=== PATIENT | female | born 1935 | race African-American/Black ===

== ENCOUNTER 2017-09-02 02:26 | Inpatient (IN) | payer OTHER ==
[~2017-09-02] VITALS: Ht 160 cm; Wt 90.9 kg
[2017-09-02] VITALS (9 sets, daily range): BP systolic 149–220; BP diastolic 70–105
[2017-09-02] MEDS ORDERED: LISINOPRIL-HCT1 EACH ORAL (02:41)
[2017-09-02] MEDS ORDERED: METFORMIN HCL500 M1 ORAL (02:41)
[2017-09-02] MEDS ORDERED: ASPIRIN EC81 MG ORAL (02:41)
[2017-09-02] MEDS ORDERED: Albuterol/Ipratropium 3ml neb HHN ONE (03:00)
--- NOTE | 2017-09-02 03:05 | Emergency Room Report ---
History of Present Illness General Chief Complaint: Dyspnea/Respdistress Source: Patient, EMS Present Illness HPI Is an 81-year-old female with a history diabetes high blood pressure. To present with shortness of breath and coughing. Onset for last 2-3 days. Worse tonight. She woke up said that she can't breathe and called 911. Coughing is nonproductive in nature. Worse with exertion. No chest pain. No nausea no vomiting. Denies any other complaint. Allergies: Coded Allergies: No Known Allergies (Unverified , 09/02/17) Patient History Past Medical History: see triage record, old chart reviewed Past Surgical History: none Pertinent Family History: none Social History: Denies: smoking Now: No Immunizations: other Reviewed Nursing Documentation: PMH: Agreed, PSxH: Agreed Nursing Documentation-PMH Hx Hypertension: Yes Hx Diabetes: Yes Review of Systems Constitutional: Reports: fever, weakness Eye: Denies: eye pain, blurred vision ENT: Denies: ear pain, nose congestion, throat swelling Respiratory: Reports: cough, shortness of breath Cardiovascular: Denies: chest pain, palpitations Gastrointestinal: Denies: abdominal pain, diarrhea, nausea, vomiting Musculoskeletal: Denies: back pain, joint pain Skin: Denies: rash Neurological: Denies: headache, numbness Endocrine: Denies: increased thirst, increased urine Hematologic/Lymphatic: Denies: easy bruising All Other Systems: negative except mentioned in HPI Physical Exam Vital Signs Date Time Temp Pulse Resp B/P (MAP) Pulse Ox O2 Delivery O2 Flow Rate FiO2 09/02/17 02:35 98.1 115 22 193/105 97 Room Air vitals with high blood pressure and tachycardia Sp02 EP Interpretation: reviewed, normal General Appearance: well appearing, alert, mild distress, obese Head: normocephalic, atraumatic Eyes: bilateral eye PERRL, bilateral eye EOMI ENT: hearing grossly normal, normal pharynx Neck: full range of motion, supple, no meningismus Respiratory: chest non-tender, decreased breath sounds, rhonchi Cardiovascular #1: regular rate, rhythm, no murmur, tachycardia Gastrointestinal: normal bowel sounds, non tender, no mass, no organomegaly, no bruit, non-distended Musculoskeletal: back normal, normal range of motion, swelling - 1+ pitting edema Neurologic: alert, oriented x3 Psychiatric: mood/affect normal Skin: warm/dry Procedures Critical Care Time Critical Care Time Critical care is mandated in this patient who presented with respiratory distress secondary to CHF. Patient require my urgent intervention to attenuate the risks of metabolic collapse which may lead to cardiovascular collapse and . Critical care time is 35 minutes excluding any reportable procedure. Critical care time included evaluation, multiple reevaluation, looking at old charts, interpreting laboratory and diagnostic data, discussing case with patient and family and consultants, and charting. Medical Decision Making Diagnostic Impression: Primary Impression: Respiratory distress Additional Impressions: Acute exacerbation of CHF (congestive heart failure) Qualified Codes: I50.9 - Heart failure, unspecified Proteinuria Qualified Codes: R80.9 - Proteinuria, unspecified Hyperglycemia due to type 2 diabetes mellitus Qualified Codes: E11.65 - Type 2 diabetes mellitus with hyperglycemia ER Course Patient presents with respiratory distress secondary to new-onset CHF. Presented troponin is negative. We'll DC oh EKG and troponins. No evidence of pneumonia, dissection or tamponade. She felt better after nebulizer treatment. Initially I was concerned that she may have pneumonia and started on a sepsis workup. She received about 500 cc of IV fluid the fluid was stopped. Lasix given. She refused a [place]. Laboratory Tests Test 09/02/17 02:40 09/02/17 02:45 09/02/17 03:30 White Blood Count 11.5 K/UL (4.8-10.8) H Red Blood Count 4.87 M/UL (4.20-5.40) Hemoglobin 14.6 G/DL (12.0-16.0) Hematocrit 46.5 % (37.0-47.0) Mean Corpuscular Volume 96 FL (80-99) Mean Corpuscular Hemoglobin 30.1 PG (27.0-31.0) Mean Corpuscular Hemoglobin Concent 31.5 G/DL (32.0-36.0) L Red Cell Distribution Width 12.7 % (11.6-14.8) Platelet Count 186 K/UL (150-450) Mean Platelet Volume 8.4 FL (6.5-10.1) Neutrophils (%) (Auto) 67.5 % (45.0-75.0) Lymphocytes (%) (Auto) 22.7 % (20.0-45.0) Monocytes (%) (Auto) 7.7 % (1.0-10.0) Eosinophils (%) (Auto) 1.0 % (0.0-3.0) Basophils (%) (Auto) 1.0 % (0.0-2.0) Prothrombin Time 10.3 SEC (9.30-11.50) Prothromb Time International Ratio 1.0 (0.9-1.1) Activated Partial Thromboplast Time 23 SEC (23-33) Sodium Level 135 MMOL/L (136-145) L Potassium Level 4.0 MMOL/L (3.5-5.1) Chloride Level 103 MMOL/L (98-107) Carbon Dioxide Level 24 MMOL/L (21-32) Anion Gap 8 mmol/L (5-15) Blood Urea Nitrogen 14 mg/dL (7-18) Creatinine 1.0 MG/DL (0.55-1.30) Estimat Glomerular Filtration Rate mL/min (>60) Glucose Level 242 MG/DL (74-106) H Lactic Acid Level 1.90 mmol/L (0.66-2.22) Calcium Level 9.5 MG/DL (8.5-10.1) Total Bilirubin 0.5 MG/DL (0.2-1.0) Aspartate Amino Transf (AST/SGOT) 20 U/L (15-37) Alanine Aminotransferase (ALT/SGPT) 19 U/L (12-78) Alkaline Phosphatase 107 U/L (46-116) Total Creatine Kinase 65 U/L (26-308) Creatine Kinase MB 3.1 NG/ML (0.0-3.6) Creatine Kinase MB Relative Index 4.7 Troponin I 0.015 ng/mL (0.000-0.056) Total Protein 8.0 G/DL (6.4-8.2) Albumin 3.5 G/DL (3.4-5.0) Globulin 4.5 g/dL Albumin/Globulin Ratio 0.8 (1.0-2.7) L Urine Color Pale yellow Urine Appearance Cloudy Urine pH 8 (4.5-8.0) Urine Specific [place] 1.010 (1.005-1.035) Urine Protein 1+ (NEGATIVE) H Urine Glucose (UA) 3+ (NEGATIVE) H Urine Ketones Negative (NEGATIVE) Urine Occult Blood 2+ (NEGATIVE) H Urine Nitrite Negative (NEGATIVE) Urine Bilirubin Negative (NEGATIVE) Urine Urobilinogen Normal MG/DL (0.0-1.0) Urine Leukocyte Esterase 1+ (NEGATIVE) H Urine RBC Pending Urine WBC Pending Urine Squamous Epithelial Cells Pending Urine Bacteria Pending Pro-B-Type Natriuretic Peptide 851 pg/mL (0-125) H Lab Results Impression labs with elevated BNP EKG Diagnostic Results Rate: tachycardiac Rhythm: NSR ST Segments: other - LBBB Rhythm Strip Diag. Results Rhythm Strip Time: 03:08 EP Interpretation: yes Rate: 105 Rhythm: NSR, no PVC's, no ectopy Chest X-Ray Diagnostic Results Chest X-Ray Diagnostic Results : Chest X-Ray Ordered: Yes # of Views/Limited/Complete: 1 View Indication: Shortness of Breath EP Interpretation: Yes Interpretation: no consolidation, no effusion, no pneumothorax, other - Mild vascular congestion Impression: Other - Early CHF Electronically Signed by: Electronically signed by Ramiro Cooney MD Last Vital Signs Date Time Temp Pulse Resp B/P (MAP) Pulse Ox O2 Delivery O2 Flow Rate FiO2 09/02/17 02:35 98.1 115 22 193/105 97 Room Air Status: improved Disposition: ADMITTED INPATIENT Condition: Serious Referrals: [facility],REFERRING (PCP) RAMIRO COONEY M.D. Sep 02, 2017 03:05
[2017-09-02 03:17] LABS: LYMPHOCYTES % (AUTO) 22.7 % (20.0-45.0); MEAN CORPUSCULAR HEMOGLOBIN 30.1 PG (27.0-31.0); MEAN CORPUSCULAR HGB CONC 31.5 G/DL (32.0-36.0); MEAN CORPUSCULAR VOLUME 96 FL (80-99); MEAN PLATELET VOLUME 8.4 FL (6.5-10.1); MONOCYTES % (AUTO) 7.7 % (1.0-10.0); NEUTROPHILS % (AUTO) 67.5 % (45.0-75.0); PLATELET COUNT 186 K/UL (150-450); RED BLOOD COUNT 4.87 M/UL (4.20-5.40); RED CELL DISTRIBUTION WIDTH 12.7 % (11.6-14.8); WHITE BLOOD COUNT 11.5 K/UL (4.8-10.8)
[2017-09-02 03:30] LABS: ANION GAP 8 mmol/L (5-15); CALCIUM 9.5 MG/DL (8.5-10.1); CARBON DIOXIDE 24 MMOL/L (21-32); CHLORIDE 103 MMOL/L (98-107); SODIUM 135 MMOL/L (136-145)
[2017-09-02 03:31] LABS: PROTHROMBIN TIME 10.3 SEC (9.30-11.50)
[2017-09-02 03:44] LABS: ALANINE AMINOTRANSFERASE 19 U/L (12-78); ALBUMIN/GLOBULIN RATIO 0.8 (1.0-2.7); ASPARTATE AMINO TRANSFERASE 20 U/L (15-37); CKMB 3.1 NG/ML (0.0-3.6)
[2017-09-02 03:53] LABS: APPEARANCE,URINE CLOUDY; KETONES,URINE NEGATIVE (NEGATIVE); LEUKOCYTE ESTERASE ,URINE 1+ (NEGATIVE); NITRITE,URINE NEGATIVE (NEGATIVE); PH,URINE 8 (4.5-8.0); PROTEIN,URINE 1+ (NEGATIVE); UROBILINOGEN,URINE NORMAL MG/DL (0.0-1.0)
[2017-09-02] MEDS ORDERED: Miralax 17gm pkt ORAL PRN (06:00)
[2017-09-02] MEDS ORDERED: Heparin 5000 units/ml inj SUBQ SCH ×2 (06:00→09:00)
[2017-09-02] MEDS ORDERED: Albuterol/Ipratropium 3ml neb HHN PRN (06:00)
[2017-09-02 06:03] LABS: AMORPHOUS SEDIMENT,UR MODERATE /LPF; BACTERIA,URINE MANY /HPF; SQUAMOUS EPITHELIAL CELL,UR FEW /LPF (NONE/OCC)
[2017-09-02] MEDS: NovoLOG Insulin Flexpen SUBQ SCH ×4 (06:30→21:51)
[2017-09-02] MEDS ORDERED: metFORMIN 500mg tab ORAL SCH (09:00)
[2017-09-02] MEDS: Aspirin EC 81mg tab ORAL SCH (09:24)
[2017-09-02 10:02] LABS: EOSINOPHILS % (AUTO) 0.6 % (0.0-3.0); LYMPHOCYTES % (AUTO) 15.4 % (20.0-45.0); MEAN CORPUSCULAR HEMOGLOBIN 29.9 PG (27.0-31.0); MEAN CORPUSCULAR HGB CONC 31.1 G/DL (32.0-36.0); MEAN CORPUSCULAR VOLUME 96 FL (80-99); MEAN PLATELET VOLUME 8.6 FL (6.5-10.1); PLATELET COUNT 185 K/UL (150-450); RED BLOOD COUNT 5.13 M/UL (4.20-5.40); RED CELL DISTRIBUTION WIDTH 12.6 % (11.6-14.8); WHITE BLOOD COUNT 9.3 K/UL (4.8-10.8)
[2017-09-02 10:21] LABS: ALANINE AMINOTRANSFERASE 18 U/L (12-78); ALBUMIN/GLOBULIN RATIO 0.8 (1.0-2.7); ANION GAP 10 mmol/L (5-15); ASPARTATE AMINO TRANSFERASE 20 U/L (15-37); CALCIUM 9.6 MG/DL (8.5-10.1); CARBON DIOXIDE 26 MMOL/L (21-32); CHLORIDE 101 MMOL/L (98-107); MAGNESIUM 1.9 MG/DL (1.8-2.4); POTASSIUM 3.6 MMOL/L (3.5-5.1); SODIUM 137 MMOL/L (136-145); TOTAL PROTEIN 8.6 G/DL (6.4-8.2)
--- NOTE | 2017-09-02 10:46 | Diagnostic Imaging Report ---
Indication: Dyspnea Comparison: None A single view chest radiograph was obtained. Findings: There is evidence of mild interstitial edema with reticular densities and slightly prominent vascularity and heart size. The bones are osteopenic. No pleural effusions are appreciated. Impression: Interstitial edema suspected
[2017-09-02] MEDS ORDERED: Tylenol #3 tab (300mg/30mg) ORAL PRN ×2 (11:00→11:15)
[2017-09-02] MEDS ORDERED: Norco 5mg/325mg tab ORAL PRN (11:00)
[2017-09-02] MEDS ORDERED: Ketorolac 60mg Inj IV PRN ×2 (11:00→11:30)
[2017-09-02] MEDS ORDERED: Tylenol #3 tab (300mg/30mg) PO PRN (11:00)
[2017-09-02] MEDS ORDERED: Morphine Sulfate 4mg/ml Inj IVP PRN (11:00)
--- NOTE | 2017-09-02 11:02 | Consultation ---
History of Present Illness General Date patient seen: Sep 02, 2017 Chief Complaint: Dyspnea/Respdistress Reason for Consultation: dyspnea Present Illness HPI 81-year-old female with a history of diabetes high blood pressure, presented to ER with CC of shortness of breath and coughing yellow phlegm for last 2-3 days. She woke up said that she can't breathe. No chest pain. No nausea no vomiting. Denies any other complaint. She was diagnosed with CHF and admitted to telemetry for further evaluation. Allergies: Coded Allergies: No Known Allergies (Unverified , 09/02/17) Medication History Scheduled Aspirin Ec* (Aspirin Ec*), 81 MG ORAL DAILY, (Reported) Lisinopril/Hydrochlorothiazide 10-12.5 Mg Tab (Lisinopril-Hctz 10-12.5 Mg Tab), 1 TAB ORAL DAILY, (Reported) Metformin Hcl* (Metformin Hcl*), 500 MG ORAL DAILY, (Reported) Patient History Healthcare decision maker Resuscitation status Advanced Directive on File Past Medical/Surgical History Past Medical/Surgical History: (1) Hypertension (2) Diabetes mellitus Review of Systems All Other Systems: negative except mentioned in HPI Physical Exam General Appearance: WD/WN Lines, tubes and drains: peripheral HEENT: normocephalic, atraumatic Neck: non-tender, normal alignment Respiratory/Chest: chest wall non-tender, lungs clear Breasts: no masses Cardiovascular/Chest: normal peripheral pulses Abdomen: normal bowel sounds, non tender Extremities: normal range of motion Last 24 Hour Vital Signs Date Time Temp Pulse Resp B/P (MAP) Pulse Ox O2 Delivery O2 Flow Rate FiO2 09/02/17 08:00 97.5 99 20 181/83 98 Room Air 09/02/17 06:28 98.2 99 20 165/87 96 Room Air 09/02/17 06:05 98.1 104 18 169/74 97 Room Air 97 09/02/17 05:53 98.1 104 18 169/74 97 Room Air 09/02/17 04:44 98.1 108 20 169/70 98 Room Air 09/02/17 03:44 98.1 104 18 220/84 98 Room Air 09/02/17 03:14 105 20 100 Room Air 09/02/17 03:01 111 20 Room Air 09/02/17 03:00 111 20 Room Air 09/02/17 02:44 115 22 Room Air 97 09/02/17 02:44 98.1 115 22 193/105 97 Room Air 09/02/17 02:35 98.1 115 22 193/105 97 Room Air Laboratory Tests Test 09/02/17 02:40 09/02/17 02:45 09/02/17 03:30 09/02/17 09:30 White Blood Count 11.5 K/UL (4.8-10.8) H 9.3 K/UL (4.8-10.8) Red Blood Count 4.87 M/UL (4.20-5.40) 5.13 M/UL (4.20-5.40) Hemoglobin 14.6 G/DL (12.0-16.0) 15.3 G/DL (12.0-16.0) Hematocrit 46.5 % (37.0-47.0) 49.2 % (37.0-47.0) H Mean Corpuscular Volume 96 FL (80-99) 96 FL (80-99) Mean Corpuscular Hemoglobin 30.1 PG (27.0-31.0) 29.9 PG (27.0-31.0) Mean Corpuscular Hemoglobin Concent 31.5 G/DL (32.0-36.0) L 31.1 G/DL (32.0-36.0) L Red Cell Distribution Width 12.7 % (11.6-14.8) 12.6 % (11.6-14.8) Platelet Count 186 K/UL (150-450) 185 K/UL (150-450) Mean Platelet Volume 8.4 FL (6.5-10.1) 8.6 FL (6.5-10.1) Neutrophils (%) (Auto) 67.5 % (45.0-75.0) 75.0 % (45.0-75.0) Lymphocytes (%) (Auto) 22.7 % (20.0-45.0) 15.4 % (20.0-45.0) L Monocytes (%) (Auto) 7.7 % (1.0-10.0) 8.0 % (1.0-10.0) Eosinophils (%) (Auto) 1.0 % (0.0-3.0) 0.6 % (0.0-3.0) Basophils (%) (Auto) 1.0 % (0.0-2.0) 1.0 % (0.0-2.0) Prothrombin Time 10.3 SEC (9.30-11.50) Prothromb Time International Ratio 1.0 (0.9-1.1) Activated Partial Thromboplast Time 23 SEC (23-33) Sodium Level 135 MMOL/L (136-145) L 137 MMOL/L (136-145) Potassium Level 4.0 MMOL/L (3.5-5.1) 3.6 MMOL/L (3.5-5.1) Chloride Level 103 MMOL/L (98-107) 101 MMOL/L (98-107) Carbon Dioxide Level 24 MMOL/L (21-32) 26 MMOL/L (21-32) Anion Gap 8 mmol/L (5-15) 10 mmol/L (5-15) Blood Urea Nitrogen 14 mg/dL (7-18) 15 mg/dL (7-18) Creatinine 1.0 MG/DL (0.55-1.30) 1.0 MG/DL (0.55-1.30) Estimat Glomerular Filtration Rate mL/min (>60) mL/min (>60) Glucose Level 242 MG/DL (74-106) H 210 MG/DL (74-106) H Lactic Acid Level 1.90 mmol/L (0.66-2.22) Calcium Level 9.5 MG/DL (8.5-10.1) 9.6 MG/DL (8.5-10.1) Total Bilirubin 0.5 MG/DL (0.2-1.0) 0.5 MG/DL (0.2-1.0) Aspartate Amino Transf (AST/SGOT) 20 U/L (15-37) 20 U/L (15-37) Alanine Aminotransferase (ALT/SGPT) 19 U/L (12-78) 18 U/L (12-78) Alkaline Phosphatase 107 U/L (46-116) 121 U/L (46-116) H Total Creatine Kinase 65 U/L (26-308) Creatine Kinase MB 3.1 NG/ML (0.0-3.6) Creatine Kinase MB Relative Index 4.7 Troponin I 0.015 ng/mL (0.000-0.056) 0.021 ng/mL (0.000-0.056) Total Protein 8.0 G/DL (6.4-8.2) 8.6 G/DL (6.4-8.2) H Albumin 3.5 G/DL (3.4-5.0) 3.8 G/DL (3.4-5.0) Globulin 4.5 g/dL 4.8 g/dL Albumin/Globulin Ratio 0.8 (1.0-2.7) L 0.8 (1.0-2.7) L Urine Color Pale yellow Urine Appearance Cloudy Urine pH 8 (4.5-8.0) Urine Specific [place] 1.010 (1.005-1.035) Urine Protein 1+ (NEGATIVE) H Urine Glucose (UA) 3+ (NEGATIVE) H Urine Ketones Negative (NEGATIVE) Urine Occult Blood 2+ (NEGATIVE) H Urine Nitrite Negative (NEGATIVE) Urine Bilirubin Negative (NEGATIVE) Urine Urobilinogen Normal MG/DL (0.0-1.0) Urine Leukocyte Esterase 1+ (NEGATIVE) H Urine RBC 5-10 /HPF (0 - 2) H Urine WBC 2-4 /HPF (0 - 2) Urine Squamous Epithelial Cells Few /LPF (NONE/OCC) Urine Amorphous Sediment Moderate /LPF (NONE) H Urine Bacteria Many /HPF (NONE) H Pro-B-Type Natriuretic Peptide 851 pg/mL (0-125) H Magnesium Level 1.9 MG/DL (1.8-2.4) Height (Feet): 5 Height (Inches): 3.00 Weight (Pounds): 200 Medications Current Medications Medications (Trade) Dose Ordered Sig/[place] Route PRN Reason Start Time Stop Time Status Last Admin Dose Admin Acetaminophen (Tylenol) 650 mg Q4H PRN ORAL Fever 09/02/17 06:00 10/02/17 05:59 Acetaminophen (Tylenol) 650 mg Q6HR PRN ORAL Fever/Headache/Mild Pain 09/02/17 05:30 10/02/17 05:29 Acetaminophen/ Codeine Phosphate (Tylenol #3) 2 tab EVERY 8 HOURS PRN PO 4-6 09/02/17 11:00 09/09/17 10:59 UNV Acetaminophen/ Hydrocodone Bitart ([place] 5/325) 1 tab EVERY 6 HOURS PRN ORAL 4-6 09/02/17 11:00 09/09/17 10:59 UNV Albuterol/ Ipratropium (Albuterol/ Ipratropium) 3 ml EVERY 4 HOURS PRN HHN Shortness of Breath 09/02/17 06:00 09/07/17 05:59 Aspirin (Ecotrin) 81 mg DAILY ORAL 09/02/17 09:00 10/02/17 08:59 09/02/17 09:24 Ceftriaxone Sodium 1 gm/ Dextrose 55 ml @ 110 mls/hr Q24H IVPB 09/02/17 11:00 09/09/17 10:59 UNV Dextrose (Dextrose 50%) STAT PRN IV Hypoglycemia 09/02/17 05:30 10/02/17 05:29 Furosemide (Lasix) 40 mg EVERY 8 HOURS IV 09/02/17 06:00 10/02/17 05:59 09/02/17 07:50 Heparin Sodium (Porcine) (Heparin 5000 units/ml) 5,000 units EVERY 12 HOURS SUBQ 09/02/17 09:00 10/02/17 08:59 09/02/17 09:26 Insulin Aspart (NovoLOG) BEFORE MEALS AND HS SUBQ 09/02/17 06:30 10/02/17 06:29 Ketorolac Tromethamine (Toradol) 30 mg EVERY 6 HOURS PRN IV 7-10 09/02/17 11:00 09/07/17 10:59 UNV Morphine Sulfate (Morphine Sulfate) 4 mg EVERY 4 HOURS PRN IVP 7-10 09/02/17 11:00 09/09/17 10:59 UNV Ondansetron HCl (Zofran) 4 mg Q4HR PRN IVP Nausea & Vomiting 09/02/17 05:30 10/02/17 05:29 Ondansetron HCl (Zofran) 4 mg Q6H PRN IVP Nausea & Vomiting 09/02/17 06:00 10/02/17 05:59 Polyethylene Glycol (Miralax) 17 gm DAILYPRN PRN ORAL Constipation 09/02/17 06:00 10/02/17 05:59 Temazepam (Restoril) 15 mg HSPRN PRN ORAL Insomnia 09/02/17 06:00 09/09/17 05:59 Assessment/Plan Problem List: (1) Acute exacerbation of CHF (congestive heart failure) ICD Codes: I50.9 - Heart failure, unspecified SNOMED: 91313045, [id number] Qualifiers: Qualified Codes: I50.9 - Heart failure, unspecified (2) Acute DVT (deep venous thrombosis) ICD Codes: I82.409 - Acute embolism and thrombosis of unspecified deep veins of unspecified lower extremity SNOMED: 819248414685002 (3) Hyperglycemia due to type 2 diabetes mellitus ICD Codes: E11.65 - Type 2 diabetes mellitus with hyperglycemia SNOMED: 183511651817202, 01370444 Qualifiers: Qualified Codes: E11.65 - Type 2 diabetes mellitus with hyperglycemia (4) Diabetes mellitus ICD Codes: E11.9 - Type 2 diabetes mellitus without complications SNOMED: 18565940 (5) Hypertension ICD Codes: I10 - Essential (primary) hypertension SNOMED: 57857596 Assessment/Plan IV lasix echo IV heparin titrate cardiac meds sliding scale diabetic diet. 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
[2017-09-02] MEDS ORDERED: Heparin 25,000u/D5W 500ml 500 ML IV SCH (11:25)
--- NOTE | 2017-09-02 11:57 | Consultation ---
Consult Note Consult Note ID DIC # [id number] HEENA VALDEZ M.D. Sep 02, 2017 11:56
[2017-09-02] MEDS ORDERED: Azithromycin 500 MG in D5W 275 ML IV SCH (13:00)
[2017-09-02] MEDS: Heparin 25,000u/D5W 500ml 500 ML IV SCH ×2 (13:53→18:52)
[2017-09-02] MEDS: cefTRIAXone 1 GM in D5W 55 ML IVPB SCH (14:06)
--- NOTE | 2017-09-02 14:46 | History & Physical ---
History and Physical History & Physicial job [id number] Freddie Simon MD Sep 02, 2017 14:45
--- NOTE | 2017-09-02 17:14 | Cardiology Progress Note ---
Assessment/Plan Assessment/Plan [id number] dyspnea cough acute dvt chf acute lv systolci disfucntion htn poorly controlled dm phtn dierutics arb for chf (avoiding acei as recently started adn she is coughing) repeat cardiac enzyme may need ischemia evla if systolic dysfunction is confirmed at some point echo to be confirmed anticoagulation ? need pe work up ? Objective Last 24 Hour Vital Signs Date Time Temp Pulse Resp B/P (MAP) Pulse Ox O2 Delivery O2 Flow Rate FiO2 09/02/17 12:00 97.0 97 22 167/86 99 Room Air 09/02/17 11:55 100 20 Room Air 09/02/17 08:00 97.5 99 20 181/83 98 Room Air 09/02/17 06:28 98.2 99 20 165/87 96 Room Air 09/02/17 06:05 98.1 104 18 169/74 97 Room Air 97 09/02/17 05:53 98.1 104 18 169/74 97 Room Air 09/02/17 04:44 98.1 108 20 169/70 98 Room Air 09/02/17 03:44 98.1 104 18 220/84 98 Room Air 09/02/17 03:14 105 20 100 Room Air 09/02/17 03:01 111 20 Room Air 09/02/17 03:00 111 20 Room Air 09/02/17 02:44 115 22 Room Air 97 09/02/17 02:44 98.1 115 22 193/105 97 Room Air 09/02/17 02:35 98.1 115 22 193/105 97 Room Air Laboratory Tests Test 09/02/17 02:40 09/02/17 02:45 09/02/17 03:30 09/02/17 09:30 White Blood Count 11.5 K/UL (4.8-10.8) H 9.3 K/UL (4.8-10.8) Red Blood Count 4.87 M/UL (4.20-5.40) 5.13 M/UL (4.20-5.40) Hemoglobin 14.6 G/DL (12.0-16.0) 15.3 G/DL (12.0-16.0) Hematocrit 46.5 % (37.0-47.0) 49.2 % (37.0-47.0) H Mean Corpuscular Volume 96 FL (80-99) 96 FL (80-99) Mean Corpuscular Hemoglobin 30.1 PG (27.0-31.0) 29.9 PG (27.0-31.0) Mean Corpuscular Hemoglobin Concent 31.5 G/DL (32.0-36.0) L 31.1 G/DL (32.0-36.0) L Red Cell Distribution Width 12.7 % (11.6-14.8) 12.6 % (11.6-14.8) Platelet Count 186 K/UL (150-450) 185 K/UL (150-450) Mean Platelet Volume 8.4 FL (6.5-10.1) 8.6 FL (6.5-10.1) Neutrophils (%) (Auto) 67.5 % (45.0-75.0) 75.0 % (45.0-75.0) Lymphocytes (%) (Auto) 22.7 % (20.0-45.0) 15.4 % (20.0-45.0) L Monocytes (%) (Auto) 7.7 % (1.0-10.0) 8.0 % (1.0-10.0) Eosinophils (%) (Auto) 1.0 % (0.0-3.0) 0.6 % (0.0-3.0) Basophils (%) (Auto) 1.0 % (0.0-2.0) 1.0 % (0.0-2.0) Prothrombin Time 10.3 SEC (9.30-11.50) Prothromb Time International Ratio 1.0 (0.9-1.1) Activated Partial Thromboplast Time 23 SEC (23-33) Sodium Level 135 MMOL/L (136-145) L 137 MMOL/L (136-145) Potassium Level 4.0 MMOL/L (3.5-5.1) 3.6 MMOL/L (3.5-5.1) Chloride Level 103 MMOL/L (98-107) 101 MMOL/L (98-107) Carbon Dioxide Level 24 MMOL/L (21-32) 26 MMOL/L (21-32) Anion Gap 8 mmol/L (5-15) 10 mmol/L (5-15) Blood Urea Nitrogen 14 mg/dL (7-18) 15 mg/dL (7-18) Creatinine 1.0 MG/DL (0.55-1.30) 1.0 MG/DL (0.55-1.30) Estimat Glomerular Filtration Rate mL/min (>60) mL/min (>60) Glucose Level 242 MG/DL (74-106) H 210 MG/DL (74-106) H Lactic Acid Level 1.90 mmol/L (0.66-2.22) Calcium Level 9.5 MG/DL (8.5-10.1) 9.6 MG/DL (8.5-10.1) Total Bilirubin 0.5 MG/DL (0.2-1.0) 0.5 MG/DL (0.2-1.0) Aspartate Amino Transf (AST/SGOT) 20 U/L (15-37) 20 U/L (15-37) Alanine Aminotransferase (ALT/SGPT) 19 U/L (12-78) 18 U/L (12-78) Alkaline Phosphatase 107 U/L (46-116) 121 U/L (46-116) H Total Creatine Kinase 65 U/L (26-308) Creatine Kinase MB 3.1 NG/ML (0.0-3.6) Creatine Kinase MB Relative Index 4.7 Troponin I 0.015 ng/mL (0.000-0.056) 0.021 ng/mL (0.000-0.056) Total Protein 8.0 G/DL (6.4-8.2) 8.6 G/DL (6.4-8.2) H Albumin 3.5 G/DL (3.4-5.0) 3.8 G/DL (3.4-5.0) Globulin 4.5 g/dL 4.8 g/dL Albumin/Globulin Ratio 0.8 (1.0-2.7) L 0.8 (1.0-2.7) L Urine Color Pale yellow Urine Appearance Cloudy Urine pH 8 (4.5-8.0) Urine Specific [place] 1.010 (1.005-1.035) Urine Protein 1+ (NEGATIVE) H Urine Glucose (UA) 3+ (NEGATIVE) H Urine Ketones Negative (NEGATIVE) Urine Occult Blood 2+ (NEGATIVE) H Urine Nitrite Negative (NEGATIVE) Urine Bilirubin Negative (NEGATIVE) Urine Urobilinogen Normal MG/DL (0.0-1.0) Urine Leukocyte Esterase 1+ (NEGATIVE) H Urine RBC 5-10 /HPF (0 - 2) H Urine WBC 2-4 /HPF (0 - 2) Urine Squamous Epithelial Cells Few /LPF (NONE/OCC) Urine Amorphous Sediment Moderate /LPF (NONE) H Urine Bacteria Many /HPF (NONE) H Pro-B-Type Natriuretic Peptide 851 pg/mL (0-125) H Magnesium Level 1.9 MG/DL (1.8-2.4) KARLIE MONET Sep 02, 2017 17:14
[2017-09-02] MEDS: Lisinopril 20mg tab ORAL SCH (17:31)
[2017-09-02] MEDS ORDERED: Heparin 5000 units/ml inj IV ONE (19:00)
--- NOTE | 2017-09-02 22:30 | Consultation ---
DATE OF CONSULTATION: INFECTIOUS DISEASES CONSULTATION CONSULTING PHYSICIAN: Luis Carlos Dang M.D. REASON FOR CONSULTATION: Evaluation of the patient for pneumonia and antibiotic management. HISTORY OF PRESENT ILLNESS: The patient is an 81-year-old female, who was brought to the hospital due to shortness of breath. The patient has also been complaining of cough for one week and fever prior to admission. Infectious Diseases consultation has been requested for further evaluation of the patient's antibiotic management. PAST MEDICAL HISTORY: 1. Hypertension. 2. Diabetes. ALLERGIES: No known drug allergies. MEDICATIONS: Intravenous Rocephin. SOCIAL HISTORY: Significant for the patient is an ex-smoker, history of 40 years smoking. FAMILY HISTORY: Significant for flu-like symptoms in son. PHYSICAL EXAMINATION: VITAL SIGNS: Temperature 97.5, blood pressure 181/83, pulse 99, and respiratory rate 18. HEENT: No pale conjunctivae. No icterus. NECK: No lymphadenopathy. CHEST: Clear. HEART: S1 and S2. ABDOMEN: Soft and nontender. EXTREMITIES: No cyanosis. NEUROLOGIC: Awake and alert. LABORATORY AND DIAGNOSTIC DATA: White blood cell count is 11.5. Today, white blood cells 11.3, hemoglobin 15, and platelets 185,000. UA is unremarkable. BUN 15 and creatinine 0.1. Liver function tests are unremarkable. Alkaline phosphatase 121. Chest x-ray, interstitial edema. Doppler, official report is pending, however, according to nurse, the patient has DVT. ASSESSMENT: 1. Pneumonia. 2. History of fever prior to admission. 3. Rule out influenza. 4. Lower extremity deep venous thrombosis. PLAN: 1. We will continue the patient on Rocephin IV and Zithromax day #10/28. 2. Monitor CBC. 3. Monitor BMP. 4. Monitor cultures (blood, urine, and sputum). 5. Rapid influenza test. 6. Intravenous heparin as per primary doctor. 7. Based on the patient's clinical course and labs, we will do further recommendation. Thank you, Dr. Borrego, for allowing me to participate in the care of this patient. I will follow the patient with you during this hospitalization. Luis Carlos Dang M.D. DR: TIMO JOB#: [id number] CC:
[2017-09-03] VITALS: BP 123/58
--- NOTE | 2017-09-03 01:30 | History and Physical Report ---
DATE OF ADMISSION: 09/02/2017 CHIEF COMPLAINT: Shortness of breath. HISTORY OF PRESENT ILLNESS: This is an 81-year-old female with a past medical history significant for diabetes type 2, hypertension, morbid obesity, who was presented to the emergency room complaining about shortness of breath over the past several days, progressively worsening over past 24 hours. The patient shortly after initial evaluation in the emergency room was noted to be in pulmonary edema, confirmed on chest x-ray and subsequently the patient was admitted to the hospital with acute CHF exacerbation. The patient denies any chest pain. Denies any shortness of breath. Complained of pedal edema. Positive shortness breath. Positive orthopnea. Positive pedal edema. Denies any nausea or vomiting. Denies any fever, chills, or flu-like symptoms. Shortly after initial evaluation, the patient was admitted to telemetry for further evaluation and workup. PAST MEDICAL HISTORY AND PAST SURGICAL HISTORY: As above. 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 MEDICATION: At home significant for aspirin, lisinopril, hydrochlorothiazide, and metformin. However, the patient is noncompliant with medication. ALLERGIES: No known drug allergies. SOCIAL HISTORY: The patient has a far history of smoking in teenager in 20s. Denies any alcohol or substance abuse. Lives with the family. Very supportive son and granddaughter are at bedside. FAMILY HISTORY: Noncontributory. REVIEW OF SYSTEMS: Mostly as above. Denies any dysuria, frequency, or hematochezia. Denies any hemoptysis or hematochezia. Complained of pedal edema. Complained about the lower extremity pain. Denies any loss of consciousness. Denies any fall, double vision. PHYSICAL EXAMINATION: VITAL SIGNS: On admission, temperature of 98.1 degrees, pulse of 115, respiration 22, blood pressure 192/105, repeat one is 165/87. GENERAL: The patient is awake, responsive, in no acute distress. HEAD AND NECK: Pupils are equal and reactive to light. Extraocular movements are intact. Neck was supple. Positive JVD. LUNGS: Good bilateral air entry. Positive crackles on the bases. HEART: S1 and S2. Distant heart sounds. Normal gallop. ABDOMEN: Soft and nontender. Morbidly obese. Midline surgical scar was noted from prior surgery. EXTREMITIES: No cyanosis, clubbing. +2 edema bilateral lower extremities and positive calf tenderness. NEUROLOGIC: Cranial nerves II through XII are grossly intact. Motor is 5/5 in all extremities. RECTAL: Refused and deferred. GENITOURINARY: Refused and deferred. LABORATORY AND DIAGNOSTIC DATA: Laboratory on admission, WBC of 11.5, hemoglobin of 14, hematocrit 46, and platelet is 186,000. The patient's sodium 135, potassium 4.0, chloride 103, bicarbonate 24, BUN 14, creatinine 1.0, glucose is 242, calcium is 9.5. AST of 20, ALT of 19, alkaline phosphatase 107. Albumin is 3.5. PT of 10, INR 1.0, PTT of 23. Urinalysis, glucose is 3+, ketone is negative, nitrite is negative, +1 leukocytes, many bacteria, moderate amorphous sedimentation. Chest x-ray was noted to be interstitial edema. ASSESSMENT: 1. Acute congestive heart failure exacerbation. 2. Morbid obesity. 3. Hypertension, uncontrolled. 4. Diabetes type 2. 5. Acute lower extremity deep venous thrombosis. PLAN: Admit the patient to telemetry. We will follow up laboratory. IV Lasix. A 2D echo. Heparin drip. Discussed with the family member extensively at bedside. We will follow up with the laboratory in the morning. Code Status is Full Code. Freddie Simon M.D. DR: Rc JOB#: [id number] CC:
--- NOTE | 2017-09-03 02:45 | Consultation ---
DATE OF CONSULTATION: 09/02/2017 REFERRING PHYSICIAN: Jared Borrego M.D. REASON FOR REFERRAL: Shortness of breath. HISTORY OF PRESENT ILLNESS: This is an elderly female who is admitted to the hospital because of increasing shortness of breath. She has had leg swelling for some time now, several months. She has seen her primary care physician as recently as this Tuesday and indicates she started having increasing shortness of breath. Really, no chest pain or pressure, and presented to the emergency room at [facility]. She does have difficulty sleeping because of the shortness of breath. She is not able to ambulate much because of various problems and she does not have any orthopnea. She does not have any heart pounding or palpitations. She is not really ambulatory to a significant degree. She did have a fall last week. PAST MEDICAL HISTORY: Negative for diabetes. Positive for high blood pressure. Negative for hyperlipidemia. No history of heart attack. 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 No hepatitis or tuberculosis. No asthma or emphysema. No ulcers. No kidney problems, liver problems, thyroid problems, anemia, or arthritis known. The patient's medications as noted by the paramedics include aspirin, lisinopril as well as metformin. Animal Pathology Teacher run sheet indicated that the patient was found short of breath, coughing, and congested. She has had a cough for the past three days. Congestion has progressed to shortness of breath primarily at night. She was recently found to have a diagnosis of diabetes and hypertension, was put on lisinopril, but is yet to take it according to the paramedics. EKG was performed and was negative for an acute NM and the patient was transferred to the emergency room here at [facility]. MEDICATIONS: She is not allergic to any medications. SOCIAL HISTORY: She used to smoke, but quit that many years ago. No alcoholic beverages. She lives at home. REVIEW OF SYSTEMS: GASTROINTESTINAL: Negative. GENITOURINARY: Negative. PULMONARY: Positive for cough and congestion. CONSTITUTIONAL: She may have some fevers. Her sputum was yellow in color according to her son. NEUROLOGIC: Negative. PHYSICAL EXAMINATION: GENERAL: Shows to be elderly female, in no respiratory distress. NECK: Supple. No jugular venous distention. LUNGS: Really appear to be clear to auscultation and percussion. There are no crackles. No wheezes noted. CARDIAC: Regular rate and rhythm. No heaves. No thrills. No gallops noted. ABDOMEN: Soft and nontender. Positive bowel sounds. EXTREMITIES: There is edema of the lower extremities, more so on the right than on the left, but not a significant amount of edema. NEUROLOGICAL: She is awake, alert, and responsive. LABORATORY AND DIAGNOSTIC DATA: White count of 9.3 down from 11.5, hemoglobin 15.3, and platelet count of 185,000. Sodium is 137, potassium 3.6, chloride 101, bicarbonate 26, BUN 15, creatinine 1.3 and glucose of 110. Alkaline phosphatase is 121 measured, but . Two sets of cardiac enzymes are negative at 0.015 and 0.021 and her INR is 1.0 and PTT of 23. Urinalysis show 5 to 10 RBC and 2 to 4 WBCs. Chest x-ray performed in the emergency room is interpreted as showing interstitial edema. Venous duplex shows acute thrombus in the right superficial femoral and popliteal veins being noted. A preliminary echocardiogram that is available in the chart indicates an ejection fraction of 40%, global hypokinesis, moderate tricuspid regurgitation, and pulmonary systolic pressure of 63. ASSESSMENT AND PLAN: 1. Shortness of breath. 2. Deep venous thrombosis, acute. 3. Probable component of heart failure, cannot exclude pulmonary embolism. 4. Pulmonary hypertension. 5. Global hypokinesis. 6. Diabetes mellitus. 7. Hypertension. PLAN: Dr. Borrego, this patient was seen in cardiac consultation. The patient has significant elevated blood pressure. The chest x-ray is being read as congestive heart failure. Her examination is not in terms of congestive heart failure. She is on anticoagulation for deep venous thrombosis where it should be helping even with the diagnosis of pulmonary embolism. However, she should be continued on diuretics for the time being. Blood pressure medication should be added, although she has been started on MARIANO inhibitors, not sure whether the coughing that she has was related to MARIANO inhibitors or not, better combination may be ARBs in light of the fact that she continues to have a cough at this time. Amlodipine should be added if needed for blood pressure control. Serial enzymes and EKGs will be ordered, and other medications and/or possibly even a stress test to be ordered in the future if LV systolic dysfunction is confirmed. Vincenzo Tejeda M.D. DR: LISS JOB#: [id number] CC:
[2017-09-03] MEDS: Heparin 25,000u/D5W 500ml 500 ML IV SCH ×2 (03:20→20:34)
--- NOTE | 2017-09-03 03:30 | Consultation ---
DATE OF CONSULTATION: 09/02/2017 HEMATOLOGY/ONCOLOGY CONSULTATION CONSULTING PHYSICIAN: Jamal Coffman M.D. REQUESTING PHYSICIAN: Jared Borrego M.D. REASON FOR CONSULTATION: Evaluation of DVT. IDENTIFICATION DATA: Dear Dr. Borrego, The patient is a pleasant 81-year-old female with past medical history significant for hypertension and diabetes mellitus, at this time presents to the hospital with shortness of breath to the ER with cough and sputum for the last two to three days. She woke up and has been having difficulty breathing. No chest pain. No fevers. No chills. No nausea. She was diagnosed with CHF, admitted to the telemetry for further evaluation and treatment. Hematology service was consulted. The patient was diagnosed with DVT of right leg . PAST MEDICAL HISTORY: Hypertension and diabetes mellitus. PAST SURGICAL HISTORY: None noted. MEDICATIONS: Aspirin, lisinopril, hydrochlorothiazide, and metformin. REVIEW OF SYSTEMS: CONSTITUTIONAL: No fevers, chills, or night sweats. SKIN: No rashes, bumps, or itching. HEENT: No headache, hearing or vision changes. BREASTS: No lumps, pain, or discharge. PULMONARY: No cough, sputum, or shortness of breath. GASTROINTESTINAL: No nausea, vomiting, or diarrhea. GENITOURINARY: No dysuria, frequency, or urgency. MUSCULOSKELETAL: No joint swelling, muscle pain, or trauma. PHYSICAL EXAMINATION: GENERAL: No acute distress. VITAL SIGNS: Reviewed. PULMONARY: Decreased breath sounds. CARDIOVASCULAR: Regular rate. No S3 or S4. ABDOMEN: Soft, nontender, and nondistended. EXTREMITIES: A 1+ edema. LABORATORY DATA: WBC 9.3, hemoglobin 15.3, hematocrit 49, and platelet count 185,000. INR of 1. BUN of 15, creatinine 1. ASSESSMENT AND PLAN: 1. Anemia, secondary to chronic disease. Continue to closely monitor. 2. Deep venous thrombosis of the right lower extremity. We will begin the patient on heparin drip as well as Xarelto, continue for a total of three months. 3. Leukocytosis, likely secondary to reactive process. 4. Hypertension, currently better controlled on lisinopril. 5. Diabetes mellitus, on metformin. Continue to closely monitor. 6. Congestive heart failure, on IV Lasix. I appreciate the consultation. Jamal Coffman M.D. DR: Erlinda JOB#: [id number] CC:
[2017-09-03 04:00] VITALS: BP 120/60
[2017-09-03] MEDS: NovoLOG Insulin Flexpen SUBQ SCH ×4 (06:07→20:35)
--- NOTE | 2017-09-03 07:20 | Pulmonology Progress Note ---
Assessment/Plan Problems: (1) Acute exacerbation of CHF (congestive heart failure) (2) Acute DVT (deep venous thrombosis) (3) UTI (urinary tract infection) (4) Hypertension (5) Diabetes mellitus (6) Hyperglycemia due to type 2 diabetes mellitus Assessment/Plan heparin drip on abx for UTI echo noted, EF of 40% check cxr and bnp in am decrease frequency of lasix keep in teli b/o heparin drip Subjective ROS Limited/Unobtainable: No Constitutional: Reports: no symptoms HEENT: Repors: no symptoms Respiratory: Reports: no symptoms Allergies: Coded Allergies: No Known Allergies (Unverified , 09/02/17) Objective Last 24 Hour Vital Signs Date Time Temp Pulse Resp B/P (MAP) Pulse Ox O2 Delivery O2 Flow Rate FiO2 09/03/17 05:06 97.1 09/03/17 04:00 90 09/03/17 04:00 97.1 65 20 120/60 98 Room Air 09/03/17 00:00 89 09/03/17 00:00 97.0 93 20 123/58 96 Room Air 09/02/17 21:00 91 09/02/17 21:00 96.4 97 20 154/80 95 Room Air 09/02/17 18:37 97.0 09/02/17 17:31 167/86 09/02/17 16:00 103 09/02/17 16:00 97.5 108 20 149/80 97 Room Air 09/02/17 12:00 97.0 97 22 167/86 99 Room Air 09/02/17 12:00 104 09/02/17 11:55 100 20 Room Air 09/02/17 08:00 97.5 99 20 181/83 98 Room Air 09/02/17 08:00 108 General Appearance: WD/WN HEENT: normocephalic, atraumatic Respiratory/Chest: chest wall non-tender, lungs clear Breasts: no masses Cardiovascular: normal peripheral pulses Abdomen: soft, non tender Genitourinary: normal external genitalia Skin: no rash Microbiology Date/Time Source Procedure Growth Status 09/02/17 02:40 Blood Blood Culture - Preliminary NO GROWTH AFTER 24 HOURS Resulted 09/02/17 02:20 Blood Blood Culture - Preliminary NO GROWTH AFTER 24 HOURS Resulted Laboratory Tests 09/02/17 09:30: White Blood Count 9.3, Red Blood Count 5.13, Hemoglobin 15.3, Hematocrit 49.2H, Mean Corpuscular Volume 96, Mean Corpuscular Hemoglobin 29.9, Mean Corpuscular Hemoglobin Concent 31.1L, Red Cell Distribution Width 12.6, Platelet Count 185, Mean Platelet Volume 8.6, Neutrophils (%) (Auto) 75.0, Lymphocytes (%) (Auto) 15.4L, Monocytes (%) (Auto) 8.0, Eosinophils (%) (Auto) 0.6, Basophils (%) (Auto ) 1.0, Sodium Level 137, Potassium Level 3.6, Chloride Level 101, Carbon Dioxide Level 26, Anion Gap 10, Blood Urea Nitrogen 15, Creatinine 1.0, Estimat Glomerular Filtration Rate , Glucose Level 210H, Calcium Level 9.6, Magnesium Level 1.9, Total Bilirubin 0.5, Aspartate Amino Transf (AST/SGOT) 20, Alanine Aminotransferase (ALT/SGPT) 18, Alkaline Phosphatase 121H, Troponin I 0.021, Total Protein 8.6H, Albumin 3.8, Globulin 4.8, Albumin/Globulin Ratio 0.8L 09/02/17 17:55: Activated Partial Thromboplast Time 64H 09/03/17 00:40: Activated Partial Thromboplast Time > 150*H Current Medications Medications (Trade) Dose Ordered Sig/Obinna Route PRN Reason Start Time Stop Time Status Last Admin Dose Admin Acetaminophen (Tylenol) 650 mg Q4H PRN ORAL Fever 09/02/17 06:00 10/02/17 05:59 Acetaminophen (Tylenol) 650 mg Q6HR PRN ORAL Fever/Headache/Mild Pain 09/02/17 05:30 10/02/17 05:29 09/02/17 17:38 Acetaminophen/ Codeine Phosphate (Tylenol #3) 1 tab Q4H PRN ORAL Pain Scale (7-10) 09/02/17 11:15 09/09/17 10:59 Acetaminophen/ Codeine Phosphate (Tylenol #3) 2 tab EVERY 8 HOURS PRN PO 4-6 09/02/17 11:00 09/09/17 10:59 09/03/17 04:07 Acetaminophen/ Hydrocodone Bitart ([place] 5/325) 1 tab EVERY 6 HOURS PRN ORAL 4-6 09/02/17 11:00 09/09/17 10:59 Albuterol/ Ipratropium (Albuterol/ Ipratropium) 3 ml EVERY 4 HOURS PRN HHN Shortness of Breath 09/02/17 06:00 09/07/17 05:59 Amlodipine Besylate (Norvasc) 2.5 mg DAILY ORAL 09/03/17 09:00 10/03/17 08:59 Aspirin (Ecotrin) 81 mg DAILY ORAL 09/02/17 09:00 10/02/17 08:59 09/02/17 09:24 Azithromycin 500 mg/Dextrose 275 ml @ 275 mls/hr Q24HRS IV 09/02/17 13:00 09/08/17 13:59 09/02/17 15:59 Ceftriaxone Sodium 1 gm/ Dextrose 55 ml @ 110 mls/hr Q24H IVPB 09/02/17 12:00 09/09/17 11:59 09/02/17 14:06 Dextrose (Dextrose 50%) STAT PRN IV Hypoglycemia 09/02/17 05:30 10/02/17 05:29 Furosemide (Lasix) 40 mg EVERY 8 HOURS IV 09/02/17 06:00 10/02/17 05:59 09/03/17 06:02 Heparin Sodium/ Dextrose 500 ml @ 28.291 mls/ hr adjust per protocol IV 09/03/17 03:15 10/02/17 12:09 09/03/17 03:20 Insulin Aspart (NovoLOG) BEFORE MEALS AND HS SUBQ 09/02/17 06:30 10/02/17 06:29 09/03/17 06:07 Ketorolac Tromethamine (Toradol) 30 mg Q6H PRN IV pain 7-10 09/02/17 11:30 09/07/17 10:59 Lisinopril (Prinivil) 20 mg DAILY ORAL 09/02/17 18:00 10/02/17 17:59 09/02/17 17:31 Morphine Sulfate (Morphine Sulfate) 4 mg EVERY 4 HOURS PRN IVP 7-10 09/02/17 11:00 09/09/17 10:59 Ondansetron HCl (Zofran) 4 mg Q6H PRN IVP Nausea & Vomiting 09/02/17 06:00 10/02/17 05:59 Polyethylene Glycol (Miralax) 17 gm DAILYPRN PRN ORAL Constipation 09/02/17 06:00 10/02/17 05:59 Temazepam (Restoril) 15 mg HSPRN PRN ORAL Insomnia 09/02/17 06:00 09/09/17 05:59 PANFILO SOTO Sep 03, 2017 07:20
[2017-09-03 07:58] LABS: BASOPHILS % (AUTO) 0.7 % (0.0-2.0); EOSINOPHILS % (AUTO) 1.6 % (0.0-3.0); LYMPHOCYTES % (AUTO) 32.5 % (20.0-45.0); MEAN CORPUSCULAR HEMOGLOBIN 32.4 PG (27.0-31.0); MEAN CORPUSCULAR HGB CONC 34.3 G/DL (32.0-36.0); MEAN CORPUSCULAR VOLUME 94 FL (80-99); MEAN PLATELET VOLUME 9.1 FL (6.5-10.1); MONOCYTES % (AUTO) 7.9 % (1.0-10.0); NEUTROPHILS % (AUTO) 57.4 % (45.0-75.0); PLATELET COUNT 216 K/UL (150-450); RED BLOOD COUNT 4.44 M/UL (4.20-5.40); RED CELL DISTRIBUTION WIDTH 12.9 % (11.6-14.8); WHITE BLOOD COUNT 9.7 K/UL (4.8-10.8)
[2017-09-03 08:00] VITALS: BP 101/54
[2017-09-03 08:53] LABS: ALANINE AMINOTRANSFERASE 15 U/L (12-78); CHLORIDE 100 MMOL/L (98-107); POTASSIUM 3.3 MMOL/L (3.5-5.1)
[2017-09-03] MEDS: Lisinopril 20mg tab ORAL SCH (09:00)
[2017-09-03 09:05] LABS: ALBUMIN/GLOBULIN RATIO 0.7 (1.0-2.7); ANION GAP 14 mmol/L (5-15); ASPARTATE AMINO TRANSFERASE 24 U/L (15-37); CALCIUM 9.1 MG/DL (8.5-10.1); CARBON DIOXIDE 24 MMOL/L (21-32); CREATININE 1.7 MG/DL (0.55-1.30); SODIUM 137 MMOL/L (136-145); TOTAL PROTEIN 7.1 G/DL (6.4-8.2)
--- NOTE | 2017-09-03 09:49 | Infectious Diseases Prog Note ---
Assessment/Plan Assessment/Plan ASSESSMENT: 1. Pneumonia. 2. History of fever prior to admission. 3. Rule out influenza. 4. Lower extremity deep venous thrombosis. 5. Leukocytosis- resolved PLAN: 1. We will continue the patient on Rocephin IV and Zithromax (but switch to PO ) day #2/ -EKG to monitor qtc 2. Monitor CBC. 3. Monitor BMP. 4. Monitor cultures (blood, urine, and sputum). 5. Rapid influenza test. 6. Intravenous heparin as per primary doctor. 7. Based on the patient's clinical course and labs, we will do further recommendation. Thank you, Dr. Borrego, for allowing me to participate in the care of this patient. I will follow the patient with you during this hospitalization. Subjective Allergies: Coded Allergies: No Known Allergies (Unverified , 09/02/17) Subjective afebrile tmin 96.4 leukocytosis resolved Bcx NTD Objective Vital Signs Last 24 Hour Vital Signs Date Time Temp Pulse Resp B/P (MAP) Pulse Ox O2 Delivery O2 Flow Rate FiO2 09/03/17 08:00 97.6 79 21 101/54 98 Room Air 09/03/17 07:00 95 20 Room Air 09/03/17 05:06 97.1 09/03/17 04:00 90 09/03/17 04:00 97.1 65 20 120/60 98 Room Air 09/03/17 00:00 89 09/03/17 00:00 97.0 93 20 123/58 96 Room Air 09/02/17 21:00 91 09/02/17 21:00 96.4 97 20 154/80 95 Room Air 09/02/17 18:37 97.0 09/02/17 17:31 167/86 09/02/17 16:00 103 09/02/17 16:00 97.5 108 20 149/80 97 Room Air 09/02/17 12:00 97.0 97 22 167/86 99 Room Air 09/02/17 12:00 104 09/02/17 11:55 100 20 Room Air Height (Feet): 5 Height (Inches): 3.00 Weight (Pounds): 200 Objective HEENT: No pale conjunctivae. No icterus. NECK: No lymphadenopathy. CHEST: Clear. HEART: S1 and S2. ABDOMEN: Soft and nontender. EXTREMITIES: No cyanosis. NEUROLOGIC: Awake and alert. Microbiology Date/Time Source Procedure Growth Status 09/02/17 02:40 Blood Blood Culture - Preliminary NO GROWTH AFTER 24 HOURS Resulted 09/02/17 02:20 Blood Blood Culture - Preliminary NO GROWTH AFTER 24 HOURS Resulted Laboratory Tests Test 09/02/17 17:55 09/03/17 00:40 09/03/17 06:30 Activated Partial Thromboplast Time 64 SEC (23-33) H > 150 SEC (23-33) *H White Blood Count 9.7 K/UL (4.8-10.8) Red Blood Count 4.44 M/UL (4.20-5.40) Hemoglobin 14.4 G/DL (12.0-16.0) Hematocrit 42.0 % (37.0-47.0) Mean Corpuscular Volume 94 FL (80-99) Mean Corpuscular Hemoglobin 32.4 PG (27.0-31.0) H Mean Corpuscular Hemoglobin Concent 34.3 G/DL (32.0-36.0) Red Cell Distribution Width 12.9 % (11.6-14.8) Platelet Count 216 K/UL (150-450) Mean Platelet Volume 9.1 FL (6.5-10.1) Neutrophils (%) (Auto) 57.4 % (45.0-75.0) Lymphocytes (%) (Auto) 32.5 % (20.0-45.0) Monocytes (%) (Auto) 7.9 % (1.0-10.0) Eosinophils (%) (Auto) 1.6 % (0.0-3.0) Basophils (%) (Auto) 0.7 % (0.0-2.0) Sodium Level 137 MMOL/L (136-145) Potassium Level 3.3 MMOL/L (3.5-5.1) L Chloride Level 100 MMOL/L (98-107) Carbon Dioxide Level 24 MMOL/L (21-32) Anion Gap 14 mmol/L (5-15) Blood Urea Nitrogen 27 mg/dL (7-18) H Creatinine 1.7 MG/DL (0.55-1.30) #H Estimat Glomerular Filtration Rate mL/min (>60) Glucose Level 160 MG/DL (74-106) H Calcium Level 9.1 MG/DL (8.5-10.1) Total Bilirubin 0.4 MG/DL (0.2-1.0) Aspartate Amino Transf (AST/SGOT) 24 U/L (15-37) Alanine Aminotransferase (ALT/SGPT) 15 U/L (12-78) Alkaline Phosphatase 82 U/L (46-116) Troponin I 0.029 ng/mL (0.000-0.056) Pro-B-Type Natriuretic Peptide Pending Total Protein 7.1 G/DL (6.4-8.2) Albumin 3.0 G/DL (3.4-5.0) L Globulin 4.1 g/dL Albumin/Globulin Ratio 0.7 (1.0-2.7) L Current Medications Medications (Trade) Dose Ordered Sig/Obinna Route PRN Reason Start Time Stop Time Status Last Admin Dose Admin Acetaminophen (Tylenol) 650 mg Q4H PRN ORAL Fever 09/02/17 06:00 10/02/17 05:59 Acetaminophen (Tylenol) 650 mg Q6HR PRN ORAL Fever/Headache/Mild Pain 09/02/17 05:30 10/02/17 05:29 09/02/17 17:38 Acetaminophen/ Codeine Phosphate (Tylenol #3) 1 tab Q4H PRN ORAL Pain Scale (7-10) 09/02/17 11:15 09/09/17 10:59 Acetaminophen/ Codeine Phosphate (Tylenol #3) 2 tab EVERY 8 HOURS PRN PO 4-6 09/02/17 11:00 09/09/17 10:59 09/03/17 04:07 Acetaminophen/ Hydrocodone Bitart ([place] 5/325) 1 tab EVERY 6 HOURS PRN ORAL 4-6 09/02/17 11:00 09/09/17 10:59 Albuterol/ Ipratropium (Albuterol/ Ipratropium) 3 ml EVERY 4 HOURS PRN HHN Shortness of Breath 09/02/17 06:00 09/07/17 05:59 Amlodipine Besylate (Norvasc) 2.5 mg DAILY ORAL 09/03/17 09:00 10/03/17 08:59 Aspirin (Ecotrin) 81 mg DAILY ORAL 09/02/17 09:00 10/02/17 08:59 09/02/17 09:24 Azithromycin 500 mg/Dextrose 275 ml @ 275 mls/hr Q24HRS IV 09/02/17 13:00 09/08/17 13:59 09/02/17 15:59 Ceftriaxone Sodium 1 gm/ Dextrose 55 ml @ 110 mls/hr Q24H IVPB 09/02/17 12:00 09/09/17 11:59 09/02/17 14:06 Dextrose (Dextrose 50%) STAT PRN IV Hypoglycemia 09/02/17 05:30 10/02/17 05:29 Furosemide (Lasix) 40 mg EVERY 8 HOURS IV 09/02/17 06:00 10/02/17 05:59 09/03/17 06:02 Heparin Sodium/ Dextrose 500 ml @ 28.291 mls/ hr adjust per protocol IV 09/03/17 03:15 10/02/17 12:09 09/03/17 03:20 Insulin Aspart (NovoLOG) BEFORE MEALS AND HS SUBQ 09/02/17 06:30 10/02/17 06:29 09/03/17 06:07 Ketorolac Tromethamine (Toradol) 30 mg Q6H PRN IV pain 7-10 09/02/17 11:30 09/07/17 10:59 Lisinopril (Prinivil) 20 mg DAILY ORAL 09/02/17 18:00 10/02/17 17:59 09/02/17 17:31 Morphine Sulfate (Morphine Sulfate) 4 mg EVERY 4 HOURS PRN IVP 7-10 09/02/17 11:00 09/09/17 10:59 Ondansetron HCl (Zofran) 4 mg Q6H PRN IVP Nausea & Vomiting 09/02/17 06:00 10/02/17 05:59 Polyethylene Glycol (Miralax) 17 gm DAILYPRN PRN ORAL Constipation 09/02/17 06:00 10/02/17 05:59 Temazepam (Restoril) 15 mg HSPRN PRN ORAL Insomnia 09/02/17 06:00 09/09/17 05:59 Soledad Carvajal M.D. Sep 03, 2017 09:49
[2017-09-03] MEDS: Aspirin EC 81mg tab ORAL SCH (10:02)
--- NOTE | 2017-09-03 10:05 | Diagnostic Imaging Report ---
Indication: Shortness of breath Comparison: 09/02/2013 Findings: Single view of the chest shows normal cardiac size. Please see noted mild interstitial edema appears improved. Pulmonary vasculature is within normal limits. Lungs are clear. Bones are unremarkable. Impression: No definite acute chest disease. Previously noted mild interstitial edema appears improved.
[2017-09-03] MEDS: cefTRIAXone 1 GM in D5W 55 ML IVPB SCH (11:51)
[2017-09-03 12:00] VITALS: BP 118/54
--- NOTE | 2017-09-03 12:42 | Internal Med Progress Note ---
Subjective Date of Service: Sep 03, 2017 Physician Name Christoph Olivares Attending Physician Freddie Simon MD Current Medications Medications (Trade) Dose Ordered Sig/[place] Route PRN Reason Start Time Stop Time Status Last Admin Dose Admin Acetaminophen (Tylenol) 650 mg Q4H PRN ORAL Fever 09/02/17 06:00 10/02/17 05:59 Acetaminophen (Tylenol) 650 mg Q6HR PRN ORAL Fever/Headache/Mild Pain 09/02/17 05:30 10/02/17 05:29 09/02/17 17:38 Acetaminophen/ Codeine Phosphate (Tylenol #3) 1 tab Q4H PRN ORAL Pain Scale (7-10) 09/02/17 11:15 09/09/17 10:59 Acetaminophen/ Codeine Phosphate (Tylenol #3) 2 tab EVERY 8 HOURS PRN PO 4-6 09/02/17 11:00 09/09/17 10:59 09/03/17 04:07 Acetaminophen/ Hydrocodone Bitart ([place] 5/325) 1 tab EVERY 6 HOURS PRN ORAL 4-6 09/02/17 11:00 09/09/17 10:59 Albuterol/ Ipratropium (Albuterol/ Ipratropium) 3 ml EVERY 4 HOURS PRN HHN Shortness of Breath 09/02/17 06:00 09/07/17 05:59 Amlodipine Besylate (Norvasc) 2.5 mg DAILY ORAL 09/03/17 09:00 10/03/17 08:59 Aspirin (Ecotrin) 81 mg DAILY ORAL 09/02/17 09:00 10/02/17 08:59 09/03/17 10:02 Azithromycin (Zithromax) 500 mg DAILY ORAL 09/04/17 16:00 09/11/17 15:59 Ceftriaxone Sodium 1 gm/ Dextrose 55 ml @ 110 mls/hr Q24H IVPB 09/02/17 12:00 09/09/17 11:59 09/03/17 11:51 Dextrose (Dextrose 50%) STAT PRN IV Hypoglycemia 09/02/17 05:30 10/02/17 05:29 Furosemide (Lasix) 40 mg EVERY 8 HOURS IV 09/02/17 06:00 10/02/17 05:59 09/03/17 06:02 Heparin Sodium/ Dextrose 500 ml @ 28.291 mls/ hr adjust per protocol IV 09/03/17 03:15 10/02/17 12:09 09/03/17 03:20 Insulin Aspart (NovoLOG) BEFORE MEALS AND HS SUBQ 09/02/17 06:30 10/02/17 06:29 09/03/17 12:11 Ketorolac Tromethamine (Toradol) 30 mg Q6H PRN IV pain 7-10 09/02/17 11:30 09/07/17 10:59 Lisinopril (Prinivil) 20 mg DAILY ORAL 09/02/17 18:00 10/02/17 17:59 09/02/17 17:31 Morphine Sulfate (Morphine Sulfate) 4 mg EVERY 4 HOURS PRN IVP 7-10 09/02/17 11:00 09/09/17 10:59 Ondansetron HCl (Zofran) 4 mg Q6H PRN IVP Nausea & Vomiting 09/02/17 06:00 10/02/17 05:59 Polyethylene Glycol (Miralax) 17 gm DAILYPRN PRN ORAL Constipation 09/02/17 06:00 10/02/17 05:59 Temazepam (Restoril) 15 mg HSPRN PRN ORAL Insomnia 09/02/17 06:00 09/09/17 05:59 Allergies: Coded Allergies: No Known Allergies (Unverified , 09/02/17) ROS Limited/Unobtainable: No Constitutional: Reports: no symptoms HEENT: Reports: no symptoms Cardiovascular: Reports: no symptoms Respiratory: Reports: shortness of breath Gastrointestinal/Abdominal: Reports: no symptoms Genitourinary: Reports: no symptoms Neurologic/Psychiatric: Reports: no symptoms Subjective 81 YO F admitted with shortness of breath and congestive heart failure. Cover for Int Mak-Dr Simon Objective Last Vital Signs Date Time Temp Pulse Resp B/P (MAP) Pulse Ox O2 Delivery O2 Flow Rate FiO2 09/03/17 09:00 80 100/63 09/03/17 08:00 97.6 21 98 Room Air 09/02/17 06:05 97 General Appearance: WD/WN, obese EENT: PERRL/EOMI, normal ENT inspection Neck: non-tender, normal alignment, supple Cardiovascular: normal peripheral pulses, normal rate, regular rhythm, no gallop/murmur, no JVD Respiratory/Chest: chest wall non-tender, respiratory distress, crackles/rales , rhonchi - bilaterally, expiratory wheezing Abdomen: normal bowel sounds, non tender, soft, no organomegaly Extremities: normal range of motion Edema: mild edema 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, no motor/sensory deficits Skin: normal pigmentation, warm/dry Laboratory Tests Test 09/02/17 17:55 09/03/17 00:40 09/03/17 06:30 09/03/17 09:30 Activated Partial Thromboplast Time 64 SEC (23-33) H > 150 SEC (23-33) *H 88 SEC (23-33) H White Blood Count 9.7 K/UL (4.8-10.8) Red Blood Count 4.44 M/UL (4.20-5.40) Hemoglobin 14.4 G/DL (12.0-16.0) Hematocrit 42.0 % (37.0-47.0) Mean Corpuscular Volume 94 FL (80-99) Mean Corpuscular Hemoglobin 32.4 PG (27.0-31.0) H Mean Corpuscular Hemoglobin Concent 34.3 G/DL (32.0-36.0) Red Cell Distribution Width 12.9 % (11.6-14.8) Platelet Count 216 K/UL (150-450) Mean Platelet Volume 9.1 FL (6.5-10.1) Neutrophils (%) (Auto) 57.4 % (45.0-75.0) Lymphocytes (%) (Auto) 32.5 % (20.0-45.0) Monocytes (%) (Auto) 7.9 % (1.0-10.0) Eosinophils (%) (Auto) 1.6 % (0.0-3.0) Basophils (%) (Auto) 0.7 % (0.0-2.0) Sodium Level 137 MMOL/L (136-145) Potassium Level 3.3 MMOL/L (3.5-5.1) L Chloride Level 100 MMOL/L (98-107) Carbon Dioxide Level 24 MMOL/L (21-32) Anion Gap 14 mmol/L (5-15) Blood Urea Nitrogen 27 mg/dL (7-18) H Creatinine 1.7 MG/DL (0.55-1.30) #H Estimat Glomerular Filtration Rate mL/min (>60) Glucose Level 160 MG/DL (74-106) H Calcium Level 9.1 MG/DL (8.5-10.1) Total Bilirubin 0.4 MG/DL (0.2-1.0) Aspartate Amino Transf (AST/SGOT) 24 U/L (15-37) Alanine Aminotransferase (ALT/SGPT) 15 U/L (12-78) Alkaline Phosphatase 82 U/L (46-116) Troponin I 0.029 ng/mL (0.000-0.056) Pro-B-Type Natriuretic Peptide 991 pg/mL (0-125) H Total Protein 7.1 G/DL (6.4-8.2) Albumin 3.0 G/DL (3.4-5.0) L Globulin 4.1 g/dL Albumin/Globulin Ratio 0.7 (1.0-2.7) L Microbiology Date/Time Source Procedure Growth Status 09/02/17 02:40 Blood Blood Culture - Preliminary NO GROWTH AFTER 24 HOURS Resulted 09/02/17 02:20 Blood Blood Culture - Preliminary NO GROWTH AFTER 24 HOURS Resulted 09/02/17 02:45 Urine,Clean Catch Urine Culture - Preliminary Gram Negative Bacillus 1 Gram Negative Bacillus 2 Resulted Intake and Output 09/03/17 09/04/17 19:00 07:00 Intake Total 113.164 ml Balance 113.164 ml IV Total 113.164 ml Assessment/Plan Problem List: (1) Shortness of breath Assessment & Plan: Due to CHF (2) Diabetes mellitus, type II Assessment & Plan: Cont novolog sliding scale. (3) HTN (hypertension) Assessment & Plan: Continue norvasc and lisinopril (4) Acute DVT (deep venous thrombosis) Assessment & Plan: Continue heparin-see hematology note. (5) Acute exacerbation of CHF (congestive heart failure) Assessment & Plan: see cardiology note. Status: not improved CHRISTOPH OLIVARES Sep 03, 2017 12:42
--- NOTE | 2017-09-03 14:22 | Cardiology Progress Note ---
Assessment/Plan Problem List: (1) Diabetes mellitus (2) Hypertension (3) Acute exacerbation of CHF (congestive heart failure) (4) Acute DVT (deep venous thrombosis) (5) Shortness of breath (6) HTN (hypertension) Status: stable, progressing Status Narrative Mrs. Coley's dyspnea has improved. She has no chest pain and is ruling out for myocardial infarction with negative troponin levels. She has moderate LV dysfunction, w/ EF 40s and segmental wall motion abnormalities by ECHO. Assessment/Plan Continue lisinopril. Would decrease lasix as pt w/ pre renal azotemia. Followup labs, BNP. Ischemia evaluation - stress nuclear study. Subjective ROS Limited/Unobtainable: No Subjective Mrs. Coley reports improvement in dyspnea. No chest pain Objective Last 24 Hour Vital Signs Date Time Temp Pulse Resp B/P (MAP) Pulse Ox O2 Delivery O2 Flow Rate FiO2 09/03/17 12:00 76 09/03/17 09:00 80 100/63 09/03/17 08:00 77 09/03/17 08:00 97.6 79 21 101/54 98 Room Air 09/03/17 07:00 95 20 Room Air 09/03/17 05:06 97.1 09/03/17 04:00 90 09/03/17 04:00 97.1 65 20 120/60 98 Room Air 09/03/17 00:00 89 09/03/17 00:00 97.0 93 20 123/58 96 Room Air 09/02/17 21:00 91 09/02/17 21:00 96.4 97 20 154/80 95 Room Air 09/02/17 18:37 97.0 09/02/17 17:31 167/86 09/02/17 16:00 103 09/02/17 16:00 97.5 108 20 149/80 97 Room Air General Appearance: WD/WN, no apparent distress, obese EENT: PERRL/EOMI Neck: supple, no JVD Rhythm: NSR Cardiovascular: normal rate, regular rhythm, no gallop/murmur Respiratory/Chest: other - decreased BS bilat Abdomen: non tender, soft Extremities: no calf tenderness, no swelling Intake and Output 09/03/17 09/04/17 19:00 07:00 Intake Total 113.164 ml Balance 113.164 ml IV Total 113.164 ml Laboratory Tests Test 09/02/17 17:55 09/03/17 00:40 09/03/17 06:30 09/03/17 09:30 Activated Partial Thromboplast Time 64 SEC (23-33) H > 150 SEC (23-33) *H 88 SEC (23-33) H White Blood Count 9.7 K/UL (4.8-10.8) Red Blood Count 4.44 M/UL (4.20-5.40) Hemoglobin 14.4 G/DL (12.0-16.0) Hematocrit 42.0 % (37.0-47.0) Mean Corpuscular Volume 94 FL (80-99) Mean Corpuscular Hemoglobin 32.4 PG (27.0-31.0) H Mean Corpuscular Hemoglobin Concent 34.3 G/DL (32.0-36.0) Red Cell Distribution Width 12.9 % (11.6-14.8) Platelet Count 216 K/UL (150-450) Mean Platelet Volume 9.1 FL (6.5-10.1) Neutrophils (%) (Auto) 57.4 % (45.0-75.0) Lymphocytes (%) (Auto) 32.5 % (20.0-45.0) Monocytes (%) (Auto) 7.9 % (1.0-10.0) Eosinophils (%) (Auto) 1.6 % (0.0-3.0) Basophils (%) (Auto) 0.7 % (0.0-2.0) Sodium Level 137 MMOL/L (136-145) Potassium Level 3.3 MMOL/L (3.5-5.1) L Chloride Level 100 MMOL/L (98-107) Carbon Dioxide Level 24 MMOL/L (21-32) Anion Gap 14 mmol/L (5-15) Blood Urea Nitrogen 27 mg/dL (7-18) H Creatinine 1.7 MG/DL (0.55-1.30) #H Estimat Glomerular Filtration Rate mL/min (>60) Glucose Level 160 MG/DL (74-106) H Calcium Level 9.1 MG/DL (8.5-10.1) Total Bilirubin 0.4 MG/DL (0.2-1.0) Aspartate Amino Transf (AST/SGOT) 24 U/L (15-37) Alanine Aminotransferase (ALT/SGPT) 15 U/L (12-78) Alkaline Phosphatase 82 U/L (46-116) Troponin I 0.029 ng/mL (0.000-0.056) Pro-B-Type Natriuretic Peptide 991 pg/mL (0-125) H Total Protein 7.1 G/DL (6.4-8.2) Albumin 3.0 G/DL (3.4-5.0) L Globulin 4.1 g/dL Albumin/Globulin Ratio 0.7 (1.0-2.7) L Microbiology Date/Time Source Procedure Growth Status 09/02/17 02:40 Blood Blood Culture - Preliminary NO GROWTH AFTER 24 HOURS Resulted 09/02/17 02:20 Blood Blood Culture - Preliminary NO GROWTH AFTER 24 HOURS Resulted 09/02/17 02:45 Urine,Clean Catch Urine Culture - Preliminary Gram Negative Bacillus 1 Gram Negative Bacillus 2 Resulted YOSEPH FITZGERALD Sep 03, 2017 14:22
[2017-09-03 16:00] VITALS: BP 107/55
[2017-09-03 20:05] VITALS: BP 106/60
--- NOTE | 2017-09-03 22:37 | General Progress Note ---
Assessment/Plan Assessment/Plan ASSESSMENT AND PLAN: 1. Deep venous thrombosis of the right lower extremity. We will begin heparin drip as well as coumadin with an inr goal of 2-3/ 2. Hypertension, currently better controlled on lisinopril. 3. Diabetes mellitus, on metformin. Continue to Subjective ROS Limited/Unobtainable: Yes Allergies: Coded Allergies: No Known Allergies (Unverified , 09/02/17) Objective Last 24 Hour Vital Signs Date Time Temp Pulse Resp B/P (MAP) Pulse Ox O2 Delivery O2 Flow Rate FiO2 09/03/17 20:30 90 18 Room Air 09/03/17 20:05 97.0 82 20 106/60 97 Room Air 09/03/17 20:00 66 09/03/17 16:00 97.0 73 16 107/55 97 Room Air 09/03/17 16:00 69 09/03/17 12:00 76 09/03/17 12:00 97.0 85 18 118/54 96 Room Air 09/03/17 09:00 80 100/63 09/03/17 08:00 77 09/03/17 08:00 97.6 79 21 101/54 98 Room Air 09/03/17 07:00 95 20 Room Air 09/03/17 05:06 97.1 09/03/17 04:00 90 09/03/17 04:00 97.1 65 20 120/60 98 Room Air 09/03/17 00:00 89 09/03/17 00:00 97.0 93 20 123/58 96 Room Air Intake and Output 09/03/17 09/04/17 19:00 07:00 Intake Total 394.492 ml 84.873 ml Balance 394.492 ml 84.873 ml IV Total 394.492 ml 84.873 ml Laboratory Tests 09/03/17 00:40: Activated Partial Thromboplast Time > 150*H 09/03/17 06:30: White Blood Count 9.7, Red Blood Count 4.44, Hemoglobin 14.4, Hematocrit 42.0, Mean Corpuscular Volume 94, Mean Corpuscular Hemoglobin 32.4H, Mean Corpuscular Hemoglobin Concent 34.3, Red Cell Distribution Width 12.9, Platelet Count 216, Mean Platelet Volume 9.1, Neutrophils (%) (Auto) 57.4, Lymphocytes (%) (Auto) 32.5, Monocytes (%) (Auto) 7.9, Eosinophils (%) (Auto) 1.6, Basophils (%) (Auto ) 0.7, Sodium Level 137, Potassium Level 3.3L, Chloride Level 100, Carbon Dioxide Level 24, Anion Gap 14, Blood Urea Nitrogen 27H, Creatinine 1.7#H, Estimat Glomerular Filtration Rate , Glucose Level 160H, Calcium Level 9.1, Total Bilirubin 0.4, Aspartate Amino Transf (AST/SGOT) 24, Alanine Aminotransferase (ALT/SGPT) 15, Alkaline Phosphatase 82, Troponin I 0.029, Pro-B -Type Natriuretic Peptide 991H, Total Protein 7.1, Albumin 3.0L, Globulin 4.1, Albumin/Globulin Ratio 0.7L 09/03/17 09:30: Activated Partial Thromboplast Time 88H Height (Feet): 5 Height (Inches): 3.00 Weight (Pounds): 200 General Appearance: no apparent distress EENT: normal ENT inspection Edema: trace edema 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
[2017-09-04] VITALS: BP 148/66
[2017-09-04 04:12] VITALS: BP 127/72
[2017-09-04 05:05] LABS: BASOPHILS % (AUTO) 0.8 % (0.0-2.0); EOSINOPHILS % (AUTO) 1.9 % (0.0-3.0); LYMPHOCYTES % (AUTO) 29.5 % (20.0-45.0); MEAN CORPUSCULAR HEMOGLOBIN 32.1 PG (27.0-31.0); MEAN CORPUSCULAR HGB CONC 33.9 G/DL (32.0-36.0); MEAN CORPUSCULAR VOLUME 94 FL (80-99); MEAN PLATELET VOLUME 8.4 FL (6.5-10.1); MONOCYTES % (AUTO) 8.1 % (1.0-10.0); NEUTROPHILS % (AUTO) 59.7 % (45.0-75.0); PLATELET COUNT 225 K/UL (150-450); RED BLOOD COUNT 4.41 M/UL (4.20-5.40); RED CELL DISTRIBUTION WIDTH 12.6 % (11.6-14.8); WHITE BLOOD COUNT 9.8 K/UL (4.8-10.8)
[2017-09-04 05:32] LABS: ALANINE AMINOTRANSFERASE 24 U/L (12-78); ALBUMIN/GLOBULIN RATIO 0.7 (1.0-2.7); ANION GAP 11 mmol/L (5-15); ASPARTATE AMINO TRANSFERASE 29 U/L (15-37); CALCIUM 8.8 MG/DL (8.5-10.1); CARBON DIOXIDE 23 MMOL/L (21-32); CHLORIDE 98 MMOL/L (98-107); CREATININE 1.8 MG/DL (0.55-1.30); POTASSIUM 3.7 MMOL/L (3.5-5.1); SODIUM 132 MMOL/L (136-145)
[2017-09-04] MEDS: Heparin 25,000u/D5W 500ml 500 ML IV SCH ×2 (06:18→18:10)
[2017-09-04] MEDS: NovoLOG Insulin Flexpen SUBQ SCH ×4 (06:45→22:13)
[2017-09-04 08:23] VITALS: BP 117/59
[2017-09-04] MEDS: Lisinopril 20mg tab ORAL SCH (08:26)
[2017-09-04] MEDS: Aspirin EC 81mg tab ORAL SCH ×2 (08:26→08:36)
--- NOTE | 2017-09-04 10:08 | Pulmonology Progress Note ---
Assessment/Plan Problems: (1) Acute exacerbation of CHF (congestive heart failure) (2) Acute DVT (deep venous thrombosis) (3) UTI (urinary tract infection) (4) Hypertension (5) Diabetes mellitus (6) Hyperglycemia due to type 2 diabetes mellitus Assessment/Plan bun/creatinine rising, Hold lasix cxr in am heparin drip on abx for UTI echo noted, EF of 40% keep in teli b/o heparin drip Subjective ROS Limited/Unobtainable: No Interval Events: ONE episode of Nausea Allergies: Coded Allergies: No Known Allergies (Unverified , 09/02/17) Objective Last 24 Hour Vital Signs Date Time Temp Pulse Resp B/P (MAP) Pulse Ox O2 Delivery O2 Flow Rate FiO2 09/04/17 08:26 82 117/59 09/04/17 08:26 117/59 09/04/17 08:23 96.8 82 20 117/59 96 Room Air 09/04/17 07:40 81 16 Room Air 09/04/17 04:12 97.0 87 20 127/72 98 Room Air 09/04/17 04:00 82 09/04/17 00:00 82 09/04/17 00:00 97.3 79 20 148/66 100 Room Air 09/03/17 20:30 90 18 Room Air 09/03/17 20:05 97.0 82 20 106/60 97 Room Air 09/03/17 20:00 66 09/03/17 16:00 97.0 73 16 107/55 97 Room Air 09/03/17 16:00 69 09/03/17 12:00 76 09/03/17 12:00 97.0 85 18 118/54 96 Room Air General Appearance: WD/WN HEENT: normocephalic, atraumatic Respiratory/Chest: chest wall non-tender, lungs clear Breasts: no masses Cardiovascular: normal peripheral pulses, normal rate Abdomen: normal bowel sounds, soft, non tender, non distended, no scars Extremities: no clubbing Skin: no lesions 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 Lymphatic: no neck adenopathy Musculoskeletal: normal muscle bulk Microbiology Date/Time Source Procedure Growth Status 09/02/17 02:40 Blood Blood Culture - Preliminary NO GROWTH AFTER 48 HOURS Resulted 09/02/17 02:20 Blood Blood Culture - Preliminary NO GROWTH AFTER 48 HOURS Resulted 09/02/17 02:45 Urine,Clean Catch Urine Culture - Final Escherichia Coli Klebsiella Oxytoca Complete Laboratory Tests 09/04/17 04:15: White Blood Count 9.8, Red Blood Count 4.41, Hemoglobin 14.2, Hematocrit 41.7, Mean Corpuscular Volume 94, Mean Corpuscular Hemoglobin 32.1H, Mean Corpuscular Hemoglobin Concent 33.9, Red Cell Distribution Width 12.6, Platelet Count 225, Mean Platelet Volume 8.4, Neutrophils (%) (Auto) 59.7, Lymphocytes (%) (Auto) 29.5, Monocytes (%) (Auto) 8.1, Eosinophils (%) (Auto) 1.9, Basophils (%) (Auto ) 0.8, Activated Partial Thromboplast Time 100H, Sodium Level 132L, Potassium Level 3.7, Chloride Level 98, Carbon Dioxide Level 23, Anion Gap 11, Blood Urea Nitrogen 39H, Creatinine 1.8H, Estimat Glomerular Filtration Rate , Glucose Level 159H, Calcium Level 8.8, Total Bilirubin 0.4, Aspartate Amino Transf (AST/ SGOT) 29, Alanine Aminotransferase (ALT/SGPT) 24, Alkaline Phosphatase 77, Troponin I 0.018, Pro-B-Type Natriuretic Peptide 159H, Total Protein 7.0, Albumin 2.9L, Globulin 4.1, Albumin/Globulin Ratio 0.7L Current Medications Medications (Trade) Dose Ordered Sig/[place] Route PRN Reason Start Time Stop Time Status Last Admin Dose Admin Acetaminophen (Tylenol) 650 mg Q4H PRN ORAL Fever 09/02/17 06:00 10/02/17 05:59 Acetaminophen (Tylenol) 650 mg Q6HR PRN ORAL Fever/Headache/Mild Pain 09/02/17 05:30 10/02/17 05:29 09/02/17 17:38 Acetaminophen/ Codeine Phosphate (Tylenol #3) 1 tab Q4H PRN ORAL Pain Scale (7-10) 09/02/17 11:15 09/09/17 10:59 Acetaminophen/ Codeine Phosphate (Tylenol #3) 2 tab EVERY 8 HOURS PRN PO 4-6 09/02/17 11:00 09/09/17 10:59 09/03/17 04:07 Acetaminophen/ Hydrocodone Bitart ([place] 5/325) 1 tab EVERY 6 HOURS PRN ORAL 4-6 09/02/17 11:00 09/09/17 10:59 Albuterol/ Ipratropium (Albuterol/ Ipratropium) 3 ml EVERY 4 HOURS PRN HHN Shortness of Breath 09/02/17 06:00 09/07/17 05:59 Amlodipine Besylate (Norvasc) 2.5 mg DAILY ORAL 09/03/17 09:00 10/03/17 08:59 09/04/17 08:26 Aspirin (Ecotrin) 81 mg DAILY ORAL 09/02/17 09:00 10/02/17 08:59 09/03/17 10:02 Azithromycin (Zithromax) 500 mg DAILY ORAL 09/04/17 16:00 09/11/17 15:59 Ceftriaxone Sodium 1 gm/ Dextrose 55 ml @ 110 mls/hr Q24H IVPB 09/02/17 12:00 09/09/17 11:59 09/03/17 11:51 Dextrose (Dextrose 50%) STAT PRN IV Hypoglycemia 09/02/17 05:30 10/02/17 05:29 Furosemide (Lasix) 40 mg DAILY IV 09/04/17 09:00 10/02/17 05:59 09/04/17 08:28 Heparin Sodium/ Dextrose 500 ml @ 24.755 mls/ hr adjust per protocol IV 09/04/17 06:00 10/04/17 05:59 09/04/17 06:18 Insulin Aspart (NovoLOG) BEFORE MEALS AND HS SUBQ 09/02/17 06:30 10/02/17 06:29 09/04/17 06:45 Ketorolac Tromethamine (Toradol) 30 mg Q6H PRN IV pain 7-10 09/02/17 11:30 09/07/17 10:59 Lisinopril (Prinivil) 20 mg DAILY ORAL 09/02/17 18:00 10/02/17 17:59 09/04/17 08:26 Morphine Sulfate (Morphine Sulfate) 4 mg EVERY 4 HOURS PRN IVP 7-10 09/02/17 11:00 09/09/17 10:59 Ondansetron HCl (Zofran) 4 mg Q6H PRN IVP Nausea & Vomiting 09/02/17 06:00 10/02/17 05:59 09/04/17 06:31 Pantoprazole (Protonix) 40 mg DAILY ORAL 09/03/17 13:45 10/03/17 13:44 09/04/17 08:26 Polyethylene Glycol (Miralax) 17 gm DAILYPRN PRN ORAL Constipation 09/02/17 06:00 10/02/17 05:59 Temazepam (Restoril) 15 mg HSPRN PRN ORAL Insomnia 09/02/17 06:00 09/09/17 05:59 Warfarin Sodium (Coumadin per pharmacy) 1 ea DAILY PRN MISC Per rx protocol 09/03/17 22:45 10/03/17 22:44 Warfarin Sodium (Coumadin) 5 mg COUMADIN ONCE ORAL 09/04/17 17:00 09/04/17 17:01 PANFILO SOTO Sep 04, 2017 10:08
--- NOTE | 2017-09-04 10:57 | Diagnostic Imaging Report ---
Indication: Shortness of breath Comparison: 09/03/2017 Findings: Single view the chest shows no significant change from prior exam. Cardiac size is normal. Pulmonary vasculature normal. Lungs are clear. Impression: No definite acute chest disease. No significant change from prior exam one day earlier.
--- NOTE | 2017-09-04 11:44 | Infectious Diseases Prog Note ---
Assessment/Plan Assessment/Plan A; UTI Bronchitis DVT of right leg DM type II Systolic CHF P: Continue Rocephin & Zithroma Subjective ROS Limited/Unobtainable: No Respiratory: Reports: dry cough Gastrointestinal/Abdominal: Reports: nausea, vomiting Musculoskeletal: Reports: pain, other - in right leg Allergies: Coded Allergies: No Known Allergies (Unverified , 09/02/17) Objective Vital Signs Last 24 Hour Vital Signs Date Time Temp Pulse Resp B/P (MAP) Pulse Ox O2 Delivery O2 Flow Rate FiO2 09/04/17 08:26 82 117/59 09/04/17 08:26 117/59 09/04/17 08:23 96.8 82 20 117/59 96 Room Air 09/04/17 08:00 86 09/04/17 07:40 81 16 Room Air 09/04/17 04:12 97.0 87 20 127/72 98 Room Air 09/04/17 04:00 82 09/04/17 00:00 82 09/04/17 00:00 97.3 79 20 148/66 100 Room Air 09/03/17 20:30 90 18 Room Air 09/03/17 20:05 97.0 82 20 106/60 97 Room Air 09/03/17 20:00 66 09/03/17 16:00 97.0 73 16 107/55 97 Room Air 09/03/17 16:00 69 09/03/17 12:00 76 09/03/17 12:00 97.0 85 18 118/54 96 Room Air Height (Feet): 5 Height (Inches): 3.00 Weight (Pounds): 204 General Appearance: no acute distress HEENT: mucous membranes moist Respiratory/Chest: lungs clear Cardiovascular: normal rate Abdomen: soft, non tender Extremities: other - mild edema, tenderness in right leg Microbiology Date/Time Source Procedure Growth Status 09/02/17 02:40 Blood Blood Culture - Preliminary NO GROWTH AFTER 48 HOURS Resulted 09/02/17 02:20 Blood Blood Culture - Preliminary NO GROWTH AFTER 48 HOURS Resulted 09/02/17 02:45 Urine,Clean Catch Urine Culture - Final Escherichia Coli Klebsiella Oxytoca Complete Laboratory Tests Test 09/04/17 04:15 White Blood Count 9.8 K/UL (4.8-10.8) Red Blood Count 4.41 M/UL (4.20-5.40) Hemoglobin 14.2 G/DL (12.0-16.0) Hematocrit 41.7 % (37.0-47.0) Mean Corpuscular Volume 94 FL (80-99) Mean Corpuscular Hemoglobin 32.1 PG (27.0-31.0) H Mean Corpuscular Hemoglobin Concent 33.9 G/DL (32.0-36.0) Red Cell Distribution Width 12.6 % (11.6-14.8) Platelet Count 225 K/UL (150-450) Mean Platelet Volume 8.4 FL (6.5-10.1) Neutrophils (%) (Auto) 59.7 % (45.0-75.0) Lymphocytes (%) (Auto) 29.5 % (20.0-45.0) Monocytes (%) (Auto) 8.1 % (1.0-10.0) Eosinophils (%) (Auto) 1.9 % (0.0-3.0) Basophils (%) (Auto) 0.8 % (0.0-2.0) Activated Partial Thromboplast Time 100 SEC (23-33) H Sodium Level 132 MMOL/L (136-145) L Potassium Level 3.7 MMOL/L (3.5-5.1) Chloride Level 98 MMOL/L (98-107) Carbon Dioxide Level 23 MMOL/L (21-32) Anion Gap 11 mmol/L (5-15) Blood Urea Nitrogen 39 mg/dL (7-18) H Creatinine 1.8 MG/DL (0.55-1.30) H Estimat Glomerular Filtration Rate mL/min (>60) Glucose Level 159 MG/DL (74-106) H Calcium Level 8.8 MG/DL (8.5-10.1) Total Bilirubin 0.4 MG/DL (0.2-1.0) Aspartate Amino Transf (AST/SGOT) 29 U/L (15-37) Alanine Aminotransferase (ALT/SGPT) 24 U/L (12-78) Alkaline Phosphatase 77 U/L (46-116) Troponin I 0.018 ng/mL (0.000-0.056) Pro-B-Type Natriuretic Peptide 159 pg/mL (0-125) H Total Protein 7.0 G/DL (6.4-8.2) Albumin 2.9 G/DL (3.4-5.0) L Globulin 4.1 g/dL Albumin/Globulin Ratio 0.7 (1.0-2.7) L Current Medications Medications (Trade) Dose Ordered Sig/[place] Route PRN Reason Start Time Stop Time Status Last Admin Dose Admin Acetaminophen (Tylenol) 650 mg Q4H PRN ORAL Fever 09/02/17 06:00 10/02/17 05:59 Acetaminophen (Tylenol) 650 mg Q6HR PRN ORAL Fever/Headache/Mild Pain 09/02/17 05:30 10/02/17 05:29 09/02/17 17:38 Acetaminophen/ Codeine Phosphate (Tylenol #3) 1 tab Q4H PRN ORAL Pain Scale (7-10) 09/02/17 11:15 09/09/17 10:59 Acetaminophen/ Codeine Phosphate (Tylenol #3) 2 tab EVERY 8 HOURS PRN PO 4-6 09/02/17 11:00 09/09/17 10:59 09/03/17 04:07 Acetaminophen/ Hydrocodone Bitart ([place] 5/325) 1 tab EVERY 6 HOURS PRN ORAL 4-6 09/02/17 11:00 09/09/17 10:59 Albuterol/ Ipratropium (Albuterol/ Ipratropium) 3 ml EVERY 4 HOURS PRN HHN Shortness of Breath 09/02/17 06:00 09/07/17 05:59 Amlodipine Besylate (Norvasc) 2.5 mg DAILY ORAL 09/03/17 09:00 10/03/17 08:59 09/04/17 08:26 Aspirin (Ecotrin) 81 mg DAILY ORAL 09/02/17 09:00 10/02/17 08:59 09/03/17 10:02 Azithromycin (Zithromax) 500 mg DAILY ORAL 09/04/17 16:00 09/11/17 15:59 Ceftriaxone Sodium 1 gm/ Dextrose 55 ml @ 110 mls/hr Q24H IVPB 09/02/17 12:00 09/09/17 11:59 09/03/17 11:51 Dextrose (Dextrose 50%) STAT PRN IV Hypoglycemia 09/02/17 05:30 10/02/17 05:29 Heparin Sodium/ Dextrose 500 ml @ 24.755 mls/ hr adjust per protocol IV 09/04/17 06:00 10/04/17 05:59 09/04/17 06:18 Insulin Aspart (NovoLOG) BEFORE MEALS AND HS SUBQ 09/02/17 06:30 10/02/17 06:29 09/04/17 06:45 Ketorolac Tromethamine (Toradol) 30 mg Q6H PRN IV pain 7-10 09/02/17 11:30 09/07/17 10:59 Lisinopril (Prinivil) 20 mg DAILY ORAL 09/02/17 18:00 10/02/17 17:59 09/04/17 08:26 Morphine Sulfate (Morphine Sulfate) 4 mg EVERY 4 HOURS PRN IVP 7-10 09/02/17 11:00 09/09/17 10:59 Ondansetron HCl (Zofran) 4 mg Q6H PRN IVP Nausea & Vomiting 09/02/17 06:00 10/02/17 05:59 09/04/17 06:31 Pantoprazole (Protonix) 40 mg DAILY ORAL 09/03/17 13:45 10/03/17 13:44 09/04/17 08:26 Polyethylene Glycol (Miralax) 17 gm DAILYPRN PRN ORAL Constipation 09/02/17 06:00 10/02/17 05:59 Temazepam (Restoril) 15 mg HSPRN PRN ORAL Insomnia 09/02/17 06:00 09/09/17 05:59 Warfarin Sodium (Coumadin per pharmacy) 1 ea DAILY PRN MISC Per rx protocol 09/03/17 22:45 10/03/17 22:44 Warfarin Sodium (Coumadin) 5 mg COUMADIN ONCE ORAL 09/04/17 17:00 09/04/17 17:01 FELICIA JACKSON Sep 04, 2017 11:44
[2017-09-04 12:00] VITALS: BP 123/61
[2017-09-04] MEDS: cefTRIAXone 1 GM in D5W 55 ML IVPB SCH (12:01)
--- NOTE | 2017-09-04 12:54 | Internal Med Progress Note ---
Subjective Date of Service: Sep 04, 2017 Physician Name Christoph Olivares Attending Physician Freddie Simon MD Current Medications Medications (Trade) Dose Ordered Sig/Obinna Route PRN Reason Start Time Stop Time Status Last Admin Dose Admin Acetaminophen (Tylenol) 650 mg Q4H PRN ORAL Fever 09/02/17 06:00 10/02/17 05:59 Acetaminophen (Tylenol) 650 mg Q6HR PRN ORAL Fever/Headache/Mild Pain 09/02/17 05:30 10/02/17 05:29 09/02/17 17:38 Acetaminophen/ Codeine Phosphate (Tylenol #3) 1 tab Q4H PRN ORAL Pain Scale (7-10) 09/02/17 11:15 09/09/17 10:59 Acetaminophen/ Codeine Phosphate (Tylenol #3) 2 tab EVERY 8 HOURS PRN PO 4-6 09/02/17 11:00 09/09/17 10:59 09/03/17 04:07 Acetaminophen/ Hydrocodone Bitart ([place] 5/325) 1 tab EVERY 6 HOURS PRN ORAL 4-6 09/02/17 11:00 09/09/17 10:59 Albuterol/ Ipratropium (Albuterol/ Ipratropium) 3 ml EVERY 4 HOURS PRN HHN Shortness of Breath 09/02/17 06:00 09/07/17 05:59 Amlodipine Besylate (Norvasc) 2.5 mg DAILY ORAL 09/03/17 09:00 10/03/17 08:59 09/04/17 08:26 Aspirin (Ecotrin) 81 mg DAILY ORAL 09/02/17 09:00 10/02/17 08:59 09/03/17 10:02 Azithromycin (Zithromax) 500 mg DAILY ORAL 09/04/17 16:00 09/11/17 15:59 Ceftriaxone Sodium 1 gm/ Dextrose 55 ml @ 110 mls/hr Q24H IVPB 09/02/17 12:00 09/09/17 11:59 09/04/17 12:01 Dextrose (Dextrose 50%) STAT PRN IV Hypoglycemia 09/02/17 05:30 10/02/17 05:29 Heparin Sodium/ Dextrose 500 ml @ 24.755 mls/ hr adjust per protocol IV 09/04/17 06:00 10/04/17 05:59 09/04/17 06:18 Insulin Aspart (NovoLOG) BEFORE MEALS AND HS SUBQ 09/02/17 06:30 10/02/17 06:29 09/04/17 06:45 Ketorolac Tromethamine (Toradol) 30 mg Q6H PRN IV pain 7-10 09/02/17 11:30 09/07/17 10:59 Lisinopril (Prinivil) 20 mg DAILY ORAL 09/02/17 18:00 10/02/17 17:59 09/04/17 08:26 Morphine Sulfate (Morphine Sulfate) 4 mg EVERY 4 HOURS PRN IVP 7-10 09/02/17 11:00 09/09/17 10:59 Ondansetron HCl (Zofran) 4 mg Q6H PRN IVP Nausea & Vomiting 09/02/17 06:00 10/02/17 05:59 09/04/17 06:31 Pantoprazole (Protonix) 40 mg DAILY ORAL 09/03/17 13:45 10/03/17 13:44 09/04/17 08:26 Polyethylene Glycol (Miralax) 17 gm DAILYPRN PRN ORAL Constipation 09/02/17 06:00 10/02/17 05:59 Temazepam (Restoril) 15 mg HSPRN PRN ORAL Insomnia 09/02/17 06:00 09/09/17 05:59 Warfarin Sodium (Coumadin per pharmacy) 1 ea DAILY PRN MISC Per rx protocol 09/03/17 22:45 10/03/17 22:44 Warfarin Sodium (Coumadin) 5 mg COUMADIN ONCE ORAL 09/04/17 17:00 09/04/17 17:01 Allergies: Coded Allergies: No Known Allergies (Unverified , 09/02/17) ROS Limited/Unobtainable: No Constitutional: Reports: no symptoms HEENT: Reports: no symptoms Cardiovascular: Reports: no symptoms Respiratory: Reports: shortness of breath Gastrointestinal/Abdominal: Reports: no symptoms Genitourinary: Reports: no symptoms Neurologic/Psychiatric: Reports: no symptoms Subjective 81 YO F admitted with shortness of breath and congestive heart failure. Improving shortness of breath. Cover for Int Sweetie Simon Objective Last Vital Signs Date Time Temp Pulse Resp B/P (MAP) Pulse Ox O2 Delivery O2 Flow Rate FiO2 09/04/17 12:00 84 09/04/17 08:26 117/59 09/04/17 08:23 96.8 20 96 Room Air 09/02/17 06:05 97 Laboratory Tests Test 09/04/17 04:15 White Blood Count 9.8 K/UL (4.8-10.8) Red Blood Count 4.41 M/UL (4.20-5.40) Hemoglobin 14.2 G/DL (12.0-16.0) Hematocrit 41.7 % (37.0-47.0) Mean Corpuscular Volume 94 FL (80-99) Mean Corpuscular Hemoglobin 32.1 PG (27.0-31.0) H Mean Corpuscular Hemoglobin Concent 33.9 G/DL (32.0-36.0) Red Cell Distribution Width 12.6 % (11.6-14.8) Platelet Count 225 K/UL (150-450) Mean Platelet Volume 8.4 FL (6.5-10.1) Neutrophils (%) (Auto) 59.7 % (45.0-75.0) Lymphocytes (%) (Auto) 29.5 % (20.0-45.0) Monocytes (%) (Auto) 8.1 % (1.0-10.0) Eosinophils (%) (Auto) 1.9 % (0.0-3.0) Basophils (%) (Auto) 0.8 % (0.0-2.0) Activated Partial Thromboplast Time 100 SEC (23-33) H Sodium Level 132 MMOL/L (136-145) L Potassium Level 3.7 MMOL/L (3.5-5.1) Chloride Level 98 MMOL/L (98-107) Carbon Dioxide Level 23 MMOL/L (21-32) Anion Gap 11 mmol/L (5-15) Blood Urea Nitrogen 39 mg/dL (7-18) H Creatinine 1.8 MG/DL (0.55-1.30) H Estimat Glomerular Filtration Rate mL/min (>60) Glucose Level 159 MG/DL (74-106) H Calcium Level 8.8 MG/DL (8.5-10.1) Total Bilirubin 0.4 MG/DL (0.2-1.0) Aspartate Amino Transf (AST/SGOT) 29 U/L (15-37) Alanine Aminotransferase (ALT/SGPT) 24 U/L (12-78) Alkaline Phosphatase 77 U/L (46-116) Troponin I 0.018 ng/mL (0.000-0.056) Pro-B-Type Natriuretic Peptide 159 pg/mL (0-125) H Total Protein 7.0 G/DL (6.4-8.2) Albumin 2.9 G/DL (3.4-5.0) L Globulin 4.1 g/dL Albumin/Globulin Ratio 0.7 (1.0-2.7) L Microbiology Date/Time Source Procedure Growth Status 09/02/17 02:40 Blood Blood Culture - Preliminary NO GROWTH AFTER 48 HOURS Resulted 09/02/17 02:20 Blood Blood Culture - Preliminary NO GROWTH AFTER 48 HOURS Resulted 09/02/17 02:45 Urine,Clean Catch Urine Culture - Final Escherichia Coli Klebsiella Oxytoca Complete Intake and Output 09/04/17 09/05/17 19:00 07:00 Intake Total 69.316 ml Balance 69.316 ml IV Total 69.316 ml Objective General Appearance: WD/WN, obese EENT: PERRL/EOMI, normal ENT inspection Neck: non-tender, normal alignment, supple Cardiovascular: normal peripheral pulses, normal rate, regular rhythm, no gallop/murmur, no JVD Respiratory/Chest: chest wall non-tender, respiratory distress, crackles/rales , rhonchi - bilaterally, expiratory wheezing Abdomen: normal bowel sounds, non tender, soft, no organomegaly Extremities: normal range of motion Edema: mild edema 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 (3) HTN (hypertension) Assessment & Plan: Continue norvasc and lisinopril (4) Acute DVT (deep venous thrombosis) Assessment & Plan: Continue heparin-see hematology note. (5) Acute exacerbation of CHF (congestive heart failure) Assessment & Plan: EF = 40% - see cardiology note. Status: progressing OLIVARESCHRISTOPH Escamilla Sep 04, 2017 12:54
--- NOTE | 2017-09-04 14:15 | Cardiology Progress Note ---
Assessment/Plan Problem List: (1) Diabetes mellitus (2) Hypertension (3) Acute exacerbation of CHF (congestive heart failure) (4) Acute DVT (deep venous thrombosis) (5) Shortness of breath (6) HTN (hypertension) (7) UTI (urinary tract infection) Status: stable, progressing Status Narrative Mrs. Coley's dyspnea has improved. She has no chest pain and is ruling out for myocardial infarction with negative troponin levels. She has moderate LV dysfunction, w/ EF 40s and segmental wall motion abnormalities by ECHO. She has R LE DVT, and is on heparin. She has n/v and lower abd discomfort today, and urine cx + for E coli and Klebsiella Assessment/Plan Continue lisinopril. Hold diuretics , as pt pre-renal. Ischemia evaluation - stress nuclear study - will be scheduled. continue iv heparin and start warfarin for DVT. Treatment of UTI as per Dr. Borrego Subjective ROS Limited/Unobtainable: No Subjective Mrs. Coley has no c/o dyspnea or CP. She c/o lower abdominal pain, n/v overnight. Objective Last 24 Hour Vital Signs Date Time Temp Pulse Resp B/P (MAP) Pulse Ox O2 Delivery O2 Flow Rate FiO2 09/04/17 12:00 84 09/04/17 12:00 97.7 85 20 123/61 98 Room Air 09/04/17 08:26 82 117/59 09/04/17 08:26 117/59 09/04/17 08:23 96.8 82 20 117/59 96 Room Air 09/04/17 08:00 86 09/04/17 07:40 81 16 Room Air 09/04/17 04:12 97.0 87 20 127/72 98 Room Air 09/04/17 04:00 82 09/04/17 00:00 82 09/04/17 00:00 97.3 79 20 148/66 100 Room Air 09/03/17 20:30 90 18 Room Air 09/03/17 20:05 97.0 82 20 106/60 97 Room Air 09/03/17 20:00 66 09/03/17 16:00 97.0 73 16 107/55 97 Room Air 09/03/17 16:00 69 General Appearance: WD/WN, no apparent distress, obese EENT: PERRL/EOMI Neck: supple, no JVD Rhythm: NSR Cardiovascular: normal rate, regular rhythm, no gallop/murmur Respiratory/Chest: lungs clear Abdomen: normal bowel sounds, non tender, soft Extremities: no swelling Intake and Output 09/04/17 09/05/17 19:00 07:00 Intake Total 213.974 ml Balance 213.974 ml IV Total 213.974 ml Laboratory Tests Test 09/04/17 04:15 09/04/17 12:45 White Blood Count 9.8 K/UL (4.8-10.8) Red Blood Count 4.41 M/UL (4.20-5.40) Hemoglobin 14.2 G/DL (12.0-16.0) Hematocrit 41.7 % (37.0-47.0) Mean Corpuscular Volume 94 FL (80-99) Mean Corpuscular Hemoglobin 32.1 PG (27.0-31.0) H Mean Corpuscular Hemoglobin Concent 33.9 G/DL (32.0-36.0) Red Cell Distribution Width 12.6 % (11.6-14.8) Platelet Count 225 K/UL (150-450) Mean Platelet Volume 8.4 FL (6.5-10.1) Neutrophils (%) (Auto) 59.7 % (45.0-75.0) Lymphocytes (%) (Auto) 29.5 % (20.0-45.0) Monocytes (%) (Auto) 8.1 % (1.0-10.0) Eosinophils (%) (Auto) 1.9 % (0.0-3.0) Basophils (%) (Auto) 0.8 % (0.0-2.0) Activated Partial Thromboplast Time 100 SEC (23-33) H 86 SEC (23-33) H Sodium Level 132 MMOL/L (136-145) L Potassium Level 3.7 MMOL/L (3.5-5.1) Chloride Level 98 MMOL/L (98-107) Carbon Dioxide Level 23 MMOL/L (21-32) Anion Gap 11 mmol/L (5-15) Blood Urea Nitrogen 39 mg/dL (7-18) H Creatinine 1.8 MG/DL (0.55-1.30) H Estimat Glomerular Filtration Rate mL/min (>60) Glucose Level 159 MG/DL (74-106) H Calcium Level 8.8 MG/DL (8.5-10.1) Total Bilirubin 0.4 MG/DL (0.2-1.0) Aspartate Amino Transf (AST/SGOT) 29 U/L (15-37) Alanine Aminotransferase (ALT/SGPT) 24 U/L (12-78) Alkaline Phosphatase 77 U/L (46-116) Troponin I 0.018 ng/mL (0.000-0.056) Pro-B-Type Natriuretic Peptide 159 pg/mL (0-125) H Total Protein 7.0 G/DL (6.4-8.2) Albumin 2.9 G/DL (3.4-5.0) L Globulin 4.1 g/dL Albumin/Globulin Ratio 0.7 (1.0-2.7) L Microbiology Date/Time Source Procedure Growth Status 09/02/17 02:40 Blood Blood Culture - Preliminary NO GROWTH AFTER 48 HOURS Resulted 09/02/17 02:20 Blood Blood Culture - Preliminary NO GROWTH AFTER 48 HOURS Resulted 09/02/17 02:45 Urine,Clean Catch Urine Culture - Final Escherichia Coli Klebsiella Oxytoca Complete YOSEPH FITZGERALD Sep 04, 2017 14:15
[2017-09-04] MEDS ORDERED: Tubing IV Secondary IV ONE (15:52)
[2017-09-04 16:00] VITALS: BP 118/55
[2017-09-04] MEDS ORDERED: Warfarin Sodium 5mg ORAL ONE (17:00)
[2017-09-04] MEDS: Azithromycin 250mg tab ORAL SCH (17:11)
[2017-09-04 20:21] VITALS: BP 139/54
--- NOTE | 2017-09-04 21:52 | General Progress Note ---
Assessment/Plan Assessment/Plan ASSESSMENT AND PLAN: 1. Deep venous thrombosis of the right lower extremity. We will begin heparin drip as well as coumadin with an inr goal of 2-3. 2. Hypertension, currently better controlled on lisinopril. 3. Diabetes mellitus, on metformin. Continue to monitor. Subjective Constitutional: Reports: weakness Allergies: Coded Allergies: No Known Allergies (Unverified , 09/02/17) All Systems: reviewed and negative except above Subjective feels weak, have started on coumadin Objective Last 24 Hour Vital Signs Date Time Temp Pulse Resp B/P (MAP) Pulse Ox O2 Delivery O2 Flow Rate FiO2 09/04/17 20:24 85 16 Room Air 09/04/17 20:21 98.3 92 18 139/54 96 Room Air 09/04/17 16:00 88 09/04/17 16:00 97.8 80 20 118/55 96 Room Air 09/04/17 12:00 84 09/04/17 12:00 97.7 85 20 123/61 98 Room Air 09/04/17 08:26 82 117/59 09/04/17 08:26 117/59 09/04/17 08:23 96.8 82 20 117/59 96 Room Air 09/04/17 08:00 86 09/04/17 07:40 81 16 Room Air 09/04/17 04:12 97.0 87 20 127/72 98 Room Air 09/04/17 04:00 82 09/04/17 00:00 82 09/04/17 00:00 97.3 79 20 148/66 100 Room Air Intake and Output 09/04/17 09/05/17 19:00 07:00 Intake Total 682.305 ml Balance 682.305 ml Intake Oral 300 ml IV Total 382.305 ml # Voids 2 # Bowel Movements 1 Laboratory Tests 09/04/17 04:15: White Blood Count 9.8, Red Blood Count 4.41, Hemoglobin 14.2, Hematocrit 41.7, Mean Corpuscular Volume 94, Mean Corpuscular Hemoglobin 32.1H, Mean Corpuscular Hemoglobin Concent 33.9, Red Cell Distribution Width 12.6, Platelet Count 225, Mean Platelet Volume 8.4, Neutrophils (%) (Auto) 59.7, Lymphocytes (%) (Auto) 29.5, Monocytes (%) (Auto) 8.1, Eosinophils (%) (Auto) 1.9, Basophils (%) (Auto ) 0.8, Activated Partial Thromboplast Time 100H, Sodium Level 132L, Potassium Level 3.7, Chloride Level 98, Carbon Dioxide Level 23, Anion Gap 11, Blood Urea Nitrogen 39H, Creatinine 1.8H, Estimat Glomerular Filtration Rate , Glucose Level 159H, Calcium Level 8.8, Total Bilirubin 0.4, Aspartate Amino Transf (AST/ SGOT) 29, Alanine Aminotransferase (ALT/SGPT) 24, Alkaline Phosphatase 77, Troponin I 0.018, Pro-B-Type Natriuretic Peptide 159H, Total Protein 7.0, Albumin 2.9L, Globulin 4.1, Albumin/Globulin Ratio 0.7L 09/04/17 12:45: Activated Partial Thromboplast Time 86H Height (Feet): 5 Height (Inches): 3.00 Weight (Pounds): 204 General Appearance: no apparent distress EENT: normal ENT inspection Neck: normal alignment Cardiovascular: normal peripheral pulses Abdomen: normal bowel sounds Skin: warm/dry Jamal Coffman Sep 04, 2017 21:52
[2017-09-05 00:44] VITALS: BP 138/53
[2017-09-05 04:00] VITALS: BP 139/56
[2017-09-05 05:22] LABS: BASOPHILS % (AUTO) 0.7 % (0.0-2.0); EOSINOPHILS % (AUTO) 0.7 % (0.0-3.0); LYMPHOCYTES % (AUTO) 12.6 % (20.0-45.0); MEAN CORPUSCULAR HGB CONC 33.7 G/DL (32.0-36.0); MEAN CORPUSCULAR VOLUME 95 FL (80-99); MEAN PLATELET VOLUME 8.7 FL (6.5-10.1); MONOCYTES % (AUTO) 7.8 % (1.0-10.0); NEUTROPHILS % (AUTO) 78.3 % (45.0-75.0); PLATELET COUNT 225 K/UL (150-450); RED BLOOD COUNT 4.29 M/UL (4.20-5.40); RED CELL DISTRIBUTION WIDTH 12.6 % (11.6-14.8); WHITE BLOOD COUNT 6.3 K/UL (4.8-10.8)
[2017-09-05 05:37] LABS: ALANINE AMINOTRANSFERASE 73 U/L (12-78); ALBUMIN/GLOBULIN RATIO 0.8 (1.0-2.7); ANION GAP 9 mmol/L (5-15); ASPARTATE AMINO TRANSFERASE 126 U/L (15-37); CALCIUM 8.6 MG/DL (8.5-10.1); CARBON DIOXIDE 26 MMOL/L (21-32); CHLORIDE 101 MMOL/L (98-107); CREATININE 1.5 MG/DL (0.55-1.30); POTASSIUM 3.8 MMOL/L (3.5-5.1); SODIUM 136 MMOL/L (136-145); TOTAL PROTEIN 7.2 G/DL (6.4-8.2)
[2017-09-05 06:23] LABS: INR 1.1 (0.9-1.1)
[2017-09-05] MEDS: NovoLOG Insulin Flexpen SUBQ SCH ×4 (07:05→21:51)
[2017-09-05 08:00] VITALS: BP 131/98
[2017-09-05] MEDS: Aspirin EC 81mg tab ORAL SCH (08:50)
[2017-09-05] MEDS: Azithromycin 250mg tab ORAL SCH (08:51)
[2017-09-05] MEDS: Lisinopril 20mg tab ORAL SCH (08:59)
--- NOTE | 2017-09-05 10:24 | Internal Med Progress Note ---
Subjective Date of Service: Sep 05, 2017 Physician Name Christoph Olivares Attending Physician Freddie Simon MD Current Medications Medications (Trade) Dose Ordered Sig/[place] Route PRN Reason Start Time Stop Time Status Last Admin Dose Admin Acetaminophen (Tylenol) 650 mg Q4H PRN ORAL Fever 09/02/17 06:00 10/02/17 05:59 Acetaminophen (Tylenol) 650 mg Q6HR PRN ORAL Fever/Headache/Mild Pain 09/02/17 05:30 10/02/17 05:29 09/02/17 17:38 Acetaminophen/ Codeine Phosphate (Tylenol #3) 1 tab Q4H PRN ORAL Pain Scale (7-10) 09/02/17 11:15 09/09/17 10:59 Acetaminophen/ Codeine Phosphate (Tylenol #3) 2 tab EVERY 8 HOURS PRN PO 4-6 09/02/17 11:00 09/09/17 10:59 09/03/17 04:07 Acetaminophen/ Hydrocodone Bitart ([place] 5/325) 1 tab EVERY 6 HOURS PRN ORAL 4-6 09/02/17 11:00 09/09/17 10:59 Albuterol/ Ipratropium (Albuterol/ Ipratropium) 3 ml EVERY 4 HOURS PRN HHN Shortness of Breath 09/02/17 06:00 09/07/17 05:59 Amlodipine Besylate (Norvasc) 2.5 mg DAILY ORAL 09/03/17 09:00 10/03/17 08:59 09/05/17 09:00 Aspirin (Ecotrin) 81 mg DAILY ORAL 09/02/17 09:00 10/02/17 08:59 09/05/17 08:50 Azithromycin (Zithromax) 500 mg DAILY ORAL 09/04/17 16:00 09/11/17 15:59 09/05/17 08:51 Ceftriaxone Sodium 1 gm/ Dextrose 55 ml @ 110 mls/hr Q24H IVPB 09/02/17 12:00 09/09/17 11:59 09/04/17 12:01 Dextrose (Dextrose 50%) STAT PRN IV Hypoglycemia 09/02/17 05:30 10/02/17 05:29 Heparin Sodium/ Dextrose 500 ml @ 24.755 mls/ hr adjust per protocol IV 09/04/17 06:00 10/04/17 05:59 09/04/17 18:10 Insulin Aspart (NovoLOG) BEFORE MEALS AND HS SUBQ 09/02/17 06:30 10/02/17 06:29 09/05/17 07:05 Ketorolac Tromethamine (Toradol) 30 mg Q6H PRN IV pain 7-10 09/02/17 11:30 09/07/17 10:59 Lisinopril (Prinivil) 20 mg DAILY ORAL 09/02/17 18:00 10/02/17 17:59 09/05/17 08:59 Morphine Sulfate (Morphine Sulfate) 4 mg EVERY 4 HOURS PRN IVP 7-10 09/02/17 11:00 09/09/17 10:59 Ondansetron HCl (Zofran) 4 mg Q4H PRN IVP Nausea & Vomiting 09/04/17 13:15 10/02/17 05:59 Pantoprazole (Protonix) 40 mg DAILY ORAL 09/03/17 13:45 10/03/17 13:44 09/05/17 08:51 Polyethylene Glycol (Miralax) 17 gm DAILYPRN PRN ORAL Constipation 09/02/17 06:00 10/02/17 05:59 Temazepam (Restoril) 15 mg HSPRN PRN ORAL Insomnia 09/02/17 06:00 09/09/17 05:59 Warfarin Sodium (Coumadin per pharmacy) 1 ea DAILY PRN MISC Per rx protocol 09/03/17 22:45 10/03/17 22:44 Warfarin Sodium (Coumadin) 5 mg COUMADIN ONCE ORAL 09/05/17 17:00 09/05/17 17:01 Allergies: Coded Allergies: No Known Allergies (Unverified , 09/02/17) ROS Limited/Unobtainable: No Constitutional: Reports: no symptoms HEENT: Reports: no symptoms Cardiovascular: Reports: no symptoms Respiratory: Reports: no symptoms Gastrointestinal/Abdominal: Reports: no symptoms Genitourinary: Reports: no symptoms Neurologic/Psychiatric: Reports: no symptoms Subjective 81 YO F admitted with shortness of breath and congestive heart failure. Improving shortness of breath. Await coumadin to become therapeutic. Cover for Int Mak-Dr Simon Objective Last Vital Signs Date Time Temp Pulse Resp B/P (MAP) Pulse Ox O2 Delivery O2 Flow Rate FiO2 09/05/17 09:00 79 131/82 09/05/17 08:00 97.7 20 95 Room Air 09/02/17 06:05 97 Laboratory Tests Test 09/04/17 12:45 09/05/17 04:00 Activated Partial Thromboplast Time 86 SEC (23-33) H 68 SEC (23-33) H White Blood Count 6.3 K/UL (4.8-10.8) Red Blood Count 4.29 M/UL (4.20-5.40) Hemoglobin 13.7 G/DL (12.0-16.0) Hematocrit 40.8 % (37.0-47.0) Mean Corpuscular Volume 95 FL (80-99) Mean Corpuscular Hemoglobin 32.0 PG (27.0-31.0) H Mean Corpuscular Hemoglobin Concent 33.7 G/DL (32.0-36.0) Red Cell Distribution Width 12.6 % (11.6-14.8) Platelet Count 225 K/UL (150-450) Mean Platelet Volume 8.7 FL (6.5-10.1) Neutrophils (%) (Auto) 78.3 % (45.0-75.0) H Lymphocytes (%) (Auto) 12.6 % (20.0-45.0) L Monocytes (%) (Auto) 7.8 % (1.0-10.0) Eosinophils (%) (Auto) 0.7 % (0.0-3.0) Basophils (%) (Auto) 0.7 % (0.0-2.0) Prothrombin Time 12.0 SEC (9.30-11.50) H Prothromb Time International Ratio 1.1 (0.9-1.1) Sodium Level 136 MMOL/L (136-145) Potassium Level 3.8 MMOL/L (3.5-5.1) Chloride Level 101 MMOL/L (98-107) Carbon Dioxide Level 26 MMOL/L (21-32) Anion Gap 9 mmol/L (5-15) Blood Urea Nitrogen 34 mg/dL (7-18) H Creatinine 1.5 MG/DL (0.55-1.30) H Estimat Glomerular Filtration Rate mL/min (>60) Glucose Level 139 MG/DL (74-106) H Calcium Level 8.6 MG/DL (8.5-10.1) Total Bilirubin 0.4 MG/DL (0.2-1.0) Aspartate Amino Transf (AST/SGOT) 126 U/L (15-37) H Alanine Aminotransferase (ALT/SGPT) 73 U/L (12-78) Alkaline Phosphatase 73 U/L (46-116) Pro-B-Type Natriuretic Peptide 107 pg/mL (0-125) Total Protein 7.2 G/DL (6.4-8.2) Albumin 3.1 G/DL (3.4-5.0) L Globulin 4.1 g/dL Albumin/Globulin Ratio 0.8 (1.0-2.7) L Microbiology Date/Time Source Procedure Growth Status 09/05/17 00:47 Nasopharynx Influenza Types A,B Antigen (NORA) - Final Complete Objective General Appearance: WD/WN, obese EENT: PERRL/EOMI, normal ENT inspection Neck: non-tender, normal alignment, supple Cardiovascular: normal peripheral pulses, normal rate, regular rhythm, no gallop/murmur, no JVD Respiratory/Chest: chest wall non-tender, respiratory distress, crackles/rales , rhonchi - bilaterally, expiratory wheezing Abdomen: normal bowel sounds, non tender, soft, no organomegaly Extremities: normal range of motion Edema: mild edema 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 (3) HTN (hypertension) Assessment & Plan: Continue norvasc and lisinopril (4) Acute DVT (deep venous thrombosis) Assessment & Plan: Continue heparin until coumadin therapeutic-see hematology note. (5) Acute exacerbation of CHF (congestive heart failure) Assessment & Plan: EF = 40% - see cardiology note. (6) UTI (urinary tract infection) Assessment & Plan: Kleb pneumo and E. Coli. Cont ceftriaxone. Status: not improved CHRISTOPH OLIVARES Sep 05, 2017 10:24
--- NOTE | 2017-09-05 11:16 | Infectious Diseases Prog Note ---
Assessment/Plan Assessment/Plan ASSESSMENT: doubt UTI , pt has no symptoms Ucx; Kleb oxytoca and E Coli Pneumonia. History of fever prior to admission. influenza.: neg Lower extremity deep venous thrombosis. Leukocytosis- resolved SUSHANT improving PLAN: cont Rocephin IV and Zithromax (but switch to PO ) day #4 /5 Monitor CBC. Monitor BMP. Monitor cultures (blood,sputum). anti-coagulation as per PCP Subjective Constitutional: Denies: no symptoms, fever, chills, fatigue, anorexia, drenching sweats, other Allergies: Coded Allergies: No Known Allergies (Unverified , 09/02/17) Objective Vital Signs Last 24 Hour Vital Signs Date Time Temp Pulse Resp B/P (MAP) Pulse Ox O2 Delivery O2 Flow Rate FiO2 09/05/17 09:00 79 131/82 09/05/17 08:59 131/82 09/05/17 08:00 97.7 99 20 131/98 95 Room Air 09/05/17 07:00 79 18 Room Air 09/05/17 04:00 98.2 93 18 139/56 96 Room Air 09/05/17 04:00 93 09/05/17 00:44 98.1 95 19 138/53 96 Room Air 09/05/17 00:00 95 09/04/17 20:24 85 16 Room Air 09/04/17 20:21 98.3 92 18 139/54 96 Room Air 09/04/17 20:00 89 09/04/17 16:00 88 09/04/17 16:00 97.8 80 20 118/55 96 Room Air 09/04/17 12:00 84 09/04/17 12:00 97.7 85 20 123/61 98 Room Air Height (Feet): 5 Height (Inches): 3.00 Weight (Pounds): 200 HEENT: anicteric Respiratory/Chest: normal breath sounds Cardiovascular: regularly irregular Abdomen: no organomegaly Microbiology Date/Time Source Procedure Growth Status 09/05/17 00:47 Nasopharynx Influenza Types A,B Antigen (NORA) - Final Complete Laboratory Tests Test 09/04/17 12:45 09/05/17 04:00 Activated Partial Thromboplast Time 86 SEC (23-33) H 68 SEC (23-33) H White Blood Count 6.3 K/UL (4.8-10.8) Red Blood Count 4.29 M/UL (4.20-5.40) Hemoglobin 13.7 G/DL (12.0-16.0) Hematocrit 40.8 % (37.0-47.0) Mean Corpuscular Volume 95 FL (80-99) Mean Corpuscular Hemoglobin 32.0 PG (27.0-31.0) H Mean Corpuscular Hemoglobin Concent 33.7 G/DL (32.0-36.0) Red Cell Distribution Width 12.6 % (11.6-14.8) Platelet Count 225 K/UL (150-450) Mean Platelet Volume 8.7 FL (6.5-10.1) Neutrophils (%) (Auto) 78.3 % (45.0-75.0) H Lymphocytes (%) (Auto) 12.6 % (20.0-45.0) L Monocytes (%) (Auto) 7.8 % (1.0-10.0) Eosinophils (%) (Auto) 0.7 % (0.0-3.0) Basophils (%) (Auto) 0.7 % (0.0-2.0) Prothrombin Time 12.0 SEC (9.30-11.50) H Prothromb Time International Ratio 1.1 (0.9-1.1) Sodium Level 136 MMOL/L (136-145) Potassium Level 3.8 MMOL/L (3.5-5.1) Chloride Level 101 MMOL/L (98-107) Carbon Dioxide Level 26 MMOL/L (21-32) Anion Gap 9 mmol/L (5-15) Blood Urea Nitrogen 34 mg/dL (7-18) H Creatinine 1.5 MG/DL (0.55-1.30) H Estimat Glomerular Filtration Rate mL/min (>60) Glucose Level 139 MG/DL (74-106) H Calcium Level 8.6 MG/DL (8.5-10.1) Total Bilirubin 0.4 MG/DL (0.2-1.0) Aspartate Amino Transf (AST/SGOT) 126 U/L (15-37) H Alanine Aminotransferase (ALT/SGPT) 73 U/L (12-78) Alkaline Phosphatase 73 U/L (46-116) Pro-B-Type Natriuretic Peptide 107 pg/mL (0-125) Total Protein 7.2 G/DL (6.4-8.2) Albumin 3.1 G/DL (3.4-5.0) L Globulin 4.1 g/dL Albumin/Globulin Ratio 0.8 (1.0-2.7) L Current Medications Medications (Trade) Dose Ordered Sig/[place] Route PRN Reason Start Time Stop Time Status Last Admin Dose Admin Acetaminophen (Tylenol) 650 mg Q4H PRN ORAL Fever 09/02/17 06:00 10/02/17 05:59 Acetaminophen (Tylenol) 650 mg Q6HR PRN ORAL Fever/Headache/Mild Pain 09/02/17 05:30 10/02/17 05:29 09/02/17 17:38 Acetaminophen/ Codeine Phosphate (Tylenol #3) 1 tab Q4H PRN ORAL Pain Scale (7-10) 09/02/17 11:15 09/09/17 10:59 Acetaminophen/ Codeine Phosphate (Tylenol #3) 2 tab EVERY 8 HOURS PRN PO 4-6 09/02/17 11:00 09/09/17 10:59 09/03/17 04:07 Acetaminophen/ Hydrocodone Bitart ([place] 5/325) 1 tab EVERY 6 HOURS PRN ORAL 4-6 09/02/17 11:00 09/09/17 10:59 Albuterol/ Ipratropium (Albuterol/ Ipratropium) 3 ml EVERY 4 HOURS PRN HHN Shortness of Breath 09/02/17 06:00 09/07/17 05:59 Amlodipine Besylate (Norvasc) 2.5 mg DAILY ORAL 09/03/17 09:00 10/03/17 08:59 09/05/17 09:00 Aspirin (Ecotrin) 81 mg DAILY ORAL 09/02/17 09:00 10/02/17 08:59 09/05/17 08:50 Azithromycin (Zithromax) 500 mg DAILY ORAL 09/04/17 16:00 09/11/17 15:59 09/05/17 08:51 Ceftriaxone Sodium 1 gm/ Dextrose 55 ml @ 110 mls/hr Q24H IVPB 09/02/17 12:00 09/09/17 11:59 09/04/17 12:01 Dextrose (Dextrose 50%) STAT PRN IV Hypoglycemia 09/02/17 05:30 10/02/17 05:29 Heparin Sodium/ Dextrose 500 ml @ 24.755 mls/ hr adjust per protocol IV 09/04/17 06:00 10/04/17 05:59 09/04/17 18:10 Insulin Aspart (NovoLOG) BEFORE MEALS AND HS SUBQ 09/02/17 06:30 10/02/17 06:29 09/05/17 07:05 Ketorolac Tromethamine (Toradol) 30 mg Q6H PRN IV pain 709/02/17 11:30 09/07/17 10:59 Lisinopril (Prinivil) 20 mg DAILY ORAL 09/02/17 18:00 10/02/17 17:59 09/05/17 08:59 Morphine Sulfate (Morphine Sulfate) 4 mg EVERY 4 HOURS PRN IVP 7-10 09/02/17 11:00 09/09/17 10:59 Ondansetron HCl (Zofran) 4 mg Q4H PRN IVP Nausea & Vomiting 09/04/17 13:15 10/02/17 05:59 Pantoprazole (Protonix) 40 mg DAILY ORAL 09/03/17 13:45 10/03/17 13:44 09/05/17 08:51 Polyethylene Glycol (Miralax) 17 gm DAILYPRN PRN ORAL Constipation 09/02/17 06:00 10/02/17 05:59 Temazepam (Restoril) 15 mg HSPRN PRN ORAL Insomnia 09/02/17 06:00 09/09/17 05:59 Warfarin Sodium (Coumadin per pharmacy) 1 ea DAILY PRN MISC Per rx protocol 09/03/17 22:45 10/03/17 22:44 Warfarin Sodium (Coumadin) 5 mg COUMADIN ONCE ORAL 09/05/17 17:00 09/05/17 17:01 HEENA VALDEZ M.D. Sep 05, 2017 11:16
--- NOTE | 2017-09-05 11:19 | Pulmonology Progress Note ---
Assessment/Plan Problems: (1) Acute exacerbation of CHF (congestive heart failure) (2) Acute DVT (deep venous thrombosis) (3) UTI (urinary tract infection) (4) Hypertension (5) Diabetes mellitus (6) Hyperglycemia due to type 2 diabetes mellitus Assessment/Plan bun/creatinine lower now, off lasix Hold lasix cxr in am heparin drip on abx for UTI echo noted, EF of 40% need ischemia work up keep in teli b/o heparin drip Subjective ROS Limited/Unobtainable: No Interval Events: doinb better Allergies: Coded Allergies: No Known Allergies (Unverified , 09/02/17) Objective Last 24 Hour Vital Signs Date Time Temp Pulse Resp B/P (MAP) Pulse Ox O2 Delivery O2 Flow Rate FiO2 09/05/17 09:00 79 131/82 09/05/17 08:59 131/82 09/05/17 08:00 97.7 99 20 131/98 95 Room Air 09/05/17 07:00 79 18 Room Air 09/05/17 04:00 98.2 93 18 139/56 96 Room Air 09/05/17 04:00 93 09/05/17 00:44 98.1 95 19 138/53 96 Room Air 09/05/17 00:00 95 09/04/17 20:24 85 16 Room Air 09/04/17 20:21 98.3 92 18 139/54 96 Room Air 09/04/17 20:00 89 09/04/17 16:00 88 09/04/17 16:00 97.8 80 20 118/55 96 Room Air 09/04/17 12:00 84 09/04/17 12:00 97.7 85 20 123/61 98 Room Air General Appearance: WD/WN HEENT: normocephalic, atraumatic Respiratory/Chest: chest wall non-tender, lungs clear Breasts: no masses Cardiovascular: normal rate Abdomen: normal bowel sounds, soft, non tender Genitourinary: normal external genitalia Extremities: no clubbing 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 Microbiology Date/Time Source Procedure Growth Status 09/05/17 00:47 Nasopharynx Influenza Types A,B Antigen (NORA) - Final Complete Laboratory Tests 09/04/17 12:45: Activated Partial Thromboplast Time 86H 09/05/17 04:00: Activated Partial Thromboplast Time 68H, White Blood Count 6.3, Red Blood Count 4.29, Hemoglobin 13.7, Hematocrit 40.8, Mean Corpuscular Volume 95, Mean Corpuscular Hemoglobin 32.0H, Mean Corpuscular Hemoglobin Concent 33.7, Red Cell Distribution Width 12.6, Platelet Count 225, Mean Platelet Volume 8.7, Neutrophils (%) (Auto) 78.3H, Lymphocytes (%) (Auto) 12.6L, Monocytes (%) (Auto ) 7.8, Eosinophils (%) (Auto) 0.7, Basophils (%) (Auto) 0.7, Prothrombin Time 12.0H, Prothromb Time International Ratio 1.1, Sodium Level 136, Potassium Level 3.8, Chloride Level 101, Carbon Dioxide Level 26, Anion Gap 9, Blood Urea Nitrogen 34H, Creatinine 1.5H, Estimat Glomerular Filtration Rate , Glucose Level 139H, Calcium Level 8.6, Total Bilirubin 0.4, Aspartate Amino Transf (AST/ SGOT) 126H, Alanine Aminotransferase (ALT/SGPT) 73, Alkaline Phosphatase 73, Pro -B-Type Natriuretic Peptide 107, Total Protein 7.2, Albumin 3.1L, Globulin 4.1, Albumin/Globulin Ratio 0.8L Current Medications Medications (Trade) Dose Ordered Sig/Obin[place] Route PRN Reason Start Time Stop Time Status Last Admin Dose Admin Acetaminophen (Tylenol) 650 mg Q4H PRN ORAL Fever 09/02/17 06:00 10/02/17 05:59 Acetaminophen (Tylenol) 650 mg Q6HR PRN ORAL Fever/Headache/Mild Pain 09/02/17 05:30 10/02/17 05:29 09/02/17 17:38 Acetaminophen/ Codeine Phosphate (Tylenol #3) 1 tab Q4H PRN ORAL Pain Scale (7-10) 09/02/17 11:15 09/09/17 10:59 Acetaminophen/ Codeine Phosphate (Tylenol #3) 2 tab EVERY 8 HOURS PRN PO 4-6 09/02/17 11:00 09/09/17 10:59 09/03/17 04:07 Acetaminophen/ Hydrocodone Bitart ([place] 5/325) 1 tab EVERY 6 HOURS PRN ORAL 4-6 09/02/17 11:00 09/09/17 10:59 Albuterol/ Ipratropium (Albuterol/ Ipratropium) 3 ml EVERY 4 HOURS PRN HHN Shortness of Breath 09/02/17 06:00 09/07/17 05:59 Amlodipine Besylate (Norvasc) 2.5 mg DAILY ORAL 09/03/17 09:00 10/03/17 08:59 09/05/17 09:00 Aspirin (Ecotrin) 81 mg DAILY ORAL 09/02/17 09:00 10/02/17 08:59 09/05/17 08:50 Azithromycin (Zithromax) 500 mg DAILY ORAL 09/04/17 16:00 09/11/17 15:59 09/05/17 08:51 Ceftriaxone Sodium 1 gm/ Dextrose 55 ml @ 110 mls/hr Q24H IVPB 09/02/17 12:00 09/09/17 11:59 09/04/17 12:01 Dextrose (Dextrose 50%) STAT PRN IV Hypoglycemia 09/02/17 05:30 10/02/17 05:29 Heparin Sodium/ Dextrose 500 ml @ 24.755 mls/ hr adjust per protocol IV 09/04/17 06:00 10/04/17 05:59 09/04/17 18:10 Insulin Aspart (NovoLOG) BEFORE MEALS AND HS SUBQ 09/02/17 06:30 10/02/17 06:29 09/05/17 07:05 Ketorolac Tromethamine (Toradol) 30 mg Q6H PRN IV pain 7-10 09/02/17 11:30 09/07/17 10:59 Lisinopril (Prinivil) 20 mg DAILY ORAL 09/02/17 18:00 10/02/17 17:59 09/05/17 08:59 Morphine Sulfate (Morphine Sulfate) 4 mg EVERY 4 HOURS PRN IVP 7-10 09/02/17 11:00 09/09/17 10:59 Ondansetron HCl (Zofran) 4 mg Q4H PRN IVP Nausea & Vomiting 09/04/17 13:15 10/02/17 05:59 Pantoprazole (Protonix) 40 mg DAILY ORAL 09/03/17 13:45 10/03/17 13:44 09/05/17 08:51 Polyethylene Glycol (Miralax) 17 gm DAILYPRN PRN ORAL Constipation 09/02/17 06:00 12/10/17 05:59 Temazepam (Restoril) 15 mg HSPRN PRN ORAL Insomnia 09/02/17 06:00 09/09/17 05:59 Warfarin Sodium (Coumadin per pharmacy) 1 ea DAILY PRN MISC Per rx protocol 09/03/17 22:45 10/03/17 22:44 Warfarin Sodium (Coumadin) 5 mg COUMADIN ONCE ORAL 09/05/17 17:00 09/05/17 17:01 PANFILO SOTO Sep 05, 2017 11:19
--- NOTE | 2017-09-05 11:53 | Diagnostic Imaging Report ---
Indication: Nausea and vomiting Technique: Supine view of the abdomen Comparison: None Findings: Bowel gas pattern is unremarkable. No unusual masses or calcifications. Impression: Negative
[2017-09-05 12:00] VITALS: BP 135/85
--- NOTE | 2017-09-05 13:29 | Diagnostic Imaging Report ---
Indication: DYSPNEA Technique: One view of the chest Comparison: 09/04/2017 Findings: Lungs and pleural spaces are clear. Heart size is normal. No significant change Impression: No acute process
[2017-09-05] MEDS: cefTRIAXone 1 GM in D5W 55 ML IVPB SCH (13:45)
[2017-09-05 16:25] VITALS: BP 144/73
[2017-09-05] MEDS ORDERED: Warfarin Sodium 5mg ORAL ONE (17:00)
--- NOTE | 2017-09-05 19:51 | Cardiology Progress Note ---
Assessment/Plan Assessment/Plan 1. Shortness of breath. 2. Deep venous thrombosis, acute. 3. Probable component of heart failure, cannot exclude pulmonary embolism. 4. Pulmonary hypertension. 5. Global hypokinesis. 6. Diabetes mellitus. 7. Hypertension. 8. confusion chf seems resolved echo final result not yet avialbel bp is elevated her cr imporved she is confused heparin coumadin crossover am unablel to find echo to review!! ischemic evaluation in near future watch mentation Subjective Cardiovascular: Denies: chest pain Respiratory: Denies: shortness of breath Gastrointestinal/Abdominal: Denies: black stools Genitourinary: Denies: burning Objective Last 24 Hour Vital Signs Date Time Temp Pulse Resp B/P (MAP) Pulse Ox O2 Delivery O2 Flow Rate FiO2 09/05/17 16:25 97.3 59 19 144/73 Room Air 09/05/17 16:00 81 09/05/17 12:00 98.2 94 22 135/85 96 Room Air 09/05/17 12:00 94 09/05/17 09:00 79 131/82 09/05/17 08:59 131/82 09/05/17 08:00 88 09/05/17 08:00 97.7 99 20 131/98 95 Room Air 09/05/17 07:00 79 18 Room Air 09/05/17 04:00 98.2 93 18 139/56 96 Room Air 09/05/17 04:00 93 09/05/17 00:44 98.1 95 19 138/53 96 Room Air 09/05/17 00:00 95 09/04/17 20:24 85 16 Room Air 09/04/17 20:21 98.3 92 18 139/54 96 Room Air 09/04/17 20:00 89 General Appearance: alert, other - confused Neck: supple Cardiovascular: normal rate, regular rhythm Respiratory/Chest: lungs clear, normal breath sounds Abdomen: normal bowel sounds, non tender, soft Extremities: no swelling Intake and Output 09/05/17 09/06/17 19:00 07:00 Intake Total 360 ml Balance 360 ml Intake Oral 360 ml # Voids 2 # Bowel Movements 4 Laboratory Tests Test 09/05/17 04:00 White Blood Count 6.3 K/UL (4.8-10.8) Red Blood Count 4.29 M/UL (4.20-5.40) Hemoglobin 13.7 G/DL (12.0-16.0) Hematocrit 40.8 % (37.0-47.0) Mean Corpuscular Volume 95 FL (80-99) Mean Corpuscular Hemoglobin 32.0 PG (27.0-31.0) H Mean Corpuscular Hemoglobin Concent 33.7 G/DL (32.0-36.0) Red Cell Distribution Width 12.6 % (11.6-14.8) Platelet Count 225 K/UL (150-450) Mean Platelet Volume 8.7 FL (6.5-10.1) Neutrophils (%) (Auto) 78.3 % (45.0-75.0) H Lymphocytes (%) (Auto) 12.6 % (20.0-45.0) L Monocytes (%) (Auto) 7.8 % (1.0-10.0) Eosinophils (%) (Auto) 0.7 % (0.0-3.0) Basophils (%) (Auto) 0.7 % (0.0-2.0) Prothrombin Time 12.0 SEC (9.30-11.50) H Prothromb Time International Ratio 1.1 (0.9-1.1) Activated Partial Thromboplast Time 68 SEC (23-33) H Sodium Level 136 MMOL/L (136-145) Potassium Level 3.8 MMOL/L (3.5-5.1) Chloride Level 101 MMOL/L (98-107) Carbon Dioxide Level 26 MMOL/L (21-32) Anion Gap 9 mmol/L (5-15) Blood Urea Nitrogen 34 mg/dL (7-18) H Creatinine 1.5 MG/DL (0.55-1.30) H Estimat Glomerular Filtration Rate mL/min (>60) Glucose Level 139 MG/DL (74-106) H Calcium Level 8.6 MG/DL (8.5-10.1) Total Bilirubin 0.4 MG/DL (0.2-1.0) Aspartate Amino Transf (AST/SGOT) 126 U/L (15-37) H Alanine Aminotransferase (ALT/SGPT) 73 U/L (12-78) Alkaline Phosphatase 73 U/L (46-116) Pro-B-Type Natriuretic Peptide 107 pg/mL (0-125) Total Protein 7.2 G/DL (6.4-8.2) Albumin 3.1 G/DL (3.4-5.0) L Globulin 4.1 g/dL Albumin/Globulin Ratio 0.8 (1.0-2.7) L Microbiology Date/Time Source Procedure Growth Status 09/05/17 00:47 Nasopharynx Influenza Types A,B Antigen (NORA) - Final Complete KARLIE MONET Sep 05, 2017 19:51
[2017-09-05 20:23] VITALS: BP 141/97
[2017-09-05] MEDS: Heparin 25,000u/D5W 500ml 500 ML IV SCH (20:23)
--- NOTE | 2017-09-05 22:46 | General Progress Note ---
Assessment/Plan Assessment/Plan ASSESSMENT AND PLAN: 1. Deep venous thrombosis of the right lower extremity. We will begin heparin drip as well as coumadin with an inr goal of 2-3. --> continue to monitor 2. Hypertension, currently better controlled on lisinopril. 3. Diabetes mellitus, on metformin. Continue to monitor. Subjective Allergies: Coded Allergies: No Known Allergies (Unverified , 09/02/17) All Systems: reviewed and negative except above Subjective on heparin drip Objective Last 24 Hour Vital Signs Date Time Temp Pulse Resp B/P (MAP) Pulse Ox O2 Delivery O2 Flow Rate FiO2 09/05/17 20:23 96.6 85 18 141/97 97 Room Air 09/05/17 20:00 87 09/05/17 19:30 83 16 Room Air 21 09/05/17 16:25 97.3 59 19 144/73 Room Air 09/05/17 16:00 81 09/05/17 12:00 98.2 94 22 135/85 96 Room Air 09/05/17 12:00 94 09/05/17 09:00 79 131/82 09/05/17 08:59 131/82 09/05/17 08:00 88 09/05/17 08:00 97.7 99 20 131/98 95 Room Air 09/05/17 07:00 79 18 Room Air 09/05/17 04:00 98.2 93 18 139/56 96 Room Air 09/05/17 04:00 93 09/05/17 00:44 98.1 95 19 138/53 96 Room Air 09/05/17 00:00 95 Intake and Output 09/05/17 09/06/17 19:00 07:00 Intake Total 533.285 ml 24.755 ml Balance 533.285 ml 24.755 ml Intake Oral 360 ml IV Total 173.285 ml 24.755 ml # Voids 2 # Bowel Movements 4 Laboratory Tests 09/05/17 04:00: White Blood Count 6.3, Red Blood Count 4.29, Hemoglobin 13.7, Hematocrit 40.8, Mean Corpuscular Volume 95, Mean Corpuscular Hemoglobin 32.0H, Mean Corpuscular Hemoglobin Concent 33.7, Red Cell Distribution Width 12.6, Platelet Count 225, Mean Platelet Volume 8.7, Neutrophils (%) (Auto) 78.3H, Lymphocytes (%) (Auto) 12.6L, Monocytes (%) (Auto) 7.8, Eosinophils (%) (Auto) 0.7, Basophils (%) (Auto ) 0.7, Prothrombin Time 12.0H, Prothromb Time International Ratio 1.1, Activated Partial Thromboplast Time 68H, Sodium Level 136, Potassium Level 3.8, Chloride Level 101, Carbon Dioxide Level 26, Anion Gap 9, Blood Urea Nitrogen 34H, Creatinine 1.5H, Estimat Glomerular Filtration Rate , Glucose Level 139H, Calcium Level 8.6, Total Bilirubin 0.4, Aspartate Amino Transf (AST/SGOT) 126H, Alanine Aminotransferase (ALT/SGPT) 73, Alkaline Phosphatase 73, Pro-B-Type Natriuretic Peptide 107, Total Protein 7.2, Albumin 3.1L, Globulin 4.1, Albumin/ Globulin Ratio 0.8L Height (Feet): 5 Height (Inches): 3.00 Weight (Pounds): 200 General Appearance: no apparent distress EENT: normal ENT inspection Neck: normal alignment Cardiovascular: no gallop/murmur Abdomen: normal bowel sounds Extremities: non-tender Edema: trace edema Neurologic: no motor/sensory deficits Jamal Coffman Sep 05, 2017 22:46
[2017-09-06 00:28] VITALS: BP 119/55
[2017-09-06 04:11] VITALS: BP 151/78
[2017-09-06 05:01] LABS: BASOPHILS % (AUTO) 0.8 % (0.0-2.0); LYMPHOCYTES % (AUTO) 13.8 % (20.0-45.0); MEAN CORPUSCULAR HEMOGLOBIN 33.1 PG (27.0-31.0); MEAN CORPUSCULAR HGB CONC 34.6 G/DL (32.0-36.0); MEAN CORPUSCULAR VOLUME 96 FL (80-99); MEAN PLATELET VOLUME 8.1 FL (6.5-10.1); MONOCYTES % (AUTO) 9.7 % (1.0-10.0); NEUTROPHILS % (AUTO) 74.8 % (45.0-75.0); PLATELET COUNT 211 K/UL (150-450); RED CELL DISTRIBUTION WIDTH 12.5 % (11.6-14.8); WHITE BLOOD COUNT 6.6 K/UL (4.8-10.8)
[2017-09-06 05:04] LABS: INR 1.1 (0.9-1.1)
[2017-09-06] MEDS ORDERED: Heparin 25,000u/D5W 500ml 500 ML IV SCH (05:45)
[2017-09-06 06:03] LABS: ANION GAP 10 mmol/L (5-15); CALCIUM 8.5 MG/DL (8.5-10.1); CARBON DIOXIDE 22 MMOL/L (21-32); CHLORIDE 104 MMOL/L (98-107); CREATININE 1.1 MG/DL (0.55-1.30); POTASSIUM 3.5 MMOL/L (3.5-5.1); SODIUM 136 MMOL/L (136-145)
[2017-09-06] MEDS: NovoLOG Insulin Flexpen SUBQ SCH ×4 (06:12→22:04)
[2017-09-06 08:00] VITALS: BP 133/87
--- NOTE | 2017-09-06 09:32 | Infectious Diseases Prog Note ---
Assessment/Plan Assessment/Plan ASSESSMENT: doubt UTI , pt has no symptoms Ucx; Kleb oxytoca and E Coli Pneumonia, SP Rx History of fever prior to admission. influenza.: neg Lower extremity deep venous thrombosis. Leukocytosis- resolved SUSHANT improving PLAN: DC Rocephin IV and Zithromax (but switch to PO ) day # 5 /5 and monitor pt off of AB Rx Monitor CBC. Monitor BMP. Monitor cultures (blood,sputum). anti-coagulation as per PCP Subjective Constitutional: Denies: no symptoms, fever, chills, fatigue, anorexia, drenching sweats, other Allergies: Coded Allergies: No Known Allergies (Unverified , 09/02/17) Objective Vital Signs Last 24 Hour Vital Signs Date Time Temp Pulse Resp B/P (MAP) Pulse Ox O2 Delivery O2 Flow Rate FiO2 09/06/17 08:00 97.5 80 21 133/87 98 Room Air 09/06/17 04:11 96.5 18 151/78 97 Room Air 09/06/17 04:00 86 09/06/17 00:28 97.7 79 18 119/55 93 Room Air 09/06/17 00:00 76 09/05/17 20:23 96.6 85 18 141/97 97 Room Air 09/05/17 20:00 87 09/05/17 19:30 83 16 Room Air 21 09/05/17 16:25 97.3 59 19 144/73 Room Air 09/05/17 16:00 81 09/05/17 12:00 98.2 94 22 135/85 96 Room Air 09/05/17 12:00 94 Height (Feet): 5 Height (Inches): 3.00 Weight (Pounds): 202 HEENT: anicteric Respiratory/Chest: no accessory muscle use Cardiovascular: regular rhythm Abdomen: no organomegaly Microbiology Date/Time Source Procedure Growth Status 09/05/17 00:47 Nasopharynx Influenza Types A,B Antigen (NORA) - Final Complete Laboratory Tests Test 09/06/17 04:35 White Blood Count 6.6 K/UL (4.8-10.8) Red Blood Count 4.10 M/UL (4.20-5.40) L Hemoglobin 13.6 G/DL (12.0-16.0) Hematocrit 39.1 % (37.0-47.0) Mean Corpuscular Volume 96 FL (80-99) Mean Corpuscular Hemoglobin 33.1 PG (27.0-31.0) H Mean Corpuscular Hemoglobin Concent 34.6 G/DL (32.0-36.0) Red Cell Distribution Width 12.5 % (11.6-14.8) Platelet Count 211 K/UL (150-450) Mean Platelet Volume 8.1 FL (6.5-10.1) Neutrophils (%) (Auto) 74.8 % (45.0-75.0) Lymphocytes (%) (Auto) 13.8 % (20.0-45.0) L Monocytes (%) (Auto) 9.7 % (1.0-10.0) Eosinophils (%) (Auto) 1.0 % (0.0-3.0) Basophils (%) (Auto) 0.8 % (0.0-2.0) Prothrombin Time 12.0 SEC (9.30-11.50) H Prothromb Time International Ratio 1.1 (0.9-1.1) Activated Partial Thromboplast Time 122 SEC (23-33) H Sodium Level 136 MMOL/L (136-145) Potassium Level 3.5 MMOL/L (3.5-5.1) Chloride Level 104 MMOL/L (98-107) Carbon Dioxide Level 22 MMOL/L (21-32) Anion Gap 10 mmol/L (5-15) Blood Urea Nitrogen 22 mg/dL (7-18) H Creatinine 1.1 MG/DL (0.55-1.30) Estimat Glomerular Filtration Rate mL/min (>60) Glucose Level 125 MG/DL (74-106) H Calcium Level 8.5 MG/DL (8.5-10.1) Current Medications Medications (Trade) Dose Ordered Sig/[place] Route PRN Reason Start Time Stop Time Status Last Admin Dose Admin Acetaminophen (Tylenol) 650 mg Q4H PRN ORAL Fever 09/02/17 06:00 10/02/17 05:59 Acetaminophen (Tylenol) 650 mg Q6HR PRN ORAL Fever/Headache/Mild Pain 09/02/17 05:30 10/02/17 05:29 09/02/17 17:38 Acetaminophen/ Codeine Phosphate (Tylenol #3) 1 tab Q4H PRN ORAL Pain Scale (7-10) 09/02/17 11:15 09/09/17 10:59 Acetaminophen/ Codeine Phosphate (Tylenol #3) 2 tab EVERY 8 HOURS PRN PO 4-6 09/02/17 11:00 09/09/17 10:59 09/03/17 04:07 Acetaminophen/ Hydrocodone Bitart ([place] 5/325) 1 tab EVERY 6 HOURS PRN ORAL 4-6 09/02/17 11:00 09/09/17 10:59 Albuterol/ Ipratropium (Albuterol/ Ipratropium) 3 ml EVERY 4 HOURS PRN HHN Shortness of Breath 09/02/17 06:00 09/07/17 05:59 Amlodipine Besylate (Norvasc) 2.5 mg DAILY ORAL 09/03/17 09:00 10/03/17 08:59 09/05/17 09:00 Aspirin (Ecotrin) 81 mg DAILY ORAL 09/02/17 09:00 10/02/17 08:59 09/05/17 08:50 Azithromycin (Zithromax) 500 mg DAILY ORAL 09/04/17 16:00 09/11/17 15:59 09/05/17 08:51 Ceftriaxone Sodium 1 gm/ Dextrose 55 ml @ 110 mls/hr Q24H IVPB 09/02/17 12:00 09/09/17 11:59 09/05/17 13:45 Dextrose (Dextrose 50%) STAT PRN IV Hypoglycemia 09/02/17 05:30 10/02/17 05:29 Heparin Sodium/ Dextrose 500 ml @ 19.45 mls/ hr adjust per protocol IV 09/06/17 05:45 10/04/17 05:59 09/06/17 06:11 Insulin Aspart (NovoLOG) BEFORE MEALS AND HS SUBQ 09/02/17 06:30 10/02/17 06:29 09/06/17 06:12 Ketorolac Tromethamine (Toradol) 30 mg Q6H PRN IV pain 7-10 09/02/17 11:30 09/07/17 10:59 Lisinopril (Prinivil) 20 mg DAILY ORAL 09/02/17 18:00 10/02/17 17:59 09/05/17 08:59 Morphine Sulfate (Morphine Sulfate) 4 mg EVERY 4 HOURS PRN IVP 7-10 09/02/17 11:00 09/09/17 10:59 09/05/17 14:40 Ondansetron HCl (Zofran) 4 mg Q4H PRN IVP Nausea & Vomiting 09/04/17 13:15 10/02/17 05:59 09/05/17 17:15 Pantoprazole (Protonix) 40 mg DAILY ORAL 09/03/17 13:45 10/03/17 13:44 09/05/17 08:51 Polyethylene Glycol (Miralax) 17 gm DAILYPRN PRN ORAL Constipation 09/02/17 06:00 10/02/17 05:59 Temazepam (Restoril) 15 mg HSPRN PRN ORAL Insomnia 09/02/17 06:00 09/09/17 05:59 Warfarin Sodium (Coumadin per pharmacy) 1 ea DAILY PRN MISC Per rx protocol 09/03/17 22:45 10/03/17 22:44 HEENA VALDEZ M.D. Sep 06, 2017 09:32
[2017-09-06] MEDS: Aspirin EC 81mg tab ORAL SCH (09:48)
[2017-09-06] MEDS: Lisinopril 20mg tab ORAL SCH (09:49)
[2017-09-06] MEDS: Azithromycin 250mg tab ORAL SCH (09:49)
--- NOTE | 2017-09-06 09:54 | Cardiology Progress Note ---
Assessment/Plan Assessment/Plan 1. Shortness of breath. 2. Deep venous thrombosis, acute. 3. Probable component of heart failure, cannot exclude pulmonary embolism. 4. Pulmonary hypertension. 5. Global hypokinesis. 6. Diabetes mellitus. 7. Hypertension. 8. confusion resolved 09/06/2017 9. LBBB chf seems resolved echo final result not yet availabe i will have techo look for the study bp is elevated her cr imporved confusion has resolved heparin Coumadin crossover ischemic evaluation in near future possibly as outpt increased acei may need diuretics 20 mg of lasix 3 times a week Subjective Cardiovascular: Denies: chest pain, lightheadedness, palpitations Respiratory: Denies: shortness of breath Gastrointestinal/Abdominal: Denies: abdominal pain Genitourinary: Denies: burning Objective Last 24 Hour Vital Signs Date Time Temp Pulse Resp B/P (MAP) Pulse Ox O2 Delivery O2 Flow Rate FiO2 09/06/17 08:00 97.5 80 21 133/87 98 Room Air 09/06/17 04:11 96.5 18 151/78 97 Room Air 09/06/17 04:00 86 09/06/17 00:28 97.7 79 18 119/55 93 Room Air 09/06/17 00:00 76 09/05/17 20:23 96.6 85 18 141/97 97 Room Air 09/05/17 20:00 87 09/05/17 19:30 83 16 Room Air 21 09/05/17 16:25 97.3 59 19 144/73 Room Air 09/05/17 16:00 81 09/05/17 12:00 98.2 94 22 135/85 96 Room Air 09/05/17 12:00 94 General Appearance: no apparent distress, alert Neck: supple Cardiovascular: normal rate, regular rhythm Respiratory/Chest: lungs clear, normal breath sounds Abdomen: normal bowel sounds, non tender, soft Extremities: no swelling Intake and Output 09/06/17 09/07/17 19:00 07:00 Intake Total 19.45 ml Balance 19.45 ml IV Total 19.45 ml Laboratory Tests Test 09/06/17 04:35 White Blood Count 6.6 K/UL (4.8-10.8) Red Blood Count 4.10 M/UL (4.20-5.40) L Hemoglobin 13.6 G/DL (12.0-16.0) Hematocrit 39.1 % (37.0-47.0) Mean Corpuscular Volume 96 FL (80-99) Mean Corpuscular Hemoglobin 33.1 PG (27.0-31.0) H Mean Corpuscular Hemoglobin Concent 34.6 G/DL (32.0-36.0) Red Cell Distribution Width 12.5 % (11.6-14.8) Platelet Count 211 K/UL (150-450) Mean Platelet Volume 8.1 FL (6.5-10.1) Neutrophils (%) (Auto) 74.8 % (45.0-75.0) Lymphocytes (%) (Auto) 13.8 % (20.0-45.0) L Monocytes (%) (Auto) 9.7 % (1.0-10.0) Eosinophils (%) (Auto) 1.0 % (0.0-3.0) Basophils (%) (Auto) 0.8 % (0.0-2.0) Prothrombin Time 12.0 SEC (9.30-11.50) H Prothromb Time International Ratio 1.1 (0.9-1.1) Activated Partial Thromboplast Time 122 SEC (23-33) H Sodium Level 136 MMOL/L (136-145) Potassium Level 3.5 MMOL/L (3.5-5.1) Chloride Level 104 MMOL/L (98-107) Carbon Dioxide Level 22 MMOL/L (21-32) Anion Gap 10 mmol/L (5-15) Blood Urea Nitrogen 22 mg/dL (7-18) H Creatinine 1.1 MG/DL (0.55-1.30) Estimat Glomerular Filtration Rate mL/min (>60) Glucose Level 125 MG/DL (74-106) H Calcium Level 8.5 MG/DL (8.5-10.1) Microbiology Date/Time Source Procedure Growth Status 09/05/17 00:47 Nasopharynx Influenza Types A,B Antigen (NORA) - Final Complete KARLIE MONET Sep 06, 2017 09:54
[2017-09-06] MEDS: cefTRIAXone 1 GM in D5W 55 ML IVPB SCH (11:46)
[2017-09-06 12:00] VITALS: BP 146/65
--- NOTE | 2017-09-06 13:15 | Cardiology Report ---
APPROVED REPORT EXAM: Two-dimensional and M-mode echocardiogram with Doppler and color Doppler. INDICATION LV function M-Mode DIMENSIONS IVSd1.3 (0.7-1.1cm)Left Atrium (MM)2.4 (1.6-4.0cm) LVDd4.0 (3.5-5.6cm)Aortic Root2.4 (2.0-3.7cm) PWd1.0 (0.7-1.1cm)Aortic Cusp Exc.1.6 (1.5-2.0cm) LVDs3.4 (2.5-4.0cm) PWs1.8 cm Technically difficult study due to patients position. Normal left ventricular chamber size. Global left ventricular hypokinesis. Mid to distal inferoseptal dyskinesis, apical akinesis , inferor ohypokinessi norml proxim ot mid ant wall adn laterla wall function Left ventricular ejection fraction estimated to be 35- 40 %. Mild left ventricular hypertrophy. Small posterior pericardial effusion. Left atrial size at upper limits of normal. Right cardiac chamber sizes are within normal limits. Focal aortic valve sclerosis with adequate cusp excursion. Thickened mitral valve leaflets with normal excursion. Mitral annulus and aortic root calcification. Pulmonic valve not well visualized. Normal tricuspid valve structure. IVC at normal size and collapsing with respiration. A color flow and spectral Doppler study was performed and revealed: Trace aortic insufficiency. Mild mitral regurgitation. Can not determine left ventricular diastolic function by mitral diastolic velocities due to atrial fibrillation. Moderate tricuspid regurgitation. Tricuspid systolic velocities suggests peak right ventricular systolic pressure of 63 mmHg, consistent with severe pulmonary hypertension. Mild pulmonic regurgitation present.
--- NOTE | 2017-09-06 14:20 | Pulmonology Progress Note ---
Assessment/Plan Problems: (1) Acute exacerbation of CHF (congestive heart failure) (2) Acute DVT (deep venous thrombosis) (3) UTI (urinary tract infection) (4) Hypertension (5) Diabetes mellitus (6) Hyperglycemia due to type 2 diabetes mellitus Assessment/Plan bun/creatinine lower now, Hold lasix cxr esperanza acute infiltrate on abx for UTI completed echo noted, EF of 40% need ischemia work up, cardio to decide where and when Subjective ROS Limited/Unobtainable: No Constitutional: Reports: no symptoms HEENT: Repors: no symptoms Respiratory: Reports: no symptoms Allergies: Coded Allergies: No Known Allergies (Unverified , 09/02/17) Objective Last 24 Hour Vital Signs Date Time Temp Pulse Resp B/P (MAP) Pulse Ox O2 Delivery O2 Flow Rate FiO2 09/06/17 12:00 76 09/06/17 12:00 97.7 88 20 146/65 97 Room Air 09/06/17 09:49 133/87 09/06/17 09:48 80 133/87 09/06/17 08:44 77 16 Room Air 21 09/06/17 08:00 78 09/06/17 08:00 97.5 80 21 133/87 98 Room Air 09/06/17 04:11 96.5 18 151/78 97 Room Air 09/06/17 04:00 86 09/06/17 00:28 97.7 79 18 119/55 93 Room Air 09/06/17 00:00 76 09/05/17 20:23 96.6 85 18 141/97 97 Room Air 09/05/17 20:00 87 09/05/17 19:30 83 16 Room Air 21 09/05/17 16:25 97.3 59 19 144/73 Room Air 09/05/17 16:00 81 Intake and Output 09/06/17 09/07/17 19:00 07:00 Intake Total 19.45 ml Balance 19.45 ml IV Total 19.45 ml General Appearance: WD/WN HEENT: normocephalic, atraumatic Respiratory/Chest: chest wall non-tender, lungs clear Breasts: no masses Cardiovascular: normal rate, regularly irregular Abdomen: normal bowel sounds Extremities: no cyanosis Neurologic/Psychiatric: contracts specialist II-XII grossly normal, no motor/sensory deficits Microbiology Date/Time Source Procedure Growth Status 09/05/17 00:47 Nasopharynx Influenza Types A,B Antigen (NORA) - Final Complete Laboratory Tests 09/06/17 04:35: White Blood Count 6.6, Red Blood Count 4.10L, Hemoglobin 13.6, Hematocrit 39.1, Mean Corpuscular Volume 96, Mean Corpuscular Hemoglobin 33.1H, Mean Corpuscular Hemoglobin Concent 34.6, Red Cell Distribution Width 12.5, Platelet Count 211, Mean Platelet Volume 8.1, Neutrophils (%) (Auto) 74.8, Lymphocytes (%) (Auto) 13.8L, Monocytes (%) (Auto) 9.7, Eosinophils (%) (Auto) 1.0, Basophils (%) (Auto ) 0.8, Prothrombin Time 12.0H, Prothromb Time International Ratio 1.1, Activated Partial Thromboplast Time 122H, Sodium Level 136, Potassium Level 3.5 , Chloride Level 104, Carbon Dioxide Level 22, Anion Gap 10, Blood Urea Nitrogen 22H, Creatinine 1.1, Estimat Glomerular Filtration Rate , Glucose Level 125H, Calcium Level 8.5 09/06/17 12:00: Activated Partial Thromboplast Time 91H Current Medications Medications (Trade) Dose Ordered Sig/[place]bin[place] Route PRN Reason Start Time Stop Time Status Last Admin Dose Admin Acetaminophen (Tylenol) 650 mg Q4H PRN ORAL Fever 09/02/17 06:00 10/02/17 05:59 Acetaminophen (Tylenol) 650 mg Q6HR PRN ORAL Fever/Headache/Mild Pain 09/02/17 05:30 10/02/17 05:29 09/02/17 17:38 Acetaminophen/ Codeine Phosphate (Tylenol #3) 1 tab Q4H PRN ORAL Pain Scale (7-10) 09/02/17 11:15 09/09/17 10:59 Acetaminophen/ Codeine Phosphate (Tylenol #3) 2 tab EVERY 8 HOURS PRN PO 4-6 09/02/17 11:00 09/09/17 10:59 09/03/17 04:07 Acetaminophen/ Hydrocodone Bitart ([place] 5/325) 1 tab EVERY 6 HOURS PRN ORAL 4-6 09/02/17 11:00 09/09/17 10:59 Albuterol/ Ipratropium (Albuterol/ Ipratropium) 3 ml EVERY 4 HOURS PRN HHN Shortness of Breath 09/02/17 06:00 09/07/17 05:59 Amlodipine Besylate (Norvasc) 2.5 mg DAILY ORAL 09/03/17 09:00 10/03/17 08:59 09/06/17 09:48 Aspirin (Ecotrin) 81 mg DAILY ORAL 09/02/17 09:00 10/02/17 08:59 09/06/17 09:48 Azithromycin (Zithromax) 500 mg DAILY ORAL 09/04/17 16:00 09/06/17 23:00 09/06/17 09:49 Ceftriaxone Sodium 1 gm/ Dextrose 55 ml @ 110 mls/hr Q24H IVPB 09/02/17 12:00 09/06/17 23:00 09/06/17 11:46 Dextrose (Dextrose 50%) STAT PRN IV Hypoglycemia 09/02/17 05:30 10/02/17 05:29 Furosemide (Lasix) 20 mg 3XW ONCE ORAL 09/07/17 09:00 09/07/17 09:01 Heparin Sodium/ Dextrose 500 ml @ 19.45 mls/ hr adjust per protocol IV 09/06/17 05:45 10/04/17 05:59 09/06/17 06:11 Insulin Aspart (NovoLOG) BEFORE MEALS AND HS SUBQ 09/02/17 06:30 10/02/17 06:29 09/06/17 11:50 Ketorolac Tromethamine (Toradol) 30 mg Q6H PRN IV pain 7-10 09/02/17 11:30 09/07/17 10:59 Lisinopril (Prinivil) 30 mg DAILY ORAL 09/07/17 09:00 10/07/17 08:59 Morphine Sulfate (Morphine Sulfate) 4 mg EVERY 4 HOURS PRN IVP 7-10 09/02/17 11:00 09/09/17 10:59 09/05/17 14:40 Ondansetron HCl (Zofran) 4 mg Q4H PRN IVP Nausea & Vomiting 09/04/17 13:15 10/02/17 05:59 09/05/17 17:15 Pantoprazole (Protonix) 40 mg DAILY ORAL 09/03/17 13:45 10/03/17 13:44 09/06/17 09:49 Polyethylene Glycol (Miralax) 17 gm DAILYPRN PRN ORAL Constipation 09/02/17 06:00 10/02/17 05:59 Potassium Chloride (K-Dur) 10 meq 3XW ORAL 09/07/17 09:00 10/07/17 08:59 Temazepam (Restoril) 15 mg HSPRN PRN ORAL Insomnia 09/02/17 06:00 09/09/17 05:59 Warfarin Sodium (Coumadin per pharmacy) 1 ea DAILY PRN MISC Per rx protocol 09/03/17 22:45 10/03/17 22:44 Warfarin Sodium (Coumadin) 7.5 mg COUMADIN ONCE ORAL 09/06/17 17:00 09/06/17 17:01 PANFILO SOTO Sep 06, 2017 14:20
[2017-09-06 16:00] VITALS: BP 132/66
--- NOTE | 2017-09-06 16:08 | Internal Med Progress Note ---
Subjective Date of Service: Sep 06, 2017 Physician Name Christoph Olivares Attending Physician Freddie Simon MD Current Medications Medications (Trade) Dose Ordered Sig/[place]bin[place] Route PRN Reason Start Time Stop Time Status Last Admin Dose Admin Acetaminophen (Tylenol) 650 mg Q4H PRN ORAL Fever 09/02/17 06:00 10/02/17 05:59 Acetaminophen (Tylenol) 650 mg Q6HR PRN ORAL Fever/Headache/Mild Pain 09/02/17 05:30 10/02/17 05:29 09/02/17 17:38 Acetaminophen/ Codeine Phosphate (Tylenol #3) 1 tab Q4H PRN ORAL Pain Scale (7-10) 09/02/17 11:15 09/09/17 10:59 Acetaminophen/ Codeine Phosphate (Tylenol #3) 2 tab EVERY 8 HOURS PRN PO 4-6 09/02/17 11:00 09/09/17 10:59 09/03/17 04:07 Acetaminophen/ Hydrocodone Bitart ([place] 5/325) 1 tab EVERY 6 HOURS PRN ORAL 4-6 09/02/17 11:00 09/09/17 10:59 Albuterol/ Ipratropium (Albuterol/ Ipratropium) 3 ml EVERY 4 HOURS PRN HHN Shortness of Breath 09/02/17 06:00 09/07/17 05:59 Amlodipine Besylate (Norvasc) 2.5 mg DAILY ORAL 09/03/17 09:00 10/03/17 08:59 09/06/17 09:48 Aspirin (Ecotrin) 81 mg DAILY ORAL 09/02/17 09:00 10/02/17 08:59 09/06/17 09:48 Azithromycin (Zithromax) 500 mg DAILY ORAL 09/04/17 16:00 09/06/17 23:00 09/06/17 09:49 Ceftriaxone Sodium 1 gm/ Dextrose 55 ml @ 110 mls/hr Q24H IVPB 09/02/17 12:00 09/06/17 23:00 09/06/17 11:46 Dextrose (Dextrose 50%) STAT PRN IV Hypoglycemia 09/02/17 05:30 10/02/17 05:29 Furosemide (Lasix) 20 mg 3XW ONCE ORAL 09/07/17 09:00 09/07/17 09:01 Heparin Sodium/ Dextrose 500 ml @ 19.45 mls/ hr adjust per protocol IV 09/06/17 05:45 10/04/17 05:59 09/06/17 06:11 Insulin Aspart (NovoLOG) BEFORE MEALS AND HS SUBQ 09/02/17 06:30 10/02/17 06:29 09/06/17 11:50 Ketorolac Tromethamine (Toradol) 30 mg Q6H PRN IV pain 7-10 09/02/17 11:30 09/07/17 10:59 Lisinopril (Prinivil) 30 mg DAILY ORAL 09/07/17 09:00 10/07/17 08:59 Morphine Sulfate (Morphine Sulfate) 4 mg EVERY 4 HOURS PRN IVP 7-10 09/02/17 11:00 09/09/17 10:59 09/05/17 14:40 Ondansetron HCl (Zofran) 4 mg Q4H PRN IVP Nausea & Vomiting 09/04/17 13:15 10/02/17 05:59 09/05/17 17:15 Pantoprazole (Protonix) 40 mg DAILY ORAL 09/03/17 13:45 10/03/17 13:44 09/06/17 09:49 Polyethylene Glycol (Miralax) 17 gm DAILYPRN PRN ORAL Constipation 09/02/17 06:00 10/02/17 05:59 Potassium Chloride (K-Dur) 10 meq 3XW ORAL 09/07/17 09:00 10/07/17 08:59 Temazepam (Restoril) 15 mg HSPRN PRN ORAL Insomnia 09/02/17 06:00 09/09/17 05:59 Warfarin Sodium (Coumadin per pharmacy) 1 ea DAILY PRN MISC Per rx protocol 09/03/17 22:45 10/03/17 22:44 Warfarin Sodium (Coumadin) 7.5 mg COUMADIN ONCE ORAL 09/06/17 17:00 09/06/17 17:01 Allergies: Coded Allergies: No Known Allergies (Unverified , 09/02/17) ROS Limited/Unobtainable: No Constitutional: Reports: no symptoms HEENT: Reports: no symptoms Cardiovascular: Reports: no symptoms Respiratory: Reports: no symptoms Gastrointestinal/Abdominal: Reports: diarrhea Genitourinary: Reports: no symptoms Neurologic/Psychiatric: Reports: no symptoms Subjective 81 YO F admitted with shortness of breath and congestive heart failure. Improving shortness of breath. Await coumadin to become therapeutic. Diarrhea improved. Cover for Int Med-Dr Simon Objective Last Vital Signs Date Time Temp Pulse Resp B/P (MAP) Pulse Ox O2 Delivery O2 Flow Rate FiO2 09/06/17 12:00 76 09/06/17 12:00 97.7 20 146/65 97 Room Air 09/06/17 08:44 21 Laboratory Tests Test 09/06/17 04:35 09/06/17 12:00 White Blood Count 6.6 K/UL (4.8-10.8) Red Blood Count 4.10 M/UL (4.20-5.40) L Hemoglobin 13.6 G/DL (12.0-16.0) Hematocrit 39.1 % (37.0-47.0) Mean Corpuscular Volume 96 FL (80-99) Mean Corpuscular Hemoglobin 33.1 PG (27.0-31.0) H Mean Corpuscular Hemoglobin Concent 34.6 G/DL (32.0-36.0) Red Cell Distribution Width 12.5 % (11.6-14.8) Platelet Count 211 K/UL (150-450) Mean Platelet Volume 8.1 FL (6.5-10.1) Neutrophils (%) (Auto) 74.8 % (45.0-75.0) Lymphocytes (%) (Auto) 13.8 % (20.0-45.0) L Monocytes (%) (Auto) 9.7 % (1.0-10.0) Eosinophils (%) (Auto) 1.0 % (0.0-3.0) Basophils (%) (Auto) 0.8 % (0.0-2.0) Prothrombin Time 12.0 SEC (9.30-11.50) H Prothromb Time International Ratio 1.1 (0.9-1.1) Activated Partial Thromboplast Time 122 SEC (23-33) H 91 SEC (23-33) H Sodium Level 136 MMOL/L (136-145) Potassium Level 3.5 MMOL/L (3.5-5.1) Chloride Level 104 MMOL/L (98-107) Carbon Dioxide Level 22 MMOL/L (21-32) Anion Gap 10 mmol/L (5-15) Blood Urea Nitrogen 22 mg/dL (7-18) H Creatinine 1.1 MG/DL (0.55-1.30) Estimat Glomerular Filtration Rate mL/min (>60) Glucose Level 125 MG/DL (74-106) H Calcium Level 8.5 MG/DL (8.5-10.1) Microbiology Date/Time Source Procedure Growth Status 09/05/17 00:47 Nasopharynx Influenza Types A,B Antigen (NORA) - Final Complete Intake and Output 09/06/17 09/07/17 19:00 07:00 Intake Total 155.60 ml Balance 155.60 ml IV Total 155.60 ml Objective General Appearance: WD/WN, obese EENT: PERRL/EOMI, normal ENT inspection Neck: non-tender, normal alignment, supple Cardiovascular: normal peripheral pulses, normal rate, regular rhythm, no gallop/murmur, no JVD Respiratory/Chest: chest wall non-tender, respiratory distress, crackles/rales , rhonchi - bilaterally, expiratory wheezing Abdomen: normal bowel sounds, non tender, soft, no organomegaly Extremities: normal range of motion Edema: mild edema Neurologic: sleep technician II-XII grossly normal, no motor/sensory deficits Skin: normal pigmentation, warm/dry Assessment/Plan Problem List: (1) Shortness of breath Assessment & Plan: Due to CHF (2) Diabetes mellitus, type II Assessment & Plan: Cont novolog sliding scale. (3) HTN (hypertension) Assessment & Plan: Continue norvasc and lisinopril (4) Acute DVT (deep venous thrombosis) Assessment & Plan: Continue heparin until coumadin therapeutic-see hematology note. (5) Acute exacerbation of CHF (congestive heart failure) Assessment & Plan: EF = 40% - see cardiology note. (6) UTI (urinary tract infection) Assessment & Plan: Kleb pneumo and E. Coli. Cont ceftriaxone. (7) Diarrhea Assessment & Plan: Resolving. Await C.Diff result. Status: progressing Assessment/Plan Discharge planning: home health for home physical therapy and weekly protimes- coumadin therapy CHRISTOPH OLIVARES Sep 06, 2017 16:08
[2017-09-06] MEDS ORDERED: Warfarin Sodium 7.5mg ORAL ONE (17:00)
[2017-09-06 20:39] VITALS: BP 124/67
--- NOTE | 2017-09-06 22:15 | General Progress Note ---
Assessment/Plan Assessment/Plan ASSESSMENT AND PLAN: 1. Deep venous thrombosis of the right lower extremity. We will begin heparin drip as well as coumadin with an inr goal of 2-3. --> continue to monitor INR 2. Hypertension, currently better controlled on lisinopril. 3. Diabetes mellitus, on metformin. Continue to monitor. Subjective Constitutional: Reports: no symptoms HEENT: Reports: no symptoms Cardiovascular: Reports: no symptoms Respiratory: Reports: no symptoms Gastrointestinal/Abdominal: Reports: no symptoms Genitourinary: Reports: no symptoms Neurologic/Psychiatric: Reports: no symptoms Endocrine: Reports: no symptoms Hematologic/Lymphatic: Reports: no symptoms Allergies: Coded Allergies: No Known Allergies (Unverified , 09/02/17) Subjective NAD Objective Last 24 Hour Vital Signs Date Time Temp Pulse Resp B/P (MAP) Pulse Ox O2 Delivery O2 Flow Rate FiO2 09/06/17 20:39 98.4 83 18 124/67 97 Room Air 09/06/17 19:41 74 20 Room Air 09/06/17 16:00 76 09/06/17 16:00 97.7 78 21 132/66 97 Room Air 09/06/17 12:00 76 09/06/17 12:00 97.7 88 20 146/65 97 Room Air 09/06/17 09:49 133/87 09/06/17 09:48 80 133/87 09/06/17 08:44 77 16 Room Air 09/06/17 08:00 78 09/06/17 08:00 97.5 80 21 133/87 98 Room Air 09/06/17 04:11 96.5 18 151/78 97 Room Air 09/06/17 04:00 86 09/06/17 00:28 97.7 79 18 119/55 93 Room Air 09/06/17 00:00 76 Intake and Output 09/06/17 09/07/17 19:00 07:00 Intake Total 233.40 ml Output Total 400 ml Balance -166.60 ml IV Total 233.40 ml Output Urine Total 400 ml Laboratory Tests 09/06/17 04:35: White Blood Count 6.6, Red Blood Count 4.10L, Hemoglobin 13.6, Hematocrit 39.1, Mean Corpuscular Volume 96, Mean Corpuscular Hemoglobin 33.1H, Mean Corpuscular Hemoglobin Concent 34.6, Red Cell Distribution Width 12.5, Platelet Count 211, Mean Platelet Volume 8.1, Neutrophils (%) (Auto) 74.8, Lymphocytes (%) (Auto) 13.8L, Monocytes (%) (Auto) 9.7, Eosinophils (%) (Auto) 1.0, Basophils (%) (Auto ) 0.8, Prothrombin Time 12.0H, Prothromb Time International Ratio 1.1, Activated Partial Thromboplast Time 122H, Sodium Level 136, Potassium Level 3.5 , Chloride Level 104, Carbon Dioxide Level 22, Anion Gap 10, Blood Urea Nitrogen 22H, Creatinine 1.1, Estimat Glomerular Filtration Rate , Glucose Level 125H, Calcium Level 8.5 09/06/17 12:00: Activated Partial Thromboplast Time 91H Height (Feet): 5 Height (Inches): 3.00 Weight (Pounds): 202 General Appearance: no apparent distress EENT: normal ENT inspection Neck: non-tender Cardiovascular: normal peripheral pulses Respiratory/Chest: chest wall non-tender Extremities: non-tender Jamal Coffman Sep 06, 2017 22:15
[2017-09-07 00:43] VITALS: BP 133/62
[2017-09-07 04:42] LABS: BASOPHILS % (AUTO) 0.6 % (0.0-2.0); EOSINOPHILS % (AUTO) 2.5 % (0.0-3.0); LYMPHOCYTES % (AUTO) 18.3 % (20.0-45.0); MEAN CORPUSCULAR HEMOGLOBIN 31.7 PG (27.0-31.0); MEAN CORPUSCULAR HGB CONC 33.3 G/DL (32.0-36.0); MEAN CORPUSCULAR VOLUME 95 FL (80-99); MONOCYTES % (AUTO) 8.4 % (1.0-10.0); NEUTROPHILS % (AUTO) 70.2 % (45.0-75.0); PLATELET COUNT 222 K/UL (150-450); RED BLOOD COUNT 4.06 M/UL (4.20-5.40); RED CELL DISTRIBUTION WIDTH 12.6 % (11.6-14.8); WHITE BLOOD COUNT 7.5 K/UL (4.8-10.8)
[2017-09-07 04:48] VITALS: BP 135/61
[2017-09-07 04:51] LABS: INR 1.3 (0.9-1.1); PROTHROMBIN TIME 14.1 SEC (9.30-11.50)
[2017-09-07 04:55] LABS: CHLORIDE 105 MMOL/L (98-107)
[2017-09-07 05:06] LABS: ANION GAP 9 mmol/L (5-15); CALCIUM 8.5 MG/DL (8.5-10.1); CARBON DIOXIDE 23 MMOL/L (21-32); SODIUM 136 MMOL/L (136-145)
[2017-09-07] MEDS ORDERED: Heparin 25,000u/D5W 500ml 500 ML IV SCH ×2 (06:00→21:45)
[2017-09-07] MEDS: NovoLOG Insulin Flexpen SUBQ SCH ×4 (06:17→22:30)
[2017-09-07 08:20] VITALS: BP 125/70
[2017-09-07] MEDS ORDERED: Lisinopril 20mg tab ORAL SCH (09:00)
--- NOTE | 2017-09-07 09:01 | Infectious Diseases Prog Note ---
Assessment/Plan Assessment/Plan ASSESSMENT: doubt UTI , pt has no symptoms Ucx; Kleb oxytoca and E Coli Pneumonia, SP Rx History of fever prior to admission. influenza.: neg Lower extremity deep venous thrombosis. Leukocytosis- resolved SUSHANT improving PLAN: monitor pt off of AB Rx SP Rocephin IV and Zithromax day # 5 / Monitor CBC. Monitor BMP. Monitor cultures (blood,sputum). anti-coagulation as per PCP Subjective Constitutional: Denies: no symptoms, fever, chills, fatigue, anorexia, drenching sweats, other Allergies: Coded Allergies: No Known Allergies (Unverified , 09/02/17) Objective Vital Signs Last 24 Hour Vital Signs Date Time Temp Pulse Resp B/P (MAP) Pulse Ox O2 Delivery O2 Flow Rate FiO2 09/07/17 08:20 96.7 82 18 125/70 99 Room Air 09/07/17 07:49 85 20 Room Air 21 09/07/17 04:48 96.4 76 18 135/61 97 Room Air 09/07/17 04:00 83 09/07/17 00:43 94.2 83 18 133/62 95 Room Air 09/07/17 00:00 71 09/06/17 20:39 98.4 83 18 124/67 97 Room Air 09/06/17 20:00 79 09/06/17 19:41 74 20 Room Air 09/06/17 16:00 76 09/06/17 16:00 97.7 78 21 132/66 97 Room Air 09/06/17 12:00 76 09/06/17 12:00 97.7 88 20 146/65 97 Room Air 09/06/17 09:49 133/87 09/06/17 09:48 80 133/87 Height (Feet): 5 Height (Inches): 3.00 Weight (Pounds): 200 HEENT: mucous membranes moist Respiratory/Chest: no respiratory distress Cardiovascular: regular rhythm Abdomen: soft, non tender Microbiology Date/Time Source Procedure Growth Status 09/05/17 00:47 Nasopharynx Influenza Types A,B Antigen (NORA) - Final Complete Laboratory Tests Test 09/06/17 12:00 09/07/17 04:15 Activated Partial Thromboplast Time 91 SEC (23-33) H 106 SEC (23-33) H White Blood Count 7.5 K/UL (4.8-10.8) Red Blood Count 4.06 M/UL (4.20-5.40) L Hemoglobin 12.9 G/DL (12.0-16.0) Hematocrit 38.7 % (37.0-47.0) Mean Corpuscular Volume 95 FL (80-99) Mean Corpuscular Hemoglobin 31.7 PG (27.0-31.0) H Mean Corpuscular Hemoglobin Concent 33.3 G/DL (32.0-36.0) Red Cell Distribution Width 12.6 % (11.6-14.8) Platelet Count 222 K/UL (150-450) Mean Platelet Volume 8.0 FL (6.5-10.1) Neutrophils (%) (Auto) 70.2 % (45.0-75.0) Lymphocytes (%) (Auto) 18.3 % (20.0-45.0) L Monocytes (%) (Auto) 8.4 % (1.0-10.0) Eosinophils (%) (Auto) 2.5 % (0.0-3.0) Basophils (%) (Auto) 0.6 % (0.0-2.0) Prothrombin Time 14.1 SEC (9.30-11.50) H Prothromb Time International Ratio 1.3 (0.9-1.1) H Sodium Level 136 MMOL/L (136-145) Potassium Level 4.0 MMOL/L (3.5-5.1) Chloride Level 105 MMOL/L (98-107) Carbon Dioxide Level 23 MMOL/L (21-32) Anion Gap 9 mmol/L (5-15) Blood Urea Nitrogen 19 mg/dL (7-18) H Creatinine 1.0 MG/DL (0.55-1.30) Estimat Glomerular Filtration Rate mL/min (>60) Glucose Level 114 MG/DL (74-106) H Calcium Level 8.5 MG/DL (8.5-10.1) Current Medications Medications (Trade) Dose Ordered Sig/[place] Route PRN Reason Start Time Stop Time Status Last Admin Dose Admin Acetaminophen (Tylenol) 650 mg Q4H PRN ORAL Fever 09/02/17 06:00 10/02/17 05:59 Acetaminophen (Tylenol) 650 mg Q6HR PRN ORAL Fever/Headache/Mild Pain 09/02/17 05:30 10/02/17 05:29 09/02/17 17:38 Acetaminophen/ Codeine Phosphate (Tylenol #3) 1 tab Q4H PRN ORAL Pain Scale (7-10) 09/02/17 11:15 09/09/17 10:59 Acetaminophen/ Codeine Phosphate (Tylenol #3) 2 tab EVERY 8 HOURS PRN PO 4-6 09/02/17 11:00 09/09/17 10:59 09/03/17 04:07 Acetaminophen/ Hydrocodone Bitart ([place] 5/325) 1 tab EVERY 6 HOURS PRN ORAL 4-6 09/02/17 11:00 09/09/17 10:59 Amlodipine Besylate (Norvasc) 2.5 mg DAILY ORAL 09/03/17 09:00 10/03/17 08:59 09/06/17 09:48 Aspirin (Ecotrin) 81 mg DAILY ORAL 09/02/17 09:00 10/02/17 08:59 09/06/17 09:48 Dextrose (Dextrose 50%) STAT PRN IV Hypoglycemia 09/02/17 05:30 10/02/17 05:29 Furosemide (Lasix) 20 mg 3XW ONCE ORAL 09/07/17 09:00 09/07/17 09:01 Heparin Sodium/ Dextrose 500 ml @ 14.145 mls/ hr adjust per protocol IV 09/07/17 06:00 10/07/17 05:59 09/07/17 06:17 Insulin Aspart (NovoLOG) BEFORE MEALS AND HS SUBQ 09/02/17 06:30 10/02/17 06:29 09/07/17 06:17 Ketorolac Tromethamine (Toradol) 30 mg Q6H PRN IV pain 7-10 09/02/17 11:30 09/07/17 10:59 Lisinopril (Prinivil) 30 mg DAILY ORAL 09/07/17 09:00 10/07/17 08:59 Morphine Sulfate (Morphine Sulfate) 4 mg EVERY 4 HOURS PRN IVP 7-10 09/02/17 11:00 09/09/17 10:59 09/05/17 14:40 Ondansetron HCl (Zofran) 4 mg Q4H PRN IVP Nausea & Vomiting 09/04/17 13:15 10/02/17 05:59 09/05/17 17:15 Pantoprazole (Protonix) 40 mg DAILY ORAL 09/03/17 13:45 10/03/17 13:44 09/06/17 09:49 Polyethylene Glycol (Miralax) 17 gm DAILYPRN PRN ORAL Constipation 09/02/17 06:00 10/02/17 05:59 Potassium Chloride (K-Dur) 10 meq 3XW ORAL 09/07/17 09:00 10/07/17 08:59 Temazepam (Restoril) 15 mg HSPRN PRN ORAL Insomnia 09/02/17 06:00 09/09/17 05:59 Warfarin Sodium (Coumadin per pharmacy) 1 ea DAILY PRN MISC Per rx protocol 09/03/17 22:45 10/03/17 22:44 HEENA VALDEZ M.D. Sep 07, 2017 09:01
[2017-09-07] MEDS: Aspirin EC 81mg tab ORAL SCH (09:04)
[2017-09-07 11:36] VITALS: BP 132/69
--- NOTE | 2017-09-07 15:06 | Pulmonology Progress Note ---
Assessment/Plan Problems: (1) Acute exacerbation of CHF (congestive heart failure) (2) Acute DVT (deep venous thrombosis) (3) UTI (urinary tract infection) (4) Hypertension (5) Diabetes mellitus (6) Hyperglycemia due to type 2 diabetes mellitus Assessment/Plan bun/creatinine lower now, Hold lasix cxr esperanza acute infiltrate on abx for UTI completed echo noted, EF of 40% need ischemia work up, cardio to decide where and when INR still subtherapeutic Speech pathologist recommended CONSIDER DOWNGRADING TO A [facility]-MED LIQUIFIED PUREED LIKE NECTAR THICK SOUP CONSISTENCY IF RECEPTIVE USING STRICT POSTED ASP AND REFLUX(ON PROTONIX FOR GERD ) PRECAUTIONS. Subjective ROS Limited/Unobtainable: No Interval Events: no new complains Allergies: Coded Allergies: No Known Allergies (Unverified , 09/02/17) Objective Last 24 Hour Vital Signs Date Time Temp Pulse Resp B/P (MAP) Pulse Ox O2 Delivery O2 Flow Rate FiO2 09/07/17 11:36 97.1 76 18 132/69 100 Room Air 09/07/17 09:06 125/70 09/07/17 09:05 82 125/70 09/07/17 08:20 96.7 82 18 125/70 99 Room Air 09/07/17 08:00 82 09/07/17 07:49 85 20 Room Air 09/07/17 04:48 96.4 76 18 135/61 97 Room Air 09/07/17 04:00 83 09/07/17 00:43 94.2 83 18 133/62 95 Room Air 09/07/17 00:00 71 09/06/17 20:39 98.4 83 18 124/67 97 Room Air 09/06/17 20:00 79 09/06/17 19:41 74 20 Room Air 21 09/06/17 16:00 76 09/06/17 16:00 97.7 78 21 132/66 97 Room Air Intake and Output 09/07/17 09/08/17 19:00 07:00 Intake Total 480 ml Balance 480 ml Intake Oral 480 ml # Voids 2 # Bowel Movements 1 General Appearance: WD/WN HEENT: normocephalic, atraumatic Respiratory/Chest: chest wall non-tender, lungs clear Breasts: no masses Cardiovascular: normal peripheral pulses Abdomen: normal bowel sounds, soft, non tender Genitourinary: normal external genitalia Skin: no rash Neurologic/Psychiatric: child and family therapist II-XII grossly normal, normal mood/affect Microbiology Date/Time Source Procedure Growth Status 09/05/17 00:47 Nasopharynx Influenza Types A,B Antigen (NORA) - Final Complete Laboratory Tests 09/07/17 04:15: White Blood Count 7.5, Red Blood Count 4.06L, Hemoglobin 12.9, Hematocrit 38.7, Mean Corpuscular Volume 95, Mean Corpuscular Hemoglobin 31.7H, Mean Corpuscular Hemoglobin Concent 33.3, Red Cell Distribution Width 12.6, Platelet Count 222, Mean Platelet Volume 8.0, Neutrophils (%) (Auto) 70.2, Lymphocytes (%) (Auto) 18.3L, Monocytes (%) (Auto) 8.4, Eosinophils (%) (Auto) 2.5, Basophils (%) (Auto ) 0.6, Prothrombin Time 14.1H, Prothromb Time International Ratio 1.3H, Activated Partial Thromboplast Time 106H, Sodium Level 136, Potassium Level 4.0 , Chloride Level 105, Carbon Dioxide Level 23, Anion Gap 9, Blood Urea Nitrogen 19H, Creatinine 1.0, Estimat Glomerular Filtration Rate , Glucose Level 114H, Calcium Level 8.5 09/07/17 12:00: Activated Partial Thromboplast Time 67H Current Medications Medications (Trade) Dose Ordered Sig/[place] Route PRN Reason Start Time Stop Time Status Last Admin Dose Admin Acetaminophen (Tylenol) 650 mg Q4H PRN ORAL Fever 09/02/17 06:00 10/02/17 05:59 Acetaminophen (Tylenol) 650 mg Q6HR PRN ORAL Fever/Headache/Mild Pain 09/02/17 05:30 10/02/17 05:29 09/02/17 17:38 Acetaminophen/ Codeine Phosphate (Tylenol #3) 1 tab Q4H PRN ORAL Pain Scale (7-10) 09/02/17 11:15 09/09/17 10:59 Acetaminophen/ Codeine Phosphate (Tylenol #3) 2 tab EVERY 8 HOURS PRN PO 4-6 09/02/17 11:00 09/09/17 10:59 09/03/17 04:07 Acetaminophen/ Hydrocodone Bitart ([place] 5/325) 1 tab EVERY 6 HOURS PRN ORAL 4-6 09/02/17 11:00 09/09/17 10:59 Amlodipine Besylate (Norvasc) 2.5 mg DAILY ORAL 09/03/17 09:00 10/03/17 08:59 09/07/17 09:05 Aspirin (Ecotrin) 81 mg DAILY ORAL 09/02/17 09:00 10/02/17 08:59 09/07/17 09:04 Dextrose (Dextrose 50%) STAT PRN IV Hypoglycemia 09/02/17 05:30 10/02/17 05:29 Heparin Sodium/ Dextrose 500 ml @ 14.145 mls/ hr adjust per protocol IV 09/07/17 06:00 10/07/17 05:59 09/07/17 06:17 Insulin Aspart (NovoLOG) BEFORE MEALS AND HS SUBQ 09/02/17 06:30 10/02/17 06:29 09/07/17 11:45 Lisinopril (Prinivil) 30 mg DAILY ORAL 09/07/17 09:00 10/07/17 08:59 09/07/17 09:06 Morphine Sulfate (Morphine Sulfate) 4 mg EVERY 4 HOURS PRN IVP 7-10 09/02/17 11:00 09/09/17 10:59 09/05/17 14:40 Ondansetron HCl (Zofran) 4 mg Q4H PRN IVP Nausea & Vomiting 09/04/17 13:15 10/02/17 05:59 09/05/17 17:15 Pantoprazole (Protonix) 40 mg DAILY ORAL 09/03/17 13:45 10/03/17 13:44 09/07/17 09:06 Polyethylene Glycol (Miralax) 17 gm DAILYPRN PRN ORAL Constipation 09/02/17 06:00 10/02/17 05:59 Potassium Chloride (K-Dur) 10 meq 3XW ORAL 09/07/17 09:00 10/07/17 08:59 09/07/17 09:04 Temazepam (Restoril) 15 mg HSPRN PRN ORAL Insomnia 09/02/17 06:00 09/09/17 05:59 Warfarin Sodium (Coumadin per pharmacy) 1 ea DAILY PRN MISC Per rx protocol 09/03/17 22:45 10/03/17 22:44 Warfarin Sodium (Coumadin) 7.5 mg COUMADIN ONCE ORAL 09/07/17 17:00 09/07/17 17:01 PANFILO SOTO Sep 07, 2017 15:06
[2017-09-07 15:52] VITALS: BP 136/57
[2017-09-07] MEDS ORDERED: Warfarin Sodium 7.5mg ORAL ONE (17:00)
--- NOTE | 2017-09-07 17:32 | Internal Med Progress Note ---
Subjective Physician Name Freddie Simon Attending Physician Freddie Simon MD Current Medications Medications (Trade) Dose Ordered Sig/[place] Route PRN Reason Start Time Stop Time Status Last Admin Dose Admin Acetaminophen (Tylenol) 650 mg Q4H PRN ORAL Fever 09/02/17 06:00 10/02/17 05:59 Acetaminophen (Tylenol) 650 mg Q6HR PRN ORAL Fever/Headache/Mild Pain 09/02/17 05:30 10/02/17 05:29 09/02/17 17:38 Acetaminophen/ Codeine Phosphate (Tylenol #3) 1 tab Q4H PRN ORAL Pain Scale (7-10) 09/02/17 11:15 09/09/17 10:59 Acetaminophen/ Codeine Phosphate (Tylenol #3) 2 tab EVERY 8 HOURS PRN PO 4-6 09/02/17 11:00 09/09/17 10:59 09/03/17 04:07 Acetaminophen/ Hydrocodone Bitart ([place] 5/325) 1 tab EVERY 6 HOURS PRN ORAL 4-6 09/02/17 11:00 09/09/17 10:59 Amlodipine Besylate (Norvasc) 2.5 mg DAILY ORAL 09/03/17 09:00 10/03/17 08:59 09/07/17 09:05 Aspirin (Ecotrin) 81 mg DAILY ORAL 09/02/17 09:00 10/02/17 08:59 09/07/17 09:04 Dextrose (Dextrose 50%) STAT PRN IV Hypoglycemia 09/02/17 05:30 10/02/17 05:29 Heparin Sodium/ Dextrose 500 ml @ 14.145 mls/ hr adjust per protocol IV 09/07/17 06:00 10/07/17 05:59 09/07/17 06:17 Insulin Aspart (NovoLOG) BEFORE MEALS AND HS SUBQ 09/02/17 06:30 10/02/17 06:29 09/07/17 11:45 Lisinopril (Prinivil) 30 mg DAILY ORAL 09/07/17 09:00 10/07/17 08:59 09/07/17 09:06 Morphine Sulfate (Morphine Sulfate) 4 mg EVERY 4 HOURS PRN IVP 7-10 09/02/17 11:00 09/09/17 10:59 09/05/17 14:40 Ondansetron HCl (Zofran) 4 mg Q4H PRN IVP Nausea & Vomiting 09/04/17 13:15 10/02/17 05:59 09/05/17 17:15 Pantoprazole (Protonix) 40 mg DAILY ORAL 09/03/17 13:45 10/03/17 13:44 09/07/17 09:06 Polyethylene Glycol (Miralax) 17 gm DAILYPRN PRN ORAL Constipation 09/02/17 06:00 10/02/17 05:59 Potassium Chloride (K-Dur) 10 meq 3XW ORAL 09/07/17 09:00 10/07/17 08:59 09/07/17 09:04 Temazepam (Restoril) 15 mg HSPRN PRN ORAL Insomnia 09/02/17 06:00 09/09/17 05:59 Warfarin Sodium (Coumadin per pharmacy) 1 ea DAILY PRN MISC Per rx protocol 09/03/17 22:45 10/03/17 22:44 Allergies: Coded Allergies: No Known Allergies (Unverified , 09/02/17) Subjective awake, alert, responsive, NAD, no Pain Objective Last Vital Signs Date Time Temp Pulse Resp B/P (MAP) Pulse Ox O2 Delivery O2 Flow Rate FiO2 09/07/17 15:52 97.1 75 18 136/57 99 Room Air 09/07/17 07:49 21 Laboratory Tests Test 09/07/17 04:15 09/07/17 12:00 White Blood Count 7.5 K/UL (4.8-10.8) Red Blood Count 4.06 M/UL (4.20-5.40) L Hemoglobin 12.9 G/DL (12.0-16.0) Hematocrit 38.7 % (37.0-47.0) Mean Corpuscular Volume 95 FL (80-99) Mean Corpuscular Hemoglobin 31.7 PG (27.0-31.0) H Mean Corpuscular Hemoglobin Concent 33.3 G/DL (32.0-36.0) Red Cell Distribution Width 12.6 % (11.6-14.8) Platelet Count 222 K/UL (150-450) Mean Platelet Volume 8.0 FL (6.5-10.1) Neutrophils (%) (Auto) 70.2 % (45.0-75.0) Lymphocytes (%) (Auto) 18.3 % (20.0-45.0) L Monocytes (%) (Auto) 8.4 % (1.0-10.0) Eosinophils (%) (Auto) 2.5 % (0.0-3.0) Basophils (%) (Auto) 0.6 % (0.0-2.0) Prothrombin Time 14.1 SEC (9.30-11.50) H Prothromb Time International Ratio 1.3 (0.9-1.1) H Activated Partial Thromboplast Time 106 SEC (23-33) H 67 SEC (23-33) H Sodium Level 136 MMOL/L (136-145) Potassium Level 4.0 MMOL/L (3.5-5.1) Chloride Level 105 MMOL/L (98-107) Carbon Dioxide Level 23 MMOL/L (21-32) Anion Gap 9 mmol/L (5-15) Blood Urea Nitrogen 19 mg/dL (7-18) H Creatinine 1.0 MG/DL (0.55-1.30) Estimat Glomerular Filtration Rate mL/min (>60) Glucose Level 114 MG/DL (74-106) H Calcium Level 8.5 MG/DL (8.5-10.1) Microbiology Date/Time Source Procedure Growth Status 09/05/17 00:47 Nasopharynx Influenza Types A,B Antigen (NORA) - Final Complete Intake and Output 09/07/17 09/08/17 19:00 07:00 Intake Total 480 ml Balance 480 ml Intake Oral 480 ml # Voids 3 # Bowel Movements 1 Objective General: No acute distress, awake and alert HEENT: NCAT, sclera anicteric, PERRL, EOMI. Neck: Supple, no significant jugular venous distention, Lungs: Good inspiratory effort, clear to auscultation bilaterally, no Wheeze or Rales. Heart: Regular rate and rhythm, normal S1/S2, no murmurs Abdomen: soft, nontender, nondistended. Normoactive bowel sounds. Obesity. Extremities: No Cyanosis , clubbing or edema. Neuro: A&O x 3, Able to move all extremities Skin: warm, no rashes or lesions Psych: Normal mood and affect Assessment/Plan Assessment/Plan (1) Shortness of breath (2) Diabetes mellitus, type II (3) HTN (hypertension) (4) Acute DVT (deep venous thrombosis) (5) Acute exacerbation of CHF (congestive heart failure) (6) UTI (urinary tract infection) (7) Diarrhea Plan: off Abx Monitor labs, INR Coumadin DC Telemetry Freddie Simon MD Sep 07, 2017 17:32
[2017-09-07 20:00] VITALS: BP 154/73
[2017-09-07] MEDS ORDERED: Morphine Sulfate 4mg/ml Inj IVP PRN (21:00)
[2017-09-07] MEDS ORDERED: Norco 5mg/325mg tab ORAL PRN (21:30)
[2017-09-07] MEDS ORDERED: Miralax 17gm pkt ORAL PRN (21:45)
[2017-09-07] MEDS ORDERED: Tylenol #3 tab (300mg/30mg) ORAL PRN (22:00)
[2017-09-07] MEDS ORDERED: Tylenol #3 tab (300mg/30mg) PO PRN (22:00)
--- NOTE | 2017-09-07 22:17 | General Progress Note ---
Assessment/Plan Assessment/Plan ASSESSMENT AND PLAN: 1. Deep venous thrombosis of the right lower extremity. We will begin heparin drip as well as coumadin with an inr goal of 2-3. --> continue to monitor INR, slowly increasing 2. Hypertension, currently better controlled on lisinopril. 3. Diabetes mellitus, on metformin. Continue to monitor. Subjective Allergies: Coded Allergies: No Known Allergies (Unverified , 09/02/17) All Systems: reviewed and negative except above Subjective inr increasing Objective Last 24 Hour Vital Signs Date Time Temp Pulse Resp B/P (MAP) Pulse Ox O2 Delivery O2 Flow Rate FiO2 09/07/17 20:00 97.7 88 20 154/73 97 Room Air 09/07/17 16:00 81 09/07/17 15:52 97.1 75 18 136/57 99 Room Air 09/07/17 12:00 77 09/07/17 11:36 97.1 76 18 132/69 100 Room Air 09/07/17 09:06 125/70 09/07/17 09:05 82 125/70 09/07/17 08:20 96.7 82 18 125/70 99 Room Air 09/07/17 08:00 82 09/07/17 07:49 85 20 Room Air 21 09/07/17 04:48 96.4 76 18 135/61 97 Room Air 09/07/17 04:00 83 09/07/17 00:43 94.2 83 18 133/62 95 Room Air 09/07/17 00:00 71 Intake and Output 09/07/17 09/08/17 19:00 07:00 Intake Total 649.68 ml Balance 649.68 ml Intake Oral 480 ml IV Total 169.68 ml # Voids 4 1 # Bowel Movements 1 1 Laboratory Tests 09/07/17 04:15: White Blood Count 7.5, Red Blood Count 4.06L, Hemoglobin 12.9, Hematocrit 38.7, Mean Corpuscular Volume 95, Mean Corpuscular Hemoglobin 31.7H, Mean Corpuscular Hemoglobin Concent 33.3, Red Cell Distribution Width 12.6, Platelet Count 222, Mean Platelet Volume 8.0, Neutrophils (%) (Auto) 70.2, Lymphocytes (%) (Auto) 18.3L, Monocytes (%) (Auto) 8.4, Eosinophils (%) (Auto) 2.5, Basophils (%) (Auto ) 0.6, Prothrombin Time 14.1H, Prothromb Time International Ratio 1.3H, Activated Partial Thromboplast Time 106H, Sodium Level 136, Potassium Level 4.0 , Chloride Level 105, Carbon Dioxide Level 23, Anion Gap 9, Blood Urea Nitrogen 19H, Creatinine 1.0, Estimat Glomerular Filtration Rate , Glucose Level 114H, Calcium Level 8.5 09/07/17 12:00: Activated Partial Thromboplast Time 67H Height (Feet): 5 Height (Inches): 3.00 Weight (Pounds): 200 General Appearance: no apparent distress EENT: normal ENT inspection Neck: normal alignment Cardiovascular: normal peripheral pulses Respiratory/Chest: no accessory muscle use Extremities: non-tender Jamal Coffman Sep 07, 2017 22:17
[2017-09-08] VITALS: BP 115/64
[2017-09-08 04:00] VITALS: BP 148/65
[2017-09-08 05:02] LABS: PROTHROMBIN TIME 21.2 SEC (9.30-11.50)
[2017-09-08] MEDS ORDERED: Heparin 25,000u/D5W 500ml 500 ML IV SCH ×2 (05:30→14:30)
[2017-09-08] MEDS ORDERED: Heparin 5000 units/ml inj IV ONE (05:30)
[2017-09-08] MEDS: NovoLOG Insulin Flexpen SUBQ SCH ×3 (06:39→16:30)
[2017-09-08 08:15] VITALS: BP 110/60
[2017-09-08] MEDS ORDERED: Aspirin EC 81mg tab ORAL SCH (09:00)
[2017-09-08] MEDS ORDERED: Lisinopril 10mg tab ORAL SCH (09:00)
--- NOTE | 2017-09-08 09:59 | Infectious Diseases Prog Note ---
Assessment/Plan Assessment/Plan ASSESSMENT: doubt UTI , pt has no symptoms Ucx; Kleb oxytoca and E Coli Pneumonia, SP Rx History of fever prior to admission. influenza.: neg Leukocytosis- resolved, afebrile ( DVT contributing ) Lower extremity deep venous thrombosis, on coumadin SUSHANT improving NKDA Full Code PLAN: monitor pt off of AB Rx SP Rocephin IV and Zithromax day # 5 /5 Monitor CBC, temperatures, re-culture if acute change Monitor BMP. anti-coagulation as per PCP Subjective Allergies: Coded Allergies: No Known Allergies (Unverified , 09/02/17) Subjective remains afebrile without leukocytosis appears comfortable Objective Vital Signs Last 24 Hour Vital Signs Date Time Temp Pulse Resp B/P (MAP) Pulse Ox O2 Delivery O2 Flow Rate FiO2 09/08/17 08:15 97.9 87 21 110/60 99 Room Air 09/08/17 04:00 98.1 85 18 148/65 100 Room Air 09/08/17 00:00 98.1 87 18 115/64 98 Room Air 09/07/17 20:00 97.7 88 20 154/73 97 Room Air 09/07/17 16:00 81 09/07/17 15:52 97.1 75 18 136/57 99 Room Air 09/07/17 12:00 77 09/07/17 11:36 97.1 76 18 132/69 100 Room Air Height (Feet): 5 Height (Inches): 3.00 Weight (Pounds): 200 General Appearance: no acute distress Respiratory/Chest: no respiratory distress Cardiovascular: normal rate, regular rhythm Abdomen: normal bowel sounds, soft, non tender, non distended Laboratory Tests Test 09/07/17 12:00 09/08/17 04:30 Activated Partial Thromboplast Time 67 SEC (23-33) H 58 SEC (23-33) H Prothrombin Time 21.2 SEC (9.30-11.50) H Prothromb Time International Ratio 2.0 (0.9-1.1) H Current Medications Medications (Trade) Dose Ordered Sig/[place] Route PRN Reason Start Time Stop Time Status Last Admin Dose Admin Acetaminophen (Tylenol) 650 mg Q4H PRN ORAL Fever 09/07/17 22:00 10/02/17 05:59 Acetaminophen (Tylenol) 650 mg Q6H PRN ORAL Fever/Mild Pain Scale 1-3 09/07/17 21:45 10/07/17 21:44 Acetaminophen/ Codeine Phosphate (Tylenol #3) 1 tab Q4H PRN ORAL Severe Breakthrough Pain >7 09/07/17 22:00 09/09/17 21:59 Acetaminophen/ Codeine Phosphate (Tylenol #3) 2 tab Q8H PRN PO Moderate Breakthru Pain(4-6) 09/07/17 22:00 09/14/17 21:59 Acetaminophen/ Hydrocodone Bitart ([place] 5/325) 1 tab Q6H PRN ORAL PAIN SCALE 4-6 09/07/17 21:30 09/14/17 21:29 Amlodipine Besylate (Norvasc) 2.5 mg DAILY ORAL 09/08/17 09:00 10/03/17 08:59 Aspirin (Ecotrin) 81 mg DAILY ORAL 09/08/17 09:00 10/02/17 08:59 Dextrose (Dextrose 50%) STAT PRN IV Hypoglycemia 09/07/17 22:00 10/07/17 21:59 Heparin Sodium/ Dextrose 500 ml @ 18.172 mls/ hr adjust per protocol IV 09/08/17 05:30 10/07/17 21:44 09/08/17 08:05 Insulin Aspart (NovoLOG) BEFORE MEALS AND HS SUBQ 09/07/17 22:30 10/02/17 22:29 09/08/17 06:39 Lisinopril (Zestril) 30 mg DAILY ORAL 09/08/17 09:00 10/07/17 08:59 Morphine Sulfate (Morphine Sulfate) 4 mg Q4H PRN IVP SEVERE PAIN 7-10 09/07/17 21:00 09/14/17 20:59 Ondansetron HCl (Zofran) 4 mg Q4H PRN IVP Nausea & Vomiting 09/07/17 21:45 10/02/17 21:44 Pantoprazole (Protonix) 40 mg DAILY ORAL 09/08/17 09:00 10/03/17 13:44 09/08/17 08:37 Polyethylene Glycol (Miralax) 17 gm DAILYPRN PRN ORAL Constipation 09/07/17 21:45 10/07/17 21:44 Potassium Chloride (K-Dur) 10 meq 3XW ORAL 09/09/17 09:00 12/15/17 08:59 Temazepam (Restoril) 15 mg HSPRN PRN ORAL Insomnia 09/07/17 21:45 09/14/17 21:44 Warfarin Sodium (Coumadin per pharmacy) 1 ea DAILY PRN MISC Per rx protocol 09/08/17 09:00 10/03/17 22:44 CHERI JIMENEZ Sep 08, 2017 09:59
[2017-09-08 12:15] VITALS: BP 135/62
--- NOTE | 2017-09-08 12:41 | General Progress Note ---
Assessment/Plan Assessment/Plan ASSESSMENT AND PLAN: 1. Deep venous thrombosis of the right lower extremity. We will begin heparin drip as well as coumadin with an inr goal of 2-3. -->INR goal has been reached. Heparin discontinued. Continue coumadin as well as INR monitoring. 2. Hypertension, currently better controlled on lisinopril. 3. Diabetes mellitus, on metformin. Continue to monitor. Subjective Allergies: Coded Allergies: No Known Allergies (Unverified , 09/02/17) All Systems: reviewed and negative except above Subjective NAD Objective Last 24 Hour Vital Signs Date Time Temp Pulse Resp B/P (MAP) Pulse Ox O2 Delivery O2 Flow Rate FiO2 09/08/17 12:15 97.8 78 21 135/62 98 Room Air 09/08/17 09:00 110/60 09/08/17 09:00 87 110/60 09/08/17 08:15 97.9 87 21 110/60 99 Room Air 09/08/17 04:00 98.1 85 18 148/65 100 Room Air 09/08/17 00:00 98.1 87 18 115/64 98 Room Air 09/07/17 20:00 97.7 88 20 154/73 97 Room Air 09/07/17 16:00 81 09/07/17 15:52 97.1 75 18 136/57 99 Room Air Laboratory Tests 09/08/17 04:30: Prothrombin Time 21.2H, Prothromb Time International Ratio 2.0H, Activated Partial Thromboplast Time 58H Height (Feet): 5 Height (Inches): 3.00 Weight (Pounds): 200 General Appearance: no apparent distress EENT: normal ENT inspection Neck: normal alignment Edema: trace edema Skin: normal pigmentation Jamal Coffman Sep 08, 2017 12:41
[2017-09-08] MEDS ORDERED: NORVASC2.5 MG ORAL (15:17)
[2017-09-08] MEDS ORDERED: COUMADIN4 MG PO (15:17)
[2017-09-08] MEDS ORDERED: ASPIRIN EC81 MG ORAL (15:17)
[2017-09-08] MEDS ORDERED: LISINOPRIL10 MG ORAL (15:17)
[2017-09-08] MEDS ORDERED: PROTONIX40 MG ORAL (15:17)
--- NOTE | 2017-09-08 15:18 | Pulmonology Progress Note ---
Assessment/Plan Problems: (1) Acute exacerbation of CHF (congestive heart failure) (2) Acute DVT (deep venous thrombosis) (3) UTI (urinary tract infection) (4) Hypertension (5) Diabetes mellitus (6) Hyperglycemia due to type 2 diabetes mellitus Assessment/Plan bun/creatinine lower now, Hold lasix cxr [place] acute infiltrate echo noted, EF of 40% need ischemia work up, cardio to decide where and when INR therapeutic now Speech pathologist recommended CONSIDER DOWNGRADING TO A [facility]-MED LIQUIFIED PUREED LIKE NECTAR THICK SOUP CONSISTENCY IF RECEPTIVE USING STRICT POSTED ASP AND REFLUX(ON PROTONIX FOR GERD ) PRECAUTIONS. dc home with close f/u with pmd in the next few days Subjective ROS Limited/Unobtainable: No Constitutional: Reports: no symptoms HEENT: Repors: no symptoms Respiratory: Reports: no symptoms Allergies: Coded Allergies: No Known Allergies (Unverified , 09/02/17) Objective Last 24 Hour Vital Signs Date Time Temp Pulse Resp B/P (MAP) Pulse Ox O2 Delivery O2 Flow Rate FiO2 09/08/17 12:15 97.8 78 21 135/62 98 Room Air 09/08/17 09:00 110/60 09/08/17 09:00 87 110/60 09/08/17 08:15 97.9 87 21 110/60 99 Room Air 09/08/17 04:00 98.1 85 18 148/65 100 Room Air 09/08/17 00:00 98.1 87 18 115/64 98 Room Air 09/07/17 20:00 97.7 88 20 154/73 97 Room Air 09/07/17 16:00 81 09/07/17 15:52 97.1 75 18 136/57 99 Room Air Intake and Output 09/08/17 09/09/17 19:00 07:00 Intake Total 90.860 ml Balance 90.860 ml IV Total 90.860 ml General Appearance: WD/WN, no acute distress HEENT: normocephalic, anicteric Respiratory/Chest: chest wall non-tender, lungs clear Breasts: no masses Cardiovascular: normal peripheral pulses, normal rate Abdomen: normal bowel sounds, soft, non tender Genitourinary: normal external genitalia Extremities: no cyanosis Skin: no rash Laboratory Tests 09/08/17 04:30: Prothrombin Time 21.2H, Prothromb Time International Ratio 2.0H, Activated Partial Thromboplast Time 58H 09/08/17 12:00: Activated Partial Thromboplast Time > 200*H Current Medications Medications (Trade) Dose Ordered Sig/[place] Route PRN Reason Start Time Stop Time Status Last Admin Dose Admin Acetaminophen (Tylenol) 650 mg Q4H PRN ORAL Fever 09/07/17 22:00 10/02/17 05:59 Acetaminophen (Tylenol) 650 mg Q6H PRN ORAL Fever/Mild Pain Scale 1-3 09/07/17 21:45 10/07/17 21:44 Acetaminophen/ Codeine Phosphate (Tylenol #3) 1 tab Q4H PRN ORAL Severe Breakthrough Pain >7 09/07/17 22:00 09/09/17 21:59 Acetaminophen/ Codeine Phosphate (Tylenol #3) 2 tab Q8H PRN PO Moderate Breakthru Pain(4-6) 09/07/17 22:00 09/14/17 21:59 Acetaminophen/ Hydrocodone Bitart ([place] 5/325) 1 tab Q6H PRN ORAL PAIN SCALE 4-6 09/07/17 21:30 09/14/17 21:29 Amlodipine Besylate (Norvasc) 2.5 mg DAILY ORAL 09/08/17 09:00 10/03/17 08:59 Aspirin (Ecotrin) 81 mg DAILY ORAL 09/08/17 09:00 10/02/17 08:59 Dextrose (Dextrose 50%) STAT PRN IV Hypoglycemia 09/07/17 22:00 10/07/17 21:59 Insulin Aspart (NovoLOG) BEFORE MEALS AND HS SUBQ 09/07/17 22:30 10/02/17 22:29 09/08/17 12:17 Lisinopril (Zestril) 30 mg DAILY ORAL 09/08/17 09:00 10/07/17 08:59 Morphine Sulfate (Morphine Sulfate) 4 mg Q4H PRN IVP SEVERE PAIN 7-10 09/07/17 21:00 09/14/17 20:59 Ondansetron HCl (Zofran) 4 mg Q4H PRN IVP Nausea & Vomiting 09/07/17 21:45 10/02/17 21:44 Pantoprazole (Protonix) 40 mg DAILY ORAL 09/08/17 09:00 10/03/17 13:44 09/08/17 08:37 Polyethylene Glycol (Miralax) 17 gm DAILYPRN PRN ORAL Constipation 09/07/17 21:45 10/07/17 21:44 Potassium Chloride (K-Dur) 10 meq 3XW ORAL 09/09/17 09:00 10/07/17 08:59 Temazepam (Restoril) 15 mg HSPRN PRN ORAL Insomnia 09/07/17 21:45 09/14/17 21:44 Warfarin Sodium (Coumadin per pharmacy) 1 ea DAILY PRN MISC Per rx protocol 09/08/17 09:00 10/03/17 22:44 Warfarin Sodium (Coumadin) 4 mg COUMADIN ONCE PO 09/08/17 17:00 09/08/17 17:01 PANFILO SOTO Sep 08, 2017 15:18
[2017-09-08] MEDS ORDERED: Warfarin Sodium 4mg PO ONE (17:00)
[2017-09-08 20:00] VITALS: BP 154/75
--- NOTE | 2017-09-08 21:29 | Internal Med Progress Note ---
Subjective Physician Name Freddie Simon Attending Physician Freddie Simon MD Current Medications Medications (Trade) Dose Ordered Sig/[place] Route PRN Reason Start Time Stop Time Status Last Admin Dose Admin Acetaminophen (Tylenol) 650 mg Q4H PRN ORAL Fever 09/07/17 22:00 10/02/17 05:59 Acetaminophen (Tylenol) 650 mg Q6H PRN ORAL Fever/Mild Pain Scale 1-3 09/07/17 21:45 10/07/17 21:44 Acetaminophen/ Codeine Phosphate (Tylenol #3) 1 tab Q4H PRN ORAL Severe Breakthrough Pain >7 09/07/17 22:00 09/09/17 21:59 Acetaminophen/ Codeine Phosphate (Tylenol #3) 2 tab Q8H PRN PO Moderate Breakthru Pain(4-6) 09/07/17 22:00 09/14/17 21:59 Acetaminophen/ Hydrocodone Bitart ([place] 5/325) 1 tab Q6H PRN ORAL PAIN SCALE 4-6 09/07/17 21:30 09/14/17 21:29 Amlodipine Besylate (Norvasc) 2.5 mg DAILY ORAL 09/08/17 09:00 10/03/17 08:59 Aspirin (Ecotrin) 81 mg DAILY ORAL 09/08/17 09:00 10/02/17 08:59 Dextrose (Dextrose 50%) STAT PRN IV Hypoglycemia 09/07/17 22:00 10/07/17 21:59 Insulin Aspart (NovoLOG) BEFORE MEALS AND HS SUBQ 09/07/17 22:30 10/02/17 22:29 09/08/17 12:17 Lisinopril (Zestril) 30 mg DAILY ORAL 09/08/17 09:00 10/07/17 08:59 Morphine Sulfate (Morphine Sulfate) 4 mg Q4H PRN IVP SEVERE PAIN 7-10 09/07/17 21:00 09/14/17 20:59 Ondansetron HCl (Zofran) 4 mg Q4H PRN IVP Nausea & Vomiting 09/07/17 21:45 10/02/17 21:44 Pantoprazole (Protonix) 40 mg DAILY ORAL 09/08/17 09:00 10/03/17 13:44 09/08/17 08:37 Polyethylene Glycol (Miralax) 17 gm DAILYPRN PRN ORAL Constipation 09/07/17 21:45 10/07/17 21:44 Potassium Chloride (K-Dur) 10 meq 3XW ORAL 09/09/17 09:00 10/07/17 08:59 Temazepam (Restoril) 15 mg HSPRN PRN ORAL Insomnia 09/07/17 21:45 09/14/17 21:44 Warfarin Sodium (Coumadin per pharmacy) 1 ea DAILY PRN MISC Per rx protocol 09/08/17 09:00 10/03/17 22:44 Allergies: Coded Allergies: No Known Allergies (Unverified , 09/02/17) Subjective awake, alert, responsive, NAD, no Pain, son T bedside. Objective Last Vital Signs Date Time Temp Pulse Resp B/P (MAP) Pulse Ox O2 Delivery O2 Flow Rate FiO2 09/08/17 12: 97.8 78 21 135/62 98 Room Air 09/07/17 07:49 21 Laboratory Tests Test 09/08/17 04:30 09/08/17 12:00 Prothrombin Time 21.2 SEC (9.30-11.50) H Prothromb Time International Ratio 2.0 (0.9-1.1) H Activated Partial Thromboplast Time 58 SEC (23-33) H > 200 SEC (23-33) *H Intake and Output 09/08/17 09/09/17 19:00 07:00 Intake Total 450.860 ml Balance 450.860 ml Intake Oral 360 ml IV Total 90.860 ml Objective General: No acute distress, awake and alert HEENT: NCAT, sclera anicteric, PERRL, EOMI. Neck: Supple, no significant jugular venous distention, Lungs: Good inspiratory effort, clear to auscultation bilaterally, no Wheeze or Rales. Heart: Regular rate and rhythm, normal S1/S2, no murmurs Abdomen: soft, nontender, nondistended. Normoactive bowel sounds. Obesity. Extremities: No Cyanosis , clubbing or edema. Neuro: A&O x 3, Able to move all extremities Skin: warm, no rashes or lesions Psych: Normal mood and affect Assessment/Plan Assessment/Plan (1) Shortness of breath (2) Diabetes mellitus, type II (3) HTN (hypertension) (4) Acute DVT (deep venous thrombosis) (5) Acute exacerbation of CHF (congestive heart failure) (6) UTI (urinary tract infection) (7) Diarrhea Plan: off Abx Monitor INR as out patient. Coumadin 4 mg QHS Son refused SNF placement DC home with HH, Monitor INR as out patient, discuss with son extensively, Freddie Simon MD Sep 08, 2017 21:29
--- NOTE | 2017-09-09 12:01 | Discharge Summary ---
Discharge Summary Hospital Course Date of Admission Sep 02, 2017 at 04:07 Date of Discharge Sep 08, 2017 at 21:50 Admitting Diagnosis RESPIRATORY DISTRESS HPI Katelynn Coley is a 81 year old female who was admitted on Sep 02, 2017 at 04: 07 for Repiratory Distress Hospital Course [id number] Discharge Discharge Disposition Patient was discharged to Home with Home Health(06) Discharge Diagnoses: Abby Saunders NP Sep 09, 2017 12:01
--- NOTE | 2017-09-10 01:46 | Discharge Summary 2 SIG ---
DATE OF ADMISSION: 09/02/2017 DATE OF DISCHARGE: 09/08/2017 CONSULTANTS: 1. Jared Borrego M.D. 2. Luis Carlos Dang M.D. 3. Vincenzo Tejeda M.D. 4. Jamal Coffman M.D. BRIEF HOSPITAL COURSE: The patient is an 81-year-old female with past medical history significant for diabetes type 2, hypertension, and morbid obesity, presented to ED complaining of shortness of breath for the past several days, which was progressively worsening over the past 24 hours. Shortly after initial evaluation at ED, she was noted to be in pulmonary edema. There was positive shortness of breath, positive orthopnea, positive pedal edema. Workup showed elevated WBC count 11. BNP was 851. Troponin was negative. She was given a nebulizer treatment. Chest x-ray done showed mild vascular congestion with early findings of congestive heart failure. EKG was in sinus tachycardia with left bundle-branch block. She was admitted to telemetry for acute CHF exacerbation. She had a venous duplex of lower extremity that was positive for acute DVT. She was started on heparin drip. Urinalysis was with 3+ glucose, ketones negative, nitrite negative with +1 leukocyte and many bacteria. She complained of cough for one week prior to admission and also had fever. She was started on Rocephin intravenous and Zithromax pending culture results. She had elevated blood pressure and x-ray findings off congestive heart failure. She was given diuretics and amlodipine for blood pressure control. Cardiac enzymes were monitored. Echocardiogram done showed ejection fraction of 35% to 40% with global hypokinesis. There was trace aortic insufficiency, mild mitral regurgitation, moderate tricuspid regurgitation and severe pulmonary hypertension. Lasix was eventually tapered due to worsening renal function. Blood sugar was monitored and was given insulin sliding scale. She was started on heparin drip and Coumadin pharmacy to dose with INR goal 2-3. INR was therapeutic. Heparin drip was discontinued. Urine culture showed growth of E. coli and Klebsiella. Influenza A and B was negative. She completed five-day antibiotic treatment with Zithromax and Rocephin. She was observed off antibiotic treatment. She was eventually was eventually discharged home. Son refused SNF placement. FINAL DIAGNOSES: 1. Acute deep venous thrombosis, right leg. 2. Acute systolic congestive heart failure. 3. Urinary tract infection. 4. Hyperglycemia due to diabetes type 2. 5. Hypertension. 6. Pneumonia. 7. Acute kidney injury. 8. Global hypokinesis. 9. Pulmonary hypertension. DISPOSITION: The patient was discharged home with home health. DISCHARGE MEDICATIONS: Refer list. Continue with Coumadin 4 milligram at bedtime monitor INR as outpatient. Freddie Simon M.D. I have been assigned to dictate discharge summary on this account and I was not involved in the patient's management. Abby Saunders N.P. DR: ESTELA JOB#: [id number] CC: PONCHO
--- NOTE | 2017-09-11 15:55 | Cardiology Report ---
APPROVED REPORT EKG Measurement Heart [id number] [place] [id number] Sinus rhythm with premature atrial complexes Right atrial enlargement Left bundle branch block Abnormal ECG
--- NOTE | 2017-09-11 16:15 | Cardiology Report ---
APPROVED REPORT EKG Measurement Heart [id number] Sinus tachycardia Possible Left atrial enlargement Left bundle branch block Abnormal ECG
--- NOTE | 2017-09-19 10:20 | Diagnostic Imaging Report ---
APPROVED REPORT CPT Code: 87628 Present Symptoms Lower Extremity Pain: Right RIGHT LEG: Venous imaging reveals acute thrombus in the superficial femoral to popliteal veins. Remainder of the deep venous system within normal limits. No evidence of thrombus in the common femoral and calf veins. Greater saphenous vein also within normal limits. LEFT LEG: Venous imaging reveals a patent deep venous system. There is no evidence of thrombus within the femoral, popliteal or tibial segments. The greater saphenous vein is also within normal limits. Doppler indicates normal spontaneous flow within these segments. ROBYN Ghosh was notified of abnormal results at 1000 hours.
--- NOTE | 2017-09-22 16:45 | Diagnostic Imaging Report ---
Indications: DYSPHAGIA Technique: Patient ingested multiple substances under the supervision of speech pathology. Video fluoroscopic recording performed. Total fluoroscopy time and 29 seconds. Total dose area product 0.36392 mGycm2 Comparison: none Findings: Ingestion of multiple substances reveals equivocal trace subglottic laryngeal penetration. One episode of definite penetration is demonstrated with ingestion of honey thick barium. No aspiration no significant early or delayed pooling demonstrated. Impression: Positive for penetration of multiple substances Please refer to speech pathology report for more detailed analysis
== END 2017-09-08 21:50 | disposition home health service (06) | DRG 291 ==
LOC: EDBD 02:26 → EMR 02:50 → EDBEDREQ 03:59 → 2E 04:07 → EDBEDREQ 04:17 → UNDODISIN 09-03 14:05 → 2E 09-06 09:42 → 4E 09-07 20:36
DX: I11.0 Hypertensive heart disease with heart failure (principal); J18.9 Pneumonia, unspecified organism; N17.9 Acute kidney failure, unspecified; N39.0 Urinary tract infection, site not specified; I82.411 Acute embolism and thrombosis of right femoral vein; I82.431 Acute embolism and thrombosis of right popliteal vein; I50.23 Acute on chronic systolic (congestive) heart failure; E11.65 Type 2 diabetes mellitus with hyperglycemia; E66.01 Morbid (severe) obesity due to excess calories; Z68.35 Body mass index [BMI] 35.0-35.9, adult; D64.9 Anemia, unspecified; I44.7 Left bundle-branch block, unspecified; J40 Bronchitis, not specified as acute or chronic; R19.7 Diarrhea, unspecified
CPT/HCPCS: 36415; 71010; 74000; 74230; 80048; 80053; 81003; 82550; 82553; 82962; 83605; 83735; 83880; 84484; 85025; 85610; 85730; 86710; 87040; 87086; 87181; 93005; 93306; 93970; 94640; 94664; 99291; J1815; J2405; J7620; J8499

== ENCOUNTER 2018-03-03 14:30 | Inpatient (IN) | payer MEDICARE, MEDICAID ==
[~2018-03-03] VITALS: Ht 160 cm; Wt 90.7 kg
[~2018-03-03 14:30] MED LIST: ASPIRIN EC81 MG ORAL; COUMADIN4 MG PO; LISINOPRIL-HCT1 EACH ORAL; LISINOPRIL10 MG ORAL; METFORMIN HCL500 M1 ORAL; NORVASC2.5 MG ORAL; PROTONIX40 MG ORAL
[2018-03-03 14:42] VITALS: BP 201/97
[2018-03-03] MEDS ORDERED: Isovue-300 100ml vial INJ PRN (14:45)
[2018-03-03] MEDS ORDERED: Morphine Sulfate 4mg/ml Inj IVP ONE (14:45)
--- NOTE | 2018-03-03 15:27 | Diagnostic Imaging Report ---
Indication: Cough Comparison: 09/05/2017 A single view chest radiograph was obtained. Findings: Bones are osteopenic. Heart size is normal. Lungs are clear. IMPRESSION: No acute disease
[2018-03-03 15:34] LABS: BASOPHILS % (AUTO) 0.7 % (0.0-2.0); EOSINOPHILS % (AUTO) 0.3 % (0.0-3.0); HEMATOCRIT 40.5 % (37.0-47.0); HEMOGLOBIN 13.7 G/DL (12.0-16.0); LYMPHOCYTES % (AUTO) 13.1 % (20.0-45.0); MEAN CORPUSCULAR VOLUME 91 FL (80-99); MONOCYTES % (AUTO) 4.7 % (1.0-10.0); NEUTROPHILS % (AUTO) 81.3 % (45.0-75.0); PLATELET COUNT 223 K/UL (150-450); RED BLOOD COUNT 4.44 M/UL (4.20-5.40); RED CELL DISTRIBUTION WIDTH 12.2 % (11.6-14.8); WHITE BLOOD COUNT 9.7 K/UL (4.8-10.8)
[2018-03-03 15:48] LABS: ANION GAP 13 mmol/L (5-15); BLOOD UREA NITROGEN 27 mg/dL (7-18); CALCIUM 9.6 MG/DL (8.5-10.1); CARBON DIOXIDE 21 MMOL/L (21-32); CHLORIDE 99 MMOL/L (98-107); CREATININE 1.1 MG/DL (0.55-1.30); POTASSIUM 5.6 MMOL/L (3.5-5.1); SODIUM 133 MMOL/L (136-145)
[2018-03-03 16:01] LABS: ALANINE AMINOTRANSFERASE 19 U/L (12-78); ALBUMIN 3.3 G/DL (3.4-5.0); ALBUMIN/GLOBULIN RATIO 0.6 (1.0-2.7); ALKALINE PHOSPHATASE 112 U/L (46-116); ASPARTATE AMINO TRANSFERASE 50 U/L (15-37); BILIRUBIN,TOTAL 0.5 MG/DL (0.2-1.0); CKMB 0.9 NG/ML (0.0-3.6); CREATINE KINASE 132 U/L (26-308)
[2018-03-03 16:05] VITALS: BP 150/75
--- NOTE | 2018-03-03 16:27 | Emergency Room Report ---
History of Present Illness General Chief Complaint: Generalized Weakness Source: Family Member Present Illness HPI 82-year-old female presents ED for evaluation. Daughter at bedside states the patient has had lower leg and abdominal pain and swelling for the last 24 hours. Pain is sharp, 10 out of 10, nonradiating. Denies she is unable to walk. Denies fevers or chills. Denies nausea or vomiting. Denies chest pain or shortness of breath. States that she was taking Lasix previously but is not taking it at this time. No other aggravating relieving factors. Denies any other associated symptoms Allergies: Coded Allergies: No Known Allergies (Unverified , 09/02/17) Patient History Past Medical History: DM, HTN Past Surgical History: none Pertinent Family History: none Social History: Denies: smoking, alcohol use, drug use Now: No Immunizations: UTD Reviewed Nursing Documentation: PMH: Agreed; PSxH: Agreed Nursing Documentation-PMH Hx Cardiac Problems: Yes - had a clot formation hx Hx Hypertension: Yes Hx Diabetes: Yes Hx Cancer: No Hx Gastrointestinal Problems: No Hx Neurological Problems: No Review of Systems All Other Systems: negative except mentioned in HPI Physical Exam Vital Signs Date Time Temp Pulse Resp B/P (MAP) Pulse Ox O2 Delivery O2 Flow Rate FiO2 03/03/18 14:27 97.1 121 20 201/97 98 Room Air 97.2 Sp02 EP Interpretation: reviewed, normal General Appearance: no apparent distress, alert, GCS 15, non-toxic Head: normocephalic, atraumatic Eyes: bilateral eye normal inspection, bilateral eye PERRL ENT: hearing grossly normal, normal pharynx, no angioedema, normal voice Neck: full range of motion, supple/symm/no masses Respiratory: chest non-tender, lungs clear, normal breath sounds, speaking full sentences Cardiovascular #1: regular rate, rhythm, no edema Cardiovascular #2: 2+ carotid (R), 2+ carotid (L), 2+ radial (R), 2+ radial (L) , 2+ dorsalis pedis (R), 2+ dorsalis pedis (L) Gastrointestinal: normal bowel sounds, soft, non-distended, no guarding, no rebound, tenderness Rectal: deferred Genitourinary: normal inspection, no CVA tenderness Musculoskeletal: back normal, gait/station normal, normal range of motion, calf tenderness, swelling - 1+ pitting edema Neurologic: alert, oriented x3, responsive, motor strength/tone normal, sensory intact, speech normal Psychiatric: judgement/insight normal, memory normal, mood/affect normal, no suicidal/homicidal ideation Reflexes: 3+ bicep (R), 3+ bicep (L), 3+ tricep (R), 3+ tricep (L), 3+ knee (R) , 3+ knee (L) Skin: normal color, no rash, warm/dry, well hydrated Lymphatic: no adenopathy Medical Decision Making Diagnostic Impression: Primary Impression: Leg swelling Additional Impressions: Abdominal pain Qualified Codes: R10.9 - Unspecified abdominal pain Weakness ER Course Hospital Course 82-year-old female presents ED complaining of generalized weakness, abdominal pain and swelling and leg swelling Differential diagnoses include: dehydration, sepsis, DVT, SBO Clinical course Patient placed on stretcher. panel monitor. After initial history and physical I ordered labs, IV fluids, UA, pain medication and CT scan Labs - no leukocytosis, Hb/Hct stable. K 5.6. UA shows gross blood. CT abdomen and pelvis - diverticulosis, no divertciulitis, moderate fecal impaction doppler US of lower extremities no evidence of DVT EKG - sinus tachycardia, twave inversions in lateral leads CXR - no acute process given insulin/D50 Case discussed with Dr. Simon and he agreed to accept the patient to his service for further care and support I feel this is a highly complex case requiring extensive working including EKG/ Rhythm strip, Xray/CT/US, Blood/urine lab work, repeat exams while in ED, and administration of strong opiates/narcotics for pain control, admission to hospital or close patient follow up. Diagnosis - leg swelling, abdominal pain, weakness Patient admitted to floor in serious condition Labs Test 03/03/18 15:11 White Blood Count 9.7 K/UL (4.8-10.8) Red Blood Count 4.44 M/UL (4.20-5.40) Hemoglobin 13.7 G/DL (12.0-16.0) Hematocrit 40.5 % (37.0-47.0) Mean Corpuscular Volume 91 FL (80-99) Mean Corpuscular Hemoglobin 30.9 PG (27.0-31.0) Mean Corpuscular Hemoglobin Concent 33.9 G/DL (32.0-36.0) Red Cell Distribution Width 12.2 % (11.6-14.8) Platelet Count 223 K/UL (150-450) Mean Platelet Volume 9.1 FL (6.5-10.1) Neutrophils (%) (Auto) 81.3 % (45.0-75.0) Lymphocytes (%) (Auto) 13.1 % (20.0-45.0) Monocytes (%) (Auto) 4.7 % (1.0-10.0) Eosinophils (%) (Auto) 0.3 % (0.0-3.0) Basophils (%) (Auto) 0.7 % (0.0-2.0) Sodium Level 133 MMOL/L (136-145) Potassium Level 5.6 MMOL/L (3.5-5.1) Chloride Level 99 MMOL/L (98-107) Carbon Dioxide Level 21 MMOL/L (21-32) Anion Gap 13 mmol/L (5-15) Blood Urea Nitrogen 27 mg/dL (7-18) Creatinine 1.1 MG/DL (0.55-1.30) Estimat Glomerular Filtration Rate mL/min (>60) Glucose Level 207 MG/DL (74-106) Lactic Acid Level 1.60 mmol/L (0.66-2.22) Calcium Level 9.6 MG/DL (8.5-10.1) Total Bilirubin 0.5 MG/DL (0.2-1.0) Aspartate Amino Transf (AST/SGOT) 50 U/L (15-37) Alanine Aminotransferase (ALT/SGPT) 19 U/L (12-78) Alkaline Phosphatase 112 U/L (46-116) Total Creatine Kinase 132 U/L (26-308) Creatine Kinase MB 0.9 NG/ML (0.0-3.6) Creatine Kinase MB Relative Index 0.6 Troponin I 0.000 ng/mL (0.000-0.056) Pro-B-Type Natriuretic Peptide 332 pg/mL (0-125) Total Protein 8.7 G/DL (6.4-8.2) Albumin 3.3 G/DL (3.4-5.0) Globulin 5.4 g/dL Albumin/Globulin Ratio 0.6 (1.0-2.7) EKG Diagnostic Results Rate: tachycardiac Rhythm: NSR ST Segments: other - twave inversions in lateral leads ASA given to the pt in ED: No Rhythm Strip Diag. Results EP Interpretation: yes Rhythm: NSR, no PVC's, no ectopy Chest X-Ray Diagnostic Results Chest X-Ray Diagnostic Results : Chest X-Ray Ordered: Yes # of Views/Limited/Complete: 1 View Indication: Shortness of Breath EP Interpretation: Yes Interpretation: no consolidation, no effusion, no pneumothorax, no acute cardiopulmonary disease Impression: No acute disease Electronically Signed by: Electronically signed by De Gomez MD CT/MRI/US Diagnostic Results CT/MRI/US Diagnostic Results #1: Imaging Test Ordered: CT A/P Impression Moderate retention of fecal material in the colon and rectum. Diverticulosis of the colon. No definite diverticulitis. CT/MRI/US Diagnostic Results #2: Imaging Test Ordered: Doppler US Impression no DVT in bilateral legs Last Vital Signs Date Time Temp Pulse Resp B/P (MAP) Pulse Ox O2 Delivery O2 Flow Rate FiO2 03/03/18 15:29 97.2 03/03/18 14:42 74 20 201/97 98 Room Air Status: improved Disposition: ADMITTED INPATIENT Condition: Serious Referrals: Freddie Simon MD (PCP) De Gomez MD March 03, 2018 16:27
--- NOTE | 2018-03-03 16:49 | Diagnostic Imaging Report ---
Indication: Abdominal pain Technique: Continuous helical transaxial imaging of the abdomen and pelvis was obtained from the lung bases to the pubic symphysis during intravenous contrast administration. Coronal 2-D reformats were also obtained. Study obtained in a Siemens sensation [address] Automatic Exposure Control was utilized. Total Dose length Product (DLP): 983.[address] Dose Index Volume (CTDIvol): 19.07 mGy Comparison: None Findings: There is a hiatal hernia. Cardiomegaly is present. There is mild patchy groundglass opacification at the lung bases which is a nonspecific finding. The liver is slightly hypodense consistent with fatty infiltration. There is breathing motion limiting the study. The CBD is normal in caliber. There is mild calcification involving the capsule of the spleen. The pancreas is unremarkable. There is no adrenal mass. There is no hydronephrosis. Aorta is moderately calcified. There is a small umbilical hernia containing fat. There is fecal retention within the colon and rectum. The rectum is distended. Patient has prior surgery in the right lower quadrant with anastomotic sutures demonstrated involving what is probably part of the terminal ileum. There is no evidence of bowel obstruction., No free air and no free fluid seen. Uterus is absent. Urinary bladder is unremarkable. Diverticula demonstrated in the colon some containing calcium. No evidence of acute diverticulitis. IMPRESSION: No acute findings appreciated. Moderate retention of fecal material in the colon and rectum. Diverticulosis of the colon. No definite diverticulitis. Breathing motion artifacts. Mild fatty liver. Small umbilical hernia containing fat Small hiatal hernia. Evidence of previous surgery in the right lower quadrant. Status post hysterectomy Calcification of the capsule of the spleen nonspecific. This may be posttraumatic or inflammatory. Patchy groundglass opacification of the lung bases, nonspecific. The CT scanner at [facility] is accredited by the [employer] and the scans are performed using dose optimization techniques as appropriate to a performed exam including Automatic Exposure control.
[2018-03-03] MEDS ORDERED: DIOVAN HCT 1601 EAC1 ORAL (17:48)
[2018-03-03 18:04] VITALS: BP 146/70
--- NOTE | 2018-03-03 18:14 | History & Physical ---
History and Physical History & Physicial Dictated for Int Med-Dr Simon no. [id number]. Ever Gonzalez MD March 03, 2018 18:14
[2018-03-03 20:00] VITALS: BP 157/80
[2018-03-03 21:00] VITALS: BP 123/96
[2018-03-03] MEDS: NovoLOG Insulin Flexpen SUBQ SCH (21:00)
[2018-03-03] MEDS: Miralax 17gm pkt ORAL SCH (21:30)
[2018-03-03] MEDS: Heparin 5000 units/ml inj SUBQ SCH (21:30)
[2018-03-04 00:36] VITALS: BP 108/65
--- NOTE | 2018-03-04 01:46 | History and Physical Report ---
DATE OF ADMISSION: 03/03/2018 CHIEF COMPLAINT: The patient is an 82-year-old, female, who presents with chief complaint of abdominal pain and leg swelling. HISTORY OF PRESENT ILLNESS: History of present illness began two days prior to admission. The patient began to experience abdominal pain. The patient states the pain is 10/10 in intensity. The pain is generalized. The patient denies nausea, vomiting, diarrhea, or constipation. The patient complains of bilateral leg swelling. The patient presented to [facility]. The patient is admitted for bilateral lower extremity swelling and abdominal pain to rule out congestive heart failure. PAST MEDICAL HISTORY: Significant for: 1. Type 2 diabetes. 2. Hypertension. 3. Congestive heart failure. 4. Morbid obesity. PAST SURGICAL HISTORY: Significant for: 1. Appendectomy. 2. Exploratory laparotomy due to abdominal mass, possibly neoplastic. CURRENT MEDICATIONS: 1. Amlodipine 2.5 mg p.o. daily. 2. Aspirin 81 mg one tablet p.o. daily. 3. Lisinopril 10 mg p.o. daily. 4. Hydrochlorothiazide 12.5 mg p.o. daily. 5. Metformin 500 mg p.o. daily. 6. Protonix 40 mg p.o. daily. 7. Coumadin 4 mg p.o. daily. ALLERGIES: No known drug allergies. SOCIAL HISTORY: The patient denies tobacco use, having quit as a teenager. The patient lives at home with family. The patient denies alcohol use. REVIEW OF SYSTEMS: CONSTITUTIONAL: The patient denies weight loss or weight gain. The patient denies fevers or chills. HEENT: The patient denies ear or throat pain. The patient denies headache. CARDIOVASCULAR: The patient denies palpitations or chest pain. CHEST: The patient denies wheeze or shortness of breath. ABDOMINAL: The patient complains of generalized abdominal pain as above. The patient denies nausea, vomiting, diarrhea, or constipation. GENITOURINARY: The patient denies dysuria or increased frequency of urination. NEUROMUSCULAR: The patient complains of bilateral leg swelling as above. The patient denies seizures or generalized weakness. PHYSICAL EXAMINATION: VITAL SIGNS: Temperature 97.1 degrees, respirations 28, pulse 74 to 121, and blood pressure 201/97. GENERAL: The patient is a well-developed, well-nourished, obese, female, in no apparent distress. HEENT: Eyes: Pupils are equal and responsive to light and accommodation. Extraocular movements are intact. NECK: Supple without lymphadenopathy. CHEST: Lungs are clear to auscultation bilaterally without wheezes or rales. CARDIOVASCULAR: Regular rate. S1 and S2 are normal without murmurs, rubs, or gallops. ABDOMEN: Soft, diffusely tender with positive bowel sounds. No evidence of hepatosplenomegaly. Currently, no rebound or guarding noted. EXTREMITIES: Negative for clubbing or cyanosis. There is presence of 1+ edema bilaterally. NEUROLOGICAL: Cranial nerves II through XII are grossly intact without focal deficits. Motor strength is 5/5 bilaterally. LABORATORY STUDIES: WBC 9.7, hemoglobin 13.7, hematocrit 40.5, and platelets 223,000. Sodium 133, potassium 5.6, chloride 99, CO2 21, BUN 27, creatinine 1.1, and glucose 207. AST slightly elevated at 50. Troponin normal at 0.0. BNP slightly elevated at 332. CT scan of the abdomen was reported as within normal limits. A chest x-ray was reported as no acute disease. ASSESSMENT: This is an 82-year-old, female. 1. Abdominal pain. 2. Bilateral lower extremity edema. 3. Congestive heart failure. 4. Diabetes type 2. 5. Hypertension. 6. Obesity. TREATMENT: 1. Abdominal pain. A Gastroenterology consultation has been obtained with Dr. Andres Kapadia. Initial CT scan was within normal limits. We will follow recommendations of Gastroenterology. 2. Bilateral lower extremity edema. This is probably secondary to congestive heart failure. 3. Congestive heart failure. A Cardiology consultation is pending with Dr. Tejeda. Serial BNPs will be performed. Serial troponin levels will be performed. 4. Hypertension. Continue Norvasc as above. 5. Congestive heart failure. 6. Obesity. Ever Gonzalez M.D. DR: Mary JOB#: [id number] CC:
[2018-03-04 04:00] VITALS: BP 147/84
[2018-03-04] MEDS: Heparin 5000 units/ml inj SUBQ SCH ×3 (06:00→22:00)
[2018-03-04] MEDS: metFORMIN 500mg tab ORAL SCH ×3 (06:02→18:22)
[2018-03-04] MEDS: NovoLOG Insulin Flexpen SUBQ SCH ×2 (06:04→11:30)
[2018-03-04] MEDS ORDERED: Aspirin Baby 81mg ORAL SCH (09:00)
[2018-03-04] MEDS ORDERED: Irbesartan 150mg tablet ORAL SCH (10:00)
[2018-03-04] MEDS: Miralax 17gm pkt ORAL SCH (10:20)
[2018-03-04 12:00] VITALS: BP 133/69
--- NOTE | 2018-03-04 14:51 | Internal Med Progress Note ---
Subjective Date of Service: March 04, 2018 Physician Name Ever Gonzalez Attending Physician Freddie Simon MD Current Medications Medications (Trade) Dose Ordered Sig/Obinna Route PRN Reason Start Time Stop Time Status Last Admin Dose Admin Aspirin (ASA) 81 mg DAILY ORAL 03/05/18 09:00 04/04/18 08:59 Dextrose (Dextrose 50%) 25 ml STAT PRN IV Hypoglycemia 03/03/18 19:15 04/02/18 19:14 Dextrose (Dextrose 50%) 50 ml STAT PRN IV Hypoglycemia 03/03/18 19:15 04/02/18 19:14 Heparin Sodium (Porcine) (Heparin 5000 units/ml) 5,000 units EVERY 8 HOURS SUBQ 03/04/18 14:00 04/03/18 13:59 Hydrochlorothiazide (Hydrodiuril) 25 mg DAILY ORAL 03/04/18 10:00 04/03/18 09:59 03/04/18 10:20 Ibuprofen (Advil) 400 mg Q6H PRN ORAL For Pain 03/03/18 19:15 04/02/18 19:14 03/04/18 04:54 Insulin Aspart (NovoLOG) BEFORE MEALS AND HS SUBQ 03/03/18 21:00 04/02/18 20:59 Iopamidol (Isovue-300 100ml) 100 ml NOW PRN INJ Radiology Procedure 03/03/18 14:45 Irbesartan (Avapro) 150 mg DAILY ORAL 03/04/18 10:00 04/03/18 09:59 03/04/18 10:20 Metformin HCl (Glucophage) 500 mg BID ORAL 03/04/18 18:00 04/03/18 17:59 Ondansetron HCl (Zofran) 4 mg Q6H PRN IVP Nausea & Vomiting 03/03/18 19:15 04/02/18 19:14 Pantoprazole (Protonix) 40 mg DAILY ORAL 03/05/18 09:00 04/04/18 08:59 Polyethylene Glycol (Miralax) 34 gm DAILY ORAL 03/05/18 09:00 04/02/18 08:59 Allergies: Coded Allergies: No Known Allergies (Unverified , 09/02/17) ROS Limited/Unobtainable: No Constitutional: Reports: no symptoms HEENT: Reports: no symptoms Cardiovascular: Reports: no symptoms Respiratory: Reports: no symptoms Gastrointestinal/Abdominal: Reports: no symptoms Genitourinary: Reports: no symptoms Neurologic/Psychiatric: Reports: no symptoms Subjective 82 YO F admitted with abdominal pain and bilateral leg swelling. Cover for Int Mak-Dr Simon. Objective Last Vital Signs Date Time Temp Pulse Resp B/P (MAP) Pulse Ox O2 Delivery O2 Flow Rate FiO2 03/04/18 12:00 97.5 93 18 133/69 98 Room Air 97.5 General Appearance: WD/WN, no apparent distress, alert EENT: PERRL/EOMI, normal ENT inspection, TMs normal Neck: non-tender, normal alignment, supple Cardiovascular: normal peripheral pulses, normal rate, regular rhythm, no gallop/murmur, no JVD Respiratory/Chest: chest wall non-tender, lungs clear, normal breath sounds, no respiratory distress, no accessory muscle use Abdomen: normal bowel sounds, non tender, soft, no organomegaly, no mass Extremities: normal range of motion, non-tender Neurologic: vegetable tier II-XII grossly normal, no motor/sensory deficits Skin: normal pigmentation Laboratory Tests Test 03/03/18 15:11 White Blood Count 9.7 K/UL (4.8-10.8) Red Blood Count 4.44 M/UL (4.20-5.40) Hemoglobin 13.7 G/DL (12.0-16.0) Hematocrit 40.5 % (37.0-47.0) Mean Corpuscular Volume 91 FL (80-99) Mean Corpuscular Hemoglobin 30.9 PG (27.0-31.0) Mean Corpuscular Hemoglobin Concent 33.9 G/DL (32.0-36.0) Red Cell Distribution Width 12.2 % (11.6-14.8) Platelet Count 223 K/UL (150-450) Mean Platelet Volume 9.1 FL (6.5-10.1) Neutrophils (%) (Auto) 81.3 % (45.0-75.0) H Lymphocytes (%) (Auto) 13.1 % (20.0-45.0) L Monocytes (%) (Auto) 4.7 % (1.0-10.0) Eosinophils (%) (Auto) 0.3 % (0.0-3.0) Basophils (%) (Auto) 0.7 % (0.0-2.0) Sodium Level 133 MMOL/L (136-145) L Potassium Level 5.6 MMOL/L (3.5-5.1) H Chloride Level 99 MMOL/L (98-107) Carbon Dioxide Level 21 MMOL/L (21-32) Anion Gap 13 mmol/L (5-15) Blood Urea Nitrogen 27 mg/dL (7-18) H Creatinine 1.1 MG/DL (0.55-1.30) Estimat Glomerular Filtration Rate mL/min (>60) Glucose Level 207 MG/DL (74-106) H Lactic Acid Level 1.60 mmol/L (0.66-2.22) Calcium Level 9.6 MG/DL (8.5-10.1) Total Bilirubin 0.5 MG/DL (0.2-1.0) Aspartate Amino Transf (AST/SGOT) 50 U/L (15-37) H Alanine Aminotransferase (ALT/SGPT) 19 U/L (12-78) Alkaline Phosphatase 112 U/L (46-116) Total Creatine Kinase 132 U/L (26-308) Creatine Kinase MB 0.9 NG/ML (0.0-3.6) Creatine Kinase MB Relative Index 0.6 Troponin I 0.000 ng/mL (0.000-0.056) Pro-B-Type Natriuretic Peptide 332 pg/mL (0-125) H Total Protein 8.7 G/DL (6.4-8.2) H Albumin 3.3 G/DL (3.4-5.0) L Globulin 5.4 g/dL Albumin/Globulin Ratio 0.6 (1.0-2.7) L Intake and Output 03/03/18 03/04/18 19:00 07:00 Intake Total 480 ml Output Total 0 ml Balance 0 ml 480 ml Intake Oral 480 ml Output Urine Total 0 ml # Voids 2 # Bowel Movements 1 Assessment/Plan Problem List: (1) Abdominal pain Assessment & Plan: Resolved (2) Leg swelling (3) Hypertension Assessment & Plan: Continue valsartan (4) Diabetes mellitus, type II Assessment & Plan: Continue metformin andnovolog sliding scale. Status: progressing Ever Gonzalez MD March 04, 2018 14:51
[2018-03-04] MEDS ORDERED: IBUPROFEN600 MG ORAL (15:11)
[2018-03-04 16:00] VITALS: BP 135/70
[2018-03-04] MEDS ORDERED: metFORMIN 500mg tab ORAL SCH (18:00)
[2018-03-04 20:51] VITALS: BP 170/88
--- NOTE | 2018-03-04 22:05 | Consultation ---
History of Present Illness General Chief Complaint: Generalized Weakness Present Illness Allergies: Coded Allergies: No Known Allergies (Unverified , 09/02/17) Medication History Scheduled Aspirin Ec* (Aspirin Ec*), 81 MG ORAL DAILY, (Reported) Metformin Hcl* (Metformin Hcl*), 500 MG ORAL DAILY, (Reported) Pantoprazole* (Protonix*), 40 MG ORAL DAILY Valsartan/Hydrochlorothiazide 160-25MG (Diovan Hct 160-25 Mg Tablet), 1 TAB ORAL DAILY, (Reported) Warfarin Sod* (Coumadin*), 4 MG PO COUMADIN Scheduled PRN Ibuprofen* (Motrin*), 600 MG ORAL Q6H PRN Discontinued Medications Amlodipine Besylate (Norvasc), 2.5 MG ORAL DAILY Discontinued Reason: MD discontinued med Aspirin Ec* (Aspirin Ec*), 81 MG ORAL DAILY Discontinued Reason: Medication dose changed Lisinopril* (Lisinopril*), 30 MG ORAL DAILY Discontinued Reason: MD discontinued med Lisinopril/Hydrochlorothiazide 10-12.5 Mg Tab (Lisinopril-Hctz 10-12.5 Mg Tab), 1 TAB ORAL DAILY, (Reported) Discontinued Reason: MD discontinued med Patient History Healthcare decision maker N Resuscitation status Full Code Advanced Directive on File Physical Exam Last 24 Hour Vital Signs Date Time Temp Pulse Resp B/P (MAP) Pulse Ox O2 Delivery O2 Flow Rate FiO2 03/04/18 20:51 98.4 101 16 170/88 100 98.4 03/04/18 16:00 98.5 94 18 135/70 100 Room Air 98.5 03/04/18 12:00 97.5 93 18 133/69 98 Room Air 97.5 03/04/18 10:20 147/84 03/04/18 04:00 97.3 98 19 147/84 98 97.3 03/04/18 00:36 97.8 92 17 108/65 97 97.8 Intake and Output 03/03/18 03/04/18 19:00 07:00 Intake Total 480 ml Output Total 0 ml Balance 0 ml 480 ml Intake Oral 480 ml Output Urine Total 0 ml # Voids 2 # Bowel Movements 1 Height (Feet): 5 Height (Inches): 3.00 Weight (Pounds): 200 Medications Current Medications Medications (Trade) Dose Ordered Sig/Obinna Route PRN Reason Start Time Stop Time Status Last Admin Dose Admin Aspirin (ASA) 81 mg DAILY ORAL 03/05/18 09:00 04/04/18 08:59 Dextrose (Dextrose 50%) 25 ml STAT PRN IV Hypoglycemia 03/03/18 19:15 04/02/18 19:14 Dextrose (Dextrose 50%) 50 ml STAT PRN IV Hypoglycemia 03/03/18 19:15 04/02/18 19:14 Heparin Sodium (Porcine) (Heparin 5000 units/ml) 5,000 units EVERY 8 HOURS SUBQ 03/04/18 14:00 04/03/18 13:59 Hydrochlorothiazide (Hydrodiuril) 25 mg DAILY ORAL 03/05/18 09:00 04/03/18 08:59 Ibuprofen (Advil) 400 mg Q6H PRN ORAL For Pain 03/03/18 19:15 04/02/18 19:14 03/04/18 19:45 Iopamidol (Isovue-300 100ml) 100 ml NOW PRN INJ Radiology Procedure 03/03/18 14:45 Irbesartan (Avapro) 150 mg DAILY ORAL 03/05/18 09:00 04/03/18 08:59 Metformin HCl (Glucophage) 500 mg BID ORAL 03/04/18 18:00 04/03/18 17:59 03/04/18 18:22 Ondansetron HCl (Zofran) 4 mg Q6H PRN IVP Nausea & Vomiting 03/03/18 19:15 04/02/18 19:14 Pantoprazole (Protonix) 40 mg DAILY ORAL 03/05/18 09:00 04/04/18 08:59 Polyethylene Glycol (Miralax) 34 gm DAILY ORAL 03/05/18 09:00 04/02/18 08:59 Jared Borrego MD March 04, 2018 22:05
[2018-03-05] VITALS: BP 142/84
[2018-03-05 04:56] VITALS: BP 152/93
[2018-03-05] MEDS: Heparin 5000 units/ml inj SUBQ SCH ×2 (06:00→14:00)
[2018-03-05 08:00] VITALS: BP 143/65
[2018-03-05] MEDS ORDERED: Miralax 17gm pkt ORAL SCH (09:00)
[2018-03-05] MEDS ORDERED: Aspirin Baby 81mg ORAL SCH (09:00)
[2018-03-05] MEDS ORDERED: Irbesartan 150mg tablet ORAL SCH (09:00)
[2018-03-05] MEDS ORDERED: metFORMIN 500mg tab ORAL SCH (09:00)
[2018-03-05 09:07] LABS: BASOPHILS % (AUTO) 0.4 % (0.0-2.0); EOSINOPHILS % (AUTO) 1.7 % (0.0-3.0); HEMATOCRIT 38.2 % (37.0-47.0); HEMOGLOBIN 12.7 G/DL (12.0-16.0); LYMPHOCYTES % (AUTO) 21.7 % (20.0-45.0); MEAN CORPUSCULAR VOLUME 92 FL (80-99); NEUTROPHILS % (AUTO) 69.3 % (45.0-75.0); PLATELET COUNT 215 K/UL (150-450); RED BLOOD COUNT 4.17 M/UL (4.20-5.40); RED CELL DISTRIBUTION WIDTH 11.9 % (11.6-14.8); WHITE BLOOD COUNT 8.1 K/UL (4.8-10.8)
[2018-03-05] MEDS: metFORMIN 500mg tab ORAL SCH (09:22)
[2018-03-05 09:51] LABS: ANION GAP 9 mmol/L (5-15); BLOOD UREA NITROGEN 18 mg/dL (7-18); CALCIUM 9.4 MG/DL (8.5-10.1); CARBON DIOXIDE 26 MMOL/L (21-32); CHLORIDE 103 MMOL/L (98-107); POTASSIUM 3.9 MMOL/L (3.5-5.1); SODIUM 138 MMOL/L (136-145)
--- NOTE | 2018-03-05 14:15 | Internal Med Progress Note ---
Subjective Date of Service: March 05, 2018 Physician Name Ever Gonzalez Attending Physician Freddie Simon MD Current Medications Medications (Trade) Dose Ordered Sig/[place] Route PRN Reason Start Time Stop Time Status Last Admin Dose Admin Aspirin (ASA) 81 mg DAILY ORAL 03/05/18 09:00 04/04/18 08:59 03/05/18 09:22 Dextrose (Dextrose 50%) 25 ml STAT PRN IV Hypoglycemia 03/03/18 19:15 04/02/18 19:14 Dextrose (Dextrose 50%) 50 ml STAT PRN IV Hypoglycemia 03/03/18 19:15 04/02/18 19:14 Heparin Sodium (Porcine) (Heparin 5000 units/ml) 5,000 units EVERY 8 HOURS SUBQ 03/04/18 14:00 04/03/18 13:59 Hydrochlorothiazide (Hydrodiuril) 25 mg DAILY ORAL 03/05/18 09:00 04/03/18 08:59 03/05/18 09:22 Ibuprofen (Advil) 400 mg Q6H PRN ORAL For Pain 03/03/18 19:15 04/02/18 19:14 03/05/18 06:42 Iopamidol (Isovue-300 100ml) 100 ml NOW PRN INJ Radiology Procedure 03/03/18 14:45 Irbesartan (Avapro) 150 mg DAILY ORAL 03/05/18 09:00 04/03/18 08:59 03/05/18 09:22 Metformin HCl (Glucophage) 500 mg BID ORAL 03/04/18 18:00 04/03/18 17:59 03/05/18 09:22 Ondansetron HCl (Zofran) 4 mg Q6H PRN IVP Nausea & Vomiting 03/03/18 19:15 04/02/18 19:14 Pantoprazole (Protonix) 40 mg DAILY ORAL 03/05/18 09:00 04/04/18 08:59 03/05/18 09:22 Polyethylene Glycol (Miralax) 34 gm DAILY ORAL 03/05/18 09:00 04/02/18 08:59 Allergies: Coded Allergies: No Known Allergies (Unverified , 09/02/17) ROS Limited/Unobtainable: No Constitutional: Reports: no symptoms HEENT: Reports: no symptoms Cardiovascular: Reports: no symptoms Respiratory: Reports: no symptoms Gastrointestinal/Abdominal: Reports: no symptoms Genitourinary: Reports: no symptoms Neurologic/Psychiatric: Reports: no symptoms Subjective 82 YO F admitted with abdominal pain and bilateral leg swelling. Cover for Int Mak-Dr Simon. Objective Last Vital Signs Date Time Temp Pulse Resp B/P (MAP) Pulse Ox O2 Delivery O2 Flow Rate FiO2 03/05/18 09:22 143/65 03/05/18 08:00 97.4 90 20 98 Room Air 97.4 Laboratory Tests Test 03/05/18 07:05 White Blood Count 8.1 K/UL (4.8-10.8) Red Blood Count 4.17 M/UL (4.20-5.40) L Hemoglobin 12.7 G/DL (12.0-16.0) Hematocrit 38.2 % (37.0-47.0) Mean Corpuscular Volume 92 FL (80-99) Mean Corpuscular Hemoglobin 30.4 PG (27.0-31.0) Mean Corpuscular Hemoglobin Concent 33.2 G/DL (32.0-36.0) Red Cell Distribution Width 11.9 % (11.6-14.8) Platelet Count 215 K/UL (150-450) Mean Platelet Volume 8.4 FL (6.5-10.1) Neutrophils (%) (Auto) 69.3 % (45.0-75.0) Lymphocytes (%) (Auto) 21.7 % (20.0-45.0) Monocytes (%) (Auto) 7.0 % (1.0-10.0) Eosinophils (%) (Auto) 1.7 % (0.0-3.0) Basophils (%) (Auto) 0.4 % (0.0-2.0) Sodium Level 138 MMOL/L (136-145) Potassium Level 3.9 MMOL/L (3.5-5.1) Chloride Level 103 MMOL/L (98-107) Carbon Dioxide Level 26 MMOL/L (21-32) Anion Gap 9 mmol/L (5-15) Blood Urea Nitrogen 18 mg/dL (7-18) Creatinine 1.0 MG/DL (0.55-1.30) Estimat Glomerular Filtration Rate mL/min (>60) Glucose Level 140 MG/DL (74-106) H Calcium Level 9.4 MG/DL (8.5-10.1) Microbiology Date/Time Source Procedure Growth Status 03/03/18 15:11 Blood Blood Culture - Preliminary NO GROWTH AFTER 24 HOURS Resulted 03/03/18 14:55 Blood Blood Culture - Preliminary NO GROWTH AFTER 24 HOURS Resulted Intake and Output 03/04/18 03/05/18 19:00 07:00 Intake Total 700 ml 360 ml Balance 700 ml 360 ml Intake Oral 700 ml 360 ml # Voids 5 4 # Bowel Movements 3 1 Objective General Appearance: WD/WN, no apparent distress, alert EENT: PERRL/EOMI, normal ENT inspection, TMs normal Neck: non-tender, normal alignment, supple Cardiovascular: normal peripheral pulses, normal rate, regular rhythm, no gallop/murmur, no JVD Respiratory/Chest: chest wall non-tender, lungs clear, normal breath sounds, no respiratory distress, no accessory muscle use Abdomen: normal bowel sounds, non tender, soft, no organomegaly, no mass Extremities: normal range of motion, non-tender Neurologic: hat lining paster II-XII grossly normal, no motor/sensory deficits Skin: normal pigmentation Assessment/Plan Problem List: (1) Abdominal pain Assessment & Plan: Resolved (2) Leg swelling (3) Hypertension Assessment & Plan: Continue valsartan (4) Diabetes mellitus, type II Assessment & Plan: Continue metformin andnovolog sliding scale. Status: doing well Assessment/Plan Discharge home today. D/W with sonRakesh. Ever Gonzalez MD March 05, 2018 14:15
[2018-03-05 17:29] VITALS: BP 164/80
--- NOTE | 2018-03-07 13:46 | Discharge Summary ---
Discharge Summary Discharge Summary Discharge Summary DATE OF ADMISSION: 03/03/2018 DATE OF DISCHARGE: 03/05/2018 REASON FOR ADMISSION: 82 years old female with a past medical history significant for diabetes mellitus, hypertension, CHF, morbid obesity, presented to emergency department for evaluation. Patient reported bilateral lower extremities swelling and abdominal pain for the last 24 hours. Pain described as sharp, 10 out of 10, nonradiating. She denied fever or chills, she denied nausea and vomiting, she denied chest pain, shortness of breath. She denied urinary complaints Patient able to ambulate. Patient reported taking diuretic in the past (Lasix ), but currently not taking it . o Upon evaluation in emergency department vital signs revealed tachycardia with heart rate of 121, elevated blood pressure 201/97. Pulse oximetry was stable on room air. EKG revealed sinus tachycardia with T wave inversion in lateral leads. Troponin was negative. Venous duplex bilateral lower extremities revealed no evidence of DVT. CT of the abdomen and pelvis revealed diverticulosis without evidence of diverticulitis, moderate fecal impaction. Laboratory workup revealed no leukocytosis , stable hemoglobin and hematocrit, potassium 5.6. Patient admitted with diagnosis off f abdominal pain , bilateral lower extremities edema, diabetes, hypertension, obesity, history of CHF CONSULTANTS: pulmonary Dr. Borrego [facility] COURSE: Patient admitted. Blood pressure was managed with ARB and diuretic as well as clonidine when necessary. Calcium channel chuck was discontinued presuming it caused peripheral edema. Chest x-ray showed no evidence of CHF , pro BNP only marginally elevated 332. Troponin was negative. Venous duplex bilateral lower extremities was negative for acute DVT. Patient was recommended to elevate lower extremities while in the bed. Blood sugar was managed with the metformin and remained stable. Bowel regimen was instituted. Patient was able to have bowel movement. On Patient tolerated diet., no nausea, no vomiting. DVT and GI prophylaxis provided. Renal parameters and electrolytes were closely monitored. Electrolytes were corrected as needed. Nephrotoxins were avoided. Prior to discharge, tachycardia resolved, blood pressures stabilized, abdominal pain resolved , able to tolerate diet. Patient was stable for discharge FINAL DIAGNOSES: Abdominal pain probably due to constipation-resolved Bilateral lower extremity edema , possibly due to the affect of calcium channel chuck-subsiding Diabetes mellitus Hypertension Obesity History of CHF DISCHARGE MEDICATIONS: See Medication Reconciliation list. DISCHARGE INSTRUCTIONS: Patient was discharged home. Follow up with primary care provider next week. I have been assigned to dictate discharge summary for this account. I was not involved in the patient's management. Patricia Smith NP March 07, 2018 13:46
--- NOTE | 2018-03-07 14:56 | Cardiology Report ---
APPROVED REPORT EKG Measurement Heart [id number] [place] [id number] Sinus tachycardia Left bundle branch block Abnormal ECG
== END 2018-03-05 17:55 | disposition home or self-care (01) | DRG 392 ==
LOC: EDBD 14:30 → EMR 14:47 → 3E 15:21 → EDBEDREQ 15:34 → 3E 16:59
DX: K59.00 Constipation, unspecified (principal); R10.9 Unspecified abdominal pain; I11.0 Hypertensive heart disease with heart failure; I50.9 Heart failure, unspecified; E11.9 Type 2 diabetes mellitus without complications; E66.9 Obesity, unspecified; R60.0 Localized edema; T46.1X5A Adverse effect of calcium-channel blockers, initial encounter; Z79.84 Long term (current) use of oral hypoglycemic drugs; Z79.01 Long term (current) use of anticoagulants
CPT/HCPCS: 36415; 71045; 74177; 80048; 80053; 82550; 82553; 82962; 83605; 83880; 84484; 85025; 87040; 93005; 93970; 99285; J1815

== ENCOUNTER 2018-07-02 08:35 | Inpatient (IN) | payer MEDICARE, MEDICAID ==
[~2018-07-02] VITALS: Ht 157.5 cm; Wt 98.4 kg
--- NOTE | 2018-07-02 08:22 | Emergency Room Report ---
History of Present Illness General Source: Patient, Family Member, EMS Present Illness HPI Patient is an 82-year-old female presented after increased difficulty breathing. Patient was brought in by EMS. Patient was noted to have prior history of congestive heart failure. Patient recently been noted to be noncompliant with the diuretics. The patient had fevers been prescribed Lasix as well as potassium. The patient is also taking Norvasc for hypertension.The patient been given nitroglycerin by EMS. She was noted to have some improvement in her symptoms after nitroglycerin.The prehospital EKG showed a left bundle branch block Allergies: Coded Allergies: No Known Allergies (Unverified , 09/02/17) Patient History Past Medical History: see triage record, CHF Reviewed Nursing Documentation: PMH: Agreed; PSxH: Agreed Review of Systems All Other Systems: negative except mentioned in HPI Physical Exam Sp02 EP Interpretation: reviewed, normal General Appearance: normal inspection, alert, moderate distress, obese, Chronically Ill Head: atraumatic ENT: normal ENT inspection, hearing grossly normal, normal voice Neck: normal inspection, full range of motion, supple, no bony tend Respiratory: normal inspection, no retraction, rales Cardiovascular #1: edema Gastrointestinal: normal inspection, normal bowel sounds, non tender, soft, no guarding, no hernia Genitourinary: no CVA tenderness Musculoskeletal: normal inspection, back normal, normal range of motion Neurologic: normal inspection, alert, oriented x3, responsive, rope cleaner III-XII nml as tested, speech normal Psychiatric: normal inspection, judgement/insight normal, mood/affect normal Skin: normal inspection, normal color, no rash Medical Decision Making Diagnostic Impression: Primary Impression: Acute exacerbation of congestive heart failure Additional Impressions: Peripheral edema Diabetes mellitus, type 2 ER Course patient presented for shortness of breath. Differential included but was not limited to anemia, pneumonia, pneumothorax, myocardial infarction, pericardial effusion, congestive heart failure, acidosis Patient noted have evidence of peripheral edema and elevated blood pressure. The patient was given nitroglycerin in the field with some improvement in her breathing. Patient was given IV Lasix. The patient had not been anticoagulated with Coumadin. Patient was noted to have some improvement in respiratory status after diuretics. Patient was discussed with Dr. Simon for inpatient management due to prior admission Labs Test 07/02/18 08:35 07/02/18 14:35 9/10/18 07:30 07/04/18 06:45 Total Creatine Kinase 60 U/L (26-308) Creatine Kinase MB 0.7 NG/ML (0.0-3.6) Creatine Kinase MB Relative Index 1.1 Prothrombin Time 10.7 SEC (9.30-11.50) Prothromb Time International Ratio 1.0 (0.9-1.1) Activated Partial Thromboplast Time 25 SEC (23-33) Erythrocyte Sedimentation Rate 42 MM/HR (0-30) Phosphorus Level 3.7 MG/DL (2.5-4.9) Magnesium Level 1.9 MG/DL (1.8-2.4) Total Bilirubin 0.5 MG/DL (0.2-1.0) Aspartate Amino Transf (AST/SGOT) 18 U/L (15-37) Alanine Aminotransferase (ALT/SGPT) 16 U/L (12-78) Alkaline Phosphatase 91 U/L (46-116) Total Protein 6.9 G/DL (6.4-8.2) Albumin 3.0 G/DL (3.4-5.0) Globulin 3.9 g/dL Albumin/Globulin Ratio 0.8 (1.0-2.7) Triglycerides Level 87 MG/DL (30-150) Cholesterol Level 186 MG/DL (< 200) LDL Cholesterol 118 mg/dL (<100) HDL Cholesterol 54 MG/DL (40-60) Cholesterol/HDL Ratio 3.4 (3.3-4.4) White Blood Count 7.1 K/UL (4.8-10.8) Red Blood Count 3.84 M/UL (4.20-5.40) Hemoglobin 11.8 G/DL (12.0-16.0) Hematocrit 35.0 % (37.0-47.0) Mean Corpuscular Volume 91 FL (80-99) Mean Corpuscular Hemoglobin 30.7 PG (27.0-31.0) Mean Corpuscular Hemoglobin Concent 33.7 G/DL (32.0-36.0) Red Cell Distribution Width 11.7 % (11.6-14.8) Platelet Count 274 K/UL (150-450) Mean Platelet Volume 7.2 FL (6.5-10.1) Neutrophils (%) (Auto) 55.9 % (45.0-75.0) Lymphocytes (%) (Auto) 32.7 % (20.0-45.0) Monocytes (%) (Auto) 8.6 % (1.0-10.0) Eosinophils (%) (Auto) 2.2 % (0.0-3.0) Basophils (%) (Auto) 0.6 % (0.0-2.0) Sodium Level 137 MMOL/L (136-145) Potassium Level 3.7 MMOL/L (3.5-5.1) Chloride Level 105 MMOL/L (98-107) Carbon Dioxide Level 25 MMOL/L (21-32) Anion Gap 7 mmol/L (5-15) Blood Urea Nitrogen 18 mg/dL (7-18) Creatinine 0.9 MG/DL (0.55-1.30) Estimat Glomerular Filtration Rate mL/min (>60) Glucose Level 140 MG/DL (74-106) Hemoglobin A1c 7.6 % (4.3-6.0) Calcium Level 9.7 MG/DL (8.5-10.1) Troponin I 0.010 ng/mL (0.000-0.056) Pro-B-Type Natriuretic Peptide 135 pg/mL (0-125) Thyroid Stimulating Hormone (TSH) 4.123 uiU/mL (0.358-3.740) EKG Diagnostic Results Rate: normal - 74 Rhythm: NSR ST Segments: other - left bundle branch block Rhythm Strip Diag. Results EP Interpretation: yes Rhythm: NSR, no PVC's, no ectopy Status: improved Disposition: ADMITTED INPATIENT Condition: Serious Javier Quintero MD Jul 02, 2018 08:22
[~2018-07-02 08:35] MED LIST changes: +DIOVAN HCT 1601 EAC1 ORAL; +IBUPROFEN600 MG ORAL
[2018-07-02 08:44] VITALS: BP 165/90
[2018-07-02] MEDS ORDERED: Aspirin Baby 81mg ORAL ONE (08:45)
[2018-07-02 08:47] LABS: BASOPHILS % (AUTO) 1.1 % (0.0-2.0); EOSINOPHILS % (AUTO) 1.6 % (0.0-3.0); HEMATOCRIT 40.9 % (37.0-47.0); HEMOGLOBIN 13.4 G/DL (12.0-16.0); LYMPHOCYTES % (AUTO) 36.1 % (20.0-45.0); MEAN CORPUSCULAR VOLUME 92 FL (80-99); MONOCYTES % (AUTO) 7.2 % (1.0-10.0); NEUTROPHILS % (AUTO) 53.9 % (45.0-75.0); PLATELET COUNT 288 K/UL (150-450); RED BLOOD COUNT 4.43 M/UL (4.20-5.40); RED CELL DISTRIBUTION WIDTH 11.7 % (11.6-14.8); WHITE BLOOD COUNT 9.5 K/UL (4.8-10.8)
--- NOTE | 2018-07-02 09:24 | Diagnostic Imaging Report ---
INDICATION: Shortness of breath COMPARISON: Chest x-ray dated 03/03/18 FINDINGS: Single frontal view demonstrates a prominent cardiac size. Opacity in the right lower lung zone, can represent developing correlation can be obtained with CT. No pleural effusions. The visualized osseous structures are within normal limits. IMPRESSION: Prominent cardiac size. Opacity in the right lower lung zone, can represent developing correlation can be obtained with CT.
[2018-07-02 09:35] LABS: ANION GAP 11 mmol/L (5-15); BLOOD UREA NITROGEN 25 mg/dL (7-18); CARBON DIOXIDE 20 MMOL/L (21-32); CHLORIDE 104 MMOL/L (98-107); CREATININE 0.9 MG/DL (0.55-1.30); SODIUM 134 MMOL/L (136-145)
[2018-07-02 09:49] LABS: ALANINE AMINOTRANSFERASE 19 U/L (12-78); ALBUMIN 3.1 G/DL (3.4-5.0); ALBUMIN/GLOBULIN RATIO 0.7 (1.0-2.7); ALKALINE PHOSPHATASE 108 U/L (46-116); ASPARTATE AMINO TRANSFERASE 24 U/L (15-37); BILIRUBIN,TOTAL 0.3 MG/DL (0.2-1.0); CKMB 0.7 NG/ML (0.0-3.6); CREATINE KINASE 60 U/L (26-308)
[2018-07-02 11:49] VITALS: BP 160/80
[2018-07-02] MEDS ORDERED: Morphine Sulfate 2mg/ml Inj IVP ONE (12:30)
[2018-07-02 12:45] VITALS: BP 162/79
[2018-07-02] MEDS ORDERED: FUROSEMIDE40 MG/5 ML ORAL (13:15)
[2018-07-02] MEDS ORDERED: POTASSIUM20 MEQ/15 PO (13:15)
[2018-07-02] MEDS ORDERED: NORVASC5 MG ORAL (13:15)
[2018-07-02] MEDS ORDERED: IBUPROFEN600 MG ORAL (13:31)
[2018-07-02] MEDS ORDERED: Miralax 17gm pkt ORAL PRN (13:45)
[2018-07-02] MEDS ORDERED: Mylanta II UD 30ml ORAL PRN (13:45)
[2018-07-02] MEDS ORDERED: Zolpidem 5mg tab ORAL PRN (13:45)
[2018-07-02] MEDS ORDERED: Labetalol 5mg/ml 20ml vial IV PRN (13:45)
[2018-07-02] MEDS ORDERED: Enalaprilat 2.5mg/2ml Inj IV PRN (13:45)
[2018-07-02] MEDS ORDERED: Morphine Sulfate 2mg/ml Inj IVP PRN ×2 (13:45→13:58)
[2018-07-02] MEDS ORDERED: LORazepam Inj 2mg/ml 1ml IV PRN (13:45)
[2018-07-02 14:51] LABS: BASOPHILS % (AUTO) 0.8 % (0.0-2.0); EOSINOPHILS % (AUTO) 0.2 % (0.0-3.0); HEMATOCRIT 38.7 % (37.0-47.0); HEMOGLOBIN 13.1 G/DL (12.0-16.0); MEAN CORPUSCULAR VOLUME 91 FL (80-99); MONOCYTES % (AUTO) 4.6 % (1.0-10.0); NEUTROPHILS % (AUTO) 81.5 % (45.0-75.0); PLATELET COUNT 319 K/UL (150-450); RED BLOOD COUNT 4.27 M/UL (4.20-5.40); RED CELL DISTRIBUTION WIDTH 11.6 % (11.6-14.8); WHITE BLOOD COUNT 9.4 K/UL (4.8-10.8)
--- NOTE | 2018-07-02 15:18 | History & Physical ---
History and Physical History & Physicial Dictated for Int Med-Dr Simon no. [id number]. Ever Gonzalez MD Jul 02, 2018 15:18
[2018-07-02] MEDS ORDERED: Heparin 25,000u/D5W 500ml 500 ML IV SCH (15:45)
[2018-07-02 16:00] VITALS: BP 131/51
[2018-07-02] MEDS: NovoLOG Insulin Flexpen SUBQ SCH ×2 (16:30→22:06)
[2018-07-02 20:00] VITALS: BP 149/76
[2018-07-03] VITALS: BP 114/55
--- NOTE | 2018-07-03 | History and Physical Report ---
DATE OF ADMISSION: 07/02/2018 CHIEF COMPLAINT: The patient is an 82-year-old female, presents with chief complaint of shortness of breath. HISTORY OF PRESENT ILLNESS: The patient has a history of congestive heart failure. The patient was last admitted to [facility] in February 2018. Please see History and Physical and discharge summary dictated at that time. The patient states she became short of breath yesterday, 07/01/2018. The patient states she was "having difficulty breathing." The patient presented to [facility]. The patient was admitted for congestive heart failure versus pneumonia. REVIEW OF SYSTEMS: CONSTITUTIONAL: The patient denies weight loss or weight gain. The patient denies fevers or chills. HEENT: The patient denies ear or throat pain. The patient denies headache. CARDIOVASCULAR: The patient denies palpitations or chest pain. CHEST: The patient complains of shortness of breath as above. The patient denies wheezes. ABDOMEN: The patient denies nausea, vomiting, diarrhea, or constipation. GENITOURINARY: The patient denies dysuria or increased frequency of urination. NEUROLOGIC: The patient denies seizures or generalized weakness. PAST MEDICAL HISTORY: Significant for, 1. Congestive heart failure as above. 2. Type 2 diabetes. 3. Hypertension. 4. Morbid obesity. PAST SURGICAL HISTORY: Significant for, 1. Appendectomy. 2. Exploratory laparotomy, secondary to abdominal mass, possibly neoplastic. CURRENT MEDICATIONS: 1. Amlodipine 5 mg p.o. daily. 2. Aspirin 81 mg one time p.o. daily. 3. Furosemide 40 mg p.o. daily. 4. Metformin 500 mg p.o. twice daily. 5. Potassium chloride 20 mEq p.o. daily. ALLERGIES: No known drug allergies. SOCIAL HISTORY: The patient is single and lives at home with her family. The patient denies tobacco use, having quit early on as a teenager. The patient denies alcohol use. PHYSICAL EXAMINATION: VITAL SIGNS: Temperature 98.4, respirations 20, pulse 89, blood pressure 165/90, and pulse oximetry 97% on room air. GENERAL: The patient is a well-developed, well-nourished female, in no apparent distress. HEENT: Eyes, pupils equal and responsive to light and accommodation. Extraocular movements are intact. NECK: Supple without lymphadenopathy. CHEST: Lungs are clear to auscultation bilaterally without wheezes or rales. CARDIOVASCULAR: Regular rate. S1, S2 normal without murmurs, rubs, or gallops. ABDOMEN: Soft, nontender, nondistended. Positive bowel sounds. No evidence of hepatosplenomegaly. Currently, no rebound or guarding noted. EXTREMITIES: Negative for clubbing, cyanosis, or edema. RECTAL/GENITAL: Deferred. NEUROLOGIC: Cranial nerves II through XII are grossly intact without focal deficits. Motor strength is 5/5 bilaterally. Deep tendon reflexes are 2+ plantar. LABORATORY AND DIAGNOSTIC DATA: Laboratory studies, WBC 9.5, hemoglobin 13.4, hematocrit 40.9, platelets 288,000. Sodium 134, potassium 4.0, chloride 104, CO2 20, BUN 25, creatinine 0.9, glucose elevated at 221. Chest x-ray showed right lower lobe consolidation, otherwise with no acute disease. ASSESSMENT: This is an 82-year-old female with: 1. Shortness of breath. 2. Congestive heart failure. 3. Left bundle-branch block. 4. Diabetes type 2. 5. Hypertension. 6. Obesity. TREATMENT: 1. Shortness of breath, this may be secondary to pneumonia versus congestive heart failure. A repeat chest x-ray is pending. The patient has been started on intravenous Lasix. We will follow recommendations of Cardiology and Pulmonary. 2. Congestive heart failure. Initial BNP level was 111. Initial troponin was 0.0. Cardiology consultation has been obtained with Dr. Vincenzo Tejeda. We will follow recommendations of Cardiology. 3. Left bundle-branch block. As above, a Cardiology consultation has been obtained with Dr. Vincenzo Tejeda. 4. Diabetes type 2. A regular insulin sliding scale has been instituted. 5. Hypertension. Continue amlodipine as above. 6. Morbid obesity. Ever Gonzalez M.D. DR: KOSTAS JOB#: [id number] CC:
[2018-07-03 04:00] VITALS: BP 125/62
[2018-07-03] MEDS: metFORMIN 500mg tab ORAL SCH ×2 (06:14→17:22)
[2018-07-03] MEDS: NovoLOG Insulin Flexpen SUBQ SCH ×5 (06:17→20:45)
--- NOTE | 2018-07-03 07:55 | Consultation ---
History of Present Illness General Date patient seen: Jul 03, 2018 Time patient seen: 07:15 Chief Complaint: Dyspnea/Respdistress Referring physician: dr Simon Reason for Consultation: dyspnea Present Illness HPI 82-year-old female with PMH of HTN, CHF, DM, hx DVT, morbid obesity, brought by paramedics with c/o dyspnea . Patient was nonchalant with diuretics, per family. The patient been given nitroglycerin by EMS with some improvement in her symptoms afterwards. Prehospital EKG showed left bundle branch block. In ED no leucocytosis, stable HH BUN 25 with stable creatinine evidence of hyponatremia Glucose 221 Troponin negative ECG NSR no acute ischemic changes , pro BNP 111 CXR -Prominent cardiac size. Opacity in the right lower lung zone, Lasix x 1 given in ED Patient admitted with dyspnea, possible CHF exacerbation, diabetes mellitus, HTN, morbid obesity. This am patient denied chest pain, reported some improvement in SOB, pulse ox stable on RA Allergies: Coded Allergies: No Known Allergies (Unverified , 09/02/17) Medication History Scheduled Amlodipine Besylate (Norvasc), 5 MG ORAL DAILY, (Reported) Aspirin Ec* (Aspirin Ec*), 81 MG ORAL DAILY, (Reported) Furosemide (Furosemide), 20 MG ORAL DAILY, (Reported) Metformin Hcl* (Metformin Hcl*), 500 MG ORAL DAILY, (Reported) Scheduled PRN Ibuprofen* (Motrin*), 600 MG ORAL Q6H PRN for For Pain, (Reported) Miscellaneous Medications Potassium Chloride (Potassium Chloride), 20 MEQ PO, (Reported) Discontinued Medications Ibuprofen* (Motrin*), 600 MG ORAL Q6H PRN Discontinued Reason: Pt stopped taking med Pantoprazole* (Protonix*), 40 MG ORAL DAILY Discontinued Reason: Pt stopped taking med Valsartan/Hydrochlorothiazide 160-25MG (Diovan Hct 160-25 Mg Tablet), 1 TAB ORAL DAILY, (Reported) Discontinued Reason: Pt stopped taking med Warfarin Sod* (Coumadin*), 4 MG PO COUMADIN Discontinued Reason: Pt stopped taking med Patient History History Provided By: Family Member, Medical Record Healthcare decision maker Rakesh Coley Resuscitation status Advanced Directive on File Past Medical/Surgical History Past Medical/Surgical History: (1) Diabetes mellitus, type II (2) COPD (chronic obstructive pulmonary disease) (3) Hypertension (4) Acute DVT (deep venous thrombosis) Review of Systems Constitutional: Reports: weakness Eye: Reports: no symptoms ENT: Reports: no symptoms Respiratory: Reports: see HPI Cardiovascular: Reports: see HPI Gastrointestinal: Reports: constipation Genitourinary: Reports: no symptoms Musculoskeletal: Reports: muscle stiffness Skin: Reports: dryness Psychiatric: Reports: no symptoms Neurological: Reports: no symptoms Endocrine: Reports: other - diabetes Hematologic/Lymphatic: Reports: no symptoms Physical Exam General Appearance: no apparent distress, alert - awake, morbidly obese Lines, tubes and drains: peripheral HEENT: normocephalic, anicteric Neck: non-tender, supple Respiratory/Chest: lungs clear - with moderate air exchange, no respiratory distress, no accessory muscle use Cardiovascular/Chest: normal rate - distant heart sounds , regular rhythm - SR on tele Abdomen: normal bowel sounds, non tender - obese, soft Extremities: no calf tenderness, other - trace edema BLE Skin Exam: warm/dry Neurologic: alert, responsive Musculoskeletal: atrophy - BLE Last 24 Hour Vital Signs Date Time Temp Pulse Resp B/P (MAP) Pulse Ox O2 Delivery O2 Flow Rate FiO2 07/03/18 04:00 96 07/03/18 04:00 98.2 98 18 125/62 (83) 97 98.2 07/03/18 00:00 85 07/03/18 00:00 98.4 102 19 114/55 (74) 96 98.4 07/02/18 21:00 Room Air 07/02/18 20:00 98.4 63 18 149/76 (100) 95 98.4 07/02/18 20:00 81 07/02/18 16:00 97.9 102 18 131/51 (77) 96 97.9 07/02/18 16:00 109 07/02/18 16:00 Room Air 07/02/18 14:06 162/79 07/02/18 13:02 91 07/02/18 13:00 Room Air 07/02/18 12:57 Room Air 07/02/18 12:45 98.0 95 162/79 (106) 98.0 07/02/18 12:37 98.0 16 160/80 98 Room Air 2.0 98.0 07/02/18 11:49 98.0 16 160/80 98 Room Air 98.0 07/02/18 08:44 98.4 20 165/90 97 Room Air 98.4 07/02/18 08:41 89 20 Nasal Cannula 2.0 07/02/18 08:17 98.4 89 20 165/90 97 Room Air 98.4 Intake and Output 07/02/18 07/03/18 19:00 07:00 Intake Total 180 ml Output Total 1000 ml Balance -820 ml Intake Oral 180 ml Output Urine Total 1000 ml # Voids 2 3 # Bowel Movements 1 3 Laboratory Tests Test 07/02/18 08:35 07/02/18 14:35 White Blood Count 9.5 K/UL (4.8-10.8) 9.4 K/UL (4.8-10.8) Red Blood Count 4.43 M/UL (4.20-5.40) 4.27 M/UL (4.20-5.40) Hemoglobin 13.4 G/DL (12.0-16.0) 13.1 G/DL (12.0-16.0) Hematocrit 40.9 % (37.0-47.0) 38.7 % (37.0-47.0) Mean Corpuscular Volume 92 FL (80-99) 91 FL (80-99) Mean Corpuscular Hemoglobin 30.2 PG (27.0-31.0) 30.6 PG (27.0-31.0) Mean Corpuscular Hemoglobin Concent 32.8 G/DL (32.0-36.0) 33.8 G/DL (32.0-36.0) Red Cell Distribution Width 11.7 % (11.6-14.8) 11.6 % (11.6-14.8) Platelet Count 288 K/UL (150-450) 319 K/UL (150-450) Mean Platelet Volume 7.8 FL (6.5-10.1) 7.0 FL (6.5-10.1) Neutrophils (%) (Auto) 53.9 % (45.0-75.0) 81.5 % (45.0-75.0) H Lymphocytes (%) (Auto) 36.1 % (20.0-45.0) 13.0 % (20.0-45.0) L Monocytes (%) (Auto) 7.2 % (1.0-10.0) 4.6 % (1.0-10.0) Eosinophils (%) (Auto) 1.6 % (0.0-3.0) 0.2 % (0.0-3.0) Basophils (%) (Auto) 1.1 % (0.0-2.0) 0.8 % (0.0-2.0) Sodium Level 134 MMOL/L (136-145) L Potassium Level 4.0 MMOL/L (3.5-5.1) Chloride Level 104 MMOL/L (98-107) Carbon Dioxide Level 20 MMOL/L (21-32) L Anion Gap 11 mmol/L (5-15) Blood Urea Nitrogen 25 mg/dL (7-18) H Creatinine 0.9 MG/DL (0.55-1.30) Estimat Glomerular Filtration Rate mL/min (>60) Glucose Level 221 MG/DL (74-106) H Calcium Level 9.0 MG/DL (8.5-10.1) Total Bilirubin 0.3 MG/DL (0.2-1.0) Aspartate Amino Transf (AST/SGOT) 24 U/L (15-37) Alanine Aminotransferase (ALT/SGPT) 19 U/L (12-78) Alkaline Phosphatase 108 U/L (46-116) Total Creatine Kinase 60 U/L (26-308) Creatine Kinase MB 0.7 NG/ML (0.0-3.6) Creatine Kinase MB Relative Index 1.1 Troponin I 0.000 ng/mL (0.000-0.056) Pro-B-Type Natriuretic Peptide 111 pg/mL (0-125) Total Protein 7.4 G/DL (6.4-8.2) Albumin 3.1 G/DL (3.4-5.0) L Globulin 4.3 g/dL Albumin/Globulin Ratio 0.7 (1.0-2.7) L Prothrombin Time 10.7 SEC (9.30-11.50) Prothromb Time International Ratio 1.0 (0.9-1.1) Activated Partial Thromboplast Time 25 SEC (23-33) Height (Feet): 5 Height (Inches): 2.00 Weight (Pounds): 216 Medications Current Medications Medications (Trade) Dose Ordered Sig/Obinna Route PRN Reason Start Time Stop Time Status Last Admin Dose Admin Acetaminophen (Tylenol) 650 mg Q4H PRN ORAL fever 07/02/18 13:43 08/01/18 13:42 Al Hydroxide/Mg Hydroxide (Mylanta II) 30 ml Q6H PRN ORAL dyspepsia 07/02/18 13:45 08/01/18 13:44 Amlodipine Besylate (Norvasc) 5 mg DAILY ORAL 07/03/18 09:00 08/02/18 08:59 Aspirin (Ecotrin) 81 mg DAILY ORAL 07/03/18 09:00 08/02/18 08:59 Dextrose (Dextrose 50%) 25 ml PRN IV Hypoglycemia 07/02/18 14:00 08/01/18 13:59 Dextrose (Dextrose 50%) 50 ml PRN IV hypoglycemia 07/02/18 14:00 08/01/18 13:59 Enalaprilat (Vasotec) 2.5 mg Q4H PRN IV sbp more than 200 07/02/18 13:45 08/01/18 13:44 Heparin Sodium/ Dextrose 500 ml @ 36.414 mls/ hr ADJUST PER PROTOCOL IV 07/02/18 15:45 08/01/18 15:44 Hydralazine HCl (Apresoline) 20 mg Q4H PRN IV sbp more than 160 07/02/18 13:45 08/01/18 13:44 07/02/18 14:06 Ibuprofen (Motrin) 600 mg Q6H PRN ORAL For Pain 07/02/18 14:00 08/01/18 13:59 07/02/18 22:05 Insulin Aspart (NovoLOG) BEFORE MEALS AND HS SUBQ 07/02/18 16:30 08/01/18 16:29 07/03/18 06:17 Labetalol HCl (Normodyne) 20 mg Q1H PRN IV sbp more than 180 07/02/18 13:45 08/01/18 13:44 Lorazepam (Ativan 2mg/ml 1ml) 0.5 mg Q4H PRN IV For Anxiety 07/02/18 13:45 07/09/18 13:44 Metformin HCl (Glucophage) 500 mg BIAC ORAL 07/03/18 06:30 08/02/18 06:29 07/03/18 06:14 Morphine Sulfate (Morphine Sulfate) 1 mg Q4H PRN IVP For SEVERE Pain 07/02/18 13:58 07/09/18 13:44 Ondansetron HCl (Zofran) 4 mg Q6H PRN IVP Nausea & Vomiting 07/02/18 13:45 08/01/18 13:44 Polyethylene Glycol (Miralax) 17 gm HSPRN PRN ORAL Constipation 07/02/18 13:45 08/01/18 13:44 Zolpidem Tartrate (Ambien) 5 mg HSPRN PRN ORAL Insomnia 07/02/18 13:45 07/09/18 13:44 Assessment/Plan Assessment/Plan ASSESSMENT dyspnea CHF Hypertensive cardiomyopathy ( previous EF 35-40%) Hyponatremia hx of DVT RLE hyperlipidemia LBBB HTN Morbid obesity probably LUIS ANTONIO anxiety disorder PLAN OF CARE tele troponin negative pro BNP unremarkable CXR no overt CHF f/up CXR this am no acute process pulse ox stable on RA ECHO with pEF 60% ( previous ECHO with EF 35-40%) cardio eval pending hx of acute DVT RLE Venous Duplex BLE negative BP management with CCB and add BB anti PLT therapy with ASA lipid panel with elevated LDL, add low dose statin counseled on cardiac low fat low cholesterol diet monitor Na, correct further BS management with metformin and SSI , check HgA1c pain management prn bowel regimen supportive care sleep study as outpt psych follows RO/ST provided anxiolytic prn dc soon case discussed and evaluated by supervising physician Patricia Smith NP Jul 03, 2018 07:55
[2018-07-03 08:00] VITALS: BP 129/57
[2018-07-03 08:25] LABS: BASOPHILS % (AUTO) 0.9 % (0.0-2.0); EOSINOPHILS % (AUTO) 1.4 % (0.0-3.0); HEMOGLOBIN 11.7 G/DL (12.0-16.0); LYMPHOCYTES % (AUTO) 26.2 % (20.0-45.0); MEAN CORPUSCULAR VOLUME 91 FL (80-99); MONOCYTES % (AUTO) 8.5 % (1.0-10.0); PLATELET COUNT 283 K/UL (150-450); RED BLOOD COUNT 3.84 M/UL (4.20-5.40); RED CELL DISTRIBUTION WIDTH 11.7 % (11.6-14.8); WHITE BLOOD COUNT 7.8 K/UL (4.8-10.8)
[2018-07-03 08:56] LABS: ALANINE AMINOTRANSFERASE 16 U/L (12-78); ALBUMIN/GLOBULIN RATIO 0.8 (1.0-2.7); ALKALINE PHOSPHATASE 91 U/L (46-116); ANION GAP 9 mmol/L (5-15); ASPARTATE AMINO TRANSFERASE 18 U/L (15-37); BILIRUBIN,TOTAL 0.5 MG/DL (0.2-1.0); BLOOD UREA NITROGEN 20 mg/dL (7-18); CALCIUM 9.5 MG/DL (8.5-10.1); CARBON DIOXIDE 25 MMOL/L (21-32); CHLORIDE 103 MMOL/L (98-107); CHOLESTEROL 186 MG/DL (< 200); CREATININE 0.9 MG/DL (0.55-1.30); HDL CHOLESTEROL 54 MG/DL (40-60); PHOSPHORUS 3.7 MG/DL (2.5-4.9); POTASSIUM 3.6 MMOL/L (3.5-5.1); SODIUM 137 MMOL/L (136-145); TRIGLYCERIDES 87 MG/DL (30-150)
[2018-07-03] MEDS: Aspirin EC 81mg tab ORAL SCH (08:58)
[2018-07-03] MEDS: Heparin 5000 units/ml inj SUBQ SCH ×2 (09:46→20:53)
--- NOTE | 2018-07-03 10:49 | Consultation ---
History of Present Illness General Date patient seen: Jul 02, 2018 Chief Complaint: Dyspnea/Respdistress Present Illness HPI 82-year-old female, presents with chief complaint of shortness of breath. The pt has anxiety and has difficulty sleeping. The pts son was next to bed. the pt has episodes of anxiety and diff breathing. no si/hi Allergies: Coded Allergies: No Known Allergies (Unverified , 09/02/17) Medication History Scheduled Amlodipine Besylate (Norvasc), 5 MG ORAL DAILY, (Reported) Aspirin Ec* (Aspirin Ec*), 81 MG ORAL DAILY, (Reported) Furosemide (Furosemide), 20 MG ORAL DAILY, (Reported) Metformin Hcl* (Metformin Hcl*), 500 MG ORAL DAILY, (Reported) Scheduled PRN Ibuprofen* (Motrin*), 600 MG ORAL Q6H PRN for For Pain, (Reported) Miscellaneous Medications Potassium Chloride (Potassium Chloride), 20 MEQ PO, (Reported) Discontinued Medications Ibuprofen* (Motrin*), 600 MG ORAL Q6H PRN Discontinued Reason: Pt stopped taking med Pantoprazole* (Protonix*), 40 MG ORAL DAILY Discontinued Reason: Pt stopped taking med Valsartan/Hydrochlorothiazide 160-25MG (Diovan Hct 160-25 Mg Tablet), 1 TAB ORAL DAILY, (Reported) Discontinued Reason: Pt stopped taking med Warfarin Sod* (Coumadin*), 4 MG PO COUMADIN Discontinued Reason: Pt stopped taking med Patient History Limited by: medical condition History Provided By: Patient, Medical Record Healthcare decision maker Rakesh Coley Resuscitation status Advanced Directive on File Past Medical/Surgical History Past Medical/Surgical History: (1) Diabetes mellitus (2) Acute DVT (deep venous thrombosis) (3) UTI (urinary tract infection) (4) Shortness of breath (5) HTN (hypertension) (6) Diarrhea (7) Diabetes mellitus, type II (8) Abdominal pain (9) Hypertension (10) COPD (chronic obstructive pulmonary disease) (11) Diabetes mellitus, type 2 (12) Peripheral edema (13) Acute exacerbation of congestive heart failure Review of Systems Psychiatric: Reports: prior hx, anxiety Physical Exam General Appearance: no apparent distress, alert Neurologic: oriented x 3, responsive, depressed affect Last 24 Hour Vital Signs Date Time Temp Pulse Resp B/P (MAP) Pulse Ox O2 Delivery O2 Flow Rate FiO2 07/03/18 09:00 Room Air 9/10/18 08:57 98 129/57 07/03/18 08:00 97.9 98 18 129/57 (81) 98 97.9 07/03/18 08:00 93 07/03/18 04:00 96 07/03/18 04:00 98.2 98 18 125/62 (83) 97 98.2 07/03/18 00:00 85 07/03/18 00:00 98.4 102 19 114/55 (74) 96 98.4 07/02/18 21:00 Room Air 07/02/18 20:00 98.4 63 18 149/76 (100) 95 98.4 07/02/18 20:00 81 07/02/18 16:00 97.9 102 18 131/51 (77) 96 97.9 07/02/18 16:00 109 07/02/18 16:00 Room Air 07/02/18 14:06 162/79 07/02/18 13:02 91 07/02/18 13:00 Room Air 07/02/18 12:57 Room Air 07/02/18 12:45 98.0 95 162/79 (106) 98.0 07/02/18 12:37 98.0 16 160/80 98 Room Air 2.0 98.0 07/02/18 11:49 98.0 16 160/80 98 Room Air 98.0 Intake and Output 07/02/18 07/03/18 19:00 07:00 Intake Total 180 ml Output Total 1000 ml Balance -820 ml Intake Oral 180 ml Output Urine Total 1000 ml # Voids 2 3 # Bowel Movements 1 3 Laboratory Tests Test 07/02/18 14:35 07/03/18 07:30 White Blood Count 9.4 K/UL (4.8-10.8) 7.8 K/UL (4.8-10.8) Red Blood Count 4.27 M/UL (4.20-5.40) 3.84 M/UL (4.20-5.40) L Hemoglobin 13.1 G/DL (12.0-16.0) 11.7 G/DL (12.0-16.0) L Hematocrit 38.7 % (37.0-47.0) 35.0 % (37.0-47.0) L Mean Corpuscular Volume 91 FL (80-99) 91 FL (80-99) Mean Corpuscular Hemoglobin 30.6 PG (27.0-31.0) 30.6 PG (27.0-31.0) Mean Corpuscular Hemoglobin Concent 33.8 G/DL (32.0-36.0) 33.5 G/DL (32.0-36.0) Red Cell Distribution Width 11.6 % (11.6-14.8) 11.7 % (11.6-14.8) Platelet Count 319 K/UL (150-450) 283 K/UL (150-450) Mean Platelet Volume 7.0 FL (6.5-10.1) 7.2 FL (6.5-10.1) Neutrophils (%) (Auto) 81.5 % (45.0-75.0) H 63.0 % (45.0-75.0) Lymphocytes (%) (Auto) 13.0 % (20.0-45.0) L 26.2 % (20.0-45.0) Monocytes (%) (Auto) 4.6 % (1.0-10.0) 8.5 % (1.0-10.0) Eosinophils (%) (Auto) 0.2 % (0.0-3.0) 1.4 % (0.0-3.0) Basophils (%) (Auto) 0.8 % (0.0-2.0) 0.9 % (0.0-2.0) Prothrombin Time 10.7 SEC (9.30-11.50) Prothromb Time International Ratio 1.0 (0.9-1.1) Activated Partial Thromboplast Time 25 SEC (23-33) Erythrocyte Sedimentation Rate 42 MM/HR (0-30) H Sodium Level 137 MMOL/L (136-145) Potassium Level 3.6 MMOL/L (3.5-5.1) Chloride Level 103 MMOL/L (98-107) Carbon Dioxide Level 25 MMOL/L (21-32) Anion Gap 9 mmol/L (5-15) Blood Urea Nitrogen 20 mg/dL (7-18) H Creatinine 0.9 MG/DL (0.55-1.30) Estimat Glomerular Filtration Rate mL/min (>60) Glucose Level 166 MG/DL (74-106) H Calcium Level 9.5 MG/DL (8.5-10.1) Phosphorus Level 3.7 MG/DL (2.5-4.9) Magnesium Level 1.9 MG/DL (1.8-2.4) Total Bilirubin 0.5 MG/DL (0.2-1.0) Aspartate Amino Transf (AST/SGOT) 18 U/L (15-37) Alanine Aminotransferase (ALT/SGPT) 16 U/L (12-78) Alkaline Phosphatase 91 U/L (46-116) Troponin I 0.043 ng/mL (0.000-0.056) Pro-B-Type Natriuretic Peptide 283 pg/mL (0-125) H Total Protein 6.9 G/DL (6.4-8.2) Albumin 3.0 G/DL (3.4-5.0) L Globulin 3.9 g/dL Albumin/Globulin Ratio 0.8 (1.0-2.7) L Triglycerides Level 87 MG/DL (30-150) Cholesterol Level 186 MG/DL (< 200) LDL Cholesterol 118 mg/dL (<100) H HDL Cholesterol 54 MG/DL (40-60) Cholesterol/HDL Ratio 3.4 (3.3-4.4) Height (Feet): 5 Height (Inches): 2.00 Weight (Pounds): 216 Medications Current Medications Medications (Trade) Dose Ordered Sig/Obinna Route PRN Reason Start Time Stop Time Status Last Admin Dose Admin Acetaminophen (Tylenol) 650 mg Q4H PRN ORAL fever 07/02/18 13:43 08/01/18 13:42 Al Hydroxide/Mg Hydroxide (Mylanta II) 30 ml Q6H PRN ORAL dyspepsia 07/02/18 13:45 08/01/18 13:44 Amlodipine Besylate (Norvasc) 5 mg DAILY ORAL 07/03/18 09:00 08/02/18 08:59 07/03/18 08:57 Aspirin (Ecotrin) 81 mg DAILY ORAL 07/03/18 09:00 08/02/18 08:59 07/03/18 08:58 Dextrose (Dextrose 50%) 25 ml PRN IV Hypoglycemia 07/02/18 14:00 08/01/18 13:59 Dextrose (Dextrose 50%) 50 ml PRN IV hypoglycemia 07/02/18 14:00 08/01/18 13:59 Enalaprilat (Vasotec) 2.5 mg Q4H PRN IV sbp more than 200 07/02/18 13:45 08/01/18 13:44 Heparin Sodium (Porcine) (Heparin 5000 units/ml) 5,000 units EVERY 12 HOURS SUBQ 07/03/18 09:46 08/02/18 09:45 Hydralazine HCl (Apresoline) 20 mg Q4H PRN IV sbp more than 160 07/02/18 13:45 08/01/18 13:44 07/02/18 14:06 Ibuprofen (Motrin) 600 mg Q6H PRN ORAL For Pain 07/02/18 14:00 08/01/18 13:59 07/02/18 22:05 Insulin Aspart (NovoLOG) BEFORE MEALS AND HS SUBQ 07/02/18 16:30 08/01/18 16:29 07/03/18 06:17 Labetalol HCl (Normodyne) 20 mg Q1H PRN IV sbp more than 180 07/02/18 13:45 08/01/18 13:44 Lorazepam (Ativan 2mg/ml 1ml) 0.5 mg Q4H PRN IV For Anxiety 07/02/18 13:45 07/09/18 13:44 Metformin HCl (Glucophage) 500 mg BIAC ORAL 07/03/18 06:30 08/02/18 06:29 07/03/18 06:14 Morphine Sulfate (Morphine Sulfate) 1 mg Q4H PRN IVP For SEVERE Pain 07/02/18 13:58 07/09/18 13:44 Ondansetron HCl (Zofran) 4 mg Q6H PRN IVP Nausea & Vomiting 07/02/18 13:45 08/01/18 13:44 Polyethylene Glycol (Miralax) 17 gm HSPRN PRN ORAL Constipation 07/02/18 13:45 08/01/18 13:44 Zolpidem Tartrate (Ambien) 5 mg HSPRN PRN ORAL Insomnia 07/02/18 13:45 07/09/18 13:44 Assessment/Plan Assessment/Plan Anxiety d/o -cont ativan prn -provided nalini/Juan Valdivia MD Jul 03, 2018 10:49
--- NOTE | 2018-07-03 10:56 | Diagnostic Imaging Report ---
Indication: Cough Technique: One view of the chest Comparison: 07/02/2018 Findings: Better inspiration currently. Lungs and pleural spaces are clear. Heart size is normal Impression: No acute process
[2018-07-03 12:00] VITALS: BP 138/58
[2018-07-03 16:00] VITALS: BP 126/62
--- NOTE | 2018-07-03 17:42 | Internal Med Progress Note ---
Subjective Date of Service: Jul 03, 2018 Physician Name Ever Gonzalez Attending Physician Freddie Simon MD Current Medications Medications (Trade) Dose Ordered Sig/Obinna Route PRN Reason Start Time Stop Time Status Last Admin Dose Admin Acetaminophen (Tylenol) 650 mg Q4H PRN ORAL fever 07/02/18 13:43 08/01/18 13:42 Al Hydroxide/Mg Hydroxide (Mylanta II) 30 ml Q6H PRN ORAL dyspepsia 07/02/18 13:45 08/01/18 13:44 Amlodipine Besylate (Norvasc) 5 mg DAILY ORAL 07/03/18 09:00 08/02/18 08:59 07/03/18 08:57 Aspirin (Ecotrin) 81 mg DAILY ORAL 07/03/18 09:00 08/02/18 08:59 07/03/18 08:58 Atorvastatin Calcium (Lipitor) 10 mg BEDTIME ORAL 07/03/18 21:00 08/02/18 20:59 Dextrose (Dextrose 50%) 25 ml PRN IV Hypoglycemia 07/02/18 14:00 08/01/18 13:59 Dextrose (Dextrose 50%) 50 ml PRN IV hypoglycemia 07/02/18 14:00 08/01/18 13:59 Enalaprilat (Vasotec) 2.5 mg Q4H PRN IV sbp more than 200 07/02/18 13:45 08/01/18 13:44 Heparin Sodium (Porcine) (Heparin 5000 units/ml) 5,000 units EVERY 12 HOURS SUBQ 07/03/18 09:46 08/02/18 09:45 Hydralazine HCl (Apresoline) 20 mg Q4H PRN IV sbp more than 160 07/02/18 13:45 08/01/18 13:44 07/02/18 14:06 Ibuprofen (Motrin) 600 mg Q6H PRN ORAL For Pain 07/02/18 14:00 08/01/18 13:59 07/02/18 22:05 Insulin Aspart (NovoLOG) BEFORE MEALS AND HS SUBQ 07/02/18 16:30 08/01/18 16:29 07/03/18 12:18 Labetalol HCl (Normodyne) 20 mg Q1H PRN IV sbp more than 180 07/02/18 13:45 08/01/18 13:44 Lorazepam (Ativan 2mg/ml 1ml) 0.5 mg Q4H PRN IV For Anxiety 07/02/18 13:45 07/09/18 13:44 Metformin HCl (Glucophage) 500 mg BIAC ORAL 07/03/18 06:30 08/02/18 06:29 07/03/18 17:22 Metoprolol Succinate (Toprol XL) 25 mg DAILY ORAL 07/04/18 09:00 08/03/18 08:59 Morphine Sulfate (Morphine Sulfate) 1 mg Q4H PRN IVP For SEVERE Pain 07/02/18 13:58 07/09/18 13:44 Ondansetron HCl (Zofran) 4 mg Q6H PRN IVP Nausea & Vomiting 07/02/18 13:45 08/01/18 13:44 Polyethylene Glycol (Miralax) 17 gm HSPRN PRN ORAL Constipation 07/02/18 13:45 08/01/18 13:44 Zolpidem Tartrate (Ambien) 5 mg HSPRN PRN ORAL Insomnia 07/02/18 13:45 07/09/18 13:44 Allergies: Coded Allergies: No Known Allergies (Unverified , 09/02/17) ROS Limited/Unobtainable: No Constitutional: Reports: no symptoms HEENT: Reports: no symptoms Cardiovascular: Reports: no symptoms Respiratory: Reports: shortness of breath Gastrointestinal/Abdominal: Reports: no symptoms Genitourinary: Reports: no symptoms Neurologic/Psychiatric: Reports: no symptoms Subjective 89 YO F admitted with shortness of breath. Now eli heart failure. Cover for Int Mak-Dr Simon Objective Last Vital Signs Date Time Temp Pulse Resp B/P (MAP) Pulse Ox O2 Delivery O2 Flow Rate FiO2 07/03/18 16:00 93 07/03/18 16:00 97.9 20 126/62 (83) 97 97.9 07/03/18 09:00 Room Air 07/02/18 12:37 2.0 General Appearance: WD/WN, no apparent distress, alert EENT: PERRL/EOMI, normal ENT inspection, TMs normal Neck: non-tender, normal alignment, supple, normal inspection Cardiovascular: normal peripheral pulses, normal rate, regular rhythm, no gallop/murmur, no JVD Respiratory/Chest: chest wall non-tender, lungs clear, normal breath sounds, no respiratory distress, no accessory muscle use Abdomen: normal bowel sounds, non tender, soft, no organomegaly, no mass Extremities: normal range of motion, non-tender Edema: trace edema 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, no motor/sensory deficits Skin: normal pigmentation, warm/dry Laboratory Tests Test 07/03/18 07:30 White Blood Count 7.8 K/UL (4.8-10.8) Red Blood Count 3.84 M/UL (4.20-5.40) L Hemoglobin 11.7 G/DL (12.0-16.0) L Hematocrit 35.0 % (37.0-47.0) L Mean Corpuscular Volume 91 FL (80-99) Mean Corpuscular Hemoglobin 30.6 PG (27.0-31.0) Mean Corpuscular Hemoglobin Concent 33.5 G/DL (32.0-36.0) Red Cell Distribution Width 11.7 % (11.6-14.8) Platelet Count 283 K/UL (150-450) Mean Platelet Volume 7.2 FL (6.5-10.1) Neutrophils (%) (Auto) 63.0 % (45.0-75.0) Lymphocytes (%) (Auto) 26.2 % (20.0-45.0) Monocytes (%) (Auto) 8.5 % (1.0-10.0) Eosinophils (%) (Auto) 1.4 % (0.0-3.0) Basophils (%) (Auto) 0.9 % (0.0-2.0) Erythrocyte Sedimentation Rate 42 MM/HR (0-30) H Sodium Level 137 MMOL/L (136-145) Potassium Level 3.6 MMOL/L (3.5-5.1) Chloride Level 103 MMOL/L (98-107) Carbon Dioxide Level 25 MMOL/L (21-32) Anion Gap 9 mmol/L (5-15) Blood Urea Nitrogen 20 mg/dL (7-18) H Creatinine 0.9 MG/DL (0.55-1.30) Estimat Glomerular Filtration Rate mL/min (>60) Glucose Level 166 MG/DL (74-106) H Calcium Level 9.5 MG/DL (8.5-10.1) Phosphorus Level 3.7 MG/DL (2.5-4.9) Magnesium Level 1.9 MG/DL (1.8-2.4) Total Bilirubin 0.5 MG/DL (0.2-1.0) Aspartate Amino Transf (AST/SGOT) 18 U/L (15-37) Alanine Aminotransferase (ALT/SGPT) 16 U/L (12-78) Alkaline Phosphatase 91 U/L (46-116) Troponin I 0.043 ng/mL (0.000-0.056) Pro-B-Type Natriuretic Peptide 283 pg/mL (0-125) H Total Protein 6.9 G/DL (6.4-8.2) Albumin 3.0 G/DL (3.4-5.0) L Globulin 3.9 g/dL Albumin/Globulin Ratio 0.8 (1.0-2.7) L Triglycerides Level 87 MG/DL (30-150) Cholesterol Level 186 MG/DL (< 200) LDL Cholesterol 118 mg/dL (<100) H HDL Cholesterol 54 MG/DL (40-60) Cholesterol/HDL Ratio 3.4 (3.3-4.4) Intake and Output 07/02/18 07/03/18 19:00 07:00 Intake Total 180 ml Output Total 1000 ml Balance -820 ml Intake Oral 180 ml Output Urine Total 1000 ml # Voids 2 3 # Bowel Movements 1 3 Assessment/Plan Problem List: (1) Dyspnea Assessment & Plan: Due to CHF (2) CHF (congestive heart failure) Assessment & Plan: await echocardiogram and cardiology consult. (3) Sinus tachycardia (4) LBBB (left bundle branch block) Assessment & Plan: await cardiology consult. (5) Diabetes mellitus type II, uncontrolled Assessment & Plan: continue novolog and glucophage (6) Obesity (7) HTN (hypertension) Assessment & Plan: continue metoprolol, vasotec and norvasc Status: progressing Ever Gonzalez MD Jul 03, 2018 17:42
[2018-07-03 20:00] VITALS: BP 151/96
[2018-07-04] VITALS: BP 126/61
[2018-07-04 04:00] VITALS: BP 132/76
[2018-07-04] MEDS: metFORMIN 500mg tab ORAL SCH ×2 (06:07→16:48)
[2018-07-04] MEDS: NovoLOG Insulin Flexpen SUBQ SCH ×4 (06:09→21:15)
[2018-07-04 08:00] VITALS: BP 141/79
[2018-07-04 08:03] LABS: BASOPHILS % (AUTO) 0.6 % (0.0-2.0); EOSINOPHILS % (AUTO) 2.2 % (0.0-3.0); HEMOGLOBIN 11.8 G/DL (12.0-16.0); LYMPHOCYTES % (AUTO) 32.7 % (20.0-45.0); MEAN CORPUSCULAR VOLUME 91 FL (80-99); MONOCYTES % (AUTO) 8.6 % (1.0-10.0); NEUTROPHILS % (AUTO) 55.9 % (45.0-75.0); PLATELET COUNT 274 K/UL (150-450); RED BLOOD COUNT 3.84 M/UL (4.20-5.40); RED CELL DISTRIBUTION WIDTH 11.7 % (11.6-14.8); WHITE BLOOD COUNT 7.1 K/UL (4.8-10.8)
[2018-07-04 08:23] LABS: ANION GAP 7 mmol/L (5-15); BLOOD UREA NITROGEN 18 mg/dL (7-18); CALCIUM 9.7 MG/DL (8.5-10.1); CARBON DIOXIDE 25 MMOL/L (21-32); CHLORIDE 105 MMOL/L (98-107); CREATININE 0.9 MG/DL (0.55-1.30); POTASSIUM 3.7 MMOL/L (3.5-5.1); SODIUM 137 MMOL/L (136-145)
[2018-07-04] MEDS: Heparin 5000 units/ml inj SUBQ SCH ×2 (09:00→21:00)
[2018-07-04] MEDS: Aspirin EC 81mg tab ORAL SCH (09:20)
[2018-07-04] MEDS: Metoprolol Succinate XL 25mg tab ORAL SCH (09:20)
--- NOTE | 2018-07-04 09:42 | Diagnostic Imaging Report ---
APPROVED REPORT CPT Code: 90352 Present Symptoms Shortness of breath BILATERAL: Imaging reveals a patent deep venous system bilaterally. There is no evidence of thrombus within the femoral, popliteal or tibial segments. The greater saphenous veins are also within normal limits. Doppler indicates normal spontaneous flow within these segments.
--- NOTE | 2018-07-04 11:03 | Pulmonology Progress Note ---
Assessment/Plan Problems: (1) COPD (chronic obstructive pulmonary disease) (2) CHF (congestive heart failure) (3) LBBB (left bundle branch block) (4) HTN (hypertension) (5) Peripheral edema (6) Diabetes mellitus type II, uncontrolled (7) Obesity Assessment/Plan respiratory treatment lasix 20 bid cardio evaluation siding scale diabetic diet pt/ot f/u electrolytes Subjective ROS Limited/Unobtainable: No Constitutional: Reports: no symptoms HEENT: Repors: no symptoms Allergies: Coded Allergies: No Known Allergies (Unverified , 09/02/17) Objective Last 24 Hour Vital Signs Date Time Temp Pulse Resp B/P (MAP) Pulse Ox O2 Delivery O2 Flow Rate FiO2 07/04/18 09:20 94 141/79 07/04/18 09:20 94 141/79 07/04/18 09:00 Room Air 07/04/18 08:02 87 07/04/18 08:00 97.9 94 20 141/79 (99) 97 97.9 07/04/18 04:00 87 07/04/18 04:00 98.1 93 20 132/76 (94) 96 98.1 07/04/18 00:00 92 07/04/18 00:00 98.2 95 20 126/61 (82) 96 98.2 07/03/18 21:00 Room Air 07/03/18 20:00 98.2 96 20 151/96 (114) 94 98.2 07/03/18 20:00 98 07/03/18 16:00 93 07/03/18 16:00 97.9 97 20 126/62 (83) 97 97.9 07/03/18 12:00 97.5 94 18 138/58 (84) 97 97.5 07/03/18 12:00 90 Intake and Output 07/03/18 07/04/18 19:00 07:00 Intake Total 360 ml Output Total 2000 ml Balance 360 ml -2000 ml Intake Oral 360 ml Output Urine Total 2000 ml # Voids 3 6 # Bowel Movements 1 General Appearance: WD/WN HEENT: normocephalic Respiratory/Chest: chest wall non-tender, lungs clear Breasts: no masses Cardiovascular: normal peripheral pulses Abdomen: normal bowel sounds Genitourinary: normal external genitalia Extremities: no cyanosis Skin: no ulcers Neurologic/Psychiatric: esthetician facialist II-XII grossly normal, abnormal gait Lymphatic: no neck adenopathy Laboratory Tests 07/04/18 06:45: White Blood Count 7.1, Red Blood Count 3.84L, Hemoglobin 11.8L, Hematocrit 35.0L , Mean Corpuscular Volume 91, Mean Corpuscular Hemoglobin 30.7, Mean Corpuscular Hemoglobin Concent 33.7, Red Cell Distribution Width 11.7, Platelet Count 274, Mean Platelet Volume 7.2, Neutrophils (%) (Auto) 55.9, Lymphocytes (% ) (Auto) 32.7, Monocytes (%) (Auto) 8.6, Eosinophils (%) (Auto) 2.2, Basophils ( %) (Auto) 0.6, Sodium Level 137, Potassium Level 3.7, Chloride Level 105, Carbon Dioxide Level 25, Anion Gap 7, Blood Urea Nitrogen 18, Creatinine 0.9, Estimat Glomerular Filtration Rate , Glucose Level 140H, Hemoglobin A1c 7.6H, Calcium Level 9.7, Troponin I 0.010, Pro-B-Type Natriuretic Peptide 135H, Thyroid Stimulating Hormone (TSH) 4.123H Current Medications Medications (Trade) Dose Ordered Sig/[place] Route PRN Reason Start Time Stop Time Status Last Admin Dose Admin Acetaminophen (Tylenol) 650 mg Q4H PRN ORAL fever 07/02/18 13:43 08/01/18 13:42 Al Hydroxide/Mg Hydroxide (Mylanta II) 30 ml Q6H PRN ORAL dyspepsia 07/02/18 13:45 08/01/18 13:44 Amlodipine Besylate (Norvasc) 5 mg DAILY ORAL 07/03/18 09:00 08/02/18 08:59 07/04/18 09:20 Aspirin (Ecotrin) 81 mg DAILY ORAL 07/03/18 09:00 08/02/18 08:59 07/04/18 09:20 Atorvastatin Calcium (Lipitor) 10 mg BEDTIME ORAL 07/03/18 21:00 08/02/18 20:59 Dextrose (Dextrose 50%) 25 ml PRN IV Hypoglycemia 07/02/18 14:00 08/01/18 13:59 Dextrose (Dextrose 50%) 50 ml PRN IV hypoglycemia 07/02/18 14:00 08/01/18 13:59 Enalaprilat (Vasotec) 2.5 mg Q4H PRN IV sbp more than 200 07/02/18 13:45 08/01/18 13:44 Heparin Sodium (Porcine) (Heparin 5000 units/ml) 5,000 units EVERY 12 HOURS SUBQ 07/03/18 09:46 08/02/18 09:45 Hydralazine HCl (Apresoline) 20 mg Q4H PRN IV sbp more than 160 07/02/18 13:45 08/01/18 13:44 07/02/18 14:06 Ibuprofen (Motrin) 600 mg Q6H PRN ORAL For Pain 07/02/18 14:00 08/01/18 13:59 07/04/18 02:49 Insulin Aspart (NovoLOG) BEFORE MEALS AND HS SUBQ 07/02/18 16:30 08/01/18 16:29 07/04/18 06:09 Labetalol HCl (Normodyne) 20 mg Q1H PRN IV sbp more than 180 07/02/18 13:45 08/01/18 13:44 Lorazepam (Ativan 2mg/ml 1ml) 0.5 mg Q4H PRN IV For Anxiety 07/02/18 13:45 07/09/18 13:44 Metformin HCl (Glucophage) 500 mg BIAC ORAL 07/03/18 06:30 08/02/18 06:29 07/04/18 06:07 Metoprolol Succinate (Toprol XL) 25 mg DAILY ORAL 07/04/18 09:00 08/03/18 08:59 07/04/18 09:20 Morphine Sulfate (Morphine Sulfate) 1 mg Q4H PRN IVP For SEVERE Pain 07/02/18 13:58 07/09/18 13:44 Ondansetron HCl (Zofran) 4 mg Q6H PRN IVP Nausea & Vomiting 07/02/18 13:45 08/01/18 13:44 Polyethylene Glycol (Miralax) 17 gm HSPRN PRN ORAL Constipation 07/02/18 13:45 08/01/18 13:44 Zolpidem Tartrate (Ambien) 5 mg HSPRN PRN ORAL Insomnia 07/02/18 13:45 07/09/18 13:44 Jared Borrego MD Jul 04, 2018 11:03
[2018-07-04] MEDS ORDERED: Sodium Chloride 500ML 500 ML IV ONE (11:30)
[2018-07-04 12:00] VITALS: BP 129/88
--- NOTE | 2018-07-04 14:29 | Cardiac Electrophysiology PN ---
Subjective Subjective EP consult dictated and DW Dr Tejeda [id number] Objective Last 24 Hour Vital Signs Date Time Temp Pulse Resp B/P (MAP) Pulse Ox O2 Delivery O2 Flow Rate FiO2 07/04/18 12:00 97.2 96 20 129/88 (102) 95 97.2 07/04/18 11:45 79 07/04/18 09:20 94 141/79 07/04/18 09:20 94 141/79 07/04/18 09:00 Room Air 07/04/18 08:02 87 07/04/18 08:00 97.9 94 20 141/79 (99) 97 97.9 07/04/18 04:00 87 07/04/18 04:00 98.1 93 20 132/76 (94) 96 98.1 07/04/18 00:00 92 07/04/18 00:00 98.2 95 20 126/61 (82) 96 98.2 07/03/18 21:00 Room Air 07/03/18 20:00 98.2 96 20 151/96 (114) 94 98.2 07/03/18 20:00 98 07/03/18 16:00 93 07/03/18 16:00 97.9 97 20 126/62 (83) 97 97.9 Intake and Output 07/03/18 07/04/18 19:00 07:00 Intake Total 360 ml Output Total 2000 ml Balance 360 ml -2000 ml Intake Oral 360 ml Output Urine Total 2000 ml # Voids 3 6 # Bowel Movements 1 Laboratory Tests Test 07/04/18 06:45 White Blood Count 7.1 K/UL (4.8-10.8) Red Blood Count 3.84 M/UL (4.20-5.40) L Hemoglobin 11.8 G/DL (12.0-16.0) L Hematocrit 35.0 % (37.0-47.0) L Mean Corpuscular Volume 91 FL (80-99) Mean Corpuscular Hemoglobin 30.7 PG (27.0-31.0) Mean Corpuscular Hemoglobin Concent 33.7 G/DL (32.0-36.0) Red Cell Distribution Width 11.7 % (11.6-14.8) Platelet Count 274 K/UL (150-450) Mean Platelet Volume 7.2 FL (6.5-10.1) Neutrophils (%) (Auto) 55.9 % (45.0-75.0) Lymphocytes (%) (Auto) 32.7 % (20.0-45.0) Monocytes (%) (Auto) 8.6 % (1.0-10.0) Eosinophils (%) (Auto) 2.2 % (0.0-3.0) Basophils (%) (Auto) 0.6 % (0.0-2.0) Sodium Level 137 MMOL/L (136-145) Potassium Level 3.7 MMOL/L (3.5-5.1) Chloride Level 105 MMOL/L (98-107) Carbon Dioxide Level 25 MMOL/L (21-32) Anion Gap 7 mmol/L (5-15) Blood Urea Nitrogen 18 mg/dL (7-18) Creatinine 0.9 MG/DL (0.55-1.30) Estimat Glomerular Filtration Rate mL/min (>60) Glucose Level 140 MG/DL (74-106) H Hemoglobin A1c 7.6 % (4.3-6.0) H Calcium Level 9.7 MG/DL (8.5-10.1) Troponin I 0.010 ng/mL (0.000-0.056) Pro-B-Type Natriuretic Peptide 135 pg/mL (0-125) H Thyroid Stimulating Hormone (TSH) 4.123 uiU/mL (0.358-3.740) Oseas Osborne MD Jul 04, 2018 14:29
--- NOTE | 2018-07-04 14:36 | Cardiology Progress Note ---
Assessment/Plan Assessment/Plan full note dicated [id number] imporved with chf therapy so far even though her pro bnp not sig elevated d dimer helpfull if normal to review echo Objective Last 24 Hour Vital Signs Date Time Temp Pulse Resp B/P (MAP) Pulse Ox O2 Delivery O2 Flow Rate FiO2 07/04/18 12:00 97.2 96 20 129/88 (102) 95 97.2 07/04/18 11:45 79 07/04/18 09:20 94 141/79 07/04/18 09:20 94 141/79 07/04/18 09:00 Room Air 07/04/18 08:02 87 07/04/18 08:00 97.9 94 20 141/79 (99) 97 97.9 07/04/18 04:00 87 07/04/18 04:00 98.1 93 20 132/76 (94) 96 98.1 07/04/18 00:00 92 07/04/18 00:00 98.2 95 20 126/61 (82) 96 98.2 07/03/18 21:00 Room Air 07/03/18 20:00 98.2 96 20 151/96 (114) 94 98.2 07/03/18 20:00 98 07/03/18 16:00 93 07/03/18 16:00 97.9 97 20 126/62 (83) 97 97.9 Intake and Output 07/03/18 07/04/18 19:00 07:00 Intake Total 360 ml Output Total 2000 ml Balance 360 ml -2000 ml Intake Oral 360 ml Output Urine Total 2000 ml # Voids 3 6 # Bowel Movements 1 Laboratory Tests Test 07/04/18 06:45 White Blood Count 7.1 K/UL (4.8-10.8) Red Blood Count 3.84 M/UL (4.20-5.40) L Hemoglobin 11.8 G/DL (12.0-16.0) L Hematocrit 35.0 % (37.0-47.0) L Mean Corpuscular Volume 91 FL (80-99) Mean Corpuscular Hemoglobin 30.7 PG (27.0-31.0) Mean Corpuscular Hemoglobin Concent 33.7 G/DL (32.0-36.0) Red Cell Distribution Width 11.7 % (11.6-14.8) Platelet Count 274 K/UL (150-450) Mean Platelet Volume 7.2 FL (6.5-10.1) Neutrophils (%) (Auto) 55.9 % (45.0-75.0) Lymphocytes (%) (Auto) 32.7 % (20.0-45.0) Monocytes (%) (Auto) 8.6 % (1.0-10.0) Eosinophils (%) (Auto) 2.2 % (0.0-3.0) Basophils (%) (Auto) 0.6 % (0.0-2.0) Sodium Level 137 MMOL/L (136-145) Potassium Level 3.7 MMOL/L (3.5-5.1) Chloride Level 105 MMOL/L (98-107) Carbon Dioxide Level 25 MMOL/L (21-32) Anion Gap 7 mmol/L (5-15) Blood Urea Nitrogen 18 mg/dL (7-18) Creatinine 0.9 MG/DL (0.55-1.30) Estimat Glomerular Filtration Rate mL/min (>60) Glucose Level 140 MG/DL (74-106) H Hemoglobin A1c 7.6 % (4.3-6.0) H Calcium Level 9.7 MG/DL (8.5-10.1) Troponin I 0.010 ng/mL (0.000-0.056) Pro-B-Type Natriuretic Peptide 135 pg/mL (0-125) H Thyroid Stimulating Hormone (TSH) 4.123 uiU/mL (0.358-3.740) Vincenzo Tejeda MD Jul 04, 2018 14:36
[2018-07-04 16:00] VITALS: BP 130/69
--- NOTE | 2018-07-04 16:41 | Internal Med Progress Note ---
Subjective Date of Service: Jul 04, 2018 Physician Name Gonzalez,Ever Attending Physician Freddie Simon MD Current Medications Medications (Trade) Dose Ordered Sig/[place]bin[place] Route PRN Reason Start Time Stop Time Status Last Admin Dose Admin Acetaminophen (Tylenol) 650 mg Q4H PRN ORAL fever 07/02/18 13:43 08/01/18 13:42 Al Hydroxide/Mg Hydroxide (Mylanta II) 30 ml Q6H PRN ORAL dyspepsia 07/02/18 13:45 08/01/18 13:44 Amlodipine Besylate (Norvasc) 5 mg DAILY ORAL 07/03/18 09:00 08/02/18 08:59 07/04/18 09:20 Aspirin (Ecotrin) 81 mg DAILY ORAL 07/03/18 09:00 08/02/18 08:59 07/04/18 09:20 Atorvastatin Calcium (Lipitor) 10 mg BEDTIME ORAL 07/03/18 21:00 08/02/18 20:59 Dextrose (Dextrose 50%) 25 ml PRN IV Hypoglycemia 07/02/18 14:00 08/01/18 13:59 Dextrose (Dextrose 50%) 50 ml PRN IV hypoglycemia 07/02/18 14:00 08/01/18 13:59 Enalaprilat (Vasotec) 2.5 mg Q4H PRN IV sbp more than 200 07/02/18 13:45 08/01/18 13:44 Furosemide (Lasix) 20 mg EVERY 12 HOURS IV 07/04/18 21:00 08/03/18 20:59 Heparin Sodium (Porcine) (Heparin 5000 units/ml) 5,000 units EVERY 12 HOURS SUBQ 07/03/18 09:46 08/02/18 09:45 Hydralazine HCl (Apresoline) 20 mg Q4H PRN IV sbp more than 160 07/02/18 13:45 08/01/18 13:44 07/02/18 14:06 Ibuprofen (Motrin) 600 mg Q6H PRN ORAL For Pain 07/02/18 14:00 08/01/18 13:59 07/04/18 02:49 Insulin Aspart (NovoLOG) BEFORE MEALS AND HS SUBQ 07/02/18 16:30 08/01/18 16:29 07/04/18 11:41 Labetalol HCl (Normodyne) 20 mg Q1H PRN IV sbp more than 180 07/02/18 13:45 08/01/18 13:44 Lorazepam (Ativan 2mg/ml 1ml) 0.5 mg Q4H PRN IV For Anxiety 07/02/18 13:45 07/09/18 13:44 Metformin HCl (Glucophage) 500 mg BIAC ORAL 07/03/18 06:30 08/02/18 06:29 07/04/18 06:07 Metoprolol Succinate (Toprol XL) 25 mg DAILY ORAL 07/04/18 09:00 08/03/18 08:59 07/04/18 09:20 Morphine Sulfate (Morphine Sulfate) 1 mg Q4H PRN IVP For SEVERE Pain 07/02/18 13:58 07/09/18 13:44 Ondansetron HCl (Zofran) 4 mg Q6H PRN IVP Nausea & Vomiting 07/02/18 13:45 08/01/18 13:44 Polyethylene Glycol (Miralax) 17 gm HSPRN PRN ORAL Constipation 07/02/18 13:45 08/01/18 13:44 Zolpidem Tartrate (Ambien) 5 mg HSPRN PRN ORAL Insomnia 07/02/18 13:45 07/09/18 13:44 Allergies: Coded Allergies: No Known Allergies (Unverified , 09/02/17) ROS Limited/Unobtainable: No Constitutional: Reports: no symptoms HEENT: Reports: no symptoms Cardiovascular: Reports: no symptoms Respiratory: Reports: shortness of breath Gastrointestinal/Abdominal: Reports: no symptoms Genitourinary: Reports: no symptoms Neurologic/Psychiatric: Reports: no symptoms Subjective 89 YO F admitted with shortness of breath. Now eli heart failure. Cover for Int Mak-Dr Simon Objective Last Vital Signs Date Time Temp Pulse Resp B/P (MAP) Pulse Ox O2 Delivery O2 Flow Rate FiO2 07/04/18 12:00 97.2 96 20 129/88 (102) 95 97.2 07/04/18 09:00 Room Air 07/02/18 12:37 2.0 Laboratory Tests Test 07/04/18 06:45 White Blood Count 7.1 K/UL (4.8-10.8) Red Blood Count 3.84 M/UL (4.20-5.40) L Hemoglobin 11.8 G/DL (12.0-16.0) L Hematocrit 35.0 % (37.0-47.0) L Mean Corpuscular Volume 91 FL (80-99) Mean Corpuscular Hemoglobin 30.7 PG (27.0-31.0) Mean Corpuscular Hemoglobin Concent 33.7 G/DL (32.0-36.0) Red Cell Distribution Width 11.7 % (11.6-14.8) Platelet Count 274 K/UL (150-450) Mean Platelet Volume 7.2 FL (6.5-10.1) Neutrophils (%) (Auto) 55.9 % (45.0-75.0) Lymphocytes (%) (Auto) 32.7 % (20.0-45.0) Monocytes (%) (Auto) 8.6 % (1.0-10.0) Eosinophils (%) (Auto) 2.2 % (0.0-3.0) Basophils (%) (Auto) 0.6 % (0.0-2.0) Sodium Level 137 MMOL/L (136-145) Potassium Level 3.7 MMOL/L (3.5-5.1) Chloride Level 105 MMOL/L (98-107) Carbon Dioxide Level 25 MMOL/L (21-32) Anion Gap 7 mmol/L (5-15) Blood Urea Nitrogen 18 mg/dL (7-18) Creatinine 0.9 MG/DL (0.55-1.30) Estimat Glomerular Filtration Rate mL/min (>60) Glucose Level 140 MG/DL (74-106) H Hemoglobin A1c 7.6 % (4.3-6.0) H Calcium Level 9.7 MG/DL (8.5-10.1) Troponin I 0.010 ng/mL (0.000-0.056) Pro-B-Type Natriuretic Peptide 135 pg/mL (0-125) H Thyroid Stimulating Hormone (TSH) 4.123 uiU/mL (0.358-3.740) Intake and Output 07/03/18 07/04/18 19:00 07:00 Intake Total 360 ml Output Total 2000 ml Balance 360 ml -2000 ml Intake Oral 360 ml Output Urine Total 2000 ml # Voids 3 6 # Bowel Movements 1 Objective General Appearance: WD/WN, no apparent distress, alert EENT: PERRL/EOMI, normal ENT inspection, TMs normal Neck: non-tender, normal alignment, supple, normal inspection Cardiovascular: normal peripheral pulses, normal rate, regular rhythm, no gallop/murmur, no JVD Respiratory/Chest: chest wall non-tender, lungs clear, normal breath sounds, no respiratory distress, no accessory muscle use Abdomen: normal bowel sounds, non tender, soft, no organomegaly, no mass Extremities: normal range of motion, non-tender Edema: trace edema Neurologic: injury/safety hazard assessment II-XII grossly normal, no motor/sensory deficits Skin: normal pigmentation, warm/dry Assessment/Plan Problem List: (1) CHF (congestive heart failure) Assessment & Plan: await echocardiogram and cardiology consult. (2) Sinus tachycardia (3) LBBB (left bundle branch block) Assessment & Plan: await cardiology consult. (4) Diabetes mellitus type II, uncontrolled Assessment & Plan: continue novolog and glucophage (5) Obesity Status: stable Ever Gonzalez MD Jul 04, 2018 16:41
--- NOTE | 2018-07-04 17:15 | Consultation ---
DATE OF CONSULTATION: 07/04/2018 CARDIOLOGY CONSULTATION CONSULTING PHYSICIAN: Vincenzo Tejeda M.D. REFERRING PHYSICIAN: Jared Borrego M.D. REASON FOR REFERRAL: Shortness of breath. HISTORY OF PRESENT ILLNESS: The patient is an 82-year-old female who is known to me back in August 2017. She had at that time had ejection fraction 35% or so and she has congestive heart failure, was treated, discharged. She is now readmitted because of concerns about congestive heart failure in light of the fact that she has had shortness of breath. There has been no orthopnea. She does indicate that she at times wakes up in the middle of the night because of shortness of breath. When relaxed, symptoms resolves. She has some dyspnea on exertion. There is no palpitation. No pain, pressure, tightness or heaviness in her chest. The ER data was reviewed and indicate the patient came to the hospital because of shortness of breath and has been noted to be noncompliant with diuretics. Reportedly she has had some fevers at home. She was given some nitroglycerin by the paramedics and she reported some kind of improvement in her symptoms. PAST MEDICAL HISTORY: Positive for history of deep venous thrombosis, heart failure, pulmonary hypertension, , global hypokinesis on echocardiogram, diabetes mellitus, hypertension, acute confusional state, left bundle-branch conduction defect, and possibility of pulmonary embolism previously and she apparently has a history of hypertension. No prior history of heart attack. 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 ALLERGIES: She is reportedly not allergic to any medications. SOCIAL HISTORY: She used to smoke, but she quit that many years ago. No alcoholic beverages. She lives at home. REVIEW OF SYSTEMS: GASTROINTESTINAL: She denies. GENITOURINARY: She denies. PULMONARY: She denies. CONSTITUTIONAL: She denies. NEUROLOGIC: She denies. PHYSICAL EXAMINATION: GENERAL: Shows be overweight elderly female, in no respiratory distress. NECK: Supple. No jugular venous distention. LUNGS: Appear to be relatively clear to auscultation and percussion. CARDIAC: S1 is normal. S2 is normal. Regular rate and rhythm. No heaves, thrills, or gallops noted. ABDOMEN: Slightly distended. No guarding. No rigidity. No pain on palpation. EXTREMITIES: She has 1+ edema of the lower extremities. NEUROLOGICAL: She is awake, alert, and responsive. LABORATORY AND DIAGNOSTIC DATA: White count of 7.1, hemoglobin 11.8, and platelet count 278. Sodium is 137, potassium 3.7 chloride 105, bicarb 25, BUN of 18, creatinine 0.9, glucose of 140. Hemoglobin A1c of 7.6. Calcium is 9.7. Troponin on two separate occasions were negative. ProBNP is as high as 283 during this hospitalization, although in August when she was hospitalized she had 991. ProBNP of admission showed level of 111. There are no blood cultures. Venous duplex of lower extremities apparently negative. Chest x-rays was performed at the time of admission also shows a prominent cardiac size, opacity in the right lung zone, developing infiltrate may be considered. The patient has left bundle-branch conduction defect noted on EKG, was sinus rhythm on telemetry, some nonspecific T-wave changes but primarily related to the left bundle. ASSESSMENT AND PLAN: 1. Congestive heart failure. 2. History of cardiomyopathy. 3. History of hypertension. 4. History of deep venous thrombosis and pulmonary embolism. This patient was seen in cardiac consultation. INR was 1 at the time of admission. She had been on anticoagulation previously for possibility of deep venous thrombosis and pulmonary embolism. She does not appear to be any respiratory distress at the present time and she feels more comfortable with diuretics. Her proBNP was not significant elevated, only approximately 280 at max but she seems to indicate with the treatment that she has been rendered with diuretics that there has been improvement in her symptoms; therefore, difficult to rule out congestive heart failure certainly as a contributing factor if not the cause of her symptoms. The etiologies of pulmonary embolism are less likely need to be considered although she does not have any DVT on her venous duplex study. D-dimer may be considered helpful if normal. Vincenzo Tejeda M.D. DR: Rudy JOB#: [id number] CC:
--- NOTE | 2018-07-04 19:29 | General Progress Note ---
Assessment/Plan Status: stable, progressing Assessment/Plan Anxiety d/o -cont ativan prn -provided ro/st Subjective Date patient seen: Jul 04, 2018 Neurologic/Psychiatric: Reports: anxiety Allergies: Coded Allergies: No Known Allergies (Unverified , 09/02/17) Objective Last 24 Hour Vital Signs Date Time Temp Pulse Resp B/P (MAP) Pulse Ox O2 Delivery O2 Flow Rate FiO2 07/04/18 16:00 85 07/04/18 16:00 130/69 (89) 07/04/18 12:00 97.2 96 20 129/88 (102) 95 97.2 07/04/18 11:45 79 07/04/18 09:20 94 141/79 07/04/18 09:20 94 141/79 07/04/18 09:00 Room Air 07/04/18 08:02 87 07/04/18 08:00 97.9 94 20 141/79 (99) 97 97.9 07/04/18 04:00 87 07/04/18 04:00 98.1 93 20 132/76 (94) 96 98.1 07/04/18 00:00 92 07/04/18 00:00 98.2 95 20 126/61 (82) 96 98.2 07/03/18 21:00 Room Air 07/03/18 20:00 98.2 96 20 151/96 (114) 94 98.2 07/03/18 20:00 98 Intake and Output 07/03/18 07/04/18 19:00 07:00 Intake Total 360 ml Output Total 2000 ml Balance 360 ml -2000 ml Intake Oral 360 ml Output Urine Total 2000 ml # Voids 3 6 # Bowel Movements 1 Laboratory Tests 07/04/18 06:45: White Blood Count 7.1, Red Blood Count 3.84L, Hemoglobin 11.8L, Hematocrit 35.0L , Mean Corpuscular Volume 91, Mean Corpuscular Hemoglobin 30.7, Mean Corpuscular Hemoglobin Concent 33.7, Red Cell Distribution Width 11.7, Platelet Count 274, Mean Platelet Volume 7.2, Neutrophils (%) (Auto) 55.9, Lymphocytes (% ) (Auto) 32.7, Monocytes (%) (Auto) 8.6, Eosinophils (%) (Auto) 2.2, Basophils ( %) (Auto) 0.6, Sodium Level 137, Potassium Level 3.7, Chloride Level 105, Carbon Dioxide Level 25, Anion Gap 7, Blood Urea Nitrogen 18, Creatinine 0.9, Estimat Glomerular Filtration Rate , Glucose Level 140H, Hemoglobin A1c 7.6H, Calcium Level 9.7, Troponin I 0.010, Pro-B-Type Natriuretic Peptide 135H, Thyroid Stimulating Hormone (TSH) 4.123H Height (Feet): 5 Height (Inches): 2.00 Weight (Pounds): 218 General Appearance: no apparent distress, alert Neurologic: oriented x 3, responsive, depressed affect Juan Leyva MD Jul 04, 2018 19:29
[2018-07-04 20:00] VITALS: BP 163/81
--- NOTE | 2018-07-04 21:31 | Cardiology Report ---
APPROVED REPORT EKG Measurement Heart [id number] Normal sinus rhythm with sinus arrhythmia Left bundle branch block Abnormal ECG
[2018-07-05] VITALS: BP 157/82
--- NOTE | 2018-07-05 00:15 | Consultation ---
DATE OF CONSULTATION: 07/04/2018 CARDIAC ELECTROPHYSIOLOGY CONSULTATION CONSULTING PHYSICIAN: Oseas Osborne M.D. REFERRING PHYSICIAN: Freddie Simon M.D. REASON FOR CONSULTATION: Left bundle-branch block and tachycardia. HISTORY OF PRESENT ILLNESS: The patient is an 82-year-old lady with history of hypertension, congestive heart failure due to diastolic dysfunction, as well as diabetes and obesity, who was recently admitted to the hospital in February of 2018. The patient was admitted and a Cardiac Electrophysiology consultation was requested in view of the patient's tachycardia as well as underlying left bundle-branch block. At the time of my evaluation, the patient denies any chest pain or syncope. Her previous echocardiogram showed ejection fraction of around 40%. PAST MEDICAL HISTORY: 1. Hypertension. 2. Cardiomyopathy with ejection fraction of 35% to 40%. 3. Bundle-branch block. 4. Obesity. FAMILY HISTORY: Noncontributory. SOCIAL HISTORY: Does not smoke or drink alcohol. REVIEW OF SYSTEMS: Performed and was negative other than what is mentioned in the history of present illness. PHYSICAL EXAMINATION: VITAL SIGNS: Show blood pressure of 129/88, pulse 96, respirations 20, and temperature 97.2 degrees. HEAD AND NECK: Shows mild jugular venous distention. LUNGS: Decreased breath sounds. CARDIOVASCULAR: Shows regular S1 and S2 with no gallop. ABDOMEN: Soft. EXTREMITIES: Has 1+ pitting edema. LABORATORY DATA: Her labs show white count of 7.5, hemoglobin 11.8, and hematocrit 35. Sodium is 137, potassium 3.7, BUN of 18, and creatinine 0.9. Troponin is negative. BNP is . TSH is 4.123. Her EKG showed sinus rhythm with complete left bundle-branch block, QRS duration 144 milliseconds. ASSESSMENT AND PLAN: 1. Left bundle-branch block. The patient denies any syncope. We will continue to watch the patient on telemetry. The patient is on low-dose beta-chuck, Toprol-XL 25 mg daily. 2. History of cardiomyopathy with ejection fraction 35% to 40%. Last echocardiogram in August of 2017. We will repeat echocardiogram if ejection fraction remains less than 35%, the patient would benefit from defibrillator implantation. In the meantime, the patient is on Lasix under the management by Dr. Tejeda. 3. Diabetes. 4. Obesity. 5. Hypertension, also on Norvasc. 6. Hyperlipidemia on Lipitor. Thank you very much, Dr. Simon, for allowing me to participate in the care of this patient. Please do not hesitate to contact me for any questions regarding my evaluation. Oseas Osborne M.D. DR: TYLER JOB#: [id number] CC:
[2018-07-05 04:00] VITALS: BP 129/83
[2018-07-05] MEDS: NovoLOG Insulin Flexpen SUBQ SCH ×2 (06:28→11:45)
[2018-07-05] MEDS: metFORMIN 500mg tab ORAL SCH (06:28)
[2018-07-05 08:00] VITALS: BP 134/66
[2018-07-05] MEDS: Heparin 5000 units/ml inj SUBQ SCH (08:47)
[2018-07-05] MEDS: Aspirin EC 81mg tab ORAL SCH (08:54)
[2018-07-05] MEDS: Metoprolol Succinate XL 25mg tab ORAL SCH (08:55)
[2018-07-05 09:14] LABS: BASOPHILS % (AUTO) 0.8 % (0.0-2.0); EOSINOPHILS % (AUTO) 2.7 % (0.0-3.0); HEMATOCRIT 38.9 % (37.0-47.0); HEMOGLOBIN 13.2 G/DL (12.0-16.0); LYMPHOCYTES % (AUTO) 26.6 % (20.0-45.0); MEAN CORPUSCULAR VOLUME 90 FL (80-99); MONOCYTES % (AUTO) 7.8 % (1.0-10.0); NEUTROPHILS % (AUTO) 62.1 % (45.0-75.0); PLATELET COUNT 304 K/UL (150-450); RED BLOOD COUNT 4.33 M/UL (4.20-5.40); RED CELL DISTRIBUTION WIDTH 11.3 % (11.6-14.8); WHITE BLOOD COUNT 9.5 K/UL (4.8-10.8)
[2018-07-05 09:44] LABS: ALANINE AMINOTRANSFERASE 24 U/L (12-78); ALBUMIN 3.1 G/DL (3.4-5.0); ALBUMIN/GLOBULIN RATIO 0.8 (1.0-2.7); ALKALINE PHOSPHATASE 101 U/L (46-116); ANION GAP 10 mmol/L (5-15); ASPARTATE AMINO TRANSFERASE 22 U/L (15-37); BILIRUBIN,TOTAL 0.5 MG/DL (0.2-1.0); BLOOD UREA NITROGEN 19 mg/dL (7-18); CALCIUM 9.6 MG/DL (8.5-10.1); CARBON DIOXIDE 25 MMOL/L (21-32); CHLORIDE 103 MMOL/L (98-107); CREATININE 0.9 MG/DL (0.55-1.30); POTASSIUM 3.7 MMOL/L (3.5-5.1); SODIUM 138 MMOL/L (136-145)
[2018-07-05] MEDS ORDERED: LIPITOR10 MG ORAL (11:24)
[2018-07-05] MEDS ORDERED: METOPROLOL SUCC25 MG ORAL (11:24)
--- NOTE | 2018-07-05 11:27 | Pulmonology Progress Note ---
Assessment/Plan Problems: (1) COPD (chronic obstructive pulmonary disease) (2) CHF (congestive heart failure) (3) LBBB (left bundle branch block) (4) Peripheral edema (5) Diabetes mellitus type II, uncontrolled (6) Obesity Assessment/Plan respiratory treatment lasix 20 bid cardio evaluation appreciated siding scale diabetic diet pt/ot f/u electrolytes dc home Subjective ROS Limited/Unobtainable: No Constitutional: Reports: no symptoms HEENT: Repors: no symptoms Respiratory: Reports: no symptoms Allergies: Coded Allergies: No Known Allergies (Unverified , 09/02/17) Objective Last 24 Hour Vital Signs Date Time Temp Pulse Resp B/P (MAP) Pulse Ox O2 Delivery O2 Flow Rate FiO2 07/05/18 09:00 Room Air 07/05/18 08:55 89 134/66 07/05/18 08:55 89 134/66 07/05/18 08:00 92 07/05/18 08:00 98.1 89 17 134/66 (88) 96 98.1 07/05/18 04:00 88 07/05/18 04:00 98.6 92 17 129/83 (98) 100 98.6 07/05/18 00:00 86 07/05/18 00:00 98.8 92 18 157/82 (107) 99 98.8 07/04/18 21:00 Room Air 07/04/18 20:00 98.2 95 17 163/81 (108) 99 98.2 07/04/18 20:00 84 07/04/18 16:00 85 07/04/18 16:00 130/69 (89) 07/04/18 12:00 97.2 96 20 129/88 (102) 95 97.2 07/04/18 11:45 79 Intake and Output 07/04/18 07/05/18 19:00 07:00 Intake Total 520 ml 240 ml Balance 520 ml 240 ml Intake Oral 520 ml 240 ml # Voids 3 4 # Bowel Movements 1 General Appearance: WD/WN HEENT: normocephalic, atraumatic Respiratory/Chest: chest wall non-tender, lungs clear Breasts: no masses Cardiovascular: normal peripheral pulses Abdomen: normal bowel sounds, soft, non tender Genitourinary: normal external genitalia Laboratory Tests 07/05/18 08:45: White Blood Count 9.5, Red Blood Count 4.33, Hemoglobin 13.2, Hematocrit 38.9, Mean Corpuscular Volume 90, Mean Corpuscular Hemoglobin 30.5, Mean Corpuscular Hemoglobin Concent 33.9, Red Cell Distribution Width 11.3L, Platelet Count 304, Mean Platelet Volume 7.2, Neutrophils (%) (Auto) 62.1, Lymphocytes (%) (Auto) 26.6, Monocytes (%) (Auto) 7.8, Eosinophils (%) (Auto) 2.7, Basophils (%) (Auto ) 0.8, Sodium Level 138, Potassium Level 3.7, Chloride Level 103, Carbon Dioxide Level 25, Anion Gap 10, Blood Urea Nitrogen 19H, Creatinine 0.9, Estimat Glomerular Filtration Rate , Glucose Level 135H, Calcium Level 9.6, Total Bilirubin 0.5, Aspartate Amino Transf (AST/SGOT) 22, Alanine Aminotransferase (ALT/SGPT) 24, Alkaline Phosphatase 101, Pro-B-Type Natriuretic Peptide 289H, Total Protein 7.2, Albumin 3.1L, Globulin 4.1, Albumin /Globulin Ratio 0.8L Current Medications Medications (Trade) Dose Ordered Sig/Obinna Route PRN Reason Start Time Stop Time Status Last Admin Dose Admin Acetaminophen (Tylenol) 650 mg Q4H PRN ORAL fever 07/02/18 13:43 08/01/18 13:42 Al Hydroxide/Mg Hydroxide (Mylanta II) 30 ml Q6H PRN ORAL dyspepsia 07/02/18 13:45 08/01/18 13:44 Amlodipine Besylate (Norvasc) 5 mg DAILY ORAL 07/03/18 09:00 08/02/18 08:59 07/05/18 08:55 Aspirin (Ecotrin) 81 mg DAILY ORAL 07/03/18 09:00 08/02/18 08:59 07/05/18 08:54 Atorvastatin Calcium (Lipitor) 10 mg BEDTIME ORAL 07/03/18 21:00 08/02/18 20:59 Dextrose (Dextrose 50%) 25 ml PRN IV Hypoglycemia 07/02/18 14:00 08/01/18 13:59 Dextrose (Dextrose 50%) 50 ml PRN IV hypoglycemia 07/02/18 14:00 08/01/18 13:59 Enalaprilat (Vasotec) 2.5 mg Q4H PRN IV sbp more than 200 07/02/18 13:45 08/01/18 13:44 Furosemide (Lasix) 20 mg EVERY 12 HOURS IV 07/04/18 21:00 08/03/18 20:59 07/05/18 08:55 Heparin Sodium (Porcine) (Heparin 5000 units/ml) 5,000 units EVERY 12 HOURS SUBQ 07/03/18 09:46 08/02/18 09:45 Hydralazine HCl (Apresoline) 20 mg Q4H PRN IV sbp more than 160 07/02/18 13:45 08/01/18 13:44 07/02/18 14:06 Ibuprofen (Motrin) 600 mg Q6H PRN ORAL For Pain 07/02/18 14:00 08/01/18 13:59 07/05/18 03:50 Insulin Aspart (NovoLOG) BEFORE MEALS AND HS SUBQ 07/02/18 16:30 08/01/18 16:29 07/05/18 06:28 Labetalol HCl (Normodyne) 20 mg Q1H PRN IV sbp more than 180 07/02/18 13:45 08/01/18 13:44 Lorazepam (Ativan 2mg/ml 1ml) 0.5 mg Q4H PRN IV For Anxiety 07/02/18 13:45 07/09/18 13:44 Metformin HCl (Glucophage) 500 mg BIAC ORAL 07/03/18 06:30 08/02/18 06:29 07/05/18 06:28 Metoprolol Succinate (Toprol XL) 25 mg DAILY ORAL 07/04/18 09:00 08/03/18 08:59 07/05/18 08:55 Morphine Sulfate (Morphine Sulfate) 1 mg Q4H PRN IVP For SEVERE Pain 07/02/18 13:58 07/09/18 13:44 Ondansetron HCl (Zofran) 4 mg Q6H PRN IVP Nausea & Vomiting 07/02/18 13:45 08/01/18 13:44 Polyethylene Glycol (Miralax) 17 gm HSPRN PRN ORAL Constipation 07/02/18 13:45 08/01/18 13:44 Zolpidem Tartrate (Ambien) 5 mg HSPRN PRN ORAL Insomnia 07/02/18 13:45 07/09/18 13:44 Jared Borrego MD Jul 05, 2018 11:27
--- NOTE | 2018-07-05 11:38 | Internal Med Progress Note ---
Subjective Date of Service: Jul 05, 2018 Physician Name Ever Gonzalez Attending Physician Freddie Simon MD Current Medications Medications (Trade) Dose Ordered Sig/Obinna Route PRN Reason Start Time Stop Time Status Last Admin Dose Admin Acetaminophen (Tylenol) 650 mg Q4H PRN ORAL fever 07/02/18 13:43 08/01/18 13:42 Al Hydroxide/Mg Hydroxide (Mylanta II) 30 ml Q6H PRN ORAL dyspepsia 07/02/18 13:45 08/01/18 13:44 Amlodipine Besylate (Norvasc) 5 mg DAILY ORAL 07/03/18 09:00 08/02/18 08:59 07/05/18 08:55 Aspirin (Ecotrin) 81 mg DAILY ORAL 07/03/18 09:00 08/02/18 08:59 07/05/18 08:54 Atorvastatin Calcium (Lipitor) 10 mg BEDTIME ORAL 07/03/18 21:00 08/02/18 20:59 Dextrose (Dextrose 50%) 25 ml PRN IV Hypoglycemia 07/02/18 14:00 08/01/18 13:59 Dextrose (Dextrose 50%) 50 ml PRN IV hypoglycemia 07/02/18 14:00 08/01/18 13:59 Enalaprilat (Vasotec) 2.5 mg Q4H PRN IV sbp more than 200 07/02/18 13:45 08/01/18 13:44 Furosemide (Lasix) 20 mg EVERY 12 HOURS IV 07/04/18 21:00 08/03/18 20:59 07/05/18 08:55 Heparin Sodium (Porcine) (Heparin 5000 units/ml) 5,000 units EVERY 12 HOURS SUBQ 07/03/18 09:46 08/02/18 09:45 Hydralazine HCl (Apresoline) 20 mg Q4H PRN IV sbp more than 160 07/02/18 13:45 08/01/18 13:44 07/02/18 14:06 Ibuprofen (Motrin) 600 mg Q6H PRN ORAL For Pain 07/02/18 14:00 08/01/18 13:59 07/05/18 03:50 Insulin Aspart (NovoLOG) BEFORE MEALS AND HS SUBQ 07/02/18 16:30 08/01/18 16:29 07/05/18 06:28 Labetalol HCl (Normodyne) 20 mg Q1H PRN IV sbp more than 180 07/02/18 13:45 08/01/18 13:44 Lorazepam (Ativan 2mg/ml 1ml) 0.5 mg Q4H PRN IV For Anxiety 07/02/18 13:45 07/09/18 13:44 Metformin HCl (Glucophage) 500 mg BIAC ORAL 07/03/18 06:30 08/02/18 06:29 07/05/18 06:28 Metoprolol Succinate (Toprol XL) 25 mg DAILY ORAL 07/04/18 09:00 08/03/18 08:59 07/05/18 08:55 Morphine Sulfate (Morphine Sulfate) 1 mg Q4H PRN IVP For SEVERE Pain 07/02/18 13:58 07/09/18 13:44 Ondansetron HCl (Zofran) 4 mg Q6H PRN IVP Nausea & Vomiting 07/02/18 13:45 08/01/18 13:44 Polyethylene Glycol (Miralax) 17 gm HSPRN PRN ORAL Constipation 07/02/18 13:45 08/01/18 13:44 Zolpidem Tartrate (Ambien) 5 mg HSPRN PRN ORAL Insomnia 07/02/18 13:45 07/09/18 13:44 Allergies: Coded Allergies: No Known Allergies (Unverified , 09/02/17) ROS Limited/Unobtainable: No Constitutional: Reports: no symptoms HEENT: Reports: no symptoms Cardiovascular: Reports: no symptoms Respiratory: Reports: no symptoms Gastrointestinal/Abdominal: Reports: no symptoms Genitourinary: Reports: no symptoms Neurologic/Psychiatric: Reports: no symptoms Subjective 89 YO F admitted with shortness of breath. Now eli heart failure. Cover for Int Mak-Dr Simon Objective Last Vital Signs Date Time Temp Pulse Resp B/P (MAP) Pulse Ox O2 Delivery O2 Flow Rate FiO2 07/05/18 09:00 Room Air 07/05/18 08:55 89 134/66 07/05/18 08:00 98.1 17 96 98.1 07/02/18 12:37 2.0 Laboratory Tests Test 07/05/18 08:45 White Blood Count 9.5 K/UL (4.8-10.8) Red Blood Count 4.33 M/UL (4.20-5.40) Hemoglobin 13.2 G/DL (12.0-16.0) Hematocrit 38.9 % (37.0-47.0) Mean Corpuscular Volume 90 FL (80-99) Mean Corpuscular Hemoglobin 30.5 PG (27.0-31.0) Mean Corpuscular Hemoglobin Concent 33.9 G/DL (32.0-36.0) Red Cell Distribution Width 11.3 % (11.6-14.8) L Platelet Count 304 K/UL (150-450) Mean Platelet Volume 7.2 FL (6.5-10.1) Neutrophils (%) (Auto) 62.1 % (45.0-75.0) Lymphocytes (%) (Auto) 26.6 % (20.0-45.0) Monocytes (%) (Auto) 7.8 % (1.0-10.0) Eosinophils (%) (Auto) 2.7 % (0.0-3.0) Basophils (%) (Auto) 0.8 % (0.0-2.0) Sodium Level 138 MMOL/L (136-145) Potassium Level 3.7 MMOL/L (3.5-5.1) Chloride Level 103 MMOL/L (98-107) Carbon Dioxide Level 25 MMOL/L (21-32) Anion Gap 10 mmol/L (5-15) Blood Urea Nitrogen 19 mg/dL (7-18) H Creatinine 0.9 MG/DL (0.55-1.30) Estimat Glomerular Filtration Rate mL/min (>60) Glucose Level 135 MG/DL (74-106) H Calcium Level 9.6 MG/DL (8.5-10.1) Total Bilirubin 0.5 MG/DL (0.2-1.0) Aspartate Amino Transf (AST/SGOT) 22 U/L (15-37) Alanine Aminotransferase (ALT/SGPT) 24 U/L (12-78) Alkaline Phosphatase 101 U/L (46-116) Pro-B-Type Natriuretic Peptide 289 pg/mL (0-125) H Total Protein 7.2 G/DL (6.4-8.2) Albumin 3.1 G/DL (3.4-5.0) L Globulin 4.1 g/dL Albumin/Globulin Ratio 0.8 (1.0-2.7) L Intake and Output 07/04/18 07/05/18 19:00 07:00 Intake Total 520 ml 240 ml Balance 520 ml 240 ml Intake Oral 520 ml 240 ml # Voids 3 4 # Bowel Movements 1 Objective General Appearance: WD/WN, no apparent distress, alert EENT: PERRL/EOMI, normal ENT inspection, TMs normal Neck: non-tender, normal alignment, supple, normal inspection Cardiovascular: normal peripheral pulses, normal rate, regular rhythm, no gallop/murmur, no JVD Respiratory/Chest: chest wall non-tender, lungs clear, normal breath sounds, no respiratory distress, no accessory muscle use Abdomen: normal bowel sounds, non tender, soft, no organomegaly, no mass Extremities: normal range of motion, non-tender Edema: trace edema 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 (2) Sinus tachycardia (3) LBBB (left bundle branch block) Assessment & Plan: await cardiology consult. (4) Diabetes mellitus type II, uncontrolled Assessment & Plan: continue novolog and glucophage (5) Obesity Status: stable Assessment/Plan Discharge home today with [facility]. Ever Gonzalez MD Jul 05, 2018 11:38
[2018-07-05 12:00] VITALS: BP 113/51
--- NOTE | 2018-07-05 12:29 | Cardiac Electrophysiology PN ---
Assessment/Plan Assessment/Plan 1. Left bundle-branch block. The patient denies any syncope. We will continue to watch the patient on telemetry. The patient is on low-dose beta-chuck, Toprol-XL 25 mg daily. 2. History of cardiomyopathy with ejection fraction 35% to 40%. Last echocardiogram in August of 2017. Repeat echocardiogram results pending. If ejection fraction remains less than 35%, the patient would benefit from defibrillator implantation. 3. Diabetes. 4. Obesity. 5. Hypertension, also on Norvasc. 6. Hyperlipidemia on Lipitor. Subjective Subjective No heart block overnight, just LBBB Objective Last 24 Hour Vital Signs Date Time Temp Pulse Resp B/P (MAP) Pulse Ox O2 Delivery O2 Flow Rate FiO2 07/05/18 12:00 97.5 71 18 113/51 (71) 96 97.5 07/05/18 09:00 Room Air 07/05/18 08:55 89 134/66 07/05/18 08:55 89 134/66 07/05/18 08:00 92 07/05/18 08:00 98.1 89 17 134/66 (88) 96 98.1 07/05/18 04:00 88 07/05/18 04:00 98.6 92 17 129/83 (98) 100 98.6 07/05/18 00:00 86 07/05/18 00:00 98.8 92 18 157/82 (107) 99 98.8 07/04/18 21:00 Room Air 07/04/18 20:00 98.2 95 17 163/81 (108) 99 98.2 07/04/18 20:00 84 07/04/18 16:00 85 07/04/18 16:00 130/69 (89) Intake and Output 07/04/18 07/05/18 19:00 07:00 Intake Total 520 ml 240 ml Balance 520 ml 240 ml Intake Oral 520 ml 240 ml # Voids 3 4 # Bowel Movements 1 Laboratory Tests Test 07/05/18 08:45 White Blood Count 9.5 K/UL (4.8-10.8) Red Blood Count 4.33 M/UL (4.20-5.40) Hemoglobin 13.2 G/DL (12.0-16.0) Hematocrit 38.9 % (37.0-47.0) Mean Corpuscular Volume 90 FL (80-99) Mean Corpuscular Hemoglobin 30.5 PG (27.0-31.0) Mean Corpuscular Hemoglobin Concent 33.9 G/DL (32.0-36.0) Red Cell Distribution Width 11.3 % (11.6-14.8) L Platelet Count 304 K/UL (150-450) Mean Platelet Volume 7.2 FL (6.5-10.1) Neutrophils (%) (Auto) 62.1 % (45.0-75.0) Lymphocytes (%) (Auto) 26.6 % (20.0-45.0) Monocytes (%) (Auto) 7.8 % (1.0-10.0) Eosinophils (%) (Auto) 2.7 % (0.0-3.0) Basophils (%) (Auto) 0.8 % (0.0-2.0) Sodium Level 138 MMOL/L (136-145) Potassium Level 3.7 MMOL/L (3.5-5.1) Chloride Level 103 MMOL/L (98-107) Carbon Dioxide Level 25 MMOL/L (21-32) Anion Gap 10 mmol/L (5-15) Blood Urea Nitrogen 19 mg/dL (7-18) H Creatinine 0.9 MG/DL (0.55-1.30) Estimat Glomerular Filtration Rate mL/min (>60) Glucose Level 135 MG/DL (74-106) H Calcium Level 9.6 MG/DL (8.5-10.1) Total Bilirubin 0.5 MG/DL (0.2-1.0) Aspartate Amino Transf (AST/SGOT) 22 U/L (15-37) Alanine Aminotransferase (ALT/SGPT) 24 U/L (12-78) Alkaline Phosphatase 101 U/L (46-116) Pro-B-Type Natriuretic Peptide 289 pg/mL (0-125) H Total Protein 7.2 G/DL (6.4-8.2) Albumin 3.1 G/DL (3.4-5.0) L Globulin 4.1 g/dL Albumin/Globulin Ratio 0.8 (1.0-2.7) L Objective HEAD AND NECK: Shows mild jugular venous distention. LUNGS: Decreased breath sounds. CARDIOVASCULAR: Shows regular S1 and S2 with no gallop. ABDOMEN: Soft. EXTREMITIES: Has 1+ pitting edema. Oseas Osborne MD Jul 05, 2018 12:29
--- NOTE | 2018-07-06 08:07 | Discharge Summary ---
Discharge Summary Discharge Summary _ DATE OF ADMISSION: 07/02/2018 DATE OF DISCHARGE: 07/05/2018 CONSULTANTS: Dr. Oseas Tejeda BRIEF HOSPITAL COURSE: Patient is an 82-year-old -[place] female, who presented to ED via EMS due to chief complaint of shortness of breath. Patient has a history of congestive heart failure. She was last admitted to [facility] in February 2018. She stated she became short of breath that started on 07/01/2018. She stated she was "having difficulty breathing." She has medical history significant for CHF, type 2 diabetes, hypertension and morbid obesity. On evaluation at ED, patient was feeling better after being given nitroglycerin in the field. She was noted to have evidence of peripheral edema and elevated blood pressure. She was given IV Lasix and was noted to have improvement in respiratory status after administration of diuretics. Blood work showed no leukocytosis, H&H was stable. BUN 25, creatinine stable. Sodium was 134. Glucose 221. Troponin was negative. EKG was in normal sinus rhythm with left bundle branch block. Patient was admitted due to dyspnea, possible CHF exacerbation, diabetes mellitus, hypertension, morbid obesity. Patient was placed on cardiac monitors. Troponins were monitored and was negative. Echocardiogram done showed preserved ejection fraction of 60%. She had history of DVT, venous duplex of lower extremity was negative. She was continued on antiplatelet therapy with aspirin. Lipid panel showed elevated LDL , she was started on low-dose statin. She had been on anticoagulation in the past for DVT and PE. Blood glucose was monitored. She was placed on NovoLog sliding scale and was continued on Glucophage. Patient has anxiety and difficulty sleeping. She was given respiratory treatment. She was placed on Ativan prn. Patient was diuresing well. Repeat chest x-ray showed no acute process. She was given physical therapy. Patient was eventually discharged home. FINAL DIAGNOSES: Acute on chronic diastolic CHF Sinus tachycardia Hyponatremia Left bundle branch block Diabetes mellitus type 2, out of control Morbid obesity History of cardiomyopathy Hyperlipidemia Hypertension COPD Anxiety disorder History of DVT and PE DISPOSITION: Patient was discharged home with home health. DISCHARGE MEDICATIONS: Refer to Discharge Medication List. I have been assigned to dictate discharge summary on this account, and I was not involved in the patient's management. Abby Saunders MECHANICAL ENGINEERING INTERN Jul 06, 2018 08:07
== END 2018-07-05 15:00 | disposition home health service (06) | DRG 292 ==
LOC: EDBD 08:35 → EMR 08:59 → 2W 09:03 → EDBEDREQ 10:00 → 2E 14:46
DX: I11.0 Hypertensive heart disease with heart failure (principal); E87.1 Hypo-osmolality and hyponatremia; I50.33 Acute on chronic diastolic (congestive) heart failure; I44.7 Left bundle-branch block, unspecified; I10 Essential (primary) hypertension; E66.01 Morbid (severe) obesity due to excess calories; E11.65 Type 2 diabetes mellitus with hyperglycemia; R00.0 Tachycardia, unspecified; I42.9 Cardiomyopathy, unspecified; E78.5 Hyperlipidemia, unspecified; J44.9 Chronic obstructive pulmonary disease, unspecified; F41.9 Anxiety disorder, unspecified; Z86.718 Personal history of other venous thrombosis and embolism; Z86.711 Personal history of pulmonary embolism; Z91.14 Patient's other noncompliance with medication regimen
CPT/HCPCS: 36415; 71045; 80048; 80053; 80061; 82550; 82553; 82962; 83036; 83735; 83880; 84100; 84443; 84484; 85025; 85610; 85651; 85730; 93005; 93306; 93970; 96374; 99285; J1815

== ENCOUNTER 2018-10-10 18:21 | Inpatient (IN) | payer MEDICARE, MEDICAID ==
[~2018-10-10] VITALS: Ht 160 cm; Wt 103.9 kg
[~2018-10-10 18:21] MED LIST changes: +FUROSEMIDE40 MG/5 ML ORAL; +LIPITOR10 MG ORAL; +METOPROLOL SUCC25 MG ORAL; +NORVASC5 MG ORAL; +POTASSIUM20 MEQ/15 PO
[2018-10-10] MEDS ORDERED: UNOBMED (18:27)
[2018-10-10 18:35] VITALS: BP 210/109
--- NOTE | 2018-10-10 18:48 | Emergency Room Report ---
History of Present Illness General Chief Complaint: Edema Source: Patient, Medical Record, PMD Present Illness HPI Patient presents emergency department today complaining of acute shortness of breath. Patient was seen by Dr. Freddie Simon and sent to the emergency department for evaluation of acute CHF. Patient denies any chest pain. She does complain significant leg swelling. No other complaints are noted. Symptoms noted to be severe.No other modifying factors. No other associated signs and symptoms. No other complaints were noted. Allergies: Coded Allergies: No Known Allergies (Unverified , 09/02/17) Patient History Past Medical History: DM, HTN, CHF Past Surgical History: none Pertinent Family History: none Social History: Denies: smoking, alcohol use, drug use Reviewed Nursing Documentation: PMH: Agreed; PSxH: Agreed Nursing Documentation-PMH Past Medical History: No History, Except For Hx Cardiac Problems: Yes - CHF Hx Hypertension: Yes Hx Diabetes: Yes Hx Cancer: No Hx Gastrointestinal Problems: No Hx Neurological Problems: No Review of Systems All Other Systems: negative except mentioned in HPI Physical Exam Vital Signs Date Time Temp Pulse Resp B/P (MAP) Pulse Ox O2 Delivery O2 Flow Rate FiO2 10/10/18 18:25 98.4 100 20 210/109 100 Room Air Sp02 EP Interpretation: reviewed, normal General Appearance: alert, mild distress Head: atraumatic Eyes: bilateral eye normal inspection ENT: normal ENT inspection, hearing grossly normal, normal voice Neck: normal inspection, full range of motion, supple, no bony tend Respiratory: normal inspection, no respiratory distress, no retraction, other - Basilar crackles Cardiovascular #1: regular rate, rhythm, edema - Bilateral lower extremity 3+ to knee Gastrointestinal: normal inspection, normal bowel sounds, non tender, soft, no guarding, no hernia Genitourinary: no CVA tenderness Musculoskeletal: back normal, normal range of motion, swelling - bilateral extremity Neurologic: normal inspection, alert, responsive, speech normal Psychiatric: normal inspection, judgement/insight normal, mood/affect normal Skin: normal inspection, normal color, no rash Medical Decision Making Diagnostic Impression: Primary Impression: CHF (congestive heart failure) Additional Impression: Fluid overload ER Course Patient presents emergency department today complaining of shortness of breath. Differential diagnoses include acute pneumonia, CHF, acute coronary syndrome, pneumothorax, asthma, COPD flare, just to name a few.Given the severity of the patient's presentation I felt this is a highly complex patient. This patient required extensive workup. Patient laboratory workup exam and chest x-rays consistent to CHF. Patient was given Lasix. Case was discussed in detail with Dr. Freddie Simon and Dr. Borrego. Patient will be admitted to telemetry further treatment. Labs Test 10/10/18 18:50 White Blood Count 7.0 K/UL (4.8-10.8) Red Blood Count 4.30 M/UL (4.20-5.40) Hemoglobin 13.2 G/DL (12.0-16.0) Hematocrit 39.4 % (37.0-47.0) Mean Corpuscular Volume 92 FL (80-99) Mean Corpuscular Hemoglobin 30.7 PG (27.0-31.0) Mean Corpuscular Hemoglobin Concent 33.5 G/DL (32.0-36.0) Red Cell Distribution Width 11.8 % (11.6-14.8) Platelet Count 288 K/UL (150-450) Mean Platelet Volume 7.1 FL (6.5-10.1) Neutrophils (%) (Auto) 66.1 % (45.0-75.0) Lymphocytes (%) (Auto) 24.0 % (20.0-45.0) Monocytes (%) (Auto) 7.1 % (1.0-10.0) Eosinophils (%) (Auto) 1.9 % (0.0-3.0) Basophils (%) (Auto) 1.0 % (0.0-2.0) Sodium Level 137 MMOL/L (136-145) Potassium Level 4.1 MMOL/L (3.5-5.1) Chloride Level 103 MMOL/L (98-107) Carbon Dioxide Level 24 MMOL/L (21-32) Anion Gap 10 mmol/L (5-15) Blood Urea Nitrogen 14 mg/dL (7-18) Creatinine 0.8 MG/DL (0.55-1.30) Estimat Glomerular Filtration Rate mL/min (>60) Glucose Level 138 MG/DL (74-106) Calcium Level 9.5 MG/DL (8.5-10.1) Total Bilirubin 0.4 MG/DL (0.2-1.0) Aspartate Amino Transf (AST/SGOT) 29 U/L (15-37) Alanine Aminotransferase (ALT/SGPT) 20 U/L (12-78) Alkaline Phosphatase 97 U/L (46-116) Total Creatine Kinase 108 U/L (26-308) Creatine Kinase MB 2.1 NG/ML (0.0-3.6) Creatine Kinase MB Relative Index 1.9 Troponin I 0.007 ng/mL (0.000-0.056) Pro-B-Type Natriuretic Peptide 909 pg/mL (0-125) Total Protein 8.4 G/DL (6.4-8.2) Albumin 3.5 G/DL (3.4-5.0) Globulin 4.9 g/dL Albumin/Globulin Ratio 0.7 (1.0-2.7) Lipase 63 U/L (73-393) EKG Diagnostic Results Rate: normal Rhythm: NSR ST Segments: other - Left bundle branch block Rhythm Strip Diag. Results EP Interpretation: yes Rate: 100 Rhythm: NSR, no PVC's, other - Left bundle-branch block Chest X-Ray Diagnostic Results Chest X-Ray Diagnostic Results : Chest X-Ray Ordered: Yes # of Views/Limited/Complete: 1 View Indication: Shortness of Breath EP Interpretation: Yes Interpretation: no consolidation, no effusion, no pneumothorax, other - Mild pulmonary congestion Impression: Other - Mild CHF Electronically Signed by: Electronically signed by Holden Herrera MD Last Vital Signs Date Time Temp Pulse Resp B/P (MAP) Pulse Ox O2 Delivery O2 Flow Rate FiO2 10/10/18 18:25 98.4 100 20 210/109 100 Room Air Status: improved Disposition: ADMITTED INPATIENT Condition: Serious Holden Herrera MD Oct 10, 2018 18:48
[2018-10-10] MEDS ORDERED: POTASSIUM CHLO20 ME2 ORAL (18:56)
[2018-10-10] MEDS ORDERED: Morphine Sulfate 2mg/ml Inj IVP ONE (19:00)
[2018-10-10 19:05] LABS: EOSINOPHILS % (AUTO) 1.9 % (0.0-3.0); HEMATOCRIT 39.4 % (37.0-47.0); HEMOGLOBIN 13.2 G/DL (12.0-16.0); MEAN CORPUSCULAR VOLUME 92 FL (80-99); MONOCYTES % (AUTO) 7.1 % (1.0-10.0); NEUTROPHILS % (AUTO) 66.1 % (45.0-75.0); PLATELET COUNT 288 K/UL (150-450); RED CELL DISTRIBUTION WIDTH 11.8 % (11.6-14.8)
[2018-10-10 19:13] LABS: ANION GAP 10 mmol/L (5-15); BLOOD UREA NITROGEN 14 mg/dL (7-18); CALCIUM 9.5 MG/DL (8.5-10.1); CARBON DIOXIDE 24 MMOL/L (21-32); CHLORIDE 103 MMOL/L (98-107); CREATININE 0.8 MG/DL (0.55-1.30); POTASSIUM 4.1 MMOL/L (3.5-5.1); SODIUM 137 MMOL/L (136-145)
[2018-10-10 19:26] LABS: ALANINE AMINOTRANSFERASE 20 U/L (12-78); ALBUMIN 3.5 G/DL (3.4-5.0); ALBUMIN/GLOBULIN RATIO 0.7 (1.0-2.7); ALKALINE PHOSPHATASE 97 U/L (46-116); ASPARTATE AMINO TRANSFERASE 29 U/L (15-37); BILIRUBIN,TOTAL 0.4 MG/DL (0.2-1.0); CKMB 2.1 NG/ML (0.0-3.6); CREATINE KINASE 108 U/L (26-308)
[2018-10-10] MEDS ORDERED: Miralax 17gm pkt ORAL PRN ×2 (19:45)
[2018-10-10] MEDS ORDERED: Albuterol/Ipratropium 3ml neb HHN PRN ×2 (19:45)
[2018-10-10 20:14] LABS: APPEARANCE,URINE CLEAR; BILIRUBIN, URINE NEGATIVE (NEGATIVE); COLOR,URINE PALE YELLOW; GLUCOSE, URINE (UA) NEGATIVE (NEGATIVE); KETONES,URINE NEGATIVE (NEGATIVE); LEUKOCYTE ESTERASE ,URINE NEGATIVE (NEGATIVE); NITRITE,URINE NEGATIVE (NEGATIVE); PH,URINE 7 (4.5-8.0); PROTEIN,URINE NEGATIVE (NEGATIVE); UROBILINOGEN,URINE NORMAL MG/DL (0.0-1.0)
[2018-10-10] MEDS ORDERED: Heparin 5000 units/ml inj SUBQ SCH ×2 (21:00→22:00)
[2018-10-10] MEDS ORDERED: Amikacin Rx to dose MISC PRN (22:00)
[2018-10-10 22:03] VITALS: BP 162/78
[2018-10-10] MEDS ORDERED: Ertapenem 1 GM in NS 55 ML IV SCH (22:30)
[2018-10-10] MEDS ORDERED: Vancomycin 1.5 GM/D5W 250ML IVPB SCH (23:00)
[2018-10-10] MEDS ORDERED: Vancomycin 1 GM in D5W 275 ML IV SCH (23:45)
[2018-10-11] MEDS: NovoLOG Insulin Flexpen SUBQ SCH ×5 (00:35→22:29)
[2018-10-11] MEDS ORDERED: Amikacin 1,000 MG in NS 110 ML IV SCH (01:00)
[2018-10-11 04:00] VITALS: BP 166/86
[2018-10-11] MEDS: Morphine Sulfate 4mg/ml Inj (IV/IM USE ONLY) IVP PRN ×4 (06:09→23:55)
[2018-10-11 08:00] VITALS: BP 135/70
--- NOTE | 2018-10-11 08:38 | Diagnostic Imaging Report ---
Indication: Chest pain Technique: One view of the chest Comparison: 07/03/2018 Findings: Lungs and pleural spaces are clear. Heart size is normal . No significant interim change Impression: No acute process This agrees with the preliminary interpretation provided by the emergency room physician
[2018-10-11] MEDS: Pantoprazole Inj IVP SCH (08:44)
[2018-10-11] MEDS: Heparin 5000 units/ml inj SUBQ SCH ×2 (09:00→21:00)
[2018-10-11] MEDS ORDERED: Metoprolol Succinate XL 25mg tab ORAL SCH (09:00)
[2018-10-11 09:03] LABS: BASOPHILS % (AUTO) 0.8 % (0.0-2.0); EOSINOPHILS % (AUTO) 1.1 % (0.0-3.0); HEMATOCRIT 35.8 % (37.0-47.0); HEMOGLOBIN 11.9 G/DL (12.0-16.0); LYMPHOCYTES % (AUTO) 22.2 % (20.0-45.0); MEAN CORPUSCULAR VOLUME 92 FL (80-99); MONOCYTES % (AUTO) 9.5 % (1.0-10.0); NEUTROPHILS % (AUTO) 66.3 % (45.0-75.0); PLATELET COUNT 280 K/UL (150-450); RED BLOOD COUNT 3.88 M/UL (4.20-5.40); RED CELL DISTRIBUTION WIDTH 11.9 % (11.6-14.8); WHITE BLOOD COUNT 6.5 K/UL (4.8-10.8)
[2018-10-11 10:05] LABS: ALANINE AMINOTRANSFERASE 17 U/L (12-78); ALBUMIN 3.1 G/DL (3.4-5.0); ALBUMIN/GLOBULIN RATIO 0.7 (1.0-2.7); ALKALINE PHOSPHATASE 80 U/L (46-116); ANION GAP 9 mmol/L (5-15); ASPARTATE AMINO TRANSFERASE 19 U/L (15-37); BILIRUBIN,DIRECT 0.1 MG/DL (0.0-0.3); BILIRUBIN,TOTAL 0.5 MG/DL (0.2-1.0); BLOOD UREA NITROGEN 13 mg/dL (7-18); CALCIUM 9.2 MG/DL (8.5-10.1); CARBON DIOXIDE 26 MMOL/L (21-32); CHLORIDE 103 MMOL/L (98-107); CREATININE 0.9 MG/DL (0.55-1.30); POTASSIUM 3.4 MMOL/L (3.5-5.1); SODIUM 138 MMOL/L (136-145)
[2018-10-11 12:00] VITALS: BP 116/53
--- NOTE | 2018-10-11 12:18 | Consultation ---
History of Present Illness General Date patient seen: Oct 11, 2018 Chief Complaint: Edema Present Illness HPI 82 year old female with hx of systolic heart failure on L[place], presented to ER complaining of acute shortness of breath. Patient denies any chest pain. She does complain significant leg swelling. No other complaints are noted. Symptoms noted to be severe. Pt was diagnosed to have acute exacerbation of CHF and admitted to telemetry for further management. Allergies: Coded Allergies: No Known Allergies (Unverified , 09/02/17) Medication History Scheduled Aspirin Ec* (Aspirin Ec*), 81 MG ORAL DAILY, (Reported) Atorvastatin Calcium* (Lipitor*), 10 MG ORAL BEDTIME Furosemide (Furosemide), 20 MG ORAL DAILY, (Reported) Metformin Hcl* (Metformin Hcl*), 500 MG ORAL DAILY, (Reported) Metoprolol Succinate* (Metoprolol Succinate*), 25 MG ORAL DAILY Potassium Chloride (Potassium Chloride), 20 MEQ ORAL DAILY, (Reported) Scheduled PRN Ibuprofen* (Motrin*), 600 MG ORAL Q6H PRN for For Pain, (Reported) Discontinued Medications Amlodipine Besylate (Norvasc), 5 MG ORAL DAILY, (Reported) Discontinued Reason: Therapy completed Patient History Healthcare decision maker N Resuscitation status Full Code Advanced Directive on File Past Medical/Surgical History Past Medical/Surgical History: (1) Diabetes mellitus type II, uncontrolled (2) Obesity (3) COPD (chronic obstructive pulmonary disease) (4) Peripheral edema Review of Systems All Other Systems: negative except mentioned in HPI Physical Exam General Appearance: WD/WN Lines, tubes and drains: peripheral HEENT: normocephalic, anicteric Neck: non-tender, supple Respiratory/Chest: chest wall non-tender, lungs clear Cardiovascular/Chest: normal peripheral pulses, normal rate Abdomen: normal bowel sounds Last 24 Hour Vital Signs Date Time Temp Pulse Resp B/P (MAP) Pulse Ox O2 Delivery O2 Flow Rate FiO2 10/11/18 10:36 Room Air Room Air 10/11/18 08:54 98 135/70 10/11/18 08:44 98 135/70 10/11/18 08:00 97.9 98 20 135/70 (91) 10/11/18 07:47 94 18 Room Air 21 10/11/18 04:00 83 10/11/18 04:00 97.7 96 18 166/86 (112) 10/11/18 00:00 92 10/10/18 23:23 Room Air 10/10/18 22:17 98.6 89 17 119/49 97 Room Air 10/10/18 22:03 98.1 97 18 162/78 (106) 10/10/18 22:03 99 10/10/18 18:35 102 18 Room Air 10/10/18 18:35 98.4 102 18 210/109 100 Room Air 10/10/18 18:25 98.4 100 20 210/109 100 Room Air Intake and Output 10/10/18 10/11/18 19:00 07:00 Intake Total 100 ml Output Total 1050 ml Balance -950 ml Intake Oral 100 ml Output Urine Total 1050 ml Laboratory Tests Test 10/10/18 18:50 10/10/18 20:06 10/11/18 08:25 White Blood Count 7.0 K/UL (4.8-10.8) 6.5 K/UL (4.8-10.8) Red Blood Count 4.30 M/UL (4.20-5.40) 3.88 M/UL (4.20-5.40) L Hemoglobin 13.2 G/DL (12.0-16.0) 11.9 G/DL (12.0-16.0) L Hematocrit 39.4 % (37.0-47.0) 35.8 % (37.0-47.0) L Mean Corpuscular Volume 92 FL (80-99) 92 FL (80-99) Mean Corpuscular Hemoglobin 30.7 PG (27.0-31.0) 30.7 PG (27.0-31.0) Mean Corpuscular Hemoglobin Concent 33.5 G/DL (32.0-36.0) 33.3 G/DL (32.0-36.0) Red Cell Distribution Width 11.8 % (11.6-14.8) 11.9 % (11.6-14.8) Platelet Count 288 K/UL (150-450) 280 K/UL (150-450) Mean Platelet Volume 7.1 FL (6.5-10.1) 7.2 FL (6.5-10.1) Neutrophils (%) (Auto) 66.1 % (45.0-75.0) 66.3 % (45.0-75.0) Lymphocytes (%) (Auto) 24.0 % (20.0-45.0) 22.2 % (20.0-45.0) Monocytes (%) (Auto) 7.1 % (1.0-10.0) 9.5 % (1.0-10.0) Eosinophils (%) (Auto) 1.9 % (0.0-3.0) 1.1 % (0.0-3.0) Basophils (%) (Auto) 1.0 % (0.0-2.0) 0.8 % (0.0-2.0) Sodium Level 137 MMOL/L (136-145) 138 MMOL/L (136-145) Potassium Level 4.1 MMOL/L (3.5-5.1) 3.4 MMOL/L (3.5-5.1) L Chloride Level 103 MMOL/L (98-107) 103 MMOL/L (98-107) Carbon Dioxide Level 24 MMOL/L (21-32) 26 MMOL/L (21-32) Anion Gap 10 mmol/L (5-15) 9 mmol/L (5-15) Blood Urea Nitrogen 14 mg/dL (7-18) 13 mg/dL (7-18) Creatinine 0.8 MG/DL (0.55-1.30) 0.9 MG/DL (0.55-1.30) Estimat Glomerular Filtration Rate mL/min (>60) mL/min (>60) Glucose Level 138 MG/DL (74-106) H 128 MG/DL (74-106) H Calcium Level 9.5 MG/DL (8.5-10.1) 9.2 MG/DL (8.5-10.1) Total Bilirubin 0.4 MG/DL (0.2-1.0) 0.5 MG/DL (0.2-1.0) Aspartate Amino Transf (AST/SGOT) 29 U/L (15-37) 19 U/L (15-37) Alanine Aminotransferase (ALT/SGPT) 20 U/L (12-78) 17 U/L (12-78) Alkaline Phosphatase 97 U/L (46-116) 80 U/L (46-116) Total Creatine Kinase 108 U/L (26-308) Creatine Kinase MB 2.1 NG/ML (0.0-3.6) Creatine Kinase MB Relative Index 1.9 Troponin I 0.007 ng/mL (0.000-0.056) Pro-B-Type Natriuretic Peptide 909 pg/mL (0-125) H Total Protein 8.4 G/DL (6.4-8.2) H 7.4 G/DL (6.4-8.2) Albumin 3.5 G/DL (3.4-5.0) 3.1 G/DL (3.4-5.0) L Globulin 4.9 g/dL 4.3 g/dL Albumin/Globulin Ratio 0.7 (1.0-2.7) L 0.7 (1.0-2.7) L Lipase 63 U/L (73-393) L Urine Color Pale yellow Urine Appearance Clear Urine pH 7 (4.5-8.0) Urine Specific [place] 1.005 (1.005-1.035) Urine Protein Negative (NEGATIVE) Urine Glucose (UA) Negative (NEGATIVE) Urine Ketones Negative (NEGATIVE) Urine Blood Negative (NEGATIVE) Urine Nitrite Negative (NEGATIVE) Urine Bilirubin Negative (NEGATIVE) Urine Urobilinogen Normal MG/DL (0.0-1.0) Urine Leukocyte Esterase Negative (NEGATIVE) Direct Bilirubin 0.1 MG/DL (0.0-0.3) Height (Feet): 5 Height (Inches): 3.00 Weight (Pounds): 231 Medications Current Medications Medications (Trade) Dose Ordered Sig/Obinna Route PRN Reason Start Time Stop Time Status Last Admin Dose Admin Acetaminophen (Tylenol) 650 mg Q4H PRN ORAL fever (temp>100.5F) 10/10/18 19:45 11/09/18 19:44 Albuterol/ Ipratropium (Albuterol/ Ipratropium) 3 ml Q4H PRN HHN Shortness of Breath 10/10/18 19:45 10/15/18 19:44 Amlodipine Besylate (Norvasc) 5 mg DAILY ORAL 10/11/18 09:00 11/10/18 08:59 Atorvastatin Calcium (Lipitor) 10 mg BEDTIME ORAL 10/11/18 21:00 11/10/18 20:59 Dextrose (Dextrose 50%) 25 ml Q30M PRN IV Hypoglycemia 12/18/18 19:45 11/09/18 19:44 Dextrose (Dextrose 50%) 50 ml Q30M PRN IV Hypoglycemia 10/10/18 19:45 11/09/18 19:44 Ertapenem 1 gm/ Sodium Chloride 55 ml @ 110 mls/hr QHS IV 10/10/18 22:30 10/15/18 22:29 10/10/18 23:46 Furosemide (Lasix) 40 mg Q8H IV 10/11/18 04:00 11/10/18 03:59 10/11/18 03:58 Heparin Sodium (Porcine) (Heparin 5000 units/ml) 5,000 units EVERY 12 HOURS SUBQ 10/11/18 09:00 11/10/18 08:59 Insulin Aspart (NovoLOG) BEFORE MEALS AND HS SUBQ 10/10/18 22:00 11/09/18 21:59 10/11/18 06:38 Metoprolol Succinate (Toprol XL) 25 mg DAILY ORAL 10/11/18 09:00 11/10/18 08:59 10/11/18 08:44 Morphine Sulfate (Morphine Sulfate) 2 mg Q4H PRN IVP Severe Pain (Pain Scale 7-10) 10/10/18 19:45 10/17/18 19:44 10/11/18 10:54 Ondansetron HCl (Zofran) 4 mg Q6H PRN IVP Nausea & Vomiting 10/10/18 19:45 11/09/18 19:44 Pantoprazole (Protonix) 40 mg DAILY IVP 10/11/18 09:00 11/10/18 08:59 10/11/18 08:44 Polyethylene Glycol (Miralax) 17 gm DAILYPRN PRN ORAL Constipation 10/10/18 19:45 11/09/18 19:44 Temazepam (Restoril) 15 mg HSPRN PRN ORAL Insomnia 10/10/18 19:45 10/17/18 19:44 Vancomycin HCl (Vanco rx to dose) 1 ea DAILY PRN MISC PER RX PROTOCOL 10/10/18 22:00 11/09/18 21:59 Vancomycin HCl/ Dextrose 250 ml @ 125 mls/hr Q24H IVPB 10/10/18 23:00 10/15/18 22:59 10/11/18 01:33 Assessment/Plan Problem List: (1) Acute on chronic systolic (congestive) heart failure ICD Codes: I50.23 - Acute on chronic systolic (congestive) heart failure SNOMED: 82036852, 974529076 (2) COPD (chronic obstructive pulmonary disease) ICD Codes: J44.9 - Chronic obstructive pulmonary disease, unspecified SNOMED: 02220212 (3) Peripheral edema ICD Codes: R60.9 - Edema, unspecified SNOMED: 595171131 (4) Diabetes mellitus type II, uncontrolled ICD Codes: E11.65 - Type 2 diabetes mellitus with hyperglycemia SNOMED: 82768058, 742754977 (5) Obesity ICD Codes: E66.9 - Obesity, unspecified SNOMED: 821497038, 336310616 (6) Hypertension ICD Codes: I10 - Essential (primary) hypertension SNOMED: 57406293 Assessment/Plan diuretic respiratory treatment watch intake and output cardiology evaluation monitor BP venous doppler of legs to rule out DVT. Jared Borrego MD Oct 11, 2018 12:18
--- NOTE | 2018-10-11 12:58 | Consultation ---
History of Present Illness General Date patient seen: Oct 11, 2018 Chief Complaint: Edema Present Illness HPI 82 y/o F with hx of CHF, HTN, Dm2 presented to ED on 10/10 acute SOB and leg swelling Denied CP Allergies: Coded Allergies: No Known Allergies (Unverified , 09/02/17) Medication History Scheduled Aspirin Ec* (Aspirin Ec*), 81 MG ORAL DAILY, (Reported) Atorvastatin Calcium* (Lipitor*), 10 MG ORAL BEDTIME Furosemide (Furosemide), 20 MG ORAL DAILY, (Reported) Metformin Hcl* (Metformin Hcl*), 500 MG ORAL DAILY, (Reported) Metoprolol Succinate* (Metoprolol Succinate*), 25 MG ORAL DAILY Potassium Chloride (Potassium Chloride), 20 MEQ ORAL DAILY, (Reported) Scheduled PRN Ibuprofen* (Motrin*), 600 MG ORAL Q6H PRN for For Pain, (Reported) Discontinued Medications Amlodipine Besylate (Norvasc), 5 MG ORAL DAILY, (Reported) Discontinued Reason: Therapy completed Patient History Healthcare decision maker N Resuscitation status Full Code Advanced Directive on File Patient History Narrative Pmhx: as above Shx: Denies: smoking, alcohol use, drug use Fhx: non contributory Review of Systems All Other Systems: negative except mentioned in HPI Physical Exam Physical Exam Narrative General Appearance: WD/WN Lines, tubes and drains: peripheral HEENT: normocephalic, anicteric Neck: non-tender, supple Respiratory/Chest: chest wall non-tender, lungs clear Cardiovascular/Chest: normal peripheral pulses, normal rate Abdomen: normal bowel sounds EXT: b/l +3 edema and mile erythema, warmth and TTP Last 24 Hour Vital Signs Date Time Temp Pulse Resp B/P (MAP) Pulse Ox O2 Delivery O2 Flow Rate FiO2 10/11/18 10:36 Room Air Room Air 10/11/18 08:54 98 135/70 10/11/18 08:44 98 135/70 10/11/18 08:00 97.9 98 20 135/70 (91) 10/11/18 08:00 84 10/11/18 07:47 94 18 Room Air 21 10/11/18 04:00 83 10/11/18 04:00 97.7 96 18 166/86 (112) 10/11/18 00:00 92 10/10/18 23:23 Room Air 10/10/18 22:17 98.6 89 17 119/49 97 Room Air 10/10/18 22:03 98.1 97 18 162/78 (106) 10/10/18 22:03 99 10/10/18 18:35 102 18 Room Air 10/10/18 18:35 98.4 102 18 210/109 100 Room Air 10/10/18 18:25 98.4 100 20 210/109 100 Room Air Intake and Output 10/10/18 10/11/18 19:00 07:00 Intake Total 100 ml Output Total 1050 ml Balance -950 ml Intake Oral 100 ml Output Urine Total 1050 ml Laboratory Tests Test 10/10/18 18:50 10/10/18 20:06 10/11/18 08:25 White Blood Count 7.0 K/UL (4.8-10.8) 6.5 K/UL (4.8-10.8) Red Blood Count 4.30 M/UL (4.20-5.40) 3.88 M/UL (4.20-5.40) L Hemoglobin 13.2 G/DL (12.0-16.0) 11.9 G/DL (12.0-16.0) L Hematocrit 39.4 % (37.0-47.0) 35.8 % (37.0-47.0) L Mean Corpuscular Volume 92 FL (80-99) 92 FL (80-99) Mean Corpuscular Hemoglobin 30.7 PG (27.0-31.0) 30.7 PG (27.0-31.0) Mean Corpuscular Hemoglobin Concent 33.5 G/DL (32.0-36.0) 33.3 G/DL (32.0-36.0) Red Cell Distribution Width 11.8 % (11.6-14.8) 11.9 % (11.6-14.8) Platelet Count 288 K/UL (150-450) 280 K/UL (150-450) Mean Platelet Volume 7.1 FL (6.5-10.1) 7.2 FL (6.5-10.1) Neutrophils (%) (Auto) 66.1 % (45.0-75.0) 66.3 % (45.0-75.0) Lymphocytes (%) (Auto) 24.0 % (20.0-45.0) 22.2 % (20.0-45.0) Monocytes (%) (Auto) 7.1 % (1.0-10.0) 9.5 % (1.0-10.0) Eosinophils (%) (Auto) 1.9 % (0.0-3.0) 1.1 % (0.0-3.0) Basophils (%) (Auto) 1.0 % (0.0-2.0) 0.8 % (0.0-2.0) Sodium Level 137 MMOL/L (136-145) 138 MMOL/L (136-145) Potassium Level 4.1 MMOL/L (3.5-5.1) 3.4 MMOL/L (3.5-5.1) L Chloride Level 103 MMOL/L (98-107) 103 MMOL/L (98-107) Carbon Dioxide Level 24 MMOL/L (21-32) 26 MMOL/L (21-32) Anion Gap 10 mmol/L (5-15) 9 mmol/L (5-15) Blood Urea Nitrogen 14 mg/dL (7-18) 13 mg/dL (7-18) Creatinine 0.8 MG/DL (0.55-1.30) 0.9 MG/DL (0.55-1.30) Estimat Glomerular Filtration Rate mL/min (>60) mL/min (>60) Glucose Level 138 MG/DL (74-106) H 128 MG/DL (74-106) H Calcium Level 9.5 MG/DL (8.5-10.1) 9.2 MG/DL (8.5-10.1) Total Bilirubin 0.4 MG/DL (0.2-1.0) 0.5 MG/DL (0.2-1.0) Aspartate Amino Transf (AST/SGOT) 29 U/L (15-37) 19 U/L (15-37) Alanine Aminotransferase (ALT/SGPT) 20 U/L (12-78) 17 U/L (12-78) Alkaline Phosphatase 97 U/L (46-116) 80 U/L (46-116) Total Creatine Kinase 108 U/L (26-308) Creatine Kinase MB 2.1 NG/ML (0.0-3.6) Creatine Kinase MB Relative Index 1.9 Troponin I 0.007 ng/mL (0.000-0.056) Pro-B-Type Natriuretic Peptide 909 pg/mL (0-125) H Total Protein 8.4 G/DL (6.4-8.2) H 7.4 G/DL (6.4-8.2) Albumin 3.5 G/DL (3.4-5.0) 3.1 G/DL (3.4-5.0) L Globulin 4.9 g/dL 4.3 g/dL Albumin/Globulin Ratio 0.7 (1.0-2.7) L 0.7 (1.0-2.7) L Lipase 63 U/L (73-393) L Urine Color Pale yellow Urine Appearance Clear Urine pH 7 (4.5-8.0) Urine Specific [place] 1.005 (1.005-1.035) Urine Protein Negative (NEGATIVE) Urine Glucose (UA) Negative (NEGATIVE) Urine Ketones Negative (NEGATIVE) Urine Blood Negative (NEGATIVE) Urine Nitrite Negative (NEGATIVE) Urine Bilirubin Negative (NEGATIVE) Urine Urobilinogen Normal MG/DL (0.0-1.0) Urine Leukocyte Esterase Negative (NEGATIVE) Direct Bilirubin 0.1 MG/DL (0.0-0.3) Height (Feet): 5 Height (Inches): 3.00 Weight (Pounds): 231 Medications Current Medications Medications (Trade) Dose Ordered Sig/Obinna Route PRN Reason Start Time Stop Time Status Last Admin Dose Admin Acetaminophen (Tylenol) 650 mg Q4H PRN ORAL fever (temp>100.5F) 10/10/18 19:45 11/09/18 19:44 Albuterol/ Ipratropium (Albuterol/ Ipratropium) 3 ml Q4H PRN HHN Shortness of Breath 10/10/18 19:45 10/15/18 19:44 Atorvastatin Calcium (Lipitor) 10 mg BEDTIME ORAL 10/11/18 21:00 11/10/18 20:59 Dextrose (Dextrose 50%) 25 ml Q30M PRN IV Hypoglycemia 10/10/18 19:45 11/09/18 19:44 Dextrose (Dextrose 50%) 50 ml Q30M PRN IV Hypoglycemia 10/10/18 19:45 11/09/18 19:44 Furosemide (Lasix) 40 mg Q8H IV 10/11/18 04:00 11/10/18 03:59 10/11/18 12:22 Heparin Sodium (Porcine) (Heparin 5000 units/ml) 5,000 units EVERY 12 HOURS SUBQ 10/11/18 09:00 11/10/18 08:59 Insulin Aspart (NovoLOG) BEFORE MEALS AND HS SUBQ 10/10/18 22:00 11/09/18 21:59 10/11/18 11:30 Metoprolol Succinate (Toprol XL) 25 mg DAILY ORAL 10/11/18 09:00 11/10/18 08:59 10/11/18 08:44 Morphine Sulfate (Morphine Sulfate) 2 mg Q4H PRN IVP Severe Pain (Pain Scale 7-10) 10/10/18 19:45 10/17/18 19:44 10/11/18 10:54 Ondansetron HCl (Zofran) 4 mg Q6H PRN IVP Nausea & Vomiting 10/10/18 19:45 11/09/18 19:44 Pantoprazole (Protonix) 40 mg DAILY IVP 10/11/18 09:00 11/10/18 08:59 10/11/18 08:44 Polyethylene Glycol (Miralax) 17 gm DAILYPRN PRN ORAL Constipation 10/10/18 19:45 11/09/18 19:44 Potassium Chloride 100 ml @ 100 mls/hr Q1H IVPB 10/11/18 13:00 10/11/18 16:59 Temazepam (Restoril) 15 mg HSPRN PRN ORAL Insomnia 10/10/18 19:45 10/17/18 19:44 Vancomycin HCl (Vanco rx to dose) 1 ea DAILY PRN MISC PER RX PROTOCOL 10/10/18 22:00 11/09/18 21:59 Vancomycin HCl/ Dextrose 250 ml @ 125 mls/hr Q24H IVPB 10/10/18 23:00 10/15/18 22:59 10/11/18 01:33 Assessment/Plan Assessment/Plan Abx: Amikacin 10/10- IV Vancomycin 10/10- Ertapenem x1 10/10 Assessment: SOB- 2ry to acute CHF exacerbation- doubt PNA -CXR: No acute process Mild b/l leg celllulitis Afebrile No leukocytosis -u/a neg CHF HTN Dm2 Plan: -D/C IV Amikacin and Vancomycin and switch to PO Keflex for b/l cellulitis -f/u cx -Monitor CBC/CMP, temperatures -aspiration precautions -Cards f/u Thank you for this consultation. Will continue to follow along with you. Discussed with ROBYN. Soledad Carvajal M.D. Oct 11, 2018 12:58
--- NOTE | 2018-10-11 13:26 | History & Physical ---
History and Physical History & Physicial Dictated for Int Med-Dr Simon no. [id number]. Ever Gonzalez MD Oct 11, 2018 13:26
[2018-10-11 16:00] VITALS: BP 128/68
--- NOTE | 2018-10-11 17:00 | History and Physical Report ---
DATE OF ADMISSION: 10/10/2018 CHIEF COMPLAINT: The patient is an 82-year-old female, who presents with chief complaint of shortness of breath. HISTORY OF PRESENT ILLNESS: The patient was last admitted to [facility] in June 2018. Please see history and physical and discharge summary dictated at that time. The patient was admitted for congestive heart failure. The patient is followed as an outpatient by Dr. Freddie Simon. The patient was evaluated by Dr. Simon. The patient was found to have increasing edema of the bilateral lower extremities. The patient was referred to [facility] to rule out congestive heart failure. The patient is admitted with shortness of breath to rule out congestive heart failure. REVIEW OF SYSTEMS: CONSTITUTIONAL: The patient denies weight loss or gain. The patient denies fevers or chills. HEENT: The patient denies ear or throat pain. The patient denies headache. CARDIOVASCULAR: The patient denies palpitations or chest pain. CHEST: The patient complains of shortness of breath as above. The patient denies wheezes. ABDOMEN: The patient denies nausea, vomiting, diarrhea, or constipation. GENITOURINARY: The patient denies dysuria or increased frequency of urination. NEUROMUSCULAR: The patient denies seizures or generalized weakness. PAST MEDICAL HISTORY: Significant for: 1. Congestive heart failure. 2. Type 2 diabetes. 3. Hypertension. 4. Morbid obesity. PAST SURGICAL HISTORY: Significant for: 1. Appendectomy. 2. Exploratory laparotomy, secondary to abdominal mass. CURRENT MEDICATIONS: 1. Aspirin 81 mg one tablet p.o. daily. 2. Lipitor 10 mg p.o. daily. 3. Lasix 20 mg p.o. daily. 4. Metformin 500 mg p.o. daily. 5. Metoprolol 25 mg p.o. daily. 6. Potassium chloride 20 mEq p.o. daily. ALLERGIES: No known drug allergies. SOCIAL HISTORY: The patient is single and lives at home with her family. The patient denies tobacco use, having quit as a teenager. The patient denies alcohol use. PHYSICAL EXAMINATION: VITAL SIGNS: Temperature 97.9, respirations 20, pulse 98, and blood pressure 135/70. Oxygen saturation 97% on room air. GENERAL: The patient is a well-developed and well-nourished, obese female, in no apparent distress. HEENT: Eyes, pupils are equal and responsive to light and accommodation. Extraocular movements are intact. NECK: Supple without lymphadenopathy. CHEST: Lungs are clear to auscultation bilaterally without wheezes or rales. CARDIOVASCULAR: Regular rhythm and rate. S1, S2 normal without murmurs, rubs, or gallops. ABDOMEN: Soft, nontender, and nondistended. Positive bowel sounds. No evidence of hepatosplenomegaly. Currently, no rebound or guarding. EXTREMITIES: 2+ pitting edema to bilateral ankles. Otherwise, without clubbing or cyanosis. RECTAL/GENITAL: Refused. NEUROLOGIC: Cranial nerves II through XII are grossly intact without focal deficits. Motor strength is 5/5 bilaterally. Deep tendon reflexes are 2+ plantar. LABORATORY STUDIES: WBC 7.3, hemoglobin 13.2, hematocrit 39.4, and platelets 280,000. Sodium 137, potassium 4.1, chloride 103, CO2 24, BUN 14, and creatinine 0.8. Glucose 138. Troponin 0.007. BNP elevated at 909. Chest x-ray is reported as no acute disease. ASSESSMENT: This is an 82-year-old female with: 1. Shortness of breath. 2. Edema to bilateral lower extremities. 3. Congestive heart failure. 4. History of left bundle-branch block. 5. Diabetes type 2. 6. Hypertension. 7. Obesity. TREATMENT: 1. Shortness of breath/congestive heart failure. Cardiology consultation has been obtained with Dr. Vincenzo Tejeda. The patient is currently receiving intravenous Lasix. We will follow recommendations of Cardiology. 2. Edema to bilateral lower extremities. This is secondary to congestive heart failure as above. 3. Left bundle-branch block. 4. Diabetes type 2. The patient has been placed on a NovoLog sliding scale. 5. Hypertension. The patient will remain on metoprolol as above. 6. Hypercholesterolemia. Continue Lipitor as above. 7. Obesity. Ever Gonzalez M.D. DR: ABDOUL JOB#: [id number] CC:
[2018-10-11] MEDS: Cephalexin 500mg cap ORAL SCH ×2 (17:13→23:55)
--- NOTE | 2018-10-11 17:29 | Cardiology Report ---
APPROVED REPORT EXAM: Two-dimensional and M-mode echocardiogram with Doppler and color Doppler. INDICATION LV FUCNTION M-Mode DIMENSIONS IVSd1.3 (0.7-1.1cm)Left Atrium (MM)2.3 (1.6-4.0cm) LVDd4.3 (3.5-5.6cm)Aortic Root3.1 (2.0-3.7cm) PWd1.2 (0.7-1.1cm)Aortic Cusp Exc.1.6 (1.5-2.0cm) IVSs1.3 cm LVDs4.0 (2.5-4.0cm) PWs1.1 cm Global left ventricular hypokinesis. Normal left ventricular chaber size . Left ventricular ejection fraction estimated to be 20 %. Study quality precludes accurate assessment of regional wall motion. No evidence of left ventricular hypertrophy. No evidence of pericardial effusion All other cardiac chamber sizes are within normal limits. Focal aortic valve sclerosis with adequate cusp excursion. Thickened mitral valve leaflets with normal excursion. Mitral annulus and aortic root calcification. Pulmonic valve not well visualized. Normal tricuspid valve structure. IVC at normal size with physiologic collapse. A color flow and spectral Doppler study was performed and revealed: No aortic regurgitation. Mild mitral regurgitation. Mitral diastolic velocities suggest reduced left ventricular relaxation c/w mild LV diastolic dysfunction (Grade I ). Mild- Moderate tricuspid regurgitation. Tricuspid systolic velocities suggests peak right ventricular systolic pressure of 40 mmHg,consistent with mild pulmonary hypertension.
--- NOTE | 2018-10-11 17:52 | Cardiology Report ---
APPROVED REPORT EKG Measurement Heart [id number] Normal sinus rhythm Left bundle branch block Abnormal ECG
[2018-10-11 20:00] VITALS: BP 128/68
--- NOTE | 2018-10-11 20:32 | Cardiology Progress Note ---
Assessment/Plan Assessment/Plan [id number] dirutic hold bb for 1-2 days Objective Last 24 Hour Vital Signs Date Time Temp Pulse Resp B/P (MAP) Pulse Ox O2 Delivery O2 Flow Rate FiO2 10/11/18 20:13 85 18 Room Air 21 10/11/18 16:00 87 10/11/18 16:00 97.5 86 20 128/68 (88) 99 10/11/18 12:00 97.9 84 20 116/53 (74) 99 10/11/18 12:00 86 10/11/18 10:36 Room Air Room Air 10/11/18 08:54 98 135/70 10/11/18 08:44 98 135/70 10/11/18 08:00 97.9 98 20 135/70 (91) 10/11/18 08:00 84 10/11/18 07:47 94 18 Room Air 21 10/11/18 04:00 83 10/11/18 04:00 97.7 96 18 166/86 (112) 10/11/18 00:00 92 10/10/18 23:23 Room Air 10/10/18 22:17 98.6 89 17 119/49 97 Room Air 10/10/18 22:03 98.1 97 18 162/78 (106) 10/10/18 22:03 99 Intake and Output 10/10/18 10/11/18 18:59 06:59 Intake Total 100 ml Output Total 1050 ml Balance -950 ml Intake Oral 100 ml Output Urine Total 1050 ml Laboratory Tests Test 10/11/18 08:25 White Blood Count 6.5 K/UL (4.8-10.8) Red Blood Count 3.88 M/UL (4.20-5.40) L Hemoglobin 11.9 G/DL (12.0-16.0) L Hematocrit 35.8 % (37.0-47.0) L Mean Corpuscular Volume 92 FL (80-99) Mean Corpuscular Hemoglobin 30.7 PG (27.0-31.0) Mean Corpuscular Hemoglobin Concent 33.3 G/DL (32.0-36.0) Red Cell Distribution Width 11.9 % (11.6-14.8) Platelet Count 280 K/UL (150-450) Mean Platelet Volume 7.2 FL (6.5-10.1) Neutrophils (%) (Auto) 66.3 % (45.0-75.0) Lymphocytes (%) (Auto) 22.2 % (20.0-45.0) Monocytes (%) (Auto) 9.5 % (1.0-10.0) Eosinophils (%) (Auto) 1.1 % (0.0-3.0) Basophils (%) (Auto) 0.8 % (0.0-2.0) Sodium Level 138 MMOL/L (136-145) Potassium Level 3.4 MMOL/L (3.5-5.1) L Chloride Level 103 MMOL/L (98-107) Carbon Dioxide Level 26 MMOL/L (21-32) Anion Gap 9 mmol/L (5-15) Blood Urea Nitrogen 13 mg/dL (7-18) Creatinine 0.9 MG/DL (0.55-1.30) Estimat Glomerular Filtration Rate mL/min (>60) Glucose Level 128 MG/DL (74-106) H Calcium Level 9.2 MG/DL (8.5-10.1) Total Bilirubin 0.5 MG/DL (0.2-1.0) Direct Bilirubin 0.1 MG/DL (0.0-0.3) Aspartate Amino Transf (AST/SGOT) 19 U/L (15-37) Alanine Aminotransferase (ALT/SGPT) 17 U/L (12-78) Alkaline Phosphatase 80 U/L (46-116) Total Protein 7.4 G/DL (6.4-8.2) Albumin 3.1 G/DL (3.4-5.0) L Globulin 4.3 g/dL Albumin/Globulin Ratio 0.7 (1.0-2.7) L Vincenzo Tejeda MD Oct 11, 2018 20:32
[2018-10-11] MEDS ORDERED: Lisinopril 10mg tab ORAL SCH (21:30)
--- NOTE | 2018-10-11 23:00 | Consultation ---
DATE OF CONSULTATION: 10/11/2018 CARDIOLOGY CONSULTATION CONSULTING PHYSICIAN: Vincenzo Tejeda M.D. REFERRING PHYSICIAN: Jared Borrego M.D. and Ever Gonzalez M.D. REASON FOR REFERRAL: Shortness of breath. HISTORY OF PRESENT ILLNESS: This is an elderly female, who is known to me from prior evaluation and hospitalization. The patient presented to the hospital according to her son because of increasing amounts of shortness of breath that has been going on for some time now. She has 4 to 5 pillow orthopnea. She is minimally active. She is mostly chair. She does walk with a walker. Apparently, she does have shortness of breath on exertion. There was possible episodes of PND as well. No chest pain, although she has shortness of breath. PAST MEDICAL HISTORY: Positive for history of cardiomyopathy, history of deep venous thrombosis, history of congestive heart failure, pulmonary hypertension, global hypokinesis on prior echocardiogram, diabetes mellitus, hypertension, left bundle-branch conduction defect, pulmonary embolism, and previously systemic hypertension. 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 ALLERGIES: She is reporting no allergic to any medications. SOCIAL HISTORY: She used to smoke, but she quit many years ago. No alcoholic beverages. She lives at home with her son. REVIEW OF SYSTEMS: GASTROINTESTINAL: There has been no nausea, vomiting, diarrhea, or constipation. GENITOURINARY: No discomfort on urination. PULMONARY: No significant coughing or wheezing. CONSTITUTIONAL: No fever, chills, or night sweats. PHYSICAL EXAMINATION: GENERAL: Shows to be an elderly female, in no respiratory distress. NECK: Supple. JVP approximately 6 to 7 cm of water. LUNGS: Decreased breath sounds noted bilaterally with few crackles on the left side. CARDIAC: S1 is normal. S2 is normal. Regular rate and rhythm. No heaves, thrills, or gallops noted. ABDOMEN: Soft, nontender, and obese. Positive bowel sounds. EXTREMITIES: edema of lower extremity all the way up to the thighs. LABORATORY DATA: Venous duplex study of the lower extremity shows no evidence of deep venous thrombosis. Last electrocardiogram shows sinus rhythm with left bundle-branch conduction defect as it has been previously. Telemetry data shows sinus rhythm as well. Her blood tests show white count 6.5, hemoglobin 11.9, and platelet count 280,000. Sodium is 138, potassium 3.4, chloride 102, bicarbonate 26, BUN 13, creatinine 0.8, and glucose of 126. Cardiac enzymes 0.007. ProBNP yesterday was only 909. Her albumin of 3.1. No coagulation is available and her urinalysis appears to be fairly unremarkable. X-rays of her chest have been performed during this hospitalization shows no acute processes. An echocardiogram has been performed shows ejection fraction 20% and there is diastolic relaxation abnormalities, moderate mitral regurgitation, and pulmonary systolic pressure of 40. ASSESSMENT AND PLAN: 1. Congestive heart failure acute on chronic exacerbation systolic. 2. Cardiomyopathy. 3. Diabetes mellitus. 4. Hypertension. 5. Morbid obesity. This patient is admitted to the hospital because of CHF exacerbation, it is really not clear to me if her compliance is with sodium restriction and MARIANO inhibitors for afterload reduction. Her blood pressure at this time is in the 116/53 to 135/70. She does not appear to be on any MARIANO inhibitors at this time and she is on Toprol-XL likely should be held for a day or two and she should be placed on MARIANO inhibitors for afterload reduction. She is on statins as well already in light of the fact that she has diabetes mellitus. The Lasix 40 mg q.8 h. has been initiated and thus will be continued and further recommendations as become necessary. Vincenzo Tejeda M.D. DR: CLAUDETTE JOB#: [id number] CC:
[2018-10-12] VITALS: BP 119/56
[2018-10-12 04:00] VITALS: BP 137/62
[2018-10-12] MEDS: Cephalexin 500mg cap ORAL SCH ×2 (05:31→11:36)
[2018-10-12] MEDS: NovoLOG Insulin Flexpen SUBQ SCH ×2 (06:30→11:36)
[2018-10-12 06:34] LABS: BASOPHILS % (AUTO) 0.7 % (0.0-2.0); EOSINOPHILS % (AUTO) 1.8 % (0.0-3.0); HEMATOCRIT 34.9 % (37.0-47.0); HEMOGLOBIN 11.9 G/DL (12.0-16.0); LYMPHOCYTES % (AUTO) 32.4 % (20.0-45.0); MEAN CORPUSCULAR VOLUME 92 FL (80-99); MONOCYTES % (AUTO) 9.8 % (1.0-10.0); NEUTROPHILS % (AUTO) 55.4 % (45.0-75.0); PLATELET COUNT 280 K/UL (150-450); RED CELL DISTRIBUTION WIDTH 12.1 % (11.6-14.8); WHITE BLOOD COUNT 7.3 K/UL (4.8-10.8)
[2018-10-12 06:58] LABS: ANION GAP 8 mmol/L (5-15); BLOOD UREA NITROGEN 17 mg/dL (7-18); CALCIUM 9.1 MG/DL (8.5-10.1); CARBON DIOXIDE 27 MMOL/L (21-32); CHLORIDE 103 MMOL/L (98-107); CREATININE 1.1 MG/DL (0.55-1.30); POTASSIUM 3.5 MMOL/L (3.5-5.1); SODIUM 138 MMOL/L (136-145)
[2018-10-12 08:00] VITALS: BP 128/55
[2018-10-12] MEDS ORDERED: Lisinopril 10mg tab ORAL SCH (09:00)
[2018-10-12] MEDS: Heparin 5000 units/ml inj SUBQ SCH (09:00)
[2018-10-12] MEDS: Pantoprazole Inj IVP SCH (09:12)
--- NOTE | 2018-10-12 11:13 | Pulmonology Progress Note ---
Assessment/Plan Problems: (1) Acute on chronic systolic (congestive) heart failure (2) COPD (chronic obstructive pulmonary disease) (3) Peripheral edema (4) Diabetes mellitus type II, uncontrolled (5) Obesity (6) Hypertension Assessment/Plan still c/o leg pain, Morphine 2 mg IV is helping with the pain, will switch to [place] 5 mg echo reviewed, EF is 20% respiratory treatment adjust cardiac meds. symptomatic treatment monitor BP lisinopril was added by cardiology no cultures available Subjective ROS Limited/Unobtainable: No Constitutional: Reports: no symptoms HEENT: Repors: no symptoms Respiratory: Reports: no symptoms Allergies: Coded Allergies: No Known Allergies (Unverified , 09/02/17) Objective Last 24 Hour Vital Signs Date Time Temp Pulse Resp B/P (MAP) Pulse Ox O2 Delivery O2 Flow Rate FiO2 10/12/18 09:12 128/55 10/12/18 09:00 Room Air Room Air 10/12/18 08:00 98.9 90 16 128/55 (79) 94 10/12/18 08:00 88 10/12/18 04:00 83 10/12/18 04:00 99.2 91 20 137/62 (87) 97 10/12/18 00:00 95 10/12/18 00:00 99.2 83 20 119/56 (77) 96 10/11/18 22:42 128/68 10/11/18 21:00 Room Air Room Air 10/11/18 20:13 85 18 Room Air 21 10/11/18 20:00 82 10/11/18 20:00 98.2 88 20 128/68 (88) 97 10/11/18 16:00 87 10/11/18 16:00 97.5 86 20 128/68 (88) 99 10/11/18 12:00 97.9 84 20 116/53 (74) 99 10/11/18 12:00 86 Intake and Output 10/11/18 10/12/18 19:00 07:00 Intake Total 100 ml Output Total 700 ml 800 ml Balance -700 ml -700 ml Intake Oral 100 ml Output Urine Total 700 ml 800 ml # Bowel Movements 1 General Appearance: WD/WN HEENT: normocephalic Respiratory/Chest: chest wall non-tender, lungs clear Breasts: no masses Cardiovascular: normal peripheral pulses Abdomen: normal bowel sounds, soft, non tender Genitourinary: normal external genitalia Skin: no rash 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 grossly normal Laboratory Tests 10/12/18 05:09: Magnesium Level 1.6L 10/12/18 05:15: White Blood Count 7.3, Red Blood Count 3.80L, Hemoglobin 11.9L, Hematocrit 34.9L , Mean Corpuscular Volume 92, Mean Corpuscular Hemoglobin 31.4H, Mean Corpuscular Hemoglobin Concent 34.2, Red Cell Distribution Width 12.1, Platelet Count 280, Mean Platelet Volume 7.1, Neutrophils (%) (Auto) 55.4, Lymphocytes (% ) (Auto) 32.4, Monocytes (%) (Auto) 9.8, Eosinophils (%) (Auto) 1.8, Basophils ( %) (Auto) 0.7, Sodium Level 138, Potassium Level 3.5, Chloride Level 103, Carbon Dioxide Level 27, Anion Gap 8, Blood Urea Nitrogen 17, Creatinine 1.1, Estimat Glomerular Filtration Rate , Glucose Level 125H, Calcium Level 9.1, Troponin I 0.012 Current Medications Medications (Trade) Dose Ordered Sig/[place] Route PRN Reason Start Time Stop Time Status Last Admin Dose Admin Acetaminophen (Tylenol) 650 mg Q4H PRN ORAL fever (temp>100.5F) 10/10/18 19:45 11/09/18 19:44 Albuterol/ Ipratropium (Albuterol/ Ipratropium) 3 ml Q4H PRN HHN Shortness of Breath 10/10/18 19:45 10/15/18 19:44 Atorvastatin Calcium (Lipitor) 10 mg BEDTIME ORAL 10/11/18 21:00 11/10/18 20:59 10/11/18 22:20 Cephalexin (Keflex) 500 mg Q6HR ORAL 10/11/18 18:00 10/18/18 17:59 10/12/18 05:31 Dextrose (Dextrose 50%) 25 ml Q30M PRN IV Hypoglycemia 10/10/18 19:45 11/09/18 19:44 Dextrose (Dextrose 50%) 50 ml Q30M PRN IV Hypoglycemia 10/10/18 19:45 11/09/18 19:44 Furosemide (Lasix) 40 mg Q8H IV 10/11/18 04:00 11/10/18 03:59 10/12/18 04:49 Heparin Sodium (Porcine) (Heparin 5000 units/ml) 5,000 units EVERY 12 HOURS SUBQ 10/11/18 09:00 11/10/18 08:59 Insulin Aspart (NovoLOG) BEFORE MEALS AND HS SUBQ 10/10/18 22:00 11/09/18 21:59 10/11/18 22:29 Lisinopril (Zestril) 10 mg DAILY ORAL 10/12/18 09:00 11/11/18 08:59 10/12/18 09:12 Magnesium Oxide (Mag-Ox 400mg) 400 mg BID ORAL 10/12/18 18:00 11/11/18 17:59 Morphine Sulfate (Morphine Sulfate) 2 mg Q4H PRN IVP Severe Pain (Pain Scale 7-10) 10/10/18 19:45 10/17/18 19:44 10/11/18 23:55 Ondansetron HCl (Zofran) 4 mg Q6H PRN IVP Nausea & Vomiting 10/10/18 19:45 11/09/18 19:44 Pantoprazole (Protonix) 40 mg DAILY IVP 10/11/18 09:00 11/10/18 08:59 10/12/18 09:12 Polyethylene Glycol (Miralax) 17 gm DAILYPRN PRN ORAL Constipation 10/10/18 19:45 11/09/18 19:44 Temazepam (Restoril) 15 mg HSPRN PRN ORAL Insomnia 10/10/18 19:45 10/17/18 19:44 Jared Borrego MD Oct 12, 2018 11:13
[2018-10-12] MEDS ORDERED: FUROSEMIDE40 MG ORAL (11:20)
[2018-10-12] MEDS ORDERED: LISINOPRIL5 MG ORAL (11:21)
[2018-10-12] MEDS ORDERED: NORCO 5-325 TA1 EACH ORAL (11:21)
--- NOTE | 2018-10-12 11:24 | Internal Med Progress Note ---
Subjective Date of Service: Oct 12, 2018 Physician Name Ever Gonzalez Attending Physician Freddie Simon MD Current Medications Medications (Trade) Dose Ordered Sig/[place] Route PRN Reason Start Time Stop Time Status Last Admin Dose Admin Acetaminophen (Tylenol) 650 mg Q4H PRN ORAL fever (temp>100.5F) 10/10/18 19:45 11/09/18 19:44 Acetaminophen/ Hydrocodone Bitart ([place] 5/325) 1 tab Q6H PRN ORAL For Pain 10/12/18 11:15 10/19/18 11:14 UNV Albuterol/ Ipratropium (Albuterol/ Ipratropium) 3 ml Q4H PRN HHN Shortness of Breath 10/10/18 19:45 10/15/18 19:44 Atorvastatin Calcium (Lipitor) 10 mg BEDTIME ORAL 10/11/18 21:00 11/10/18 20:59 10/11/18 22:20 Cephalexin (Keflex) 500 mg Q6HR ORAL 10/11/18 18:00 10/18/18 17:59 10/12/18 05:31 Dextrose (Dextrose 50%) 25 ml Q30M PRN IV Hypoglycemia 10/10/18 19:45 11/09/18 19:44 Dextrose (Dextrose 50%) 50 ml Q30M PRN IV Hypoglycemia 10/10/18 19:45 11/09/18 19:44 Furosemide (Lasix) 40 mg Q8H IV 10/11/18 04:00 11/10/18 03:59 10/12/18 04:49 Heparin Sodium (Porcine) (Heparin 5000 units/ml) 5,000 units EVERY 12 HOURS SUBQ 10/11/18 09:00 11/10/18 08:59 Insulin Aspart (NovoLOG) BEFORE MEALS AND HS SUBQ 10/10/18 22:00 11/09/18 21:59 10/11/18 22:29 Lisinopril (Zestril) 10 mg DAILY ORAL 10/12/18 09:00 11/11/18 08:59 10/12/18 09:12 Magnesium Oxide (Mag-Ox 400mg) 400 mg BID ORAL 10/12/18 18:00 11/11/18 17:59 Ondansetron HCl (Zofran) 4 mg Q6H PRN IVP Nausea & Vomiting 10/10/18 19:45 11/09/18 19:44 Pantoprazole (Protonix) 40 mg DAILY IVP 10/11/18 09:00 11/10/18 08:59 10/12/18 09:12 Polyethylene Glycol (Miralax) 17 gm DAILYPRN PRN ORAL Constipation 10/10/18 19:45 11/09/18 19:44 Temazepam (Restoril) 15 mg HSPRN PRN ORAL Insomnia 10/10/18 19:45 10/17/18 19:44 Allergies: Coded Allergies: No Known Allergies (Unverified , 09/02/17) ROS Limited/Unobtainable: No Constitutional: Reports: no symptoms HEENT: Reports: no symptoms Cardiovascular: Reports: no symptoms Respiratory: Reports: shortness of breath Gastrointestinal/Abdominal: Reports: no symptoms Genitourinary: Reports: no symptoms Neurologic/Psychiatric: Reports: no symptoms Subjective 82 YO F admitted with shortness of breath and bilat lower ext edema. Now congestive heart failure. Cover for Int Med-Dr Simon Objective Last Vital Signs Date Time Temp Pulse Resp B/P (MAP) Pulse Ox O2 Delivery O2 Flow Rate FiO2 10/12/18 09:12 128/55 10/12/18 09:00 Room Air Room Air 10/12/18 08:00 98.9 90 16 94 10/11/18 20:13 21 Laboratory Tests Test 10/12/18 05:09 10/12/18 05:15 Magnesium Level 1.6 MG/DL (1.8-2.4) L White Blood Count 7.3 K/UL (4.8-10.8) Red Blood Count 3.80 M/UL (4.20-5.40) L Hemoglobin 11.9 G/DL (12.0-16.0) L Hematocrit 34.9 % (37.0-47.0) L Mean Corpuscular Volume 92 FL (80-99) Mean Corpuscular Hemoglobin 31.4 PG (27.0-31.0) H Mean Corpuscular Hemoglobin Concent 34.2 G/DL (32.0-36.0) Red Cell Distribution Width 12.1 % (11.6-14.8) Platelet Count 280 K/UL (150-450) Mean Platelet Volume 7.1 FL (6.5-10.1) Neutrophils (%) (Auto) 55.4 % (45.0-75.0) Lymphocytes (%) (Auto) 32.4 % (20.0-45.0) Monocytes (%) (Auto) 9.8 % (1.0-10.0) Eosinophils (%) (Auto) 1.8 % (0.0-3.0) Basophils (%) (Auto) 0.7 % (0.0-2.0) Sodium Level 138 MMOL/L (136-145) Potassium Level 3.5 MMOL/L (3.5-5.1) Chloride Level 103 MMOL/L (98-107) Carbon Dioxide Level 27 MMOL/L (21-32) Anion Gap 8 mmol/L (5-15) Blood Urea Nitrogen 17 mg/dL (7-18) Creatinine 1.1 MG/DL (0.55-1.30) Estimat Glomerular Filtration Rate mL/min (>60) Glucose Level 125 MG/DL (74-106) H Calcium Level 9.1 MG/DL (8.5-10.1) Troponin I 0.012 ng/mL (0.000-0.056) Intake and Output 10/11/18 10/12/18 19:00 07:00 Intake Total 100 ml Output Total 700 ml 800 ml Balance -700 ml -700 ml Intake Oral 100 ml Output Urine Total 700 ml 800 ml # Bowel Movements 1 Objective PHYSICAL EXAMINATION: GENERAL: The patient is a well-developed and well-nourished, obese female, in no apparent distress. HEENT: Eyes, pupils are equal and responsive to light and accommodation. Extraocular movements are intact. NECK: Supple without lymphadenopathy. CHEST: Lungs are clear to auscultation bilaterally without wheezes or rales. CARDIOVASCULAR: Regular rhythm and rate. S1, S2 normal without murmurs, rubs, or gallops. ABDOMEN: Soft, nontender, and nondistended. Positive bowel sounds. No evidence of hepatosplenomegaly. Currently, no rebound or guarding. EXTREMITIES: 2+ pitting edema to bilateral ankles. Otherwise, without clubbing or cyanosis. RECTAL/GENITAL: Refused. NEUROLOGIC: Cranial nerves II through XII are grossly intact without focal deficits. Motor strength is 5/5 bilaterally. Deep tendon reflexes are 2+ plantar. Assessment/Plan Problem List: (1) HTN (hypertension) Assessment & Plan: Continue lisinopril. (2) Hypercholesterolemia Assessment & Plan: Continue lipitor (3) CHF (congestive heart failure) Assessment & Plan: EF=20%. See cariology note. Continue lasix (4) LBBB (left bundle branch block) (5) Diabetes mellitus type II, uncontrolled Assessment & Plan: Conitnue novolog sliding scale (6) Obesity (7) Edema Assessment/Plan Discharge planning Ever Gonzalez MD Oct 12, 2018 11:24
[2018-10-12] MEDS ORDERED: Norco 5mg/325mg tab ORAL PRN (11:30)
--- NOTE | 2018-10-12 11:56 | Infectious Diseases Prog Note ---
Assessment/Plan Assessment/Plan Abx: Amikacin 10/10- IV Vancomycin 10/10- Ertapenem x1 10/10 Assessment: SOB- 2ry to acute CHF exacerbation- doubt PNA -CXR: No acute process Mild b/l leg celllulitis Afebrile No leukocytosis -u/a neg CHF HTN Dm2 Plan: -Continue PO Keflex #2 for b/l cellulitis -10/11 SP Amikacin and Vancomycin #2 -10/10 SP Ertapenem x1 -f/u cx -Monitor CBC/CMP, temperatures -aspiration precautions -Cards f/u Thank you for this consultation. Will continue to follow along with you. Discussed with RN. Subjective Allergies: Coded Allergies: No Known Allergies (Unverified , 09/02/17) Subjective afebrile no leukocytosis Objective Vital Signs Last 24 Hour Vital Signs Date Time Temp Pulse Resp B/P (MAP) Pulse Ox O2 Delivery O2 Flow Rate FiO2 10/12/18 09:12 128/55 10/12/18 09:00 Room Air Room Air 10/12/18 08:00 98.9 90 16 128/55 (79) 94 10/12/18 08:00 88 10/12/18 04:00 83 10/12/18 04:00 99.2 91 20 137/62 (87) 97 10/12/18 00:00 95 10/12/18 00:00 99.2 83 20 119/56 (77) 96 10/11/18 22:42 128/68 10/11/18 21:00 Room Air Room Air 10/11/18 20:13 85 18 Room Air 21 10/11/18 20:00 82 10/11/18 20:00 98.2 88 20 128/68 (88) 97 10/11/18 16:00 87 10/11/18 16:00 97.5 86 20 128/68 (88) 99 10/11/18 12:00 97.9 84 20 116/53 (74) 99 10/11/18 12:00 86 Height (Feet): 5 Height (Inches): 3.00 Weight (Pounds): 229 Objective General Appearance: WD/WN Lines, tubes and drains: peripheral HEENT: normocephalic, anicteric Neck: non-tender, supple Respiratory/Chest: chest wall non-tender, lungs clear Cardiovascular/Chest: normal peripheral pulses, normal rate Abdomen: normal bowel sounds EXT: b/l +3 edema and mile erythema, warmth and TTP Laboratory Tests Test 10/12/18 05:09 10/12/18 05:15 Magnesium Level 1.6 MG/DL (1.8-2.4) L White Blood Count 7.3 K/UL (4.8-10.8) Red Blood Count 3.80 M/UL (4.20-5.40) L Hemoglobin 11.9 G/DL (12.0-16.0) L Hematocrit 34.9 % (37.0-47.0) L Mean Corpuscular Volume 92 FL (80-99) Mean Corpuscular Hemoglobin 31.4 PG (27.0-31.0) H Mean Corpuscular Hemoglobin Concent 34.2 G/DL (32.0-36.0) Red Cell Distribution Width 12.1 % (11.6-14.8) Platelet Count 280 K/UL (150-450) Mean Platelet Volume 7.1 FL (6.5-10.1) Neutrophils (%) (Auto) 55.4 % (45.0-75.0) Lymphocytes (%) (Auto) 32.4 % (20.0-45.0) Monocytes (%) (Auto) 9.8 % (1.0-10.0) Eosinophils (%) (Auto) 1.8 % (0.0-3.0) Basophils (%) (Auto) 0.7 % (0.0-2.0) Sodium Level 138 MMOL/L (136-145) Potassium Level 3.5 MMOL/L (3.5-5.1) Chloride Level 103 MMOL/L (98-107) Carbon Dioxide Level 27 MMOL/L (21-32) Anion Gap 8 mmol/L (5-15) Blood Urea Nitrogen 17 mg/dL (7-18) Creatinine 1.1 MG/DL (0.55-1.30) Estimat Glomerular Filtration Rate mL/min (>60) Glucose Level 125 MG/DL (74-106) H Calcium Level 9.1 MG/DL (8.5-10.1) Troponin I 0.012 ng/mL (0.000-0.056) Current Medications Medications (Trade) Dose Ordered Sig/[place] Route PRN Reason Start Time Stop Time Status Last Admin Dose Admin Acetaminophen (Tylenol) 650 mg Q4H PRN ORAL fever (temp>100.5F) 10/10/18 19:45 11/09/18 19:44 Acetaminophen/ Hydrocodone Bitart ([place] 5/325) 1 tab Q6H PRN ORAL For Pain 10/12/18 11:30 10/19/18 11:29 Albuterol/ Ipratropium (Albuterol/ Ipratropium) 3 ml Q4H PRN HHN Shortness of Breath 10/10/18 19:45 10/15/18 19:44 Atorvastatin Calcium (Lipitor) 10 mg BEDTIME ORAL 10/11/18 21:00 11/10/18 20:59 10/11/18 22:20 Cephalexin (Keflex) 500 mg Q6HR ORAL 10/11/18 18:00 10/18/18 17:59 10/12/18 11:36 Dextrose (Dextrose 50%) 25 ml Q30M PRN IV Hypoglycemia 10/10/18 19:45 11/09/18 19:44 Dextrose (Dextrose 50%) 50 ml Q30M PRN IV Hypoglycemia 10/10/18 19:45 11/09/18 19:44 Furosemide (Lasix) 40 mg Q8H IV 10/11/18 04:00 11/10/18 03:59 10/12/18 11:36 Heparin Sodium (Porcine) (Heparin 5000 units/ml) 5,000 units EVERY 12 HOURS SUBQ 10/11/18 09:00 11/10/18 08:59 Insulin Aspart (NovoLOG) BEFORE MEALS AND HS SUBQ 10/10/18 22:00 11/09/18 21:59 10/12/18 11:36 Lisinopril (Zestril) 10 mg DAILY ORAL 10/12/18 09:00 11/11/18 08:59 10/12/18 09:12 Magnesium Oxide (Mag-Ox 400mg) 400 mg BID ORAL 10/12/18 18:00 11/11/18 17:59 Ondansetron HCl (Zofran) 4 mg Q6H PRN IVP Nausea & Vomiting 10/10/18 19:45 11/09/18 19:44 Pantoprazole (Protonix) 40 mg DAILY IVP 10/11/18 09:00 11/10/18 08:59 10/12/18 09:12 Polyethylene Glycol (Miralax) 17 gm DAILYPRN PRN ORAL Constipation 10/10/18 19:45 11/09/18 19:44 Temazepam (Restoril) 15 mg HSPRN PRN ORAL Insomnia 10/10/18 19:45 10/17/18 19:44 Soledad Carvajal M.D. Oct 12, 2018 11:56
[2018-10-12 12:00] VITALS: BP 142/71
--- NOTE | 2018-10-12 12:34 | Consultation ---
History of Present Illness General Chief Complaint: Edema Present Illness HPI 82-year-old female with hx of mmp and anxiety, who presents with chief complaint of shortness of breath. the pt is well known to this physician and has anxiety low energy. the pt has cognitive impairment. the pt does not have si/hi. Allergies: Coded Allergies: No Known Allergies (Unverified , 09/02/17) Medication History Scheduled Aspirin Ec* (Aspirin Ec*), 81 MG ORAL DAILY, (Reported) Atorvastatin Calcium* (Lipitor*), 10 MG ORAL BEDTIME Furosemide (Furosemide), 20 MG ORAL DAILY, (Reported) Furosemide* (Lasix*), 40 MG ORAL EVERY 12 HOURS Lisinopril (Lisinopril*), 10 MG ORAL DAILY Metformin Hcl* (Metformin Hcl*), 500 MG ORAL DAILY, (Reported) Metoprolol Succinate* (Metoprolol Succinate*), 25 MG ORAL DAILY Potassium Chloride (Potassium Chloride), 20 MEQ ORAL DAILY, (Reported) Scheduled PRN Hydrocodone Bit/Acetaminophen 5-325* ([place] 5-325*), 1 TAB ORAL Q6H PRN Ibuprofen* (Motrin*), 600 MG ORAL Q6H PRN for For Pain, (Reported) Discontinued Medications Amlodipine Besylate (Norvasc), 5 MG ORAL DAILY, (Reported) Discontinued Reason: Therapy completed Patient History Limited by: medical condition History Provided By: Patient, Medical Record Healthcare decision maker N Resuscitation status Full Code Advanced Directive on File Past Medical/Surgical History Past Medical/Surgical History: (1) Fluid overload (2) Edema (3) Acute on chronic systolic (congestive) heart failure (4) Hypercholesterolemia (5) HTN (hypertension) (6) Peripheral edema (7) COPD (chronic obstructive pulmonary disease) (8) Shortness of breath (9) Diarrhea (10) UTI (urinary tract infection) (11) Abdominal pain (12) Hypertension (13) Acute DVT (deep venous thrombosis) (14) Sinus tachycardia (15) CHF (congestive heart failure) (16) LBBB (left bundle branch block) (17) Obesity (18) Diabetes mellitus type II, uncontrolled Review of Systems Psychiatric: Reports: prior hx, anxiety, emotional problems Physical Exam General Appearance: alert, moderate distress, obese Neurologic: oriented x 3, responsive, depressed affect Last 24 Hour Vital Signs Date Time Temp Pulse Resp B/P (MAP) Pulse Ox O2 Delivery O2 Flow Rate FiO2 10/12/18 12:00 97.5 87 16 142/71 (94) 100 10/12/18 12:00 86 10/12/18 09:12 128/55 10/12/18 09:00 Room Air Room Air 10/12/18 08:00 98.9 90 16 128/55 (79) 94 10/12/18 08:00 88 10/12/18 04:00 83 10/12/18 04:00 99.2 91 20 137/62 (87) 97 10/12/18 00:00 95 10/12/18 00:00 99.2 83 20 119/56 (77) 96 10/11/18 22:42 128/68 10/11/18 21:00 Room Air Room Air 10/11/18 20:13 85 18 Room Air 21 10/11/18 20:00 82 10/11/18 20:00 98.2 88 20 128/68 (88) 97 10/11/18 16:00 87 10/11/18 16:00 97.5 86 20 128/68 (88) 99 Intake and Output 10/11/18 10/12/18 19:00 07:00 Intake Total 100 ml Output Total 700 ml 800 ml Balance -700 ml -700 ml Intake Oral 100 ml Output Urine Total 700 ml 800 ml # Bowel Movements 1 Laboratory Tests Test 10/12/18 05:09 10/12/18 05:15 Magnesium Level 1.6 MG/DL (1.8-2.4) L White Blood Count 7.3 K/UL (4.8-10.8) Red Blood Count 3.80 M/UL (4.20-5.40) L Hemoglobin 11.9 G/DL (12.0-16.0) L Hematocrit 34.9 % (37.0-47.0) L Mean Corpuscular Volume 92 FL (80-99) Mean Corpuscular Hemoglobin 31.4 PG (27.0-31.0) H Mean Corpuscular Hemoglobin Concent 34.2 G/DL (32.0-36.0) Red Cell Distribution Width 12.1 % (11.6-14.8) Platelet Count 280 K/UL (150-450) Mean Platelet Volume 7.1 FL (6.5-10.1) Neutrophils (%) (Auto) 55.4 % (45.0-75.0) Lymphocytes (%) (Auto) 32.4 % (20.0-45.0) Monocytes (%) (Auto) 9.8 % (1.0-10.0) Eosinophils (%) (Auto) 1.8 % (0.0-3.0) Basophils (%) (Auto) 0.7 % (0.0-2.0) Sodium Level 138 MMOL/L (136-145) Potassium Level 3.5 MMOL/L (3.5-5.1) Chloride Level 103 MMOL/L (98-107) Carbon Dioxide Level 27 MMOL/L (21-32) Anion Gap 8 mmol/L (5-15) Blood Urea Nitrogen 17 mg/dL (7-18) Creatinine 1.1 MG/DL (0.55-1.30) Estimat Glomerular Filtration Rate mL/min (>60) Glucose Level 125 MG/DL (74-106) H Calcium Level 9.1 MG/DL (8.5-10.1) Troponin I 0.012 ng/mL (0.000-0.056) Height (Feet): 5 Height (Inches): 3.00 Weight (Pounds): 229 Medications Current Medications Medications (Trade) Dose Ordered Sig/[place] Route PRN Reason Start Time Stop Time Status Last Admin Dose Admin Acetaminophen (Tylenol) 650 mg Q4H PRN ORAL fever (temp>100.5F) 10/10/18 19:45 11/09/18 19:44 Acetaminophen/ Hydrocodone Bitart ([place] 5/325) 1 tab Q6H PRN ORAL For Pain 10/12/18 11:30 10/19/18 11:29 Albuterol/ Ipratropium (Albuterol/ Ipratropium) 3 ml Q4H PRN HHN Shortness of Breath 10/10/18 19:45 10/15/18 19:44 Atorvastatin Calcium (Lipitor) 10 mg BEDTIME ORAL 10/11/18 21:00 11/10/18 20:59 10/11/18 22:20 Cephalexin (Keflex) 500 mg Q6HR ORAL 10/11/18 18:00 10/18/18 17:59 10/12/18 11:36 Dextrose (Dextrose 50%) 25 ml Q30M PRN IV Hypoglycemia 10/10/18 19:45 11/09/18 19:44 Dextrose (Dextrose 50%) 50 ml Q30M PRN IV Hypoglycemia 10/10/18 19:45 11/09/18 19:44 Furosemide (Lasix) 40 mg Q8H IV 10/11/18 04:00 11/10/18 03:59 10/12/18 11:36 Heparin Sodium (Porcine) (Heparin 5000 units/ml) 5,000 units EVERY 12 HOURS SUBQ 10/11/18 09:00 11/10/18 08:59 Insulin Aspart (NovoLOG) BEFORE MEALS AND HS SUBQ 10/10/18 22:00 11/09/18 21:59 10/12/18 11:36 Lisinopril (Zestril) 10 mg DAILY ORAL 10/12/18 09:00 11/11/18 08:59 10/12/18 09:12 Magnesium Oxide (Mag-Ox 400mg) 400 mg BID ORAL 10/12/18 18:00 11/11/18 17:59 Ondansetron HCl (Zofran) 4 mg Q6H PRN IVP Nausea & Vomiting 10/10/18 19:45 11/09/18 19:44 Pantoprazole (Protonix) 40 mg DAILY IVP 10/11/18 09:00 11/10/18 08:59 10/12/18 09:12 Polyethylene Glycol (Miralax) 17 gm DAILYPRN PRN ORAL Constipation 10/10/18 19:45 11/09/18 19:44 Temazepam (Restoril) 15 mg HSPRN PRN ORAL Insomnia 10/10/18 19:45 10/17/18 19:44 Assessment/Plan Problem List: (1) Anxiety disorder ICD Codes: F41.9 - Anxiety disorder, unspecified SNOMED: [id number] Assessment/Plan ativan prn provided ro/Juan Valdivia MD Oct 12, 2018 12:34
[2018-10-12] MEDS ORDERED: LORazepam 1mg tab ORAL PRN (12:45)
[2018-10-12] MEDS ORDERED: Magnesium Oxide 400mg tab ORAL SCH (18:00)
--- NOTE | 2018-10-13 09:12 | Discharge Summary ---
Discharge Summary Discharge Summary _ DATE OF ADMISSION: 10/10/2018 DATE OF DISCHARGE: 10/12/2018 DISCHARGED BY: Dr. Borrego CONSULTANTS: Dr. Jared Leyva BRIEF HOSPITAL COURSE: Patient is an 82-year-old -Citizen Of [place] female, who presented with shortness of breath. Patient was last admitted to [facility] in June 2018. Patient was being followed as an outpatient by Dr. Freddie Simon. She was evaluated and was found to have increasing edema of bilateral lower extremities. She was referred to [place] emergency room to rule out congestive heart failure. She has medical history significant for CHF, type 2 diabetes mellitus, hypertension and morbid obesity. On evaluation at the ED, blood pressure was elevated to 210/109. Blood work did not show any leukocytosis, hemoglobin 13, hematocrit 39. Troponin was negative. BNP was elevated at 909. Chest x-ray showed mild pulmonary congestion. She was given Lasix. She was admitted for evaluation of shortness of breath/congestive heart failure. She underwent cardiac evaluation. Echocardiogram showed ejection fraction of 20 % with diastolic relaxation abnormalities, moderate mitral ejection station and pulmonary systolic pressure of 40. She was started on MARIANO inhibitor lisinopril for afterload reduction. She was continued on Lipitor. She was complaining of leg pain. She was given pain management. She was given respiratory treatment. Patient has disorder and was given Ativan. She was given IV amikacin and vancomycin for bilateral lower extremity cellulitis. She was seen by infectious disease specialist. IV antibiotics were discontinued and was given Keflex. She was eventually cleared for discharge home. FINAL DIAGNOSES: Acute on chronic systolic congestive heart failure exacerbation Mild bilateral leg cellulitis Shortness of breath secondary to acute CHF exacerbation Hypertension Diabetes mellitus Hyperlipidemia Morbid obesity Leg edema Left bundle branch block Cardiomyopathy Anxiety disorder DISPOSITION: Patient was discharged home. DISCHARGE MEDICATIONS: Refer to Discharge Medication List. DISCHARGE INSTRUCTIONS: Follow-up with Dr. Simon in a week. I have been assigned to dictate discharge summary on this account, and I was not involved in the patient's management. Abby Saunders NP Oct 13, 2018 09:12
== END 2018-10-12 14:50 | disposition home or self-care (01) | DRG 292 ==
LOC: EMR 18:57 → 2E 19:30 → EDBEDREQ 21:14
DX: I11.0 Hypertensive heart disease with heart failure (principal); L03.116 Cellulitis of left lower limb; L03.115 Cellulitis of right lower limb; Z68.41 Body mass index [BMI] 40.0-44.9, adult; I50.23 Acute on chronic systolic (congestive) heart failure; J44.9 Chronic obstructive pulmonary disease, unspecified; E11.65 Type 2 diabetes mellitus with hyperglycemia; I44.7 Left bundle-branch block, unspecified; E66.9 Obesity, unspecified; Z79.84 Long term (current) use of oral hypoglycemic drugs; Z79.82 Long term (current) use of aspirin; E66.01 Morbid (severe) obesity due to excess calories; E78.5 Hyperlipidemia, unspecified; I42.9 Cardiomyopathy, unspecified; F41.9 Anxiety disorder, unspecified; Z86.718 Personal history of other venous thrombosis and embolism
CPT/HCPCS: 36415; 71045; 80048; 80053; 81003; 82248; 82550; 82553; 82962; 83690; 83735; 83880; 84484; 85025; 93005; 93306; 93970; 94664; 96374; 96375; 99285; J1815